=== PATIENT | male | born 1950 | race Caucasian/White ===

== ENCOUNTER → 2016-04-29 | Outpatient (CLI) | payer OTHER ==
--- NOTE | 2016-04-29 15:25 | MR ---
MRCP HISTORY: Abnormal ultrasound abdomen Multiplanar multisequence imaging through the abdomen, three-dimensional post processing performed Correlation ultrasound abdomen 23 October 2013, ultrasound March 2016 from outside institution Gallbladder is distended. Luminal foci of dependent low signal present within the gallbladder compati ble with cholelithiasis. Cystic foci are present within the liver, liver is enlarged. The liver shows a nodular contour and heterogeneous signal compatible with hepatocellular disease. There is ascites. The common bile duct is mildly dilated. No definite luminal abnormality within the common bile duct h owever. Large amount of fluid-filled small bowel loops are present IMPRESSION: Findings compatible with cirrhosis, lack of contrast may limit sensitivity for liver mass . There are liver cysts noted. Cholelithiasis with distended gallbladder, mildly prominent common jose e duct, choledocholithiasis is not evident. Findings are compatible with ultrasound findings.
== END | disposition home or self-care (01) ==
LOC: RADMRIMAIN 10:21
PROVIDERS: ATTEND Physician Assistant
DX: K76.89 Other specified diseases of liver (principal); K80.20 Calculus of gallbladder without cholecystitis without obstruction
CPT/HCPCS: 74181

== ENCOUNTER 2016-06-12 10:40 | Inpatient (IN) | payer OTHER ==
[2016-06-12] MEDS ORDERED: LORazepam 2 MG/ML SYRINGE IV STA (11:07)
[2016-06-12] MEDS ORDERED: SODIUM CHLORIDE 0.9% 1,000 ML IV ONE (11:07)
[2016-06-12] MEDS ORDERED: SODIUM CHLORIDE 0.9% 500 ML IV ONE (11:07)
[2016-06-12] MEDS ORDERED: THIAMINE 100 MG/ML 2 ML VIAL IVP STA (11:07)
[2016-06-12] MEDS ORDERED: THIAMINE 100 MG/ML 2 ML VIAL IM STA (11:09)
[2016-06-12] MEDS ORDERED: LORazepam 2 MG/ML SYRINGE IV PRN ×3 (11:09→14:17)
[2016-06-12] MEDS ORDERED: FOLIC ACID 5 MG/ML 10 ML VIAL IM STA (11:10)
--- NOTE | 2016-06-12 11:14 | ED ---
Altered Mental Status HPI - General Chief Complaint: Altered Mental Status Stated Complaint: Altered Mental Status Time Seen by Provider: 06/12/16 10:53 Source: family Mode of arrival: EMS Limitations: altered mental status - History of Present Illness Initial Comments: 66 years old gentleman has a history of alcohol use according to his 2 children he drinks quite heavily and has been drinking that for long time he hasn't had any alcohol for 2 days because he was very sick he was unable to get up and go get some alcohol also his family said he been throwing up coffee grounds and he has some blood in his stool as well. According to his family he went to [facility] or the day before yesterday and he was told that he had antibiotics then he left the hospital AGAINST MEDICAL ADVICE. Patient is quite confused and he is tossing and turning in the bed he partially follows the commands - Related Data Home Medications Medication Instructions Recorded Confirmed Aspirin [Adult Low Dose Aspirin EC] 81 mg PO DAILY 06/12/16 06/12/16 Multivitamins, Thera [Multivitamin 1 tab PO DAILY 06/12/16 06/12/16 (formulary)] Pantoprazole [Protonix] 40 mg PO [id number] 06/12/16 06/12/16 Thiamine [Vitamin B-1] 100 mg PO DAILY 06/12/16 06/12/16 Allergies Allergy/AdvReac Type Severity Reaction Status Date / Time No Known Allergies Allergy Verified 06/12/16 12:16 Review of Systems ROS Statement: Those systems with pertinent positive or pertinent negative responses have been documented in the HPI. ROS Other: All systems not noted in ROS Statement are negative. Past Medical History Past Medical History: No Reported History History of Any Multi-Drug Resistant Organisms: None Reported Past Surgical History: No Surgical Hx Reported Additional Past Surgical History / Comment(s): REMOVAL SEBACEOUS SCROTAL SEBACEOUS CYST SEVERAL TIMES; CATARACT SURGERY BILATERAL Past Psychological History: No Psychological Hx Reported Smoking Status: Current every day smoker Past Alcohol Use History: Occasional Past Drug Use History: None Reported General Exam Limitations: altered mental status Course Vital Signs 06/12/16 06/12/16 06/12/16 10:44 12:00 13:33 Temperature 97.3 F L 97.0 F L Pulse Rate 102 H 103 H 110 H Respiratory 20 18 20 Rate Blood Pressure 129/60 126/59 120/58 O2 Sat by Pulse 100 96 100 Oximetry This EKG shows sinus tachycardia ventricular rate is 1 or 3 TX interval is 134 QRS duration is 88 QT/QTc is 390/5 Review of this EKG showed some T-wave inversion in lead 3. Inversion in aVF and now ST depression in lead V6 Medical Decision Making - Lab Data Result diagrams: 06/12/16 12:00 06/12/16 11:00 Lab Results 06/12/16 06/12/16 06/12/16 Range/Units 11:00 11:00 11:00 WBC 11.8 H (3.8-10.6) k/uL RBC 1.56 L (4.30-5.90) m/uL Hgb 4.7 L* (13.0-17.5) gm/dL Hct 14.5 L* (39.0-53.0) % MCV 93.5 (80.0-100.0) fL MCH 30.1 (25.0-35.0) pg MCHC 32.2 (31.0-37.0) g/dL RDW 15.8 H (11.5-15.5) % Plt Count 79 L (150-450) k/uL Neutrophils % 82 % Lymphocytes % 10 % Monocytes % 5 % Eosinophils % 0 % Basophils % 0 % Neutrophils # 9.7 H (1.3-7.7) k/uL Lymphocytes # 1.2 (1.0-4.8) k/uL Monocytes # 0.6 (0-1.0) k/uL Eosinophils # 0.0 (0-0.7) k/uL Basophils # 0.0 (0-0.2) k/uL PT (9.0-12.0) sec INR (<1.1) APTT (22.0-30.0) sec Sodium 144 (137-145) mmol/L Potassium 3.9 (3.5-5.1) mmol/L Chloride 107 (98-107) mmol/L Carbon Dioxide 26 (22-30) mmol/L Anion Gap 11 mmol/L BUN 47 H (9-20) mg/dL Creatinine 0.81 (0.66-1.25) mg/dL Est GFR (MDRD) Af Amer >60 (>60 ml/min/1.73 sqM) Est GFR (MDRD) Non-Af >60 (>60 ml/min/1.73 sqM) Glucose 133 H (74-99) mg/dL Calcium 8.2 L (8.4-10.2) mg/dL Total Bilirubin 2.1 H (0.2-1.3) mg/dL AST 75 H (17-59) U/L ALT 48 (21-72) U/L Alkaline Phosphatase 82 (38-126) U/L Ammonia (<30) umol/L Total Creatine Kinase 143 (55-170) U/L CK-MB (CK-2) 0.3 (0.0-2.4) ng/mL CK-MB (CK-2) Rel Index 0.2 Troponin I 0.013 (0.000-0.034) ng/mL Total Protein 6.1 L (6.3-8.2) g/dL Albumin 2.7 L (3.5-5.0) g/dL Stool Occult Blood (Negative) Serum Alcohol <10 mg/dL 06/12/16 06/12/16 06/12/16 Range/Units 11:00 11:00 12:00 WBC 13.1 H (3.8-10.6) k/uL RBC 2.05 L (4.30-5.90) m/uL Hgb 6.1 L* (13.0-17.5) gm/dL Hct 19.4 L* (39.0-53.0) % MCV 94.8 (80.0-100.0) fL MCH 29.6 (25.0-35.0) pg MCHC 31.2 (31.0-37.0) g/dL RDW 15.5 (11.5-15.5) % Plt Count 157 D (150-450) k/uL Neutrophils % % Lymphocytes % % Monocytes % % Eosinophils % % Basophils % % Neutrophils # (1.3-7.7) k/uL Lymphocytes # (1.0-4.8) k/uL Monocytes # (0-1.0) k/uL Eosinophils # (0-0.7) k/uL Basophils # (0-0.2) k/uL PT 21.6 H (9.0-12.0) sec INR 2.2 (<1.1) APTT 20.8 L (22.0-30.0) sec Sodium (137-145) mmol/L Potassium (3.5-5.1) mmol/L Chloride (98-107) mmol/L Carbon Dioxide (22-30) mmol/L Anion Gap mmol/L BUN (9-20) mg/dL Creatinine (0.66-1.25) mg/dL Est GFR (MDRD) Af Amer (>60 ml/min/1.73 sqM) Est GFR (MDRD) Non-Af (>60 ml/min/1.73 sqM) Glucose (74-99) mg/dL Calcium (8.4-10.2) mg/dL Total Bilirubin (0.2-1.3) mg/dL AST (17-59) U/L ALT (21-72) U/L Alkaline Phosphatase (38-126) U/L Ammonia 142 H (<30) umol/L Total Creatine Kinase (55-170) U/L CK-MB (CK-2) (0.0-2.4) ng/mL CK-MB (CK-2) Rel Index Troponin I (0.000-0.034) ng/mL Total Protein (6.3-8.2) g/dL Albumin (3.5-5.0) g/dL Stool Occult Blood (Negative) Serum Alcohol mg/dL 06/12/16 Range/Units 12:30 WBC (3.8-10.6) k/uL RBC (4.30-5.90) m/uL Hgb (13.0-17.5) gm/dL Hct (39.0-53.0) % MCV (80.0-100.0) fL MCH (25.0-35.0) pg MCHC (31.0-37.0) g/dL RDW (11.5-15.5) % Plt Count (150-450) k/uL Neutrophils % % Lymphocytes % % Monocytes % % Eosinophils % % Basophils % % Neutrophils # (1.3-7.7) k/uL Lymphocytes # (1.0-4.8) k/uL Monocytes # (0-1.0) k/uL Eosinophils # (0-0.7) k/uL Basophils # (0-0.2) k/uL PT (9.0-12.0) sec INR (<1.1) APTT (22.0-30.0) sec Sodium (137-145) mmol/L Potassium (3.5-5.1) mmol/L Chloride (98-107) mmol/L Carbon Dioxide (22-30) mmol/L Anion Gap mmol/L BUN (9-20) mg/dL Creatinine (0.66-1.25) mg/dL Est GFR (MDRD) Af Amer (>60 ml/min/1.73 sqM) Est GFR (MDRD) Non-Af (>60 ml/min/1.73 sqM) Glucose (74-99) mg/dL Calcium (8.4-10.2) mg/dL Total Bilirubin (0.2-1.3) mg/dL AST (17-59) U/L ALT (21-72) U/L Alkaline Phosphatase (38-126) U/L Ammonia (<30) umol/L Total Creatine Kinase (55-170) U/L CK-MB (CK-2) (0.0-2.4) ng/mL CK-MB (CK-2) Rel Index Troponin I (0.000-0.034) ng/mL Total Protein (6.3-8.2) g/dL Albumin (3.5-5.0) g/dL Stool Occult Blood Positive (Negative) Serum Alcohol mg/dL Critical Care Time Total Critical Care Time: 60 Critical Care Time: She came in now quite altered mental status sink turning in the bed with a heart rate of 110 and 15 he hasn't had any alcohol for the last 2 days and half he does drink approximately three fourths of a case every day family seen him mom throwing up blood as well as black tarry stool in his rectal exam was positive as well his hemoglobin is 6.1 INR is 2.2 and he is not on a Coumadin and his troponin is negative, blood was positive chest x-rays negative and so a head CT he needed to come in to ICU for active bleeding as well as for very high risk of DTs was probably Dr. Duke myself ordered type and cross and now 2 units of packed cells to be transferred along with the proton aches and he been getting he been getting Ativan pretty frequently and had activated the withdrawal PROTOCOL Disposition Clinical Impression: Altered mental status, Symptomatic anemia, Rectal bleed, Alcohol withdrawal Disposition: ADMITTED IP TO THIS HOSP Condition: Fair Referrals: Bryce Dorman DO [Primary Care Provider] - 1-2 days
[2016-06-12 11:33] LABS: Basophils % (A) 0 %; CH 29.4; CHCM 31.7; Eosinophils % (A) 0 %; HDW 2.48; Luc # (Auto) 0.24; Luc % (Auto) 2; Lymphocytes # (A) 1.2 k/uL (1.0-4.8); Lymphocytes % (A) 10 %; MCH 30.1 pg (25.0-35.0); MCHC 32.2 g/dL (31.0-37.0); MCV 93.5 fL (80.0-100.0); Mean Platelet Volume 7.7; Monocytes # (A) 0.6 k/uL (0-1.0); Monocytes % (A) 5 %; Neutrophils # (A) 9.7 k/uL (1.3-7.7); Neutrophils % (A) 82 %; RBC 1.56 m/uL (4.30-5.90); RDW 15.8 % (11.5-15.5); WBC 11.8 k/uL (3.8-10.6); WBC (Perox) 12.04
[2016-06-12 11:41] LABS: HGB 4.7 gm/dL (13.0-17.5)
[2016-06-12 11:42] LABS: ALT 48 U/L (21-72); AST 75 U/L (17-59); Alcohol <10 mg/dL; Alkaline Phosphatase 82 U/L (38-126); Anion Gap 11 mmol/L; Blood Urea Nitrogen 47 mg/dL (9-20); Calcium 8.2 mg/dL (8.4-10.2); Carbon Dioxide 26 mmol/L (22-30); Chloride 107 mmol/L (98-107); Glucose 133 mg/dL (74-99); HCT 14.5 % (39.0-53.0); Non-African American GFR(MDRD) >60 (>60 ml/min/1.73 sqM); Potassium 3.9 mmol/L (3.5-5.1); Sodium 144 mmol/L (137-145); Total Bilirubin 2.1 mg/dL (0.2-1.3); Total Protein 6.1 g/dL (6.3-8.2)
[2016-06-12 11:45] LABS: INR 2.2 (<1.1); Prothrombin Time 21.6 sec (9.0-12.0)
--- NOTE | 2016-06-12 11:49 | XR ---
EXAMINATION TYPE: XR chest 2V DATE OF EXAM: 06/12/2016 11:43 AM COMPARISON: None HISTORY: 66 year-old male altered mental status, nonresponsive. TECHNIQUE: Frontal and lateral views FINDINGS: Heart is upper limits of normal in size. Mild interstitial prominence has a chronic appearance. Pulmo nary vasculature within normal limits. No consolidation or pleural effusion. IMPRESSION: Chronic-appearing changes. No focal infiltrate seen.
[2016-06-12 11:54] LABS: Partial Thromboplastin Time 20.8 sec (22.0-30.0)
[2016-06-12 12:13] LABS: CHCM 31.9; MCH 29.6 pg (25.0-35.0); MCHC 31.2 g/dL (31.0-37.0); MCV 94.8 fL (80.0-100.0); RBC 2.05 m/uL (4.30-5.90); RDW 15.5 % (11.5-15.5); WBC 13.1 k/uL (3.8-10.6)
[2016-06-12 12:14] LABS: HDW 2.41; Mean Platelet Volume 7.7
[2016-06-12 12:20] LABS: HCT 19.4 % (39.0-53.0); HGB 6.1 gm/dL (13.0-17.5)
--- NOTE | 2016-06-12 12:21 | CT ---
EXAMINATION TYPE: CT brain wo con DATE OF EXAM: 06/12/2016 11:51 AM COMPARISON: NONE HISTORY: 66-year-old male ams, unable to obtain history. TECHNIQUE: Examination was done in axial plane without intravenous contrast. Coronal and sagittal r econstructions performed. CT DLP: 1036.0 mGycm Automated exposure control for dose reduction was used. FINDINGS: There is no evidence of acute intracranial hemorrhage, acute ischemic changes, mass, mass-effect, or extra-axial fluid collection. There is no effacement of cerebral sulci or basal subarachnoid cister ns. There is no hydrocephalus. There is no midline shift. Grant-white matter distinction is preserv ed. There is a mild to moderate patchy white matter hypodensities which is in the right parietal lobe emily p white matter congesting cardiac small vessel ischemic disease. Some frothy partial opacification in the left maxillary sinus. Mastoid air cells well pneumatized. Or bits and globes are intact. Patient's gaze is divergent suggesting underlying strabismus. IMPRESSION: 1. No acute intracranial abnormality seen. Mild changes of chronic small vessel ischemic disease. 2. Some opacification of the left maxillary sinus; correlate for acute sinusitis.
[2016-06-12 12:26] LABS: Creatine Kinase MB 0.3 ng/mL (0.0-2.4); Troponin I 0.013 ng/mL (0.000-0.034)
[2016-06-12] MEDS ORDERED: SODIUM CHLORIDE 0.9% 1,000 ML with MVI, ADULT NO.4 WITH VIT K 10 ML, THIAMINE 100 MG, F... IV ONE ×4 (12:30)
[2016-06-12] MEDS ORDERED: IPRATROPIUM-ALBUTEROL 3 ML NEB INHALATION PRN (14:11)
[2016-06-12] MEDS ORDERED: NALOXONE 0.4 MG/ML 1 ML VIAL IV PRN (14:11)
[2016-06-12] MEDS ORDERED: DEXTROSE 5%-0.9% NACL 1,000 ML IV SCH (14:30)
[2016-06-12 16:11] LABS: Glucose,Whole Blood 146 mg/dL (75-99)
[2016-06-12] MEDS ORDERED: THIAMINE 100 MG TAB PO SCH (17:00)
[2016-06-12 18:30] LABS: Appearance,Urine Clear (Clear); Bilirubin,Urine Negative (Negative); Glucose,Urine (UA) Negative (Negative); Ketones,Urine Negative (Negative); Leukocyte Esterase,Urine Negative (Negative); Nitrite,Urine Negative (Negative); PH, Urine 5.5 (5.0-8.0); Protein,Urine Negative (Negative); Specific Gravity,Urine 1.015 (1.001-1.035); UA Billing (MACRO vs. MICRO) CHEM; Urobilinogen,Urine <2.0 mg/dL (<2.0)
[2016-06-12] MEDS ORDERED: PROPOFOL 50 ML IV ONE (20:23)
[2016-06-12] MEDS: PROPOFOL 500 MG in EMPTY BAG 1 BAG IV SCH (20:45)
--- NOTE | 2016-06-12 20:59 | XR ---
EXAMINATION TYPE: XR chest 1V portable DATE OF EXAM: 06/12/2016 8:45 PM Comparison: Earlier today Clinical History: 66 year-old male tube placement Findings: ET tube is satisfactory. NG tube courses below the diaphragm. Heart is normal size. Aorta and pulmona ry vasculature are within normal limits. Mild interstitial prominence is unchanged and likely chronic . No consolidation or pleural effusion seen. Impression: 1. Satisfactory ET tube. 2. Otherwise, chronic appearing changes without acute process seen.
[2016-06-12 21:40] LABS: ABG Base Excess -3.6 mmol/L; ABG HCO3 20 mmol/L (21-25); ABG PCO2 31 mmHg (35-45); ABG PH 7.43 (7.35-7.45); ABG PO2 291 mmHg (83-108); ABG TCO2 21 mmol/L (19-24)
[2016-06-12] MEDS ORDERED: 0.9% NACL WITH KCL 20 MEQ/L 1,000 ML with MVI, ADULT NO.4 WITH VIT K 10 ML, THIAMINE 10... IV SCH ×4 (23:00)
[2016-06-13] MEDS: LEVOFLOXACIN 500MG-D5W PMX 500 MG in DEXTROSE/WATER 1 100ML.BAG IVPB SCH ×2 (00:03→20:17)
[2016-06-13] MEDS: PANTOPRAZOLE 40 MG/10 ML VIAL IVP SCH ×3 (00:04→20:18)
[2016-06-13] MEDS: NICOTINE 14MG/24HR PATCH TRANSDERM SCH ×2 (00:07→08:17)
[2016-06-13] MEDS: methylPREDNISolone SOD SUCCI 125 MG/2 ML VIAL IV SCH ×5 (00:39→23:57)
[2016-06-13 00:40] LABS: Glucose,Whole Blood 166 mg/dL (75-99)
[2016-06-13] MEDS: INSULIN LISPRO (humaLOG) 300 UNIT/3 ML VIAL SQ SCH ×5 (00:42→23:58)
[2016-06-13 01:40] LABS: Anisocytosis Slight; CH 29.7; CHCM 32.1; HCT 24.1 % (39.0-53.0); HDW 3.02; Hypochromasia Slight; MCH 30.1 pg (25.0-35.0); MCHC 32.2 g/dL (31.0-37.0); MCV 93.4 fL (80.0-100.0); Mean Platelet Volume 7.2; RBC 2.58 m/uL (4.30-5.90); RDW 16.4 % (11.5-15.5)
[2016-06-13 01:48] LABS: WBC 27.9 k/uL (3.8-10.6)
[2016-06-13 01:49] LABS: HGB 7.7 gm/dL (13.0-17.5)
[2016-06-13] MEDS: PROPOFOL 500 MG in EMPTY BAG 1 BAG IV SCH ×3 (03:16→22:08)
[2016-06-13 04:59] LABS: Anisocytosis Slight; Basophils % (A) 0 %; CH 29.7; CHCM 31.9; Eosinophils % (A) 0 %; HCT 25.2 % (39.0-53.0); HDW 3.04; Hypochromasia Slight; Luc # (Auto) 0.14; Luc % (Auto) 1; Lymphocytes # (A) 0.4 k/uL (1.0-4.8); Lymphocytes % (A) 2 %; MCH 29.7 pg (25.0-35.0); MCHC 31.5 g/dL (31.0-37.0); Mean Platelet Volume 7.1; Monocytes # (A) 0.7 k/uL (0-1.0); Monocytes % (A) 3 %; Neutrophils # (A) 24.6 k/uL (1.3-7.7); Neutrophils % (A) 95 %; RBC 2.68 m/uL (4.30-5.90); RDW 16.4 % (11.5-15.5); WBC (Perox) 26.82
[2016-06-13 05:06] LABS: ALT 63 U/L (21-72); AST 98 U/L (17-59); Alkaline Phosphatase 75 U/L (38-126); Anion Gap 11 mmol/L; Blood Urea Nitrogen 55 mg/dL (9-20); Calcium 7.6 mg/dL (8.4-10.2); Carbon Dioxide 21 mmol/L (22-30); Chloride 113 mmol/L (98-107); Glucose 149 mg/dL (74-99); Magnesium 2.2 mg/dL (1.6-2.3); Non-African American GFR(MDRD) 56 (>60 ml/min/1.73 sqM); Phosphorous 3.8 mg/dL (2.5-4.5); Potassium 3.7 mmol/L (3.5-5.1); Sodium 145 mmol/L (137-145); Total Bilirubin 2.8 mg/dL (0.2-1.3); Total Protein 5.5 g/dL (6.3-8.2)
[2016-06-13 05:17] LABS: WBC 25.9 k/uL (3.8-10.6)
[2016-06-13 05:39] LABS: ABG Base Excess -1.2 mmol/L; ABG HCO3 22 mmol/L (21-25); ABG PCO2 33 mmHg (35-45); ABG PH 7.44 (7.35-7.45); ABG PO2 158 mmHg (83-108); ABG TCO2 23 mmol/L (19-24)
[2016-06-13 06:30] LABS: Glucose,Whole Blood 166 mg/dL (75-99)
--- NOTE | 2016-06-13 07:15 | XR ---
EXAMINATION TYPE: XR chest 1V portable DATE OF EXAM: 06/13/2016 6:36 AM Comparison: 06/12/2016 Clinical History: 66-year-old male with tube placement. Findings: ET tube is satisfactory. NG tube courses below the diaphragm. The NG tube sidehole is at the level of the GE junction and advancement can be considered. Heart is normal size. There is mild interstitial prominence which is a chronic appearance. No sylwia consolidation or pleural effusion. Impression: Chronic changes with satisfactory ET tube. As the NG tube sidehole is at the level of the GE junction , consider further advancement into the stomach. No acute process is identified.
[2016-06-13] MEDS: BUDESONIDE 1 MG/2 ML NEBU INHALATION SCH ×2 (08:10→20:25)
[2016-06-13] MEDS: FORMOTEROL FUMARATE 20 MCG/2 ML NEBU INHALATION SCH ×2 (08:10→20:25)
[2016-06-13] MEDS: IPRATROPIUM 0.5 MG/2.5 ML NEBU INHALATION SCH ×4 (08:11→20:26)
[2016-06-13] MEDS: LEVALBUTEROL NEB (CONC) 1.25 MG/0.5 ML AMP INHALATION SCH ×4 (08:11→20:25)
[2016-06-13] MEDS: POTASSIUM CHLORIDE 10 MEQ, LIDOCAINE 2% INJ 10 MG in SODIUM CHLORIDE 0.9% 100 ML IV SCH ×2 (08:17→10:36)
[2016-06-13] MEDS: THIAMINE 100 MG/ML 2 ML VIAL IVP SCH (08:18)
[2016-06-13] MEDS: CHLORHEXIDINE GLUCONATE 15 ML CUP MUCOUS MEM SCH ×2 (08:30→20:17)
[2016-06-13] MEDS ORDERED: PANTOPRAZOLE 40 MG/10 ML VIAL IV SCH (09:00)
[2016-06-13] MEDS ORDERED: PHYTONADIONE 5 MG in SODIUM CHLORIDE 0.9% 50 ML IVPB STA (09:53)
[2016-06-13] MEDS ORDERED: SODIUM CHLORIDE 0.9% 1,000 ML with POTASSIUM CHLORIDE 20 MEQ, MVI, ADULT NO.4 WITH VIT ... IV SCH ×5 (10:30)
[2016-06-13 12:27] LABS: Glucose,Whole Blood 168 mg/dL (75-99)
--- NOTE | 2016-06-13 12:39 | HP ---
DATE OF ADMISSION: 06/12/2016 CHIEF COMPLAINT: Change in mental status. HISTORY OF PRESENT ILLNESS: This 66-year-old gentleman with a past medical history of multiple medical problems, including significant ETOH, history of sebaceous cyst, history of blood transfusion, history of nicotine dependence being followed by Dr. Dorman, apparently drinks heavily, drains about 8 to 12 22 ounce beers according to the chart. Followed by a double shot of liquor in the morning to stop the shaking. The patient apparently presented to [facility] ER with complaints of change in mental status and thought to have alcohol withdrawal syndrome and delirium tremens. The patient also had coffee-ground vomitus and then the patient apparently went to the [facility] today and was put on antibiotics and left the hospital against medical advice. The patient was admitted for further evaluation and treatment. On admission, the hemoglobin was found to be 4.7. The patient admitted to the hospital. Subsequently, the patient went into respiratory distress and the patient had acute respiratory failure and the patient mechanically intubated. The patient being monitored in the ICU at this time. The patient unable to give any coherent history and most of the history taken from my discussion with and as well as review of the chart at this time. PAST MEDICAL HISTORY: History of ETOH, history of sebaceous cyst, history of nicotine dependence. Medications prior to admission include: 1. Thiamine 100 mg daily. 2. Protonix 40 mg. 3. Multivitamin 1 p.o. daily. 4. Aspirin 81 mg daily. ALLERGIES: None. FAMILY HISTORY, SOCIAL HISTORY AND REVIEW OF SYSTEMS: Could not be taken because the patient is mechanically ventilated and sedated. Myocardial infarction in the family. History of smoking and significant alcohol as mentioned earlier. PHYSICAL EXAMINATION: The patient is mechanically sedated. The vent settings are noted. Pulse 120, blood pressure is 167/70, respirations 30. Temperature 98.8, pulse ox 91% on 100% FIO2. HEENT: Conjunctivae pale. Oral mucosa pale. NECK: No jugular venous distention. No thyroid enlargement. No lymph node enlargement. CARDIOVASCULAR: S1, S2 tachycardic. No S3, no S4. RESPIRATORY: Breath sounds diminished at the bases. Bilateral scattered rhonchi and crackles. ABDOMEN: Soft, nontender. No mass palpable. LEGS: No edema. No swelling. CENTRAL NERVOUS SYSTEM: Emaciated. Mechanically sedated. SKIN: No ulcer, rash or bleeding. LYMPHATICS: No lymph nodes palpable in the neck, axillae or groin. JOINTS: No active deforming arthropathy. LABORATORY DATA: WBC 13.4, Hemoglobin 6.1, glucose 133. Total bilirubin is 2.1. AST 75, albumin is 2.7. The chest x-ray done on admission showed . No focal infiltrate. Otherwise, most recent chest x-ray post intubation the most recent showed chest x-ray showed increased bronchovascular markings. ASSESSMENT: 1. Chronic obstructive pulmonary disease, acute exacerbation, with acute purulent tracheobronchitis with acute hypoxic respiratory failure on mechanical ventilation. 2. Anemia, normocytic rule out GI bleed with hematemesis. 3. Increased WBC, possibly reactive. 4. Thrombocytopenia possibly secondary to alcohol. 5. History of ETOH and possibly delirium tremens. 6. Coagulopathy possibly secondary to chronic liver disease. 7. Alcoholic hepatitis. 8. Increased bilirubin. 9. Increased AST. 10. Increased random blood sugar. 11. Hypovolemia with mild to moderate protein calorie malnutrition. 12. Possible chronic liver disease and cirrhosis of the liver. 13. History of acute gastrointestinal bleed and acute blood loss anemia. 14. Severe protein calorie malnutrition with a BMI of 19.3. 15. History of nicotine dependence. 16. FULL CODE. 17. History of noncompliance. RECOMMENDATIONS AND DISCUSSION: In this is 66-year-old gentleman who presented with multiple complex medical issues as listed above. We will monitor the patient closely in the ICU. Otherwise, obtain pulmonary critical care consultation as well as gastroenterology consultations. I would recommend bronchodilators transfusions. Monitor hemoglobin and hematocrit closely, proton pump inhibitors. Guarded prognosis because of multiple complex medical issues. Further recommendations to follow. A copy of dictation forwarded to Dr. Dorman who is the primary physician. ANALISA
[2016-06-13] MEDS: 1: MVI, ADULT NO.4 WITH VIT K 10 ML, THIAMINE 100 MG, FOLIC ACID 1 MG, POTASSIUM CHLORID IV SCH ×10 (12:49→22:09)
[2016-06-13] MEDS ORDERED: SODIUM CHLORIDE 0.9% 1,000 ML BAG ONE (12:49)
[2016-06-13 13:04] LABS: Anisocytosis Slight; CH 29.5; CHCM 31.5; HCT 27.3 % (39.0-53.0); HDW 3.12; HGB 8.4 gm/dL (13.0-17.5); Hypochromasia Slight; MCH 29.1 pg (25.0-35.0); MCHC 30.8 g/dL (31.0-37.0); MCV 94.5 fL (80.0-100.0); Mean Platelet Volume 7.4; RBC 2.89 m/uL (4.30-5.90); RDW 16.8 % (11.5-15.5); WBC 24.8 k/uL (3.8-10.6)
--- NOTE | 2016-06-13 13:40 | CONS ---
DATE OF CONSULTATION: Mr. Florencio Zamudio is a 66-year-old with extensive history of alcohol consumption on a daily basis ( ) in the morning. Patient was brought into the emergency department by the family as he is relatively more lethargic and somnolent. He has been having dark stool and having hematemesis. With those problems, patient was evaluated, found to have a low hemoglobin was admitted to the ICU. Patient gradually became more short of breath hypoxic becomes more anxious, agitated, GI services felt that patient needs to be monitored and observed at this point in time. Due to progressive hypoxia and high risk of aspiration, patient was intubated for airway protection. Most of the data has been on obtained from the chart as patient is an extremely poor historian and history cannot be obtained from the patient. Past medical history is significant for chronic alcohol use and heavy consumption complexity and sequelae of alcohol consumption is not known. Patient also has a history of prior bleeding for which the patient was taken to the [facility]. The patient of note left AMA at that time. PAST SURGICAL HISTORY: Unremarkable and noncontributory except sebaceous cyst removal, cataract extraction bilaterally. FAMILY HISTORY AND SOCIAL HISTORY: Significant for alcohol consumption, heavy use also, history of smoking about 1 pack per day. ALLERGIES: No known drug allergy. Medications at home include: 1. Thiamine 100 mg daily. 2. Protonix 40 mg daily. 3. Multivitamins. 4. Aspirin 81 mg daily. FAMILY HISTORY AND SOCIAL HISTORY: Otherwise unremarkable and noncontributory. His hemoglobin and hematocrit on arrival was noted to be 6.1 and 19.4, with white cell count of 13,100. The rest of the chemistry was normal. Patient intubated during evaluation, he is on 15 mcg of propofol drip, his vent setting includes assist control rate of 16, breathing 16, 600 tidal volume of 5 of PEEP and 40% oxygen. Minimal ET tube secretions are present. The OG tube; however, manifests as a significant degree of dark blood. The data and radiographic studies as reviewed and obtained from the emergency department include EKG revealed sinus tachycardia with some ST-T wave nonspecific changes. The chest x-ray performed at the time of admission revealed stable ET tube, OG tube and ET tube overall stable from the emergency department. The CT scan of the head performed revealed chronic changes with small vessel disease. Left maxillary sinus opacification and acute sinusitis was noted. No midline shift. No subarachnoid hemorrhage or hydrocephalus was noted. The chest x-ray performed postintubation revealed stable ET tube and OG tube so was the x-ray from this morning. Noted that OG-tube is sliding down into the fundus. On examination, most recent vitals include blood pressure 104/50, respiratory rate 17, pulse 90, temperature 98, saturation 100% on current vent setting. HEENT EXAMINATION: Otherwise unremarkable. NECK: Supple without lymphadenopathy, jugular venous distention or carotid bruit. LUNGS: Bilateral good air entry is present without significant rales, rhonchi, or rub. HEART: Regular rate and rhythm. S1 and S2 audible. ABDOMEN: Soft. No rebound or rigidity. EXTREMITIES: +1 peripheral pulses. NEUROLOGICAL EXAMINATION: The patient is sedated with propofol drip, undergoing oral hygiene. Laboratory data reviewed and includes: White cell count is 13,000 up to 27,900, hemoglobin, 6.1, hematocrit 19.42 post 2 units transfusion 7.7, hematocrit 24, platelet count of 139,000. PT and INR are 21.6 and 2.2. PTT is 20.8, pH of 7.43, pCO2 of 31, pO2 of 291. Post intubation. After vent adjustment this morning ABG with pH 7.444, pCO2 38 pO2 of 158. Sodium is 140, potassium 3.7. BUN and creatinine 55 and 1.3 up from 47 and 0.81. Glucose is 149. Calcium is 7.6, phosphorus 3.8. Total bilirubin is 2.8, AST and ALT are 75 and 48. Ammonia level is 142. Urine for drug screen is positive for benzodiazepine. The stool for occult blood positive. Urinalysis unremarkable, influenza A and B are both negative. IMPRESSION: 1. Acute hypoxic respiratory failure related to gastrointestinal bleed encephalopathy, which is likely hepatic encephalopathy. 2. Gastrointestinal bleed with acute blood loss anemia, status post transfusion of 2 units packed RBCs. The patient likely has intragastric process going on, ( ) versus ulcer. Gastroenterology services on consult. Plan is for endoscopy later on today or tomorrow. Patient is being treated with proton pump inhibitor along with gentle rehydration and blood transfusions as needed. 3. Acute hepatitis coagulopathy and cirrhosis of the liver. 4. Sepsis, source is not clear, ( ) aspiration pneumonia cannot be excluded. Recommend lozano cultures. 5. Severe chronic obstructive pulmonary disease, patient is being started on breathing treatments. Also has been placed on steroids as well. Has been on multivitamin, thiamine and folic acid as well. Broad-spectrum empiric antibiotics. PLAN AND RECOMMENDATION: Continue broad-spectrum antibiotics. Continue breathing treatments, steroids, I will start tapering steroids soon. Patient will be started on lactulose for encephalopathy. Endoscopy as per Gastroenterology. Will give vitamin K as well for correction of coagulopathy. Continue gentle rehydration. Continue supportive care. Will follow closely. Further recommendations pending. Plan of care as per clinical response of the patient.
[2016-06-13 14:19] LABS: Hemoglobin A1C 5.1 % (4.2-6.1)
[2016-06-13] MEDS: LACTULOSE 20 GM/30 ML CUP PO SCH ×2 (16:06→22:09)
--- NOTE | 2016-06-13 16:22 | P.GSCN ---
History of Present Illness Consult date: 06/13/16 Reason for Consult: Upper GI bleeding Requesting physician: Ean Elliott History of present illness: 66 years old male with known alcohol dependence presented with altered mental status changes. Patient was intubated and sedated. He was recently in [facility] ER and left AGAINST MEDICAL ADVICE. Daughter states patient has had drinking problem since childhood. Lately he has been taking more liquor. Patient at the time of my examination was intubated. Nasogastric tube in place and had dark bloody output. Physical exam Limited secondary to intubated condition. Review of systems and history obtained by reviewing charts and history from Review of Systems I'll review of systems Past Medical History Past Medical History: No Reported History History of Any Multi-Drug Resistant Organisms: None Reported Past Surgical History: No Surgical Hx Reported Additional Past Surgical History / Comment(s): REMOVAL SEBACEOUS SCROTAL SEBACEOUS CYST SEVERAL TIMES; CATARACT SURGERY LEFT Past Anesthesia/Blood Transfusion Reactions: No Reported Reaction Additional Past Anesthesia/Blood Transfusion Reaction / Comm: never had anesthesia or blood. Blood transfusion ordered 06/12/16 Past Psychological History: No Psychological Hx Reported Smoking Status: Current every day smoker Past Alcohol Use History: Heavy Additional Past Alcohol Use History / Comment(s): drinks 8-12 22oz of beer daily , followed by a double shooter of liquor in the morning to stop the shaking Past Drug Use History: None Reported - Past Family History Father Family Medical History: Myocardial Infarction ([place]) Medications and Allergies Home Medications Medication Instructions Recorded Confirmed Type Aspirin [Adult Low Dose Aspirin EC] 81 mg PO DAILY 06/12/16 06/12/16 History Multivitamins, Thera [Multivitamin 1 tab PO DAILY 06/12/16 06/12/16 History (formulary)] Pantoprazole [Protonix] 40 mg PO AC-BRKFST 06/12/16 06/12/16 History Thiamine [Vitamin B-1] 100 mg PO DAILY 06/12/16 06/12/16 History Allergies Allergy/AdvReac Type Severity Reaction Status Date / Time No Known Allergies Allergy Verified 06/12/16 12:16 Surgical - Exam Vital Signs Temp Pulse Resp BP Pulse Ox 97.3 F L 102 H 20 129/60 100 06/12/16 10:44 06/12/16 10:44 06/12/16 10:44 06/12/16 10:44 06/12/16 10:44 General: Patient is intubated, not alert and oriented to time, place and person HEENT: No pallor, no icterus, no thyroid enlargement, no cervical lymphadenopathy. Chest: Bilateral equal breath sounds present. No wheezes, no crackles. Cardiovascular: Regular rate and rhythm. Abdomen: Soft, nontender, nondistended. Nasogastric tube has blood-tinged output Neurologic: Cranial nerves II-XII intact. Strength upper and lower extremities 5/5. Results - Labs 06/13/16 12:40 06/13/16 15:22 Abnormal Lab Results - Last 24 Hours (Table) 06/12/16 06/12/16 06/12/16 Range/Units 14:35 16:10 21:06 WBC (3.8-10.6) k/uL RBC (4.30-5.90) m/uL Hgb (13.0-17.5) gm/dL Hct (39.0-53.0) % MCHC (31.0-37.0) g/dL RDW (11.5-15.5) % Plt Count (150-450) k/uL Neutrophils # (1.3-7.7) k/uL Lymphocytes # (1.0-4.8) k/uL ABG pCO2 31 L (35-45) mmHg ABG pO2 291 H (83-108) mmHg ABG HCO3 20 L (21-25) mmol/L ABG O2 Saturation 100.0 H (94-97) % Chloride (98-107) mmol/L Carbon Dioxide (22-30) mmol/L BUN (9-20) mg/dL Creatinine (0.66-1.25) mg/dL Glucose (74-99) mg/dL POC Glucose (mg/dL) (75-99) mg/dL Calcium (8.4-10.2) mg/dL Total Bilirubin (0.2-1.3) mg/dL AST (17-59) U/L Total Protein (6.3-8.2) g/dL Albumin (3.5-5.0) g/dL U Benzodiazepines Scrn Detected H (NotDetected) Crossmatch See Detail 06/13/16 06/13/16 06/13/16 Range/Units 00:37 01:10 04:32 WBC 27.9 H* (3.8-10.6) k/uL RBC 2.58 L (4.30-5.90) m/uL Hgb 7.7 L D (13.0-17.5) gm/dL Hct 24.1 L (39.0-53.0) % MCHC (31.0-37.0) g/dL RDW 16.4 H (11.5-15.5) % Plt Count 139 L (150-450) k/uL Neutrophils # (1.3-7.7) k/uL Lymphocytes # (1.0-4.8) k/uL ABG pCO2 (35-45) mmHg ABG pO2 (83-108) mmHg ABG HCO3 (21-25) mmol/L ABG O2 Saturation (94-97) % Chloride 113 H (98-107) mmol/L Carbon Dioxide 21 L (22-30) mmol/L BUN 55 H (9-20) mg/dL Creatinine 1.30 H (0.66-1.25) mg/dL Glucose 149 H (74-99) mg/dL POC Glucose (mg/dL) 166 H (75-99) mg/dL Calcium 7.6 L (8.4-10.2) mg/dL Total Bilirubin 2.8 H (0.2-1.3) mg/dL AST 98 H (17-59) U/L Total Protein 5.5 L (6.3-8.2) g/dL Albumin 2.3 L (3.5-5.0) g/dL U Benzodiazepines Scrn (NotDetected) Crossmatch 06/13/16 06/13/16 06/13/16 Range/Units 04:32 05:24 06:28 WBC 25.9 H* (3.8-10.6) k/uL RBC 2.68 L (4.30-5.90) m/uL Hgb 8.0 L (13.0-17.5) gm/dL Hct 25.2 L (39.0-53.0) % MCHC (31.0-37.0) g/dL RDW 16.4 H (11.5-15.5) % Plt Count (150-450) k/uL Neutrophils # 24.6 H (1.3-7.7) k/uL Lymphocytes # 0.4 L (1.0-4.8) k/uL ABG pCO2 33 L (35-45) mmHg ABG pO2 158 H (83-108) mmHg ABG HCO3 (21-25) mmol/L ABG O2 Saturation 100.0 H (94-97) % Chloride (98-107) mmol/L Carbon Dioxide (22-30) mmol/L BUN (9-20) mg/dL Creatinine (0.66-1.25) mg/dL Glucose (74-99) mg/dL POC Glucose (mg/dL) 166 H (75-99) mg/dL Calcium (8.4-10.2) mg/dL Total Bilirubin (0.2-1.3) mg/dL AST (17-59) U/L Total Protein (6.3-8.2) g/dL Albumin (3.5-5.0) g/dL U Benzodiazepines Scrn (NotDetected) Crossmatch 06/13/16 06/13/16 Range/Units 12:23 12:40 WBC 24.8 H (3.8-10.6) k/uL RBC 2.89 L (4.30-5.90) m/uL Hgb 8.4 L (13.0-17.5) gm/dL Hct 27.3 L (39.0-53.0) % MCHC 30.8 L (31.0-37.0) g/dL RDW 16.8 H (11.5-15.5) % Plt Count (150-450) k/uL Neutrophils # (1.3-7.7) k/uL Lymphocytes # (1.0-4.8) k/uL ABG pCO2 (35-45) mmHg ABG pO2 (83-108) mmHg ABG HCO3 (21-25) mmol/L ABG O2 Saturation (94-97) % Chloride (98-107) mmol/L Carbon Dioxide (22-30) mmol/L BUN (9-20) mg/dL Creatinine (0.66-1.25) mg/dL Glucose (74-99) mg/dL POC Glucose (mg/dL) 168 H (75-99) mg/dL Calcium (8.4-10.2) mg/dL Total Bilirubin (0.2-1.3) mg/dL AST (17-59) U/L Total Protein (6.3-8.2) g/dL Albumin (3.5-5.0) g/dL U Benzodiazepines Scrn (NotDetected) Crossmatch Microbiology - Last 24 Hours (Table) 06/13/16 03:20 Gram Stain - Preliminary Sputum 06/13/16 01:00 Urine Culture - Preliminary Urine,Catheterized Diabetes panel 06/13/16 06/13/16 Range/Units 04:32 15:22 Sodium 145 (137-145) mmol/L Potassium 3.7 3.9 (3.5-5.1) mmol/L Chloride 113 H (98-107) mmol/L Carbon Dioxide 21 L (22-30) mmol/L BUN 55 H (9-20) mg/dL Creatinine 1.30 H (0.66-1.25) mg/dL Glucose 149 H (74-99) mg/dL Calcium 7.6 L (8.4-10.2) mg/dL AST 98 H (17-59) U/L ALT 63 (21-72) U/L Alkaline Phosphatase 75 (38-126) U/L Total Protein 5.5 L (6.3-8.2) g/dL Albumin 2.3 L (3.5-5.0) g/dL Calcium panel 06/13/16 Range/Units 04:32 Calcium 7.6 L (8.4-10.2) mg/dL Phosphorus 3.8 (2.5-4.5) mg/dL Albumin 2.3 L (3.5-5.0) g/dL Pituitary panel 06/13/16 06/13/16 Range/Units 04:32 15:22 Sodium 145 (137-145) mmol/L Potassium 3.7 3.9 (3.5-5.1) mmol/L Chloride 113 H (98-107) mmol/L Carbon Dioxide 21 L (22-30) mmol/L BUN 55 H (9-20) mg/dL Creatinine 1.30 H (0.66-1.25) mg/dL Glucose 149 H (74-99) mg/dL Calcium 7.6 L (8.4-10.2) mg/dL Adrenal panel 06/13/16 06/13/16 Range/Units 04:32 15:22 Sodium 145 (137-145) mmol/L Potassium 3.7 3.9 (3.5-5.1) mmol/L Chloride 113 H (98-107) mmol/L Carbon Dioxide 21 L (22-30) mmol/L BUN 55 H (9-20) mg/dL Creatinine 1.30 H (0.66-1.25) mg/dL Glucose 149 H (74-99) mg/dL Calcium 7.6 L (8.4-10.2) mg/dL Total Bilirubin 2.8 H (0.2-1.3) mg/dL AST 98 H (17-59) U/L ALT 63 (21-72) U/L Alkaline Phosphatase 75 (38-126) U/L Total Protein 5.5 L (6.3-8.2) g/dL Albumin 2.3 L (3.5-5.0) g/dL Assessment and Plan (1) Altered mental status Status: Acute (2) Rectal bleed Status: Acute (3) Symptomatic anemia Status: Acute Plan: 66 years old male with known alcoholic dependence presenting with altered mental status and GI bleeding 1. Patient is currently intubated. He is at high risk for delirium tremens 2. Serial H&H monitoring. Transfused packed RBC if hemoglobin less than 7. 3. Patient will need diagnostic and possibly therapeutic EGD. Dr. Schneider from GI is following. 4. Absolute alcohol abstinence 5. No indication for emergent surgical intervention at this time 6. Check ammonia levels
[2016-06-13 18:22] LABS: Glucose,Whole Blood 169 mg/dL (75-99)
--- NOTE | 2016-06-13 18:57 | PN ---
DATE OF SERVICE: 06/13/2016 This 66-year-old gentleman was admitted with change in mental status, COPD acute exacerbation. The patient also had acute DTs. The patient is on mechanical ventilation. Pulmonary is following the patient. The chest x-ray showed chronic changes and satisfactory ET tube. Past medical history and review of systems could not be taken, the patient is mechanically sedated. Current medications are reviewed and include: 1. Pulmicort 1 mg b.i.d. 2. Peridex. 4. Lovenox. 5. Atrovent q.i.d. 6. Cephalexin 7. Xopenex. 8. Ativent p.r.n. 9. Solu-Medrol 60 IV q6. 10. Narcan. 11. Protonix. 12. Propofol drip. 13. P.r.n. medications. PHYSICAL EXAMINATION: The patient is mechanically sedated. Pulse 91, blood pressure 106/52, respirations 16, temperature 98.9, pulse ox 100% on mechanical ventilation. 40% FIO2. HEENT: Conjunctivae normal. Oral mucosa moist. NECK: No jugular venous distention. CARDIAC: S1 and S2, no S3 or S4, diminished at the bases. RESPIRATORY: Breath sounds diminished at the bases. Scattered rhonchi and crackles. ABDOMEN: Soft, nontender. LEGS: No swelling. LABS: WBC 24.8, hemoglobin is 8.4 and glucose is 168. Albumin is 2.3. ASSESSMENT: 1. Chronic obstructive pulmonary disease exacerbation, with acute purulent tracheobronchitis with acute hypoxic respiratory failure on mechanical ventilation. 2. Anemia, normocytic, rule out gastrointestinal bleeding with hematemesis. 3. Increased WBC, possibly reactive. 4. Thrombocytopenia possibly secondary to alcohol. 5. History of EtOH and possibly delirium tremens. 6. Coagulopathy, possibly secondary to chronic liver disease. 7. History of alcoholic hepatitis. 8. Increased bilirubin. 9. Increased AST. 10. Increased random blood sugar. 11. Hypoalbuminemia with mild to moderate protein calorie malnutrition. 12. Possible chronic liver disease. 13. Cirrhosis of the liver. 14. History of acute GI bleed and acute blood loss anemia. 15. History of severe protein calorie malnutrition with a BMI of 19.3. 16. History of nicotine dependence. 17. History of noncompliance. 18. FULL CODE. RECOMMENDATION: Recommend current medications, current to monitor, continue current medications, continue bronchidilators, repeat labs. Otherwise, mechanical ventilation per pulmonary. Other than that, continue with empiric antibiotics. See orders for further details. Prognosis guarded. Further weaning per pulmonary. Further recommendations to follow. Discussed with multiple members of the family. Will continue with Funmilayo HAUSER
[2016-06-13 20:41] LABS: Anisocytosis Slight; CH 29.4; CHCM 30.8; HCT 25.9 % (39.0-53.0); HDW 3.22; HGB 8.2 gm/dL (13.0-17.5); Hypochromasia Moderate; MCH 30.7 pg (25.0-35.0); MCHC 31.9 g/dL (31.0-37.0); MCV 96.2 fL (80.0-100.0); Macrocytosis Slight; Mean Platelet Volume 7.5; RBC 2.69 m/uL (4.30-5.90); RDW 17.3 % (11.5-15.5); WBC 18.1 k/uL (3.8-10.6)
[2016-06-14] LABS: Glucose,Whole Blood 158 mg/dL (75-99)
[2016-06-14] MEDS: PROPOFOL 500 MG in EMPTY BAG 1 BAG IV SCH ×6 (03:05→20:04)
[2016-06-14 04:42] LABS: ABG Base Excess -5.7 mmol/L; ABG HCO3 18 mmol/L (21-25); ABG PCO2 25 mmHg (35-45); ABG PH 7.46 (7.35-7.45); ABG PO2 159 mmHg (83-108); ABG TCO2 18 mmol/L (19-24)
[2016-06-14 05:03] LABS: Anisocytosis Slight; Basophils % (A) 0 %; CH 29.2; CHCM 31.8; Eosinophils % (A) 0 %; HCT 25.6 % (39.0-53.0); HDW 3.35; HGB 8.5 gm/dL (13.0-17.5); Hypochromasia Slight; Luc # (Auto) 0.18; Luc % (Auto) 1; Lymphocytes # (A) 0.7 k/uL (1.0-4.8); Lymphocytes % (A) 4 %; MCH 30.6 pg (25.0-35.0); MCHC 33.1 g/dL (31.0-37.0); MCV 92.7 fL (80.0-100.0); Mean Platelet Volume 7.3; Monocytes # (A) 0.9 k/uL (0-1.0); Monocytes % (A) 5 %; Neutrophils # (A) 15.5 k/uL (1.3-7.7); Neutrophils % (A) 90 %; RBC 2.76 m/uL (4.30-5.90); RDW 17.5 % (11.5-15.5); WBC 17.2 k/uL (3.8-10.6); WBC (Perox) 17.76
[2016-06-14 05:34] LABS: Anion Gap 10 mmol/L; Blood Urea Nitrogen 48 mg/dL (9-20); Carbon Dioxide 20 mmol/L (22-30); Glucose 150 mg/dL (74-99); Magnesium 2.6 mg/dL (1.6-2.3); Non-African American GFR(MDRD) >60 (>60 ml/min/1.73 sqM); Phosphorous 3.7 mg/dL (2.5-4.5); Potassium 4.1 mmol/L (3.5-5.1); Sodium 154 mmol/L (137-145)
[2016-06-14 05:45] LABS: Chloride 124 mmol/L (98-107)
[2016-06-14] MEDS: methylPREDNISolone SOD SUCCI 125 MG/2 ML VIAL IV SCH (05:47)
[2016-06-14] MEDS: INSULIN LISPRO (humaLOG) 300 UNIT/3 ML VIAL SQ SCH ×3 (05:47→18:31)
--- NOTE | 2016-06-14 06:18 | P.CONS ---
History of Present Illness - Reason for Consult Consult date: 06/12/16 - History of Present Illness The patient is a 66-year old male who was brought to the ER by his family because of mental changes, coffee ground emesis and dark stools. The patient was briefly hospitalized at [facility] and left AMA one or two days prior. There is history of alcohol dependency and the patient is reported to consume 8-12 22 oz bottle of beer daily. He was becoming too ill unable to get his beer for few days and could have been having withdrawal according to family. The patient has been significantly obtunded and no information was obtained from the patient. Review of Systems Constitutional: No reported fever, chills or unintentional weight loss Neurologic: No reported headaches, double vision or other sensory or motor changes Cardiopulmonary: No reported chest pains, SOB or palpitations Gastrointestinal: See PI above Genitourinary: No reported hematuria, dysuria or frequency Muskuloskeletal: No reported joint pains or swelling Endocrine: No history of diabetes or thyroid disease Skin: No history of skin rashes Psychiatric: No history of anxiety or depression Past Medical History Past Medical History: No Reported History History of Any Multi-Drug Resistant Organisms: None Reported Past Surgical History: No Surgical Hx Reported Additional Past Surgical History / Comment(s): REMOVAL SEBACEOUS SCROTAL SEBACEOUS CYST SEVERAL TIMES; CATARACT SURGERY LEFT Past Anesthesia/Blood Transfusion Reactions: No Reported Reaction Additional Past Anesthesia/Blood Transfusion Reaction / Comm: never had anesthesia or blood. Blood transfusion ordered 06/12/16 Past Psychological History: No Psychological Hx Reported Smoking Status: Current every day smoker Past Alcohol Use History: Heavy Additional Past Alcohol Use History / Comment(s): drinks 8-12 22oz of beer daily , followed by a double shooter of liquor in the morning to stop the shaking Past Drug Use History: None Reported - Past Family History Father Family Medical History: Myocardial Infarction ([place]) Medications and Allergies Home Medications Medication Instructions Recorded Confirmed Type Aspirin [Adult Low Dose Aspirin EC] 81 mg PO DAILY 06/12/16 06/12/16 History Multivitamins, Thera [Multivitamin 1 tab PO DAILY 06/12/16 06/12/16 History (formulary)] Pantoprazole [Protonix] 40 mg PO AC-BRKFST 06/12/16 06/12/16 History Thiamine [Vitamin B-1] 100 mg PO DAILY 06/12/16 06/12/16 History Allergies Allergy/AdvReac Type Severity Reaction Status Date / Time No Known Allergies Allergy Verified 06/12/16 12:16 Physical Exam Vitals: Vital Signs Temp Pulse Resp BP Pulse Ox 06/12/16 22:17 98.3 F 99 21 113/51 100 06/12/16 22:00 98.9 F 99 22 118/53 100 06/12/16 21:45 98.9 F 98 21 97/48 100 06/12/16 21:30 101 H 23 99/47 100 06/12/16 21:00 114 H 28 H 141/60 100 06/12/16 20:30 122 H 16 87/51 100 06/12/16 20:24 98.8 F 120 H 30 H 160/70 91 L 06/12/16 20:00 99.1 F 136 H 36 H 160/55 92 L 06/12/16 19:54 99.6 F 134 H 35 H 160/55 91 L 06/12/16 19:44 99.1 F 136 H 36 H 160/55 92 L 06/12/16 19:30 132 H 34 H 160/64 90 L 06/12/16 19:00 124 H 26 H 145/56 90 L 06/12/16 18:30 126 H 24 141/62 91 L 06/12/16 18:00 115 H 22 154/62 90 L 06/12/16 17:30 107 H 22 107/50 97 06/12/16 17:00 109 H 25 H 110/51 97 06/12/16 16:30 98.5 F 110 H 21 142/57 98 06/12/16 16:00 22 06/12/16 15:43 127 H 20 148/64 99 06/12/16 14:18 125 H 22 129/58 100 Intake and Output 06/12/16 06/12/16 06/13/16 14:59 22:59 06:59 Intake Total 814.681 Output Total 485 Balance 329.681 Intake: Intake, IV Titration 504.681 Amount Propofol 500 mg In Empty 4.681 Bag 1 bag @ Titrate IV . Q0M [facility] Rx#:[id number] Sodium Chloride 0.9% 1, 500 000 ml @ 100 mls/hr IV . Q10H7M ONE with Mvi, Adult No.4 with Vit K 10 ml with Thiamine 100 mg with Folic Acid 1 mg Rx#: [id number] Blood Product 310 Rc Pheresis 2 As3 Unit 0 [id number] Rc Pheresis 2 As3 Unit 310 [id number] Output: Urine 485 Other: Voiding Method Indwelling Catheter Weight 59.3 kg Patient Weight 06/13/16 06:59 Weight 59.3 kg General: Appeared sleepy/obtunded not responding to verbal commands Head and neck: Normocephalic and atraumatic, conjunctivae pink and sclerae icteric. No masses in the neck or tracheal shifts. No adenopathy or thyromegaly Lungs: Clear to auscultation with no dullness to percussion Heart: Regular with no abnormal sounds, murmurs, gallops or friction rubs Abdomen: Soft, no masses, organomegalies or tenderness, BS positive. Some degree of shifting dullness Extremities: No clubbing, cyanosis or edema. Has palmar erythema and spider angiomas Neurologic: Obtunded, no gross sensory or motor abnormalities Results CBC & Chem 7: 06/14/16 04:30 06/14/16 04:30 Labs: Abnormal Lab Results - Last 24 Hours (Table) 06/12/16 06/12/16 06/12/16 Range/Units 14:35 16:08 16:10 ABG pCO2 (35-45) mmHg ABG pO2 (83-108) mmHg ABG HCO3 (21-25) mmol/L ABG O2 Saturation (94-97) % POC Glucose (mg/dL) 146 H (75-99) mg/dL U Benzodiazepines Scrn Detected H (NotDetected) Crossmatch See Detail 06/12/16 Range/Units 21:06 ABG pCO2 31 L (35-45) mmHg ABG pO2 291 H (83-108) mmHg ABG HCO3 20 L (21-25) mmol/L ABG O2 Saturation 100.0 H (94-97) % POC Glucose (mg/dL) (75-99) mg/dL U Benzodiazepines Scrn (NotDetected) Crossmatch Assessment and Plan Plan: 66-year old male with picture consistent with alcoholic liver disease with hepatic encephalopathy, ascites and GI bleeding and anemia. Alcohol Withdrawal/ DT's are likely contributing to his picture. Patient is receiving blood transfusions and PPI with hemodynamic and respiratory support and support for alcohol withdrawal. Will consider EGD, the timing based on his course. Will keep NPO but consider administration of lactulose orally or per NG based on his satus. Underlying infection to be considered. Will follow with you closely.
--- NOTE | 2016-06-14 07:16 | XR ---
EXAMINATION TYPE: XR chest 1V portable DATE OF EXAM: 06/14/2016 6:44 AM COMPARISON: 06/13/2016 HISTORY: Tube placement TECHNIQUE: Single frontal view of the chest is obtained. FINDINGS: ET tube stable. Subsegmental changes left lower lobe. No pneumothorax. No overt failure. H eart size stable. NG tube in good position. IMPRESSION: 1. Left basilar atelectasis or early infiltrate 2. NG tube appears in good position
[2016-06-14] MEDS: BUDESONIDE 1 MG/2 ML NEBU INHALATION SCH ×2 (07:26→19:55)
[2016-06-14] MEDS: IPRATROPIUM 0.5 MG/2.5 ML NEBU INHALATION SCH ×4 (07:27→19:54)
[2016-06-14] MEDS: LEVALBUTEROL NEB (CONC) 1.25 MG/0.5 ML AMP INHALATION SCH ×4 (07:27→19:54)
[2016-06-14] MEDS: FORMOTEROL FUMARATE 20 MCG/2 ML NEBU INHALATION SCH ×2 (07:27→19:54)
[2016-06-14] MEDS: LACTULOSE 20 GM/30 ML CUP PO SCH ×3 (08:38→21:50)
[2016-06-14] MEDS: CHLORHEXIDINE GLUCONATE 15 ML CUP MUCOUS MEM SCH ×2 (08:38→20:00)
[2016-06-14] MEDS: PANTOPRAZOLE 40 MG/10 ML VIAL IVP SCH ×2 (08:39→20:01)
[2016-06-14] MEDS: NICOTINE 14MG/24HR PATCH TRANSDERM SCH (08:39)
--- NOTE | 2016-06-14 08:41 | P.PN ---
Subjective Principal diagnosis: EtOH abuse hepatic encephalopathy 66-year-old male with a long-standing history of EtOH abuse and with acute hypoxic with straight failure and underlying hepatic encephalopathy with suspected acute GI bleed with coffee-ground emesis and acute blood loss anemia. Ammonia level improved to 21 with lactulose. Intubated sedated. Nursing reports no episodes of hematochezia melena or hematemesis from nasogastric tube. Hemoglobin 8.5. LFTs not obtained today. Total bilirubin yesterday 2.8. AST 98. ALT 63. Alkaline phosphatase 75. Objective - Vital Signs Vital signs: Vital Signs Temp 98.2 F 06/14/16 07:48 Pulse 64 06/14/16 07:48 Resp 18 06/14/16 07:48 BP 103/45 06/14/16 07:48 Pulse Ox 100 06/14/16 07:00 Intake & Output 06/13/16 06/14/16 06/14/16 18:59 06:59 18:59 Intake Total 6732.825 0860.209 100 Output Total 775 910 50 Balance 431.331 492.209 50 Weight 65.2 kg Intake: Intake, IV Titration 9346.304 7322.209 100 Amount 0.9% NaCl with KCl 20 Meq 200 /l 1,000 ml @ 50 mls/hr IV .[id number] AMILCAR with Mvi, Adult No.4 with Vit K 10 ml with Thiamine 100 mg with Folic Acid 1 mg Rx#: [id number] Levofloxacin 500Mg-D5w 100 Pmx 500 mg In Dextrose/ Water 1 100ml.bag @ 100 mls/hr IVPB HS [facility] Rx#: [id number] Mvi, Adult No.4 with Vit 200 500 K 10 ml Thiamine 100 mg Folic Acid 1 mg Potassium Chloride 20 meq In Sodium Chloride 0.9% 1, 000 ml @ 100 mls/hr IV . BY DURATION AMILCAR Rx#: [id number] Phytonadione 5 mg In 50 Sodium Chloride 0.9% 50 ml @ 100 mls/hr IVPB ONCE STA Rx#:[id number] Potassium Chloride 10 meq 100 Lidocaine 2% Inj 10 mg In Sodium Chloride 0.9% 100 ml @ 100 mls/hr IV Q1HR [facility] Rx#:[id number] Propofol 500 mg In Empty 56.331 102.209 Bag 1 bag @ Titrate IV . Q0M [facility] Rx#:[id number] Sodium Chloride 0.9% 1, 700 100 000 ml @ 100 mls/hr IV . BY DURATION [facility] Rx#: [id number] Sodium Chloride 0.9% 1, 600 000 ml @ 100 mls/hr IV . Q10H7M ONE with Mvi, Adult No.4 with Vit K 10 ml with Thiamine 100 mg with Folic Acid 1 mg Rx#: [id number] Output: Gastric Drainage 100 Urine 675 910 50 Other: Voiding Method Indwelling Catheter Indwelling Catheter - Exam General appearance: The patient is intubated sedated. HET: Head is normocephalic and atraumatic. Pupils are equal and reactive. Oropharynx is clear without lesions. Endotracheal tube intact. NG tube with bilious fluid. Neck: Supple without lymphadenopathy. Trachea midline. Heart: S1 S2. Regular rate and rhythm. Lungs: No crackles or wheezes are heard. Abdomen: Soft, nontender, nondistended with bowel sounds. No peritoneal signs. No palpable organomegaly or masses. Extremities: Normal skin color and turgor. No cyanosis, rash, ulceration, clubbing, or edema. Radial and pedal pulses are 2/4 bilaterally. George with [place] urine. Neurological: No intubated sedated and sensation are grossly intact. - Labs CBC & Chem 7: 06/14/16 04:30 06/14/16 04:30 Labs: Abnormal Lab Results - Last 24 Hours (Table) 06/13/16 06/13/16 06/13/16 Range/Units 12:23 12:40 18:20 WBC 24.8 H (3.8-10.6) k/uL RBC 2.89 L (4.30-5.90) m/uL Hgb 8.4 L (13.0-17.5) gm/dL Hct 27.3 L (39.0-53.0) % MCHC 30.8 L (31.0-37.0) g/dL RDW 16.8 H (11.5-15.5) % Plt Count (150-450) k/uL Neutrophils # (1.3-7.7) k/uL Lymphocytes # (1.0-4.8) k/uL ABG pH (7.35-7.45) ABG pCO2 (35-45) mmHg ABG pO2 (83-108) mmHg ABG HCO3 (21-25) mmol/L ABG Total CO2 (19-24) mmol/L ABG O2 Saturation (94-97) % Sodium (137-145) mmol/L Chloride (98-107) mmol/L Carbon Dioxide (22-30) mmol/L BUN (9-20) mg/dL Glucose (74-99) mg/dL POC Glucose (mg/dL) 168 H 169 H (75-99) mg/dL Calcium (8.4-10.2) mg/dL Magnesium (1.6-2.3) mg/dL 06/13/16 06/13/16 06/14/16 Range/Units 20:19 23:57 04:26 WBC 18.1 H (3.8-10.6) k/uL RBC 2.69 L (4.30-5.90) m/uL Hgb 8.2 L (13.0-17.5) gm/dL Hct 25.9 L (39.0-53.0) % MCHC (31.0-37.0) g/dL RDW 17.3 H (11.5-15.5) % Plt Count 143 L (150-450) k/uL Neutrophils # (1.3-7.7) k/uL Lymphocytes # (1.0-4.8) k/uL ABG pH 7.46 H (7.35-7.45) ABG pCO2 25 L (35-45) mmHg ABG pO2 159 H (83-108) mmHg ABG HCO3 18 L (21-25) mmol/L ABG Total CO2 18 L (19-24) mmol/L ABG O2 Saturation 100.0 H (94-97) % Sodium (137-145) mmol/L Chloride (98-107) mmol/L Carbon Dioxide (22-30) mmol/L BUN (9-20) mg/dL Glucose (74-99) mg/dL POC Glucose (mg/dL) 158 H (75-99) mg/dL Calcium (8.4-10.2) mg/dL Magnesium (1.6-2.3) mg/dL 06/14/16 06/14/16 Range/Units 04:30 04:30 WBC 17.2 H (3.8-10.6) k/uL RBC 2.76 L (4.30-5.90) m/uL Hgb 8.5 L (13.0-17.5) gm/dL Hct 25.6 L (39.0-53.0) % MCHC (31.0-37.0) g/dL RDW 17.5 H (11.5-15.5) % Plt Count 147 L (150-450) k/uL Neutrophils # 15.5 H (1.3-7.7) k/uL Lymphocytes # 0.7 L (1.0-4.8) k/uL ABG pH (7.35-7.45) ABG pCO2 (35-45) mmHg ABG pO2 (83-108) mmHg ABG HCO3 (21-25) mmol/L ABG Total CO2 (19-24) mmol/L ABG O2 Saturation (94-97) % Sodium 154 H (137-145) mmol/L Chloride 124 H* (98-107) mmol/L Carbon Dioxide 20 L (22-30) mmol/L BUN 48 H (9-20) mg/dL Glucose 150 H (74-99) mg/dL POC Glucose (mg/dL) (75-99) mg/dL Calcium 8.0 L (8.4-10.2) mg/dL Magnesium 2.6 H (1.6-2.3) mg/dL Microbiology - Last 24 Hours (Table) 06/12/16 23:21 Blood Culture - Preliminary Blood No Growth after 24 hours 06/13/16 03:20 Gram Stain - Preliminary Sputum 06/13/16 01:00 Urine Culture - Preliminary Urine,Catheterized Assessment and Plan (1) GI bleed Status: Acute (2) ETOH abuse Status: Acute (3) Hepatic encephalopathy Status: Acute (4) Alcohol withdrawal Status: Acute (5) Acute respiratory failure with hypoxia Status: Acute Plan: 1. Supportive measures. Continue lactulose. May start tube feeds. 2. Repeat liver function test in a.m. Check hepatitis panel. Assessment and plan a care discussed with Dr. Watt
[2016-06-14] MEDS ORDERED: DEXTROSE 5% IN WATER 1,000 ML IV ONE (08:45)
[2016-06-14 10:53] LABS: INR 1.7 (<1.1); Prothrombin Time 16.7 sec (9.0-12.0)
[2016-06-14] MEDS: THIAMINE 100 MG/ML 2 ML VIAL IVP SCH (12:18)
[2016-06-14 12:22] LABS: Glucose,Whole Blood 181 mg/dL (75-99)
--- NOTE | 2016-06-14 12:51 | P.PN ---
Subjective 66-year-old male presented on the day of admission to the emergency room presented with suspected acute GI bleed with coffee-ground emesis and acute blood loss anemia. Surgical consultation was requested patient has a history of alcoholic dependency and this admission developed acute hypoxic respiratory failure requiring intubation. Just no further documented episodes of hematemesis or hematochezia and melena from the nasogastric tube. Hemoglobin this morning is 8.5. Hemoglobin on admission was 4.7 patient has received blood transfusions currently patients being followed by gastroenterology service as well Objective - Vital Signs Vital signs: Vital Signs Temp 98.0 F 06/14/16 12:00 Pulse 58 L 06/14/16 12:00 Resp 16 06/14/16 12:00 BP 116/49 06/14/16 12:00 Pulse Ox 100 06/14/16 12:00 Intake & Output 06/13/16 06/14/16 06/14/16 18:59 06:59 18:59 Intake Total 6073.964 0290.209 689.37 Output Total 775 910 410 Balance 431.331 492.209 279.37 Weight 65.2 kg 65.2 kg Intake: Intake, IV Titration 7229.060 6630.209 689.37 Amount 0.9% NaCl with KCl 20 Meq 200 /l 1,000 ml @ 50 mls/hr IV .[id number] AMILCAR with Mvi, Adult No.4 with Vit K 10 ml with Thiamine 100 mg with Folic Acid 1 mg Rx#: [id number] Dextrose 5% in Water 1, 300 000 ml @ 100 mls/hr IV . Q10H ONE Rx#:[id number] Levofloxacin 500Mg-D5w 100 Pmx 500 mg In Dextrose/ Water 1 100ml.bag @ 100 mls/hr IVPB HS AMILCAR Rx#: [id number] Mvi, Adult No.4 with Vit 200 500 K 10 ml Thiamine 100 mg Folic Acid 1 mg Potassium Chloride 20 meq In Sodium Chloride 0.9% 1, 000 ml @ 100 mls/hr IV . BY DURATION AMILCAR Rx#: [id number] Phytonadione 5 mg In 50 Sodium Chloride 0.9% 50 ml @ 100 mls/hr IVPB ONCE STA Rx#:[id number] Potassium Chloride 10 meq 100 Lidocaine 2% Inj 10 mg In Sodium Chloride 0.9% 100 ml @ 100 mls/hr IV Q1HR AMILCAR Rx#:[id number] Propofol 500 mg In Empty 56.331 102.209 89.37 Bag 1 bag @ Titrate IV . Q0M [facility] Rx#:[id number] Sodium Chloride 0.9% 1, 700 300 000 ml @ 100 mls/hr IV . BY DURATION [facility] Rx#: [id number] Sodium Chloride 0.9% 1, 600 000 ml @ 100 mls/hr IV . Q10H7M ONE with Mvi, Adult No.4 with Vit K 10 ml with Thiamine 100 mg with Folic Acid 1 mg Rx#: [id number] Output: Gastric Drainage 100 Urine 675 910 410 Other: Voiding Method Indwelling Catheter Indwelling Catheter Indwelling Catheter - Exam Physical exam 66-year-old male currently on vent support sedated Lungs anterior diminished at the bases bronchial breath sounds Heart S1-S2 audible regular Abdomen nasal gastric tube in place dark bloody output noted indwelling George catheter in place Extremities a trace pedal edema bilaterally - Labs CBC & Chem 7: 06/14/16 04:30 06/14/16 04:30 Labs: Abnormal Lab Results - Last 24 Hours (Table) 06/13/16 06/13/16 06/13/16 Range/Units 12:40 18:20 20:19 WBC 24.8 H 18.1 H (3.8-10.6) k/uL RBC 2.89 L 2.69 L (4.30-5.90) m/uL Hgb 8.4 L 8.2 L (13.0-17.5) gm/dL Hct 27.3 L 25.9 L (39.0-53.0) % MCHC 30.8 L (31.0-37.0) g/dL RDW 16.8 H 17.3 H (11.5-15.5) % Plt Count 143 L (150-450) k/uL Neutrophils # (1.3-7.7) k/uL Lymphocytes # (1.0-4.8) k/uL PT (9.0-12.0) sec ABG pH (7.35-7.45) ABG pCO2 (35-45) mmHg ABG pO2 (83-108) mmHg ABG HCO3 (21-25) mmol/L ABG Total CO2 (19-24) mmol/L ABG O2 Saturation (94-97) % Sodium (137-145) mmol/L Chloride (98-107) mmol/L Carbon Dioxide (22-30) mmol/L BUN (9-20) mg/dL Glucose (74-99) mg/dL POC Glucose (mg/dL) 169 H (75-99) mg/dL Calcium (8.4-10.2) mg/dL Magnesium (1.6-2.3) mg/dL 06/13/16 06/14/16 06/14/16 Range/Units 23:57 04:26 04:30 WBC 17.2 H (3.8-10.6) k/uL RBC 2.76 L (4.30-5.90) m/uL Hgb 8.5 L (13.0-17.5) gm/dL Hct 25.6 L (39.0-53.0) % MCHC (31.0-37.0) g/dL RDW 17.5 H (11.5-15.5) % Plt Count 147 L (150-450) k/uL Neutrophils # 15.5 H (1.3-7.7) k/uL Lymphocytes # 0.7 L (1.0-4.8) k/uL PT (9.0-12.0) sec ABG pH 7.46 H (7.35-7.45) ABG pCO2 25 L (35-45) mmHg ABG pO2 159 H (83-108) mmHg ABG HCO3 18 L (21-25) mmol/L ABG Total CO2 18 L (19-24) mmol/L ABG O2 Saturation 100.0 H (94-97) % Sodium (137-145) mmol/L Chloride (98-107) mmol/L Carbon Dioxide (22-30) mmol/L BUN (9-20) mg/dL Glucose (74-99) mg/dL POC Glucose (mg/dL) 158 H (75-99) mg/dL Calcium (8.4-10.2) mg/dL Magnesium (1.6-2.3) mg/dL 06/14/16 06/14/16 06/14/16 Range/Units 04:30 10:16 12:20 WBC (3.8-10.6) k/uL RBC (4.30-5.90) m/uL Hgb (13.0-17.5) gm/dL Hct (39.0-53.0) % MCHC (31.0-37.0) g/dL RDW (11.5-15.5) % Plt Count (150-450) k/uL Neutrophils # (1.3-7.7) k/uL Lymphocytes # (1.0-4.8) k/uL PT 16.7 H (9.0-12.0) sec ABG pH (7.35-7.45) ABG pCO2 (35-45) mmHg ABG pO2 (83-108) mmHg ABG HCO3 (21-25) mmol/L ABG Total CO2 (19-24) mmol/L ABG O2 Saturation (94-97) % Sodium 154 H (137-145) mmol/L Chloride 124 H* (98-107) mmol/L Carbon Dioxide 20 L (22-30) mmol/L BUN 48 H (9-20) mg/dL Glucose 150 H (74-99) mg/dL POC Glucose (mg/dL) 181 H (75-99) mg/dL Calcium 8.0 L (8.4-10.2) mg/dL Magnesium 2.6 H (1.6-2.3) mg/dL Microbiology - Last 24 Hours (Table) 06/12/16 23:21 Blood Culture - Preliminary Blood No Growth after 24 hours 06/13/16 03:20 Gram Stain - Preliminary Sputum 06/13/16 01:00 Urine Culture - Preliminary Urine,Catheterized Assessment and Plan Plan: Impression Present on admission acute symptomatic anemia necessitating transfusions of packed red blood cells Chronic alcoholism Alcohol dependency Alcoholic liver disease Present on admission acute hepatic encephalopathy Present on admission acute hypoxic respiratory failure requiring mechanical intubation with vent support Nicotine dependency chronic Plan No indication for urgent surgical intervention at this time GIs recommendations patient will need a diagnostic EGD when appropriate Absolute alcohol abstinence Use CIWA protocol with Ativan for impending DTs Monitor ammonia levels address as indicated Transfuse packed red blood cells if hemoglobin is less than 7 Continue supportive measures The above dictated assessment and findings were discussed with dr hanson . Impression and the plan of care have been dictated as directed. Sofie Reynolds nurse practitioner acting as a scribe for dr flores
[2016-06-14 13:34] LABS: Hepatitis B Surface Ag Index 0.06
[2016-06-14 13:40] LABS: Hepatitis B Core IgM Index 0.03
[2016-06-14 13:52] LABS: Hepatitis C Virus IgG Index 0.05
[2016-06-14 14:17] LABS: Hepatitis C Virus IgG Ab Negative (Negative)
[2016-06-14] MEDS: methylPREDNISolone SOD SUCCI 40 MG/ML 1 ML VIAL IV SCH (14:59)
[2016-06-14] MEDS: PHYTONADIONE 5 MG in SODIUM CHLORIDE 0.9% 50 ML IVPB SCH (14:59)
[2016-06-14] MEDS: 1: MVI, ADULT NO.4 WITH VIT K 10 ML, THIAMINE 100 MG, FOLIC ACID 1 MG, POTASSIUM CHLORID IV SCH ×10 (15:08→20:00)
[2016-06-14 17:50] LABS: Glucose,Whole Blood 160 mg/dL (75-99)
--- NOTE | 2016-06-14 17:59 | PN ---
Critical care time spent 35 minutes. Mr. Edmund Zamudio is a 66-year-old male who was admitted to the hospital with significant upper gastrointestinal bleed. Also has encephalopathy, thought to be related to hepatic encephalopathy. The patient clinically has been relatively more stable. Gastrointestinal bleed. No bowel movement has been noted. NG-tube, OG-tube aspirate is more of yellowish color instead of bloody as was noted yesterday. Hemodynamic status is stable. Patient is not on vasopressor. Remains on propofol drip, about 15 to 20 mcg, which is being adjusted with ( ) of -1 to -2. Patient of note that has extensive history of alcohol use, and suspected to have alcohol withdrawal with impending delirium tremens as well. Vent settings remains stable. The patient is currently on assist control rate of 16, breathing 16, tidal volume 600, 5 of PEEP and 40% oxygen. Current medications include: 1. Pulmicort 2 times a day. 2. Also on normal saline 100 mL an hour. 3. Perforomist 2 times a day. 4. Humalog sliding scale insulin. 5. Xopenex. 6. Ativan. 7. Morphine. 8. Solu-Medrol 60 q.6h. 9. Nicotine patch. 10. Protonix. 11. MDI. 12. IV fluids. 13. Along with thiamine. 14. Folic acid. On examination, most recent vitals include blood pressure is 100/50, respiratory rate 16, heart rate 64, temperature 98. Saturating 100% on 40% oxygen. HEENT EXAMINATION: Otherwise unremarkable. NECK: Supple. Neck prominent. No bruits present. LUNGS: Bilateral coarse breath sounds with fine expiratory rhonchi. HEART: Regular rate and rhythm. S1 and S2 audible. ABDOMEN: Soft. No rebound or rigidity. EXTREMITIES: +1 peripheral pulses. NEUROLOGICAL EXAMINATION: Otherwise, awake and neurologically sedated with propofol drip. Patient to undergo weaning from propofol to observe her mental status. Labs are reviewed. The chest x-ray revealed left basilar pneumonia, OG-tube and ET tube are overall stable. The chest x-ray performed hard copies reviewed as well. The other laboratory data reviewed. White cell count is down to 17,000 from 18,000, hemoglobin 8.5, hematocrit 27, platelet count of 147,000. Arterial blood gas revealed pH of 7.46, pCO2 of 25, pO2 of 159. Sodium is 154, potassium is 4.1, chloride is 124. BUN and creatinine are 14 and 0.979. Glucose 150. Culture results and reports are reviewed. The sputum culture preliminary a few gram-positive cocci and white cells are seen. Final is still pending. The urine and blood culture no growth so far. IMPRESSION: 1. Early aspiration pneumonia, likely mixed bacteria gram-negative. Patient is currently on Levaquin clinically stable. White cell count is coming down, oxygenating well with relatively stable x-ray will maintain on that. 2. Acute blood loss anemia likely related to gastrointestinal process and likely upper gastrointestinal. The patient is for endoscopy. General surgery and GI service is following. Hemoglobin has been stable. Patient is being monitored and observed of proton pump inhibitors. 3. Altered mental encephalopathy and the patient has been on lactulose in addition to above, also has been undergoing electrolyte balance and gentle rehydration. 4. Impending alcohol withdrawn and delirium tremens. Patient has been on propofol drip at this point in time. 5. Severe chronic obstructive pulmonary disease, emphysema. Patient has been on steroids, breathing treatments. Will taper down the steroids as well. Will repeat. 6. Coagulopathy related to liver disease, likely alcoholic liver disease. Patient has received a dose of vitamin K. Will check PT and INR and replace vitamin K as well. 7. Severe hypernatremia, IV fluids are being switched to D5. At this point in time patient is not ready for weaning or extubation. We will continue gentle sedation, supportive care as dictated above. Follow up on culture results and report will. Hold on extubation for another 24 to 48 hours. Will follow. Critical care time spent 35 minutes.
[2016-06-14] MEDS: LEVOFLOXACIN 500MG-D5W PMX 500 MG in DEXTROSE/WATER 1 100ML.BAG IVPB SCH (20:00)
[2016-06-15] MEDS: INSULIN LISPRO (humaLOG) 300 UNIT/3 ML VIAL SQ SCH ×4 (00:37→18:56)
[2016-06-15 00:39] LABS: Glucose,Whole Blood 163 mg/dL (75-99)
[2016-06-15] MEDS: PROPOFOL 500 MG in EMPTY BAG 1 BAG IV SCH ×2 (00:39→06:57)
[2016-06-15] MEDS: methylPREDNISolone SOD SUCCI 40 MG/ML 1 ML VIAL IV SCH ×3 (00:39→15:07)
[2016-06-15 05:04] LABS: ABG Base Excess -6.4 mmol/L; ABG HCO3 17 mmol/L (21-25); ABG PCO2 27 mmHg (35-45); ABG PH 7.43 (7.35-7.45); ABG PO2 137 mmHg (83-108); ABG TCO2 18 mmol/L (19-24)
[2016-06-15 05:35] LABS: INR 1.6 (<1.1); Prothrombin Time 15.5 sec (9.0-12.0)
[2016-06-15 05:41] LABS: Anisocytosis Slight; Basophils % (A) 0 %; CH 28.5; CHCM 29.4; Eosinophils % (A) 0 %; HCT 26.2 % (39.0-53.0); HDW 3.23; HGB 8.3 gm/dL (13.0-17.5); Hypochromasia Marked; Luc # (Auto) 0.24; Luc % (Auto) 2; Lymphocytes # (A) 0.6 k/uL (1.0-4.8); Lymphocytes % (A) 4 %; MCH 31.1 pg (25.0-35.0); MCHC 31.8 g/dL (31.0-37.0); Macrocytosis Slight; Mean Platelet Volume 7.5; Monocytes # (A) 0.9 k/uL (0-1.0); Monocytes % (A) 6 %; Neutrophils # (A) 13.1 k/uL (1.3-7.7); Neutrophils % (A) 88 %; RBC 2.68 m/uL (4.30-5.90); RDW 16.8 % (11.5-15.5); WBC 14.9 k/uL (3.8-10.6)
[2016-06-15 05:50] LABS: ALT 64 U/L (21-72); AST 70 U/L (17-59); Alkaline Phosphatase 76 U/L (38-126); Anion Gap 11 mmol/L; Blood Urea Nitrogen 36 mg/dL (9-20); Calcium 8.4 mg/dL (8.4-10.2); Carbon Dioxide 19 mmol/L (22-30); Chloride 117 mmol/L (98-107); Glucose 152 mg/dL (74-99); Magnesium 2.5 mg/dL (1.6-2.3); Non-African American GFR(MDRD) >60 (>60 ml/min/1.73 sqM); Phosphorous 3.8 mg/dL (2.5-4.5); Potassium 3.6 mmol/L (3.5-5.1); Sodium 147 mmol/L (137-145); Total Bilirubin 1.9 mg/dL (0.2-1.3)
[2016-06-15 05:57] LABS: MCV 97.9 fL (80.0-100.0)
[2016-06-15] MEDS ORDERED: Potassium Replacement Protocol 1 EACH MISC MISCELLANE PRN (06:17)
--- NOTE | 2016-06-15 06:56 | PN ---
DATE OF SERVICE: 06/14/2016 PRESENTING COMPLAINT: Dark stools. INTERVAL HISTORY: This patient is in the ICU with history of alcoholism, smoker, intubated. Patient's mother and sister at the bedside. Plan is for endoscopy when patient is more stabilized. The patient had a black ( ) of stool again. REVIEW OF SYSTEMS: Patient intubated. Current medications are reviewed that include nebulized bronchodilators, Levaquin for probably aspiration, IV Solu-Medrol for COPD exacerbation, vitamin K for coagulopathy. Patient also had been on propofol. On examination, temperature 98, pulse 58, respirations 16, blood pressure 106/49, pulse ox 100% on ventilator. GENERAL APPEARANCE: Lying in bed, intubated. EYES: Pupils equal. Conjunctiva normal. HEENT: Endotracheal tube in place. NECK: JVD unable to assess. Mass not palpable. RESPIRATORY: Effort normal. LUNGS: Diminished breath sounds. CARDIOVASCULAR: First and second sounds normal. No edema. ABDOMEN: Soft, nontender. Liver and spleen not palpable. NEUROLOGICAL: Pupils are equal. Plantars are downgoing. INVESTIGATIONS: White count 17.2, hemoglobin 8.5, platelets 147. Pro time 16.7. Sodium 154, chloride 124, BUN 48. ASSESSMENT: 1. Aspiration pneumonia from altered sensorium, probably of gastric contents. 2. Acute gastrointestinal bleed, suspected to be upper gastrointestinal causing blood loss anemia. Patient received a total of 2 units of blood. 3. Acute metabolic encephalopathy, could be hepatic related. Patient is on lactulose. 4. Delirium tremens from alcoholism. The patient has been on propofol. 5. Acute severe chronic obstructive pulmonary disease/emphysema exacerbation. The patient is a smoker. 6. Chronic nicotine dependence. Patient is a smoker. 7. Hepatic coagulopathy from underlying liver disease. 8. Severe hypernatremia and hyperchloremia from free water deficit. 9. Thrombocytopenia from alcoholic liver disease. 10. Hypoalbuminemia could be a combination of acute phase reactant and may be protein calorie malnutrition from poor nutrition. 11. Acute hypoxic respiratory failure from underlying chronic obstructive pulmonary disease. PLAN: Continue current medication and treatment plan. Supportive care. Overall prognosis is guarded. Follow hemoglobin and hematocrit closely pending EGD when patient is off the ventilator.
[2016-06-15] MEDS: POTASSIUM CHLORIDE 10 MEQ in WATER FOR INJECTION 1 100ML.BAG IVPB SCH ×3 (06:57→07:39)
[2016-06-15] MEDS: PHYTONADIONE 5 MG in SODIUM CHLORIDE 0.9% 50 ML IVPB SCH (08:01)
[2016-06-15] MEDS: PANTOPRAZOLE 40 MG/10 ML VIAL IVP SCH ×2 (08:01→20:48)
[2016-06-15] MEDS: LACTULOSE 20 GM/30 ML CUP PO SCH ×3 (08:01→21:54)
[2016-06-15] MEDS: CHLORHEXIDINE GLUCONATE 15 ML CUP MUCOUS MEM SCH (08:01)
[2016-06-15] MEDS: THIAMINE 100 MG/ML 2 ML VIAL IVP SCH (08:02)
[2016-06-15] MEDS: NICOTINE 14MG/24HR PATCH TRANSDERM SCH (08:06)
[2016-06-15] MEDS: LEVALBUTEROL NEB (CONC) 1.25 MG/0.5 ML AMP INHALATION SCH ×4 (08:22→19:39)
[2016-06-15] MEDS: BUDESONIDE 1 MG/2 ML NEBU INHALATION SCH ×2 (08:22→19:39)
[2016-06-15] MEDS: IPRATROPIUM 0.5 MG/2.5 ML NEBU INHALATION SCH ×4 (08:22→19:39)
[2016-06-15] MEDS: FORMOTEROL FUMARATE 20 MCG/2 ML NEBU INHALATION SCH ×2 (08:22→19:39)
--- NOTE | 2016-06-15 09:15 | P.PN ---
Subjective Principal diagnosis: EtOH abuse hepatic encephalopathy 66-year-old male with a long-standing history of EtOH abuse and with acute hypoxic with straight failure and underlying hepatic encephalopathy with suspected acute GI bleed with coffee-ground emesis and acute blood loss anemia. Intubated possible extubation today. Nursing reports no episodes of hematochezia hematemesis from nasogastric tube. A few bowel movements appeared dark in color. Hemoglobin 8.3. Platelet 151. INR 1.6. BUN 36. Creatinine 0.9. Total bilirubin 1.9. AST 70. ALT 64. Alkaline phosphatase 76. Ammonia 19. Hepatitis panel negative. Objective - Vital Signs Vital signs: Vital Signs Temp 96.0 F L 06/15/16 08:00 Pulse 75 06/15/16 08:22 Resp 15 06/15/16 08:00 BP 148/65 06/15/16 08:00 Pulse Ox 100 06/15/16 08:00 Intake & Output 06/14/16 06/15/16 06/15/16 18:59 06:59 18:59 Intake Total 2339.37 1322.057 120.987 Output Total 720 700 100 Balance 1619.37 622.057 20.987 Weight 65.2 kg 65.2 kg 65.2 kg Intake: Intake, IV Titration 2339.37 1322.057 120.987 Amount Dextrose 5% in Water 1, 800 1200 100 000 ml @ 100 mls/hr IV . Q10H [facility] Rx#:[id number] Propofol 500 mg In Empty 139.37 122.057 20.987 Bag 1 bag @ Titrate IV . Q0M [facility] Rx#:[id number] Sodium Chloride 0.9% 1, 1400 000 ml @ 100 mls/hr IV . BY DURATION [facility] Rx#: [id number] Output: Urine 720 700 100 Other: Voiding Method Indwelling Catheter Indwelling Catheter Indwelling Catheter - Exam General appearance: The patient is intubated sedated. HET: Head is normocephalic and atraumatic. Pupils are equal and reactive. Oropharynx is clear without lesions. Endotracheal tube intact. Neck: Supple without lymphadenopathy. Trachea midline. Heart: S1 S2. Regular rate and rhythm. Lungs: No crackles or wheezes are heard. Abdomen: Soft, nontender, nondistended with bowel sounds. No peritoneal signs. No palpable organomegaly or masses. Extremities: Normal skin color and turgor. No cyanosis, rash, ulceration, clubbing, or edema. Radial and pedal pulses are 2/4 bilaterally. George with [place] urine. Neurological: No intubated sedated and sensation are grossly intact. - Labs CBC & Chem 7: 06/15/16 04:57 06/15/16 04:57 Labs: Abnormal Lab Results - Last 24 Hours (Table) 06/14/16 06/14/16 06/14/16 Range/Units 10:16 12:20 17:49 WBC (3.8-10.6) k/uL RBC (4.30-5.90) m/uL Hgb (13.0-17.5) gm/dL Hct (39.0-53.0) % RDW (11.5-15.5) % Neutrophils # (1.3-7.7) k/uL Lymphocytes # (1.0-4.8) k/uL PT 16.7 H (9.0-12.0) sec ABG pCO2 (35-45) mmHg ABG pO2 (83-108) mmHg ABG HCO3 (21-25) mmol/L ABG Total CO2 (19-24) mmol/L ABG O2 Saturation (94-97) % Sodium (137-145) mmol/L Chloride (98-107) mmol/L Carbon Dioxide (22-30) mmol/L BUN (9-20) mg/dL Glucose (74-99) mg/dL POC Glucose (mg/dL) 181 H 160 H (75-99) mg/dL Magnesium (1.6-2.3) mg/dL Total Bilirubin (0.2-1.3) mg/dL AST (17-59) U/L Total Protein (6.3-8.2) g/dL Albumin (3.5-5.0) g/dL 06/15/16 06/15/16 06/15/16 Range/Units 00:36 04:44 04:57 WBC 14.9 H (3.8-10.6) k/uL RBC 2.68 L (4.30-5.90) m/uL Hgb 8.3 L (13.0-17.5) gm/dL Hct 26.2 L (39.0-53.0) % RDW 16.8 H (11.5-15.5) % Neutrophils # 13.1 H (1.3-7.7) k/uL Lymphocytes # 0.6 L (1.0-4.8) k/uL PT (9.0-12.0) sec ABG pCO2 27 L (35-45) mmHg ABG pO2 137 H (83-108) mmHg ABG HCO3 17 L (21-25) mmol/L ABG Total CO2 18 L (19-24) mmol/L ABG O2 Saturation 99.0 H (94-97) % Sodium (137-145) mmol/L Chloride (98-107) mmol/L Carbon Dioxide (22-30) mmol/L BUN (9-20) mg/dL Glucose (74-99) mg/dL POC Glucose (mg/dL) 163 H (75-99) mg/dL Magnesium (1.6-2.3) mg/dL Total Bilirubin (0.2-1.3) mg/dL AST (17-59) U/L Total Protein (6.3-8.2) g/dL Albumin (3.5-5.0) g/dL 06/15/16 06/15/16 Range/Units 04:57 04:57 WBC (3.8-10.6) k/uL RBC (4.30-5.90) m/uL Hgb (13.0-17.5) gm/dL Hct (39.0-53.0) % RDW (11.5-15.5) % Neutrophils # (1.3-7.7) k/uL Lymphocytes # (1.0-4.8) k/uL PT 15.5 H (9.0-12.0) sec ABG pCO2 (35-45) mmHg ABG pO2 (83-108) mmHg ABG HCO3 (21-25) mmol/L ABG Total CO2 (19-24) mmol/L ABG O2 Saturation (94-97) % Sodium 147 H (137-145) mmol/L Chloride 117 H (98-107) mmol/L Carbon Dioxide 19 L (22-30) mmol/L BUN 36 H (9-20) mg/dL Glucose 152 H (74-99) mg/dL POC Glucose (mg/dL) (75-99) mg/dL Magnesium 2.5 H (1.6-2.3) mg/dL Total Bilirubin 1.9 H (0.2-1.3) mg/dL AST 70 H (17-59) U/L Total Protein 6.0 L (6.3-8.2) g/dL Albumin 2.5 L (3.5-5.0) g/dL Microbiology - Last 24 Hours (Table) 06/12/16 23:21 Blood Culture - Preliminary Blood No Growth after 48 hours 06/13/16 01:00 Urine Culture - Final Urine,Catheterized Assessment and Plan (1) GI bleed Narrative/Plan: Suspect alcohol gastritis possible gastropathy possible esophagitis. Hemoccult stool positive. Status: Acute (2) ETOH abuse Status: Acute (3) Hepatic encephalopathy Status: Acute (4) Alcohol withdrawal Status: Acute (5) Acute respiratory failure with hypoxia Status: Acute (6) Anemia Narrative/Plan: Suspect acute blood loss. Status: Acute (7) Coagulopathy Status: Acute Plan: 1. Supportive measures. Continue lactulose. 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 2. EGD contingent on clinical course. Continue GI prophylaxis Protonix 40 mg IV every 12. CBC in a.m. We'll continue to follow with you. Assessment and plan a care discussed with Dr. Watt
--- NOTE | 2016-06-15 10:23 | XR ---
EXAMINATION TYPE: XR chest 1V portable DATE OF EXAM: 06/15/2016 6:25 AM COMPARISON: Prior chest x-ray June 2016 HISTORY: Intubated TECHNIQUE: Single frontal view of the chest is obtained. FINDINGS: Endotracheal tube, NG tube are overlying appropriate positions. There are overlying artifa cts, cardiac leads. There is no evident pneumonia, pneumothorax, or pleural effusion. Cardiac mediast inal silhouette, pulmonary vascularity and duran are stable. Interstitium is mildly increased. Suspect some improvement in the left lung base. IMPRESSION: Some improvement in aeration is suspected.
[2016-06-15 10:45] LABS: ABG Base Excess -4.6 mmol/L; ABG HCO3 19 mmol/L (21-25); ABG PCO2 29 mmHg (35-45); ABG PH 7.43 (7.35-7.45); ABG PO2 157 mmHg (83-108); ABG TCO2 20 mmol/L (19-24)
--- NOTE | 2016-06-15 10:56 | P.PN ---
Subjective This is a 66-year-old male patient who is being evaluated and examined today in the intensive care unit. This patient was admitted to the hospital with a significant GI bleed and hepatic encephalopathy. Apparently when he presented to the emergency room the complaints were changes of mental status and alcohol withdrawal syndrome and delirium tremens. The patient also had some coffee ground emesis as well. Upon admission the patient's hemoglobin and was found to be only 4.7 the patient also was in respiratory distress and had some acute respiratory failure and therefore mechanically intubated. The patient has a significant history for extensive EtOH use. Upon examination the patient is currently being weaned off of his sedation to trial for possible extubation. Patient has good urine output. Objective - Vital Signs Vital signs: Vital Signs Temp 96.0 F L 06/15/16 08:00 Pulse 70 06/15/16 09:00 Resp 24 06/15/16 09:00 BP 132/54 06/15/16 09:00 Pulse Ox 100 06/15/16 09:00 Intake & Output 06/14/16 06/15/16 06/15/16 18:59 06:59 18:59 Intake Total 2339.37 1322.057 370.987 Output Total 720 700 225 Balance 1619.37 622.057 145.987 Weight 65.2 kg 65.2 kg 65.2 kg Intake: Intake, IV Titration 2339.37 1322.057 370.987 Amount Dextrose 5% in Water 1, 800 1200 100 000 ml @ 100 mls/hr IV . Q10H [facility] Rx#:[id number] Phytonadione 5 mg In 50 Sodium Chloride 0.9% 50 ml @ 100 mls/hr IVPB DAILY [facility] Rx#:[id number] Potassium Chloride 10 meq 200 In Water For Injection 1 100ml.bag @ 100 mls/hr IVPB Q1H [facility] Rx#: [id number] Propofol 500 mg In Empty 139.37 122.057 20.987 Bag 1 bag @ Titrate IV . Q0M [facility] Rx#:[id number] Sodium Chloride 0.9% 1, 1400 000 ml @ 100 mls/hr IV . BY DURATION [facility] Rx#: [id number] Output: Urine 720 700 225 Other: Voiding Method Indwelling Catheter Indwelling Catheter Indwelling Catheter - Exam GENERAL EXAM: Drowsy somewhat alert, being weaned off sedation at this time. HEAD: Normocephalic. EYES: Normal reaction of pupils, equal size. NOSE: Clear with pink turbinates. THROAT: No erythema or exudates. NECK: No masses, no JVD. CHEST: No chest wall deformity. LUNGS: Slightly coarse, Equal air entry with no crackles, wheeze, rhonchi or dullness. CVS: S1 and S2 normal with no audible mumurs, regular rhythm. ABDOMEN: No hepatosplenomegaly, normal bowel sounds, no guarding or rigidity. EXTREMITIES: No edema noted, pedal pulses palpable. SKIN: No rashes CENTRAL NERVOUS SYSTEM: Currently being weaned off sedation.. - Labs CBC & Chem 7: 06/15/16 04:57 06/15/16 04:57 Labs: Abnormal Lab Results - Last 24 Hours (Table) 06/14/16 06/14/16 06/14/16 Range/Units 10:16 12:20 17:49 WBC (3.8-10.6) k/uL RBC (4.30-5.90) m/uL Hgb (13.0-17.5) gm/dL Hct (39.0-53.0) % RDW (11.5-15.5) % Neutrophils # (1.3-7.7) k/uL Lymphocytes # (1.0-4.8) k/uL PT 16.7 H (9.0-12.0) sec ABG pCO2 (35-45) mmHg ABG pO2 (83-108) mmHg ABG HCO3 (21-25) mmol/L ABG Total CO2 (19-24) mmol/L ABG O2 Saturation (94-97) % Sodium (137-145) mmol/L Chloride (98-107) mmol/L Carbon Dioxide (22-30) mmol/L BUN (9-20) mg/dL Glucose (74-99) mg/dL POC Glucose (mg/dL) 181 H 160 H (75-99) mg/dL Magnesium (1.6-2.3) mg/dL Total Bilirubin (0.2-1.3) mg/dL AST (17-59) U/L Total Protein (6.3-8.2) g/dL Albumin (3.5-5.0) g/dL 06/15/16 06/15/16 06/15/16 Range/Units 00:36 04:44 04:57 WBC 14.9 H (3.8-10.6) k/uL RBC 2.68 L (4.30-5.90) m/uL Hgb 8.3 L (13.0-17.5) gm/dL Hct 26.2 L (39.0-53.0) % RDW 16.8 H (11.5-15.5) % Neutrophils # 13.1 H (1.3-7.7) k/uL Lymphocytes # 0.6 L (1.0-4.8) k/uL PT (9.0-12.0) sec ABG pCO2 27 L (35-45) mmHg ABG pO2 137 H (83-108) mmHg ABG HCO3 17 L (21-25) mmol/L ABG Total CO2 18 L (19-24) mmol/L ABG O2 Saturation 99.0 H (94-97) % Sodium (137-145) mmol/L Chloride (98-107) mmol/L Carbon Dioxide (22-30) mmol/L BUN (9-20) mg/dL Glucose (74-99) mg/dL POC Glucose (mg/dL) 163 H (75-99) mg/dL Magnesium (1.6-2.3) mg/dL Total Bilirubin (0.2-1.3) mg/dL AST (17-59) U/L Total Protein (6.3-8.2) g/dL Albumin (3.5-5.0) g/dL 06/15/16 06/15/16 06/15/16 Range/Units 04:57 04:57 10:30 WBC (3.8-10.6) k/uL RBC (4.30-5.90) m/uL Hgb (13.0-17.5) gm/dL Hct (39.0-53.0) % RDW (11.5-15.5) % Neutrophils # (1.3-7.7) k/uL Lymphocytes # (1.0-4.8) k/uL PT 15.5 H (9.0-12.0) sec ABG pCO2 29 L (35-45) mmHg ABG pO2 157 H (83-108) mmHg ABG HCO3 19 L (21-25) mmol/L ABG Total CO2 (19-24) mmol/L ABG O2 Saturation 100.0 H (94-97) % Sodium 147 H (137-145) mmol/L Chloride 117 H (98-107) mmol/L Carbon Dioxide 19 L (22-30) mmol/L BUN 36 H (9-20) mg/dL Glucose 152 H (74-99) mg/dL POC Glucose (mg/dL) (75-99) mg/dL Magnesium 2.5 H (1.6-2.3) mg/dL Total Bilirubin 1.9 H (0.2-1.3) mg/dL AST 70 H (17-59) U/L Total Protein 6.0 L (6.3-8.2) g/dL Albumin 2.5 L (3.5-5.0) g/dL Microbiology - Last 24 Hours (Table) 06/12/16 23:21 Blood Culture - Preliminary Blood No Growth after 48 hours 06/13/16 01:00 Urine Culture - Final Urine,Catheterized Assessment and Plan Plan: Assessment Early aspiration pneumonia, likely mixed bacteria gram-negative Acute blood loss anemia likely related to GI process Altered mental encephalopathy Impending alcohol withdrawal with delirium tremens Severe chronic obstructive pulmonary disease and emphysema Coagulopathy related to liver disease likely alcoholic liver disease Severe hyponatremia Plan Medications have been reviewed and will be continued as ordered. Patient will continue to fully awake off of his sedation and we will trial CPAP to see if he is ready for extubation. Blood gases will be drawn 30 minutes after CPAP trial. Continue with nebulizer treatments, pulmonary hygiene, steroids and supportive care. We will continue to monitor his labs/results and adjust treatment as necessary. I performed an examination of the patient and discussed their management with the nurse practitioner. I have reviewed the nurse practitioner's note and agree with the documented findings and plan of care.
[2016-06-15 12:12] LABS: Glucose,Whole Blood 161 mg/dL (75-99)
--- NOTE | 2016-06-15 16:10 | P.PN ---
Subjective 66-year-old male being seen for surgical eval who has long-standing history of alcohol abuse. Patient's initial presentation was to the emergency room with coffee-ground emesis. Patient was experiencing an acute blood loss anemia felt due to an acute GI bleed. Surgical consultation had been requested. Nursing reports this been no episodes of hematemesis from the nasal gastric tube. no stooling. Labs were reviewed hemoglobin 8.3 hepatitis panel negative Objective - Vital Signs Vital signs: Vital Signs Temp 96.0 F L 06/15/16 08:00 Pulse 89 06/15/16 15:00 Resp 26 H 06/15/16 15:00 BP 130/61 06/15/16 15:00 Pulse Ox 100 06/15/16 15:00 Intake & Output 06/14/16 06/15/16 06/15/16 18:59 06:59 18:59 Intake Total 2339.37 1322.057 970.987 Output Total 720 700 625 Balance 1619.37 622.057 345.987 Weight 65.2 kg 65.2 kg 65.2 kg Intake: Intake, IV Titration 2339.37 1322.057 970.987 Amount Dextrose 5% in Water 1, 800 1200 700 000 ml @ 100 mls/hr IV . Q10H [facility] Rx#:[id number] Phytonadione 5 mg In 50 Sodium Chloride 0.9% 50 ml @ 100 mls/hr IVPB DAILY [facility] Rx#:[id number] Potassium Chloride 10 meq 200 In Water For Injection 1 100ml.bag @ 100 mls/hr IVPB Q1H [facility] Rx#: [id number] Propofol 500 mg In Empty 139.37 122.057 20.987 Bag 1 bag @ Titrate IV . Q0M [facility] Rx#:[id number] Sodium Chloride 0.9% 1, 1400 000 ml @ 100 mls/hr IV . BY DURATION [facility] Rx#: [id number] Output: Urine 720 700 625 Other: Voiding Method Indwelling Catheter Indwelling Catheter Indwelling Catheter - Exam Physical exam 66-year-old male currently on vent support sedated being weaned off Lungs anterior diminished at the bases bronchial breath sounds Heart S1-S2 audible regular Abdomen nasal gastric tube in place dark bloody output noted indwelling George catheter in place Extremities a trace pedal edema bilaterally - Labs CBC & Chem 7: 06/15/16 04:57 06/15/16 04:57 Labs: Abnormal Lab Results - Last 24 Hours (Table) 06/14/16 06/15/16 06/15/16 Range/Units 17:49 00:36 04:44 WBC (3.8-10.6) k/uL RBC (4.30-5.90) m/uL Hgb (13.0-17.5) gm/dL Hct (39.0-53.0) % RDW (11.5-15.5) % Neutrophils # (1.3-7.7) k/uL Lymphocytes # (1.0-4.8) k/uL PT (9.0-12.0) sec ABG pCO2 27 L (35-45) mmHg ABG pO2 137 H (83-108) mmHg ABG HCO3 17 L (21-25) mmol/L ABG Total CO2 18 L (19-24) mmol/L ABG O2 Saturation 99.0 H (94-97) % Sodium (137-145) mmol/L Chloride (98-107) mmol/L Carbon Dioxide (22-30) mmol/L BUN (9-20) mg/dL Glucose (74-99) mg/dL POC Glucose (mg/dL) 160 H 163 H (75-99) mg/dL Magnesium (1.6-2.3) mg/dL Total Bilirubin (0.2-1.3) mg/dL AST (17-59) U/L Total Protein (6.3-8.2) g/dL Albumin (3.5-5.0) g/dL 06/15/16 06/15/16 06/15/16 Range/Units 04:57 04:57 04:57 WBC 14.9 H (3.8-10.6) k/uL RBC 2.68 L (4.30-5.90) m/uL Hgb 8.3 L (13.0-17.5) gm/dL Hct 26.2 L (39.0-53.0) % RDW 16.8 H (11.5-15.5) % Neutrophils # 13.1 H (1.3-7.7) k/uL Lymphocytes # 0.6 L (1.0-4.8) k/uL PT 15.5 H (9.0-12.0) sec ABG pCO2 (35-45) mmHg ABG pO2 (83-108) mmHg ABG HCO3 (21-25) mmol/L ABG Total CO2 (19-24) mmol/L ABG O2 Saturation (94-97) % Sodium 147 H (137-145) mmol/L Chloride 117 H (98-107) mmol/L Carbon Dioxide 19 L (22-30) mmol/L BUN 36 H (9-20) mg/dL Glucose 152 H (74-99) mg/dL POC Glucose (mg/dL) (75-99) mg/dL Magnesium 2.5 H (1.6-2.3) mg/dL Total Bilirubin 1.9 H (0.2-1.3) mg/dL AST 70 H (17-59) U/L Total Protein 6.0 L (6.3-8.2) g/dL Albumin 2.5 L (3.5-5.0) g/dL 06/15/16 06/15/16 Range/Units 10:30 12:09 WBC (3.8-10.6) k/uL RBC (4.30-5.90) m/uL Hgb (13.0-17.5) gm/dL Hct (39.0-53.0) % RDW (11.5-15.5) % Neutrophils # (1.3-7.7) k/uL Lymphocytes # (1.0-4.8) k/uL PT (9.0-12.0) sec ABG pCO2 29 L (35-45) mmHg ABG pO2 157 H (83-108) mmHg ABG HCO3 19 L (21-25) mmol/L ABG Total CO2 (19-24) mmol/L ABG O2 Saturation 100.0 H (94-97) % Sodium (137-145) mmol/L Chloride (98-107) mmol/L Carbon Dioxide (22-30) mmol/L BUN (9-20) mg/dL Glucose (74-99) mg/dL POC Glucose (mg/dL) 161 H (75-99) mg/dL Magnesium (1.6-2.3) mg/dL Total Bilirubin (0.2-1.3) mg/dL AST (17-59) U/L Total Protein (6.3-8.2) g/dL Albumin (3.5-5.0) g/dL Microbiology - Last 24 Hours (Table) 06/13/16 03:20 Gram Stain - Final Sputum Sputum Culture - Final 06/12/16 23:21 Blood Culture - Preliminary Blood No Growth after 48 hours 06/13/16 01:00 Urine Culture - Final Urine,Catheterized Assessment and Plan Plan: Impression Present on admission acute symptomatic anemia necessitating transfusions of packed red blood cells Chronic alcoholism Alcohol dependency Alcoholic liver disease Present on admission acute hepatic encephalopathy Present on admission acute hypoxic respiratory failure requiring mechanical intubation with vent support Nicotine dependency chronic Plan No indication for urgent surgical intervention at this time GIs recommendations patient will need a diagnostic EGD when appropriate Absolute alcohol abstinence Use CIWA protocol with Ativan for impending DTs Monitor ammonia levels address as indicated Transfuse packed red blood cells if hemoglobin is less than 7 Continue supportive measures Surgical service has no further recommendations at this time we'll sign off reevaluate if needed The above dictated assessment and findings were discussed with dr hanson . Impression and the plan of care have been dictated as directed. Sofie Reynolds nurse practitioner acting as a scribe for dr flores
[2016-06-15 18:44] LABS: Glucose,Whole Blood 133 mg/dL (75-99)
[2016-06-15] MEDS: LEVOFLOXACIN 500MG-D5W PMX 500 MG in DEXTROSE/WATER 1 100ML.BAG IVPB SCH (20:48)
[2016-06-16 00:35] LABS: Glucose,Whole Blood 149 mg/dL (75-99)
[2016-06-16] MEDS: methylPREDNISolone SOD SUCCI 40 MG/ML 1 ML VIAL IV SCH ×4 (00:35→23:48)
[2016-06-16] MEDS: INSULIN LISPRO (humaLOG) 300 UNIT/3 ML VIAL SQ SCH ×5 (00:35→22:42)
[2016-06-16 04:57] LABS: Anisocytosis Slight; Basophils % (A) 0 %; CH 28.8; CHCM 31.2; Eosinophils % (A) 0 %; HDW 3.34; HGB 8.1 gm/dL (13.0-17.5); Hypochromasia Moderate; Luc # (Auto) 0.27; Luc % (Auto) 2; Lymphocytes # (A) 0.5 k/uL (1.0-4.8); Lymphocytes % (A) 4 %; MCH 30.2 pg (25.0-35.0); MCHC 32.5 g/dL (31.0-37.0); MCV 93.1 fL (80.0-100.0); Mean Platelet Volume 7.5; Monocytes # (A) 1.1 k/uL (0-1.0); Monocytes % (A) 8 %; Neutrophils # (A) 10.8 k/uL (1.3-7.7); Neutrophils % (A) 86 %; RBC 2.69 m/uL (4.30-5.90); WBC 12.6 k/uL (3.8-10.6); WBC (Perox) 12.22
[2016-06-16 05:23] LABS: Anion Gap 7 mmol/L; Blood Urea Nitrogen 17 mg/dL (9-20); Calcium 8.4 mg/dL (8.4-10.2); Carbon Dioxide 22 mmol/L (22-30); Chloride 111 mmol/L (98-107); Glucose 112 mg/dL (74-99); Magnesium 1.9 mg/dL (1.6-2.3); Non-African American GFR(MDRD) >60 (>60 ml/min/1.73 sqM); Phosphorous 3.5 mg/dL (2.5-4.5); Sodium 140 mmol/L (137-145)
[2016-06-16] MEDS ORDERED: Magnesium Replacement Protocol 1 EACH MISC MISCELLANE PRN (06:32)
[2016-06-16] MEDS: LORazepam 2 MG/ML SYRINGE IV PRN ×2 (06:51→22:42)
[2016-06-16] MEDS: MAGNESIUM SULFATE-D5W PMX 1 GM in DEXTROSE/WATER 1 100ML.BAG IVPB SCH ×2 (06:51→09:03)
[2016-06-16] MEDS: FORMOTEROL FUMARATE 20 MCG/2 ML NEBU INHALATION SCH ×2 (08:48→19:43)
[2016-06-16] MEDS: LEVALBUTEROL NEB (CONC) 1.25 MG/0.5 ML AMP INHALATION SCH ×4 (08:49→19:43)
[2016-06-16] MEDS: BUDESONIDE 1 MG/2 ML NEBU INHALATION SCH ×2 (08:49→19:43)
[2016-06-16] MEDS: IPRATROPIUM 0.5 MG/2.5 ML NEBU INHALATION SCH ×4 (08:49→19:43)
[2016-06-16] MEDS: LACTULOSE 20 GM/30 ML CUP PO SCH ×3 (09:02→22:43)
[2016-06-16] MEDS: PANTOPRAZOLE 40 MG/10 ML VIAL IVP SCH ×2 (09:02→22:43)
[2016-06-16] MEDS: THIAMINE 100 MG/ML 2 ML VIAL IVP SCH (09:03)
[2016-06-16] MEDS: NICOTINE 14MG/24HR PATCH TRANSDERM SCH (09:03)
--- NOTE | 2016-06-16 09:50 | PN ---
DATE OF SERVICE: 06/15/2016 PRESENTING COMPLAINT: Dark stools. INTERVAL HISTORY: This patient in the ICU. History of alcoholism, smoker, extubated today. The patient is sitting up, 2 liters nasal cannula. Able to answer simple questions, tolerate some clear liquids. No more dark stools. Review of systems done for constitutional, cardiovascular, GI, pulmonary, relevant findings as above. Current medications are reviewed that include Pulmicort, nebulized bronchodilators, Levaquin, IV Solu-Medrol and IV Protonix. On examination, temperature 98.4, pulse 87, respirations 14, blood pressure 157/64, pulse ox 100% on 2 L. GENERAL APPEARANCE: Sitting up in bed, awake, somewhat tired. EYES: Pupils equal. Conjunctivae pale. NECK: JVD not raised. Mass not palpable. RESPIRATORY: Normal. LUNGS: Diminished breath sounds. CARDIOVASCULAR: First and second sounds normal. No edema. ABDOMEN: Soft, nontender. Liver and spleen not palpable. PSYCHIATRY: The patient knows that he is in the ICU. Knows the month and year, was somewhat slow. INVESTIGATIONS: White count 14.9, hemoglobin 8.3, potassium 3.6. BUN 36, creatinine 0.90 ASSESSMENT: 1. Aspiration pneumonia from ( ) sensorium, probably from gastric contents. 2. Acute gastrointestinal bleed suspected to be upper gastrointestinal causing blood loss anemia. Patient received a total of 2 units of blood. 3. Acute metabolic encephalopathy could be hepatic with improvement on lactulose. 4. Delirium tremens from alcoholism, improving. 5. Acute severe chronic obstructive pulmonary disease exacerbation, emphysema exacerbation. The patient is a smoker. 6. Chronic nicotine dependence. Patient is a smoker. 7. Hepatic coagulopathy from underlying liver disease. 8. Severe hypernatremia and hyperchloremia from free water deficit, improving. 9. Thrombocytopenia from alcoholic liver disease. 10. Hyperlipidemia could be component of acute phase reactant maybe protein calorie malnutrition from poor nutrition. 11. Acute hypoxic respiratory failure; underlying chronic obstructive pulmonary disease. PLAN: Continue current medication and treatment plan. Probably patient can have an EGD in the next 24 hours. Looks to be more stable from a pulmonary standpoint.
--- NOTE | 2016-06-16 11:04 | P.PN ---
Subjective This is a 66-year-old male patient who is being evaluated and examined today in the intensive care unit. This patient was admitted to the hospital with a significant GI bleed and hepatic encephalopathy. Apparently when he presented to the emergency room the complaints were changes of mental status and alcohol withdrawal syndrome and delirium tremens. The patient also had some coffee ground emesis as well. Upon admission the patient's hemoglobin and was found to be only 4.7 the patient also was in respiratory distress and had some acute respiratory failure and therefore mechanically intubated. The patient has a significant history for extensive EtOH use. The patient was successfully extubated yesterday, currently he is on 2 L of oxygen at this time. The patient has had no further bleeding in the last 24 hours. He has refused his EGD and in the other treatments at this point. Currently the patient is calling his daughter to come get him. Patient states he knows his right, and that he is going to leave AMA. Patient has been educated on his condition and the risk. Objective - Vital Signs Vital signs: Vital Signs Temp 97.6 F 06/16/16 08:00 Pulse 93 06/16/16 10:00 Resp 17 06/16/16 10:00 BP 147/71 06/16/16 10:00 Pulse Ox 100 06/16/16 10:00 Intake & Output 06/15/16 06/16/16 06/16/16 18:59 06:59 18:59 Intake Total 1730.987 100 200 Output Total 875 525 235 Balance 855.987 -425 -35 Weight 65.2 kg 68.4 kg Intake: Intake, IV Titration 1370.987 100 200 Amount Dextrose 5% in Water 1, 1100 000 ml @ 100 mls/hr IV . Q10H [facility] Rx#:[id number] Levofloxacin 500Mg-D5w 100 Pmx 500 mg In Dextrose/ Water 1 100ml.bag @ 100 mls/hr IVPB HS [facility] Rx#: [id number] Magnesium Sulfate-D5w Pmx 200 1 gm In Dextrose/Water 1 100ml.bag @ 100 mls/hr IVPB Q1H [facility] Rx#: [id number] Phytonadione 5 mg In 50 Sodium Chloride 0.9% 50 ml @ 100 mls/hr IVPB DAILY [facility] Rx#:[id number] Potassium Chloride 10 meq 200 In Water For Injection 1 100ml.bag @ 100 mls/hr IVPB Q1H [facility] Rx#: [id number] Propofol 500 mg In Empty 20.987 Bag 1 bag @ Titrate IV . Q0M [facility] Rx#:[id number] Oral 360 Output: Urine 875 525 235 Other: Voiding Method Indwelling Catheter Indwelling Catheter Indwelling Catheter - Exam GENERAL EXAM: No acute distress HEAD: Normocephalic. EYES: Normal reaction of pupils, equal size. NOSE: Clear with pink turbinates. THROAT: No erythema or exudates. NECK: No masses, no JVD. CHEST: No chest wall deformity. LUNGS: Slightly coarse, Equal air entry with no crackles, wheeze, rhonchi or dullness. CVS: S1 and S2 normal with no audible mumurs, regular rhythm. ABDOMEN: No hepatosplenomegaly, normal bowel sounds, no guarding or rigidity. EXTREMITIES: No edema noted, pedal pulses palpable. SKIN: No rashes CENTRAL NERVOUS SYSTEM: No deficits, moves all 4 extremities. - Labs CBC & Chem 7: 06/16/16 04:26 06/16/16 04:26 Labs: Abnormal Lab Results - Last 24 Hours (Table) 06/15/16 06/15/16 06/16/16 Range/Units 12:09 18:42 00:33 WBC (3.8-10.6) k/uL RBC (4.30-5.90) m/uL Hgb (13.0-17.5) gm/dL Hct (39.0-53.0) % RDW (11.5-15.5) % Plt Count (150-450) k/uL Neutrophils # (1.3-7.7) k/uL Lymphocytes # (1.0-4.8) k/uL Monocytes # (0-1.0) k/uL Chloride (98-107) mmol/L Creatinine (0.66-1.25) mg/dL Glucose (74-99) mg/dL POC Glucose (mg/dL) 161 H 133 H 149 H (75-99) mg/dL 06/16/16 06/16/16 Range/Units 04:26 04:26 WBC 12.6 H (3.8-10.6) k/uL RBC 2.69 L (4.30-5.90) m/uL Hgb 8.1 L (13.0-17.5) gm/dL Hct 25.0 L (39.0-53.0) % RDW 16.0 H (11.5-15.5) % Plt Count 131 L (150-450) k/uL Neutrophils # 10.8 H (1.3-7.7) k/uL Lymphocytes # 0.5 L (1.0-4.8) k/uL Monocytes # 1.1 H (0-1.0) k/uL Chloride 111 H (98-107) mmol/L Creatinine 0.64 L (0.66-1.25) mg/dL Glucose 112 H (74-99) mg/dL POC Glucose (mg/dL) (75-99) mg/dL Microbiology - Last 24 Hours (Table) 06/12/16 23:21 Blood Culture - Preliminary Blood No Growth after 72 hours 06/13/16 03:20 Gram Stain - Final Sputum Sputum Culture - Final Assessment and Plan Plan: Assessment Early aspiration pneumonia, likely mixed bacteria gram-negative Acute blood loss anemia likely related to GI process Altered mental encephalopathy Impending alcohol withdrawal with delirium tremens Severe chronic obstructive pulmonary disease and emphysema Coagulopathy related to liver disease likely alcoholic liver disease Severe hyponatremia Plan Medications have been reviewed and will be continued as ordered. Patient to continue on 2 L of oxygen. Continue with nebulizer treatments, pulmonary hygiene, steroids and supportive care. Patient educated on the severity of his condition and the risk if he were to leave AMA. Patient continues to refuse EGD or any other procedures or interventions at this time. We will continue to monitor his labs/results and adjust treatment as necessary. I performed an examination of the patient and discussed their management with the nurse practitioner. I have reviewed the nurse practitioner's note and agree with the documented findings and plan of care.
[2016-06-16] MEDS ORDERED: INSULIN LISPRO (humaLOG) 300 UNIT/3 ML VIAL SQ SCH (11:26)
[2016-06-16 11:31] LABS: Glucose,Whole Blood 234 mg/dL (75-99)
--- NOTE | 2016-06-16 12:22 | PN ---
DATE OF SERVICE: 06/16/2016 Patient is a 66-year-old white male with history of acute alcohol abuse and hepatic encephalopathy who was admitted to the hospital with some coffee-ground emesis and subsequently had altered mental status/DTs and had to be intubated to protect the airway. He was just was extubated yesterday and is feeling better. Since yesterday, he denies any abdominal pain. He reports no nausea or vomiting. He did have an NG tube in place while intubated, which have some coffee-ground material. He does not recall having any episodes of GI bleed prior to hospitalization. Has history of heavy alcohol abuse. On physical examination, he appears comfortable, in no apparent distress. Vitals as are stable. Blood pressure is 150/66, pulse rate 80, temperature 98.7. HEENT examination unremarkable. Conjunctivae are pink. Sclerae nonicteric. Oral cavity, no lesions. NECK: No JVD or lymph node enlargement. Chest was clear to auscultation. HEART: Regular rate and rhythm. Abdomen is soft, nontender, nondistended. Liver and spleen not palpable. Bowel sounds are positive. No organomegaly. EXTREMITIES: No pedal edema. SKIN: No rashes. NEURO: Alert and oriented x3, no focal deficits. Labs at the time of admission to the hospital: Hemoglobin was 4.7, subsequently received 2 to 3 units of PRBC transfusion and the last hemoglobin is 8.3 gm/dL. MCV is 93 and platelet count is 79,000. T-bili was 1.9. ALT and AST are 70 and 64 respectively. IMPRESSION: 1. This is patient with history of heavy alcohol abuse who was admitted to the hospital with severe symptomatic anemia, hemoglobin of 4.7 requiring 3 units of PRBC transfusion. Subsequently, he developed acute alcoholic withdrawal and will have to be intubated and he was just extubated yesterday. While in the ICU, he had some episodes of coffee-ground emesis via the NG tube. Presently hemoglobin stable at 8.4 g/dL. 2. Hepatic encephalopathy, resolved. 3. Heavy alcohol abuse. RECOMMENDATIONS: I had a lengthy discussion with the patient regarding proceeding with an upper endoscopy given the recent episode of upper GI bleed as well as severe symptomatic anemia. However, at this present time, he still refuses to have any procedures done. For now will continue with Protonix 40 mg q.12 hours and will follow the patient closely during his hospital stay. Thank you for this consultation.
[2016-06-16 16:48] LABS: Glucose,Whole Blood 213 mg/dL (75-99)
[2016-06-16] MEDS ORDERED: ARTIFICIAL TEARS-HYPROMELLOSE DROPS 15 ML BTL BOTH EYES PRN (17:20)
[2016-06-16] MEDS: 1: MVI, ADULT NO.4 WITH VIT K 10 ML, THIAMINE 100 MG, FOLIC ACID 1 MG, POTASSIUM CHLORID IV SCH ×5 (19:52)
[2016-06-16 20:32] LABS: Glucose,Whole Blood 150 mg/dL (75-99)
[2016-06-16] MEDS: LEVOFLOXACIN 500MG-D5W PMX 500 MG in DEXTROSE/WATER 1 100ML.BAG IVPB SCH (22:42)
[2016-06-16] MEDS: METOPROLOL TARTRATE 12.5 MG TAB PO SCH (22:43)
--- NOTE | 2016-06-16 23:45 | PN ---
DATE OF SERVICE: 06/16/2016 PRESENTING COMPLAINT: Dark stools. INTERVAL HISTORY: Patient was moved from the ICU today. He has a history of alcoholism, smoker. Tolerating a liquid diet. Dr. Rhonda Watt from GI spoke to the patient. He does not want an endoscopy at this present time. Review of systems done for constitutional, cardiovascular, GI, pulmonary; relevant findings as above. Current medications are reviewed. On examination, temperature 97.9, pulse 103, respiration 16, blood pressure 160/76, pulse ox 98% on room air. GENERAL APPEARANCE: Sitting up in bed. Awake. EYES: Pupils equal. Conjunctivae pale. NECK: JVD not raised. Mass not palpable. RESPIRATORY: Effort normal. LUNGS: Diminished breath sounds. CARDIOVASCULAR: First and second sounds normal. No edema. ABDOMEN: Soft, non-tender. Liver and spleen not palpable. PSYCHIATRY: Awake. Answering questions. INVESTIGATIONS: White count 12.6, hemoglobin 8.1. Potassium 4.0. Accu-Cheks are noted. ASSESSMENT: 1. Aspiration pneumonia causing altered sensorium, probably from gastric contents, now clinically improved. 2. Acute gastrointestinal bleed suspected to be upper, causing acute blood loss anemia. Patient did receive 2 units of blood. Patient at this point has declined endoscopy. I did try to call his daughter, but there is no voice mail. 3. Acute metabolic encephalopathy; could be hepatic, with improvement on lactulose. 4. Delirium tremens from alcoholism, improved. 5. Acute severe chronic obstructive pulmonary disease exacerbation in a smoker, improving. 6. Chronic nicotine dependence. Patient is a smoker. 7. Hepatic coagulopathy from underlying liver disease. 8. Severe hypernatremia and hyperkalemia from free water deficit, improving. 9. Thrombocytopenia from alcoholic liver disease. 10. Hypoalbuminemia; could be an acute phase reactant or possibly protein-calorie malnutrition from poor nutrition. 11. Acute hypoxic respiratory failure from underlying chronic obstructive pulmonary disease. PLAN: Continue current medication and treatment plan, supportive care. Diet has been advanced.
[2016-06-17 08:19] LABS: Glucose,Whole Blood 161 mg/dL (75-99)
[2016-06-17 08:36] LABS: Basophils % (A) 0 %; CH 28.5; CHCM 30.8; Eosinophils % (A) 0 %; HCT 27.5 % (39.0-53.0); HDW 3.46; Hypochromasia Moderate; Luc # (Auto) 0.26; Luc % (Auto) 2; Lymphocytes # (A) 0.5 k/uL (1.0-4.8); Lymphocytes % (A) 4 %; MCH 30.4 pg (25.0-35.0); MCHC 32.7 g/dL (31.0-37.0); MCV 93.1 fL (80.0-100.0); Mean Platelet Volume 7.6; Monocytes # (A) 1.2 k/uL (0-1.0); Monocytes % (A) 9 %; Neutrophils # (A) 11.3 k/uL (1.3-7.7); Neutrophils % (A) 85 %; Poikilocytosis Slight; RBC 2.95 m/uL (4.30-5.90); RDW 15.6 % (11.5-15.5); WBC 13.3 k/uL (3.8-10.6); WBC (Perox) 13.41
[2016-06-17 08:43] LABS: Anion Gap 8 mmol/L; Blood Urea Nitrogen 18 mg/dL (9-20); Calcium 8.3 mg/dL (8.4-10.2); Carbon Dioxide 24 mmol/L (22-30); Chloride 110 mmol/L (98-107); Glucose 131 mg/dL (74-99); Non-African American GFR(MDRD) >60 (>60 ml/min/1.73 sqM); Phosphorous 2.9 mg/dL (2.5-4.5); Potassium 4.4 mmol/L (3.5-5.1); Sodium 142 mmol/L (137-145)
[2016-06-17] MEDS: methylPREDNISolone SOD SUCCI 40 MG/ML 1 ML VIAL IV SCH ×3 (09:05→22:43)
[2016-06-17] MEDS: INSULIN LISPRO (humaLOG) 300 UNIT/3 ML VIAL SQ SCH ×4 (09:05→20:24)
[2016-06-17] MEDS: LACTULOSE 20 GM/30 ML CUP PO SCH ×3 (09:07→22:43)
[2016-06-17] MEDS: NICOTINE 14MG/24HR PATCH TRANSDERM SCH ×2 (09:07→22:51)
[2016-06-17] MEDS: METOPROLOL TARTRATE 12.5 MG TAB PO SCH ×2 (09:08→22:43)
[2016-06-17] MEDS: THIAMINE 100 MG/ML 2 ML VIAL IVP SCH (09:09)
[2016-06-17] MEDS: PANTOPRAZOLE 40 MG/10 ML VIAL IVP SCH ×2 (09:09→22:43)
[2016-06-17] MEDS: IPRATROPIUM 0.5 MG/2.5 ML NEBU INHALATION SCH ×4 (09:45→19:22)
[2016-06-17] MEDS: BUDESONIDE 1 MG/2 ML NEBU INHALATION SCH ×2 (09:45→19:22)
[2016-06-17] MEDS: LEVALBUTEROL NEB (CONC) 1.25 MG/0.5 ML AMP INHALATION SCH ×4 (09:45→19:22)
[2016-06-17] MEDS: FORMOTEROL FUMARATE 20 MCG/2 ML NEBU INHALATION SCH ×2 (09:45→19:22)
--- NOTE | 2016-06-17 10:16 | P.PN ---
Subjective This is a 66-year-old male patient who is being evaluated and examined today on the 5th floor. This patient was admitted to the hospital with a significant GI bleed and hepatic encephalopathy. Apparently when he presented to the emergency room the complaints were changes of mental status and alcohol withdrawal syndrome and delirium tremens. The patient also had some coffee ground emesis as well. Upon admission the patient's hemoglobin and was found to be only 4.7 the patient also was in respiratory distress and had some acute respiratory failure and therefore mechanically intubated. The patient has a significant history for extensive EtOH use. The patient was successfully extubated. The patient has had no further bleeding in the last 24 hours. He had originally refused his EGD and in the other treatments at this point. However, today the patient is more compliant and would like to go forward with either an EGD or colonoscopy today. Upon examination the patient is sitting up in bed on room airsignificant shortness of breath or cough noted. Objective - Vital Signs Vital signs: Vital Signs Temp 98 F 06/17/16 07:00 Pulse 82 06/17/16 07:00 Resp 16 06/17/16 07:00 BP 166/73 06/17/16 07:00 Pulse Ox 99 06/17/16 07:00 Intake & Output 06/16/16 06/17/16 06/17/16 18:59 06:59 18:59 Intake Total 200 890 Output Total 325 Balance -125 890 Weight 71 kg Intake: Intake, IV Titration 200 Amount Magnesium Sulfate-D5w Pmx 200 1 gm In Dextrose/Water 1 100ml.bag @ 100 mls/hr IVPB Q1H [facility] Rx#: [id number] Oral 890 Output: Urine 325 Other: Voiding Method Toilet Toilet # Voids 1 1 1 # Bowel Movements 1 - Exam GENERAL EXAM: No acute distress HEAD: Normocephalic. EYES: Normal reaction of pupils, equal size. NOSE: Clear with pink turbinates. THROAT: No erythema or exudates. NECK: No masses, no JVD. CHEST: No chest wall deformity. LUNGS: Slightly coarse, Equal air entry with no crackles, wheeze, rhonchi or dullness. CVS: S1 and S2 normal with no audible mumurs, regular rhythm. ABDOMEN: No hepatosplenomegaly, normal bowel sounds, no guarding or rigidity. EXTREMITIES: No edema noted, pedal pulses palpable. SKIN: No rashes CENTRAL NERVOUS SYSTEM: No deficits, moves all 4 extremities. - Labs CBC & Chem 7: 06/17/16 07:44 06/17/16 07:44 Labs: Abnormal Lab Results - Last 24 Hours (Table) 06/16/16 06/16/16 06/16/16 Range/Units 11:28 16:47 20:30 WBC (3.8-10.6) k/uL RBC (4.30-5.90) m/uL Hgb (13.0-17.5) gm/dL Hct (39.0-53.0) % RDW (11.5-15.5) % Neutrophils # (1.3-7.7) k/uL Lymphocytes # (1.0-4.8) k/uL Monocytes # (0-1.0) k/uL Chloride (98-107) mmol/L Glucose (74-99) mg/dL POC Glucose (mg/dL) 234 H 213 H 150 H (75-99) mg/dL Calcium (8.4-10.2) mg/dL 06/17/16 06/17/16 06/17/16 Range/Units 07:44 07:44 08:09 WBC 13.3 H (3.8-10.6) k/uL RBC 2.95 L (4.30-5.90) m/uL Hgb 9.0 L (13.0-17.5) gm/dL Hct 27.5 L (39.0-53.0) % RDW 15.6 H (11.5-15.5) % Neutrophils # 11.3 H (1.3-7.7) k/uL Lymphocytes # 0.5 L (1.0-4.8) k/uL Monocytes # 1.2 H (0-1.0) k/uL Chloride 110 H (98-107) mmol/L Glucose 131 H (74-99) mg/dL POC Glucose (mg/dL) 161 H (75-99) mg/dL Calcium 8.3 L (8.4-10.2) mg/dL Microbiology - Last 24 Hours (Table) 06/12/16 23:21 Blood Culture - Preliminary Blood No Growth after 96 hours Assessment and Plan Plan: Assessment Early aspiration pneumonia, likely mixed bacteria gram-negative Acute blood loss anemia likely related to GI process Altered mental encephalopathy Impending alcohol withdrawal with delirium tremens Severe chronic obstructive pulmonary disease and emphysema Coagulopathy related to liver disease likely alcoholic liver disease Severe hyponatremia Plan Medications have been reviewed and will be continued as ordered. Continue with nebulizer treatments, pulmonary hygiene, steroids and supportive care. GI is being informed that the patient would like to go forth with procedures. From a pulmonary standpoint the patient is stable for procedures. We will continue to monitor his labs/results and adjust treatment as necessary. I performed an examination of the patient and discussed their management with the nurse practitioner. I have reviewed the nurse practitioner's note and agree with the documented findings and plan of care.
[2016-06-17 10:41] VITALS: BMI 23.1
[2016-06-17 11:55] LABS: Glucose,Whole Blood 110 mg/dL (75-99)
[2016-06-17] MEDS ORDERED: PEG 3350-NA SULF,BICARB,CL/KCL 4,000 ML BOTTLE PO ONE (17:00)
[2016-06-17 17:26] LABS: Glucose,Whole Blood 130 mg/dL (75-99)
--- NOTE | 2016-06-17 17:42 | PN ---
DATE OF SERVICE: 06/17/2016 REQUESTING PHYSICIAN: Dr. Bryce Dorman BRIEF HISTORY: Patient is a 66-year-old white male with history of alcohol abuse admitted the hospital with severe symptomatic anemia and hemoglobin of 4.6 requiring 3 units of PRBC transfusion. He underwent alcohol withdrawal/also there was hepatic encephalopathy, was transferred to the ICU and was intubated and he was just was extubated 2 days ago. The patient was transferred to the floor and is doing much better. He denies any abdominal pain. Reports no nausea or vomiting. On physical examination, appears comfortable in no apparent distress. Vitals as are stable. Blood pressure is 130/86, pulse rate 82 per minute and afebrile. HEENT examination unremarkable. Conjunctivae pink. Sclerae anicteric. Oral cavity, no lesions. NECK: No JVD or lymph node enlargement. CHEST Clear to auscultation. HEART: Regular rate and rhythm. ABDOMEN: Soft, slightly distended. Bowel sounds are positive. No organomegaly. EXTREMITIES: No pedal edema. SKIN: No rashes. NEURO: Alert and oriented x3. No focal deficits. Labs done today showed a hemoglobin of 9, WBC 13.3, and platelets 168. IMPRESSION: 1. Acute gastrointestinal bleed with coffee-ground emesis and severe symptomatic anemia and hemoglobin of 4.6 at the time of admission to the hospital, status post blood transfusions as described above. Currently, no active bleeding. 2. History of alcohol withdrawal and hepatic encephalopathy, resolved. 3. Heavy alcohol abuse of several years' duration. RECOMMENDATIONS: Will proceed with an EGD, colonoscopy tomorrow. Discussed with the patient the risks, benefits, and complications of the procedure and he is agreeable to it. Thank you for this consultation.
[2016-06-17 20:23] LABS: Glucose,Whole Blood 115 mg/dL (75-99)
--- NOTE | 2016-06-17 21:02 | PN ---
DATE OF SERVICE: 06/17/2016 PRESENTING COMPLAINT: Dark stools. INTERVAL HISTORY: This is a patient, alcoholic, smoker, presented with GI bleed. Initially declined to be scoped and now acute for the same. He is going to go for endoscopy tomorrow. He has had no bowel movement today. Switched to liquid diet. Breathing is better. Review of systems done for constitutional, cardiovascular, GI, pulmonary; relevant findings as above. Current medications are reviewed. On examination, temperature 98, pulse 82, respirations 16, blood pressure 167/73, pulse ox 99% on room air. GENERAL APPEARANCE: Sitting up in bed, comfortable. EYES: Pupils equal. Conjunctivae pale. NECK: JVD not raised. Mass not palpable. RESPIRATORY: Effort normal. LUNGS: Decreased breath sounds. CARDIOVASCULAR: First and second sounds normal. No edema. ABDOMEN: Soft, nontender. Liver and spleen not palpable. PSYCHIATRY: Awake, answering questions. INVESTIGATIONS: White count 13.3, hemoglobin 9. Potassium 4.4. BUN and creatinine are normal. ASSESSMENT: 1. Aspiration pneumonia causing altered sensorium probably from gastric contents, now clinically improved. 2. Acute gastrointestinal bleed; suspect upper causing acute blood loss anemia. Patient did receive 2 units of blood, has now decided to proceed with endoscopy. 3. Acute metabolic encephalopathy could be hepatic with improvement. 4. Delirium tremens from alcoholism, improved. 5. Acute severe chronic obstructive pulmonary disease exacerbation is improving. 6. Chronic nicotine dependence. Patient is a smoker. 7. Hepatic coagulopathy from underlying liver disease. 8. Severe hypernatremia and hyperkalemia from free water deficit, improved. 9. Thrombocytopenia from chronic liver disease. 10. Hypoalbuminemia, could be an acute phase reactant and possibly moderate protein calorie malnutrition. 11. Acute hypoxic respiratory failure, underlying chronic obstructive pulmonary disease. PLAN: Care was discussed with the patient. Continue current medications and treatment plan. Await endoscopy tomorrow. Will cut back ( ). Will DC patient's Levaquin now.
[2016-06-18 07:08] LABS: Glucose,Whole Blood 124 mg/dL (75-99)
[2016-06-18] MEDS: BUDESONIDE 1 MG/2 ML NEBU INHALATION SCH ×2 (09:40→19:29)
[2016-06-18] MEDS: LEVALBUTEROL NEB (CONC) 1.25 MG/0.5 ML AMP INHALATION SCH ×4 (09:40→19:30)
[2016-06-18] MEDS: FORMOTEROL FUMARATE 20 MCG/2 ML NEBU INHALATION SCH ×2 (09:40→19:29)
[2016-06-18] MEDS: IPRATROPIUM 0.5 MG/2.5 ML NEBU INHALATION SCH ×4 (09:40→19:29)
[2016-06-18] MEDS: INSULIN LISPRO (humaLOG) 300 UNIT/3 ML VIAL SQ SCH ×4 (09:52→20:58)
[2016-06-18] MEDS: methylPREDNISolone SOD SUCCI 40 MG/ML 1 ML VIAL IV SCH ×2 (09:53→20:57)
[2016-06-18] MEDS: LACTULOSE 20 GM/30 ML CUP PO SCH ×3 (09:53→20:59)
[2016-06-18] MEDS: METOPROLOL TARTRATE 12.5 MG TAB PO SCH ×2 (09:54→20:58)
[2016-06-18] MEDS: NICOTINE 14MG/24HR PATCH TRANSDERM SCH (09:54)
[2016-06-18] MEDS: PANTOPRAZOLE 40 MG/10 ML VIAL IVP SCH ×2 (09:54→20:58)
[2016-06-18] MEDS: THIAMINE 100 MG/ML 2 ML VIAL IVP SCH (09:54)
--- NOTE | 2016-06-18 11:07 | P.PN ---
Subjective This is a 66-year-old male patient who is being evaluated and examined today on the 5th floor. This patient was admitted to the hospital with a significant GI bleed and hepatic encephalopathy. Apparently when he presented to the emergency room the complaints were changes of mental status and alcohol withdrawal syndrome and delirium tremens. The patient also had some coffee ground emesis as well. Upon admission the patient's hemoglobin and was found to be only 4.7 the patient also was in respiratory distress and had some acute respiratory failure and therefore mechanically intubated. The patient has a significant history for extensive EtOH use. The patient was successfully extubated. The patient has had no further bleeding in the last 24 hours. He had originally refused his EGD and in the other treatments at this point. However, the patient would like to go forward with either an EGD or colonoscopy today. Upon examination the patient is sitting up in bed on room no shortness of breath or cough noted. Patient up ambulating in room and halls. Objective - Vital Signs Vital signs: Vital Signs Temp 97.7 F 06/18/16 07:00 Pulse 86 06/18/16 07:00 Resp 16 06/18/16 08:00 BP 138/75 06/18/16 07:00 Pulse Ox 96 06/18/16 07:00 Intake & Output 06/17/16 06/18/16 06/18/16 18:59 06:59 18:59 Intake Total 240 250 Balance 240 250 Weight 71 kg Intake: Oral 240 250 Other: Voiding Method Toilet Toilet Toilet # Voids 1 2 # Bowel Movements 1 4 - Exam GENERAL EXAM: No acute distress HEAD: Normocephalic. EYES: Normal reaction of pupils, equal size. NOSE: Clear with pink turbinates. THROAT: No erythema or exudates. NECK: No masses, no JVD. CHEST: No chest wall deformity. LUNGS: Slightly coarse, Equal air entry with no crackles, wheeze, rhonchi or dullness. CVS: S1 and S2 normal with no audible mumurs, regular rhythm. ABDOMEN: No hepatosplenomegaly, normal bowel sounds, no guarding or rigidity. EXTREMITIES: No edema noted, pedal pulses palpable. SKIN: No rashes CENTRAL NERVOUS SYSTEM: No deficits, moves all 4 extremities. - Labs CBC & Chem 7: 06/17/16 07:44 06/17/16 07:44 Labs: Abnormal Lab Results - Last 24 Hours (Table) 06/17/16 06/17/16 06/17/16 Range/Units 11:11 17:21 20:04 POC Glucose (mg/dL) 110 H 130 H 115 H (75-99) mg/dL 06/18/16 Range/Units 07:06 POC Glucose (mg/dL) 124 H (75-99) mg/dL Microbiology - Last 24 Hours (Table) 06/12/16 23:21 Blood Culture - Preliminary Blood No Growth after 120 hours Assessment and Plan Plan: Assessment Early aspiration pneumonia, likely mixed bacteria gram-negative Acute blood loss anemia likely related to GI process Altered mental encephalopathy Impending alcohol withdrawal with delirium tremens Severe chronic obstructive pulmonary disease and emphysema Coagulopathy related to liver disease likely alcoholic liver disease Severe hyponatremia Plan Medications have been reviewed and will be continued as ordered. Continue with nebulizer treatments, pulmonary hygiene, steroids and supportive care. Patient to have colonoscopy procedure today. From a pulmonary standpoint the patient is stable for procedures. We will continue to monitor his labs/results and adjust treatment as necessary. I performed an examination of the patient and discussed their management with the nurse practitioner. I have reviewed the nurse practitioner's note and agree with the documented findings and plan of care.
[2016-06-18 11:52] LABS: Glucose,Whole Blood 105 mg/dL (75-99)
[2016-06-18] MEDS ORDERED: IV FLUID CONTINUATION 1,000 ML IV ONE (13:21)
[2016-06-18] MEDS ORDERED: LIDOCAINE 1% INJ 10MG/ML (20 ML MDV) ONE (13:21)
[2016-06-18] MEDS ORDERED: PROPOFOL 10 MG/ML 20 ML VIAL IV ONE (13:21)
--- NOTE | 2016-06-18 14:18 | P.PCN ---
Date of Procedure: 06/18/16 Procedure(s) Performed: Brief history: Patient is a pleasant 66-year-old white male, admitted to the hospital with acute GI bleed and alcohol withdrawal. He was noted to have a hemoglobin of 4.5 requiring 3 units of PRBC transfusion. He also had couple of episodes of coffee-ground emesis. Now the bleeding has subsided. He is scheduled scheduled for an elective upper endoscopy as well as colonoscopy as a part of evaluation of[default value] Procedure performed: Esophagogastroduodenoscopy Colonoscopy with biopsy and snare polypectomy Preoperative diagnosis: Anemia/coffee-ground emesis Change in bowel habits Anesthesia: MAC Procedure: After informed consent was obtained from the patient was brought into the endoscopy unit and IV sedation was administered by anesthesia under continuous monitoring. Initially upper endoscopy was done. The Olympus GF 160 video endoscope was inserted inserted into the mouth and esophagus intubated without any difficulty and was gradually advanced into the stomach and duodenum and carefully examined. The bulb and second part of the duodenum appeared normal. The scope was then withdrawn into the stomach adequately insufflated with air and upon careful examination the antrum and body, cardia and fundus has congested appearing mucosa consistent with moderate to severe portal gastropathy. No active bleeding identified. No gastric varices seen. The scope was then withdrawn into the esophagus. The GE junction was located at 40 cm to the incisors. It appeared regular with no erythema erosions or ulcerations. Rest of the esophagus appeared normal. There were grade 2 distal nonbleeding esophageal varices seen. Patient tolerated the procedure well. At this time the patient continued to remain sedation. Initial digital rectal examination was normal. Olympus CF 160 video colonoscope was then inserted into the rectum and gradually advanced to the cecum without any difficulty. Careful examination was performed as the scope was gradually being withdrawn. The prep was excellent. There was a elongated almost circumferential cecal ulceration with some congested appearing mucosa identified and biopsies were done from this area. No active bleeding noted. Terminal ileum was intubated and 20 cm visualized and appeared normal. The ascending colon, transverse colon, descending colon, sigmoid colon and rectum appeared normal. In the rectum there was a 5 mm and once limited polyp that was removed by biopsy and snare polypectomy respectively.. Retroflexion was performed in the rectum and a 2 internal hemorrhoids were noted. Patient tolerated the procedure well. Impression: 1. Upper endoscopy revealed diffuse moderate to severe portal gastropathy and nonbleeding grade 2 distal esophageal varices 2. Colonoscopy revealed a linear circumferential cecal ulceration with no active bleeding. 5 mm and 1 diminutive rectal polyp serous was snare polypectomy and grade 2 internal hemorrhoids Recommendations: Findings of this examination were discussed with the patient as well as his family. He was advised to follow with the biopsy results. He was restarted on a low-sodium diet. He'll be seen in office in 2 weeks from now.
[2016-06-18 17:48] LABS: Glucose,Whole Blood 182 mg/dL (75-99)
[2016-06-18 20:24] LABS: Glucose,Whole Blood 149 mg/dL (75-99)
[2016-06-18 23:35] VITALS: RESP 17
[2016-06-19 07:50] LABS: Glucose,Whole Blood 126 mg/dL (75-99)
[2016-06-19] MEDS: THIAMINE 100 MG/ML 2 ML VIAL IVP SCH (08:30)
[2016-06-19] MEDS: LACTULOSE 20 GM/30 ML CUP PO SCH (08:30)
[2016-06-19] MEDS: methylPREDNISolone SOD SUCCI 40 MG/ML 1 ML VIAL IV SCH (08:31)
[2016-06-19] MEDS: INSULIN LISPRO (humaLOG) 300 UNIT/3 ML VIAL SQ SCH ×2 (08:31→12:09)
[2016-06-19] MEDS: METOPROLOL TARTRATE 12.5 MG TAB PO SCH (08:31)
[2016-06-19] MEDS: PANTOPRAZOLE 40 MG/10 ML VIAL IVP SCH (08:31)
[2016-06-19] MEDS: IPRATROPIUM 0.5 MG/2.5 ML NEBU INHALATION SCH ×2 (09:31→13:42)
[2016-06-19] MEDS: FORMOTEROL FUMARATE 20 MCG/2 ML NEBU INHALATION SCH (09:31)
[2016-06-19] MEDS: LEVALBUTEROL NEB (CONC) 1.25 MG/0.5 ML AMP INHALATION SCH ×2 (09:32→13:42)
[2016-06-19] MEDS: BUDESONIDE 1 MG/2 ML NEBU INHALATION SCH (09:32)
[2016-06-19 10:33] VITALS: PULSE 70
[2016-06-19 11:32] VITALS: BP 132/66; TEMP 97.2
[2016-06-19 12:04] LABS: Glucose,Whole Blood 151 mg/dL (75-99)
[2016-06-19] MEDS: NICOTINE 14MG/24HR PATCH TRANSDERM SCH (12:09)
--- NOTE | 2016-06-19 14:21 | PN ---
DATE OF SERVICE: 06/19/2016 This patient is a 66-year-old white male with history of alcohol abuse admitted to the hospital with acute GI bleed, alcohol withdrawal, DTs. He was intubated and was extubated 3 days ago. He underwent an EGD and a colonoscopy for severe symptomatic anemia and coffee-ground emesis. Upper endoscopy revealed small esophageal varices and severe portal hypertensive gastropathy. Colonoscopy revealed cecal ulcer and small rectal polyps. He is doing better. No more bleeding. Denies any abdominal pain. No nausea, vomiting. On physical examination, he appears comfortable in no apparent distress. Vital signs are stable. Blood pressure is 122/86, pulse rate 72, and afebrile. HEENT examination unremarkable. Conjunctivae pink. Sclerae anicteric. Oral cavity, no lesions. NECK: No JVD or lymph node enlargement. Chest was clear to auscultation. HEART: Regular rate and rhythm. ABDOMEN: Soft. Bowel sounds are positive. No organomegaly. EXTREMITIES: No pedal edema. SKIN: No rashes. NEURO: He is alert and oriented x3. No focal deficits. No labs from today. Hemoglobin from yesterday 9. IMPRESSION: 1. Severe symptomatic anemia and coffee-ground emesis, status post EGD, colonoscopy yesterday, which revealed small esophageal varices and portal hypertensive gastropathy. Colonoscopy revealed a cecal ulcer that was biopsied and some rectal polyps. Presently asymptomatic. No further bleeding. 2. History of heavy alcohol abuse. 3. Alcoholic cirrhosis of the liver. 4. Normocytic anemia. RECOMMENDATIONS: 1. The patient was advised to remain abstinent from alcohol. 2. Continue with current medications. 3. He can be discharged home today with an outpatient follow up in 3 to 4 weeks.
--- NOTE | 2016-06-19 16:33 | P.PN ---
Subjective This is a 66-year-old male patient who is being evaluated and examined today on the 5th floor. This patient was admitted to the hospital with a significant GI bleed and hepatic encephalopathy. Apparently when he presented to the emergency room the complaints were changes of mental status and alcohol withdrawal syndrome and delirium tremens. The patient also had some coffee ground emesis as well. Upon admission the patient's hemoglobin and was found to be only 4.7 the patient also was in respiratory distress and had some acute respiratory failure and therefore mechanically intubated. The patient has a significant history for extensive EtOH use. The patient was successfully extubated. The patient has had no further bleeding in the last 24 hours. He had originally refused his EGD and in the other treatments at this point. However, the patient did end up going forward with either a colonoscopy. Upon examination the patient is sitting up in bed on room no shortness of breath or cough noted. Patient up ambulating in room and halls. Objective - Vital Signs Vital signs: Vital Signs Temp 97.2 F L 06/19/16 07:00 Pulse 72 06/19/16 09:46 Resp 17 06/19/16 08:00 BP 132/66 06/19/16 07:00 Pulse Ox 98 06/19/16 07:00 Intake & Output 06/18/16 06/19/16 06/19/16 18:59 06:59 18:59 Intake Total 300 670 600 Balance 300 670 600 Intake: IV 300 Oral 670 600 Other: Voiding Method Toilet Toilet Toilet # Voids 2 2 4 - Exam GENERAL EXAM: No acute distress HEAD: Normocephalic. EYES: Normal reaction of pupils, equal size. NOSE: Clear with pink turbinates. THROAT: No erythema or exudates. NECK: No masses, no JVD. CHEST: No chest wall deformity. LUNGS: Slightly coarse, Equal air entry with no crackles, wheeze, rhonchi or dullness. CVS: S1 and S2 normal with no audible mumurs, regular rhythm. ABDOMEN: No hepatosplenomegaly, normal bowel sounds, no guarding or rigidity. EXTREMITIES: No edema noted, pedal pulses palpable. SKIN: No rashes CENTRAL NERVOUS SYSTEM: No deficits, moves all 4 extremities. - Labs CBC & Chem 7: 06/17/16 07:44 06/17/16 07:44 Labs: Abnormal Lab Results - Last 24 Hours (Table) 06/18/16 06/18/16 06/19/16 Range/Units 17:41 20:17 07:39 POC Glucose (mg/dL) 182 H 149 H 126 H (75-99) mg/dL 06/19/16 Range/Units 12:03 POC Glucose (mg/dL) 151 H (75-99) mg/dL Microbiology - Last 24 Hours (Table) 06/12/16 23:21 Blood Culture - Final Blood No Growth after 144 hours Assessment and Plan Plan: Assessment Early aspiration pneumonia, likely mixed bacteria gram-negative Acute blood loss anemia likely related to GI process Altered mental encephalopathy Impending alcohol withdrawal with delirium tremens Severe chronic obstructive pulmonary disease and emphysema Coagulopathy related to liver disease likely alcoholic liver disease Severe hyponatremia Plan Medications have been reviewed and will be continued as ordered. Continue with nebulizer treatments, pulmonary hygiene, steroids and supportive care. We will continue to monitor his labs/results and adjust treatment as necessary. I performed an examination of the patient and discussed their management with the nurse practitioner. I have reviewed the nurse practitioner's note and agree with the documented findings and plan of care.
--- NOTE | 2016-06-21 09:31 | PN ---
DATE OF SERVICE: 06/18/2016 PRESENTING COMPLAINT: Tired. INTERVAL HISTORY: This is a patient alcoholic smoker presented with GI bleed. Saw this patient on 06/18/2016. The patient's esophagogastroduodenoscopy did show gastric venous prominence tolerating a diet. Doing much better. He has been up and about in the hallway. Review of systems done for constitutional, cardiovascular, GI, pulmonary; relevant findings as above. Medications are reviewed. On examination, temperature 97.5, pulse 66, respirations 16, blood pressure 120/58, pulse ox 98% on room air. GENERAL APPEARANCE: Sitting up, comfortable. EYES: Pupils equal. Conjunctivae pale. NECK: JVD not raised. Mass not palpable. RESPIRATORY: Effort normal. LUNGS: Decreased breath sounds. CARDIOVASCULAR: First and second sounds normal. No edema. ABDOMEN: Soft, nontender. Liver and spleen not palpable. PSYCHIATRY: Awake, answering questions appropriately. INVESTIGATIONS: Accu-Cheks are noted. ASSESSMENT: 1. Aspiration pneumonia causing altered sensorium, ( ) now improved. 2. Acute upper gastrointestinal bleed showing diffuse moderate to severe portal gastropathy and nonbleeding grade 2 distally esophageal varices. Linear circumferential cecal ulceration noted. 3. Grade II internal hemorrhoids. 4. Acute metabolic encephalopathy, hepatic, resolved. 5. Delirium tremens from alcoholism, resolved. 6. Acute congestive heart failure exacerbation much improved. 7. Chronic nicotine dependence. Patient is a smoker. 8. Hepatic coagulopathy from underlying liver disease. 9. Severe hyponatremia and hyperkalemia from free water deficit on presentation. 10. Thrombocytopenia chronic liver disease. 11. Hypoalbuminemia with an acute ( ) possibly moderate protein calorie malnutrition. 12. Acute hypoxic respiratory failure from underlying chronic obstructive pulmonary disease, present on admission. PLAN: Care was discussed with the patient, having no family members here, looking at discharge planning.
--- NOTE | 2016-06-21 16:57 | DS ---
DATE OF ADMISSION: 06/12/2016 DATE OF DISCHARGE: 06/19/2016 FINAL DIAGNOSES: 1. Aspiration pneumonia from altered sensorium, likely of gastric contents. 2. Acute gastrointestinal bleed from portal gastropathy. 3. Internal hemorrhoids, stage II. 4. Cecal ulcer per endoscopy. 5. Acute metabolic encephalopathy; could be hepatic. 6. Delirium tremens from alcoholism, improved. 7. Acute severe chronic obstructive pulmonary disease exacerbation in a smoker on presentation. 8. Chronic nicotine dependence. Patient is a smoker. 9. Hepatic coagulopathy from underlying liver disease. 10. Severe hypernatremia and hyperkalemia from free water deficit, present on admission. 11. Thrombocytopenia from chronic liver disease. 12. Hypoalbuminemia, probably an acute phase reactant, possibly moderate protein-calorie malnutrition. 13. Acute hypoxic respiratory failure from underlying chronic obstructive pulmonary disease, present on admission. 14. Grade 2 distal esophageal varices. HOSPITAL COURSE: This patient is a smoker, does drink alcohol. He presented with altered mental status, also GI bleed. Patient's hemoglobin was down to 4.7. Patient did get a total of 2 units of blood. Hemoglobin was stable at the time of discharge at 9.0. Patient did undergo an EGD by Dr. Rhonda Watt which showed diffuse moderate to severe portal gastropathy and non-bleeding grade 2 distal esophageal varices. Colonoscopy revealed linear circumferential cecal ulceration. Patient's breathing was much better at the time of discharge. CONSULTATIONS: 1. Dr. Rhonda Watt from GI. 2. Dr. Valle from Pulmonary. 3. Dr. Byrd from General Surgery. On the day of discharge, care was discussed in detail with the patient's son, niece, and the patient. Patient's son will be managing the finances and not letting him buy alcohol. If was re-emphasized that if he takes alcohol, it would be extremely detrimental to his health. Patient acknowledged the same. On exam, lungs have decreased breath sounds. CARDIOVASCULAR: First and second seconds normal. Patient is answering questions appropriately. DISCHARGE MEDICATIONS: 1. Multivitamin 1 tablet p.o. daily. 2. Thiamine 100 mg p.o. daily. 3. Ventolin HFA 1 to 2 puffs q.6 p.r.n. 4. Atrovent HFA 2 puffs q.i.d. 5. Lactulose 10 grams p.o. t.i.d. 6. Lopressor 12.5 p.o. b.i.d. 7. Nicotine patch daily. 8. Protonix 40 mg with breakfast. 9. Prednisone 30 mg for 5 days. Follow up with Dr. Dorman in 2 days. Follow up with Dr. Rhonda Watt in 2 weeks. Follow up with Dr. Linwood Valle in one week. Discharge planning more than 35 minutes.
== END 2016-06-19 15:30 | disposition home or self-care (01) | DRG 441 ==
LOC: EC 10:40 → 6ICU 14:13 → 5MS5E 06-16 12:47
PROVIDERS: ADMIT Hospitalist; ATTEND Hospitalist
PROC: 30233N1 Transfusion of Nonautologous Red Blood Cells into Peripheral Vein, Percutaneous Approach (ICD-10-PCS; principal; 2016-06-12)
PROC: 5A1945Z Respiratory Ventilation, 24-96 Consecutive Hours (ICD-10-PCS; 2016-06-12)
PROC: 0BH17EZ Insertion of Endotracheal Airway into Trachea, Via Natural or Artificial Opening (ICD-10-PCS; 2016-06-12)
PROC: HZ2ZZZZ Detoxification Services for Substance Abuse Treatment (ICD-10-PCS; 2016-06-12)
PROC: 0T9B70Z Drainage of Bladder with Drainage Device, Via Natural or Artificial Opening (ICD-10-PCS; 2016-06-12)
PROC: 0D9670Z Drainage of Stomach with Drainage Device, Via Natural or Artificial Opening (ICD-10-PCS; 2016-06-12)
PROC: 0DBP8ZZ Excision of Rectum, Via Natural or Artificial Opening Endoscopic (ICD-10-PCS; 2016-06-18)
PROC: 0DBH8ZX Excision of Cecum, Via Natural or Artificial Opening Endoscopic, Diagnostic (ICD-10-PCS; 2016-06-18)
PROC: 0DJ08ZZ Inspection of Upper Intestinal Tract, Via Natural or Artificial Opening Endoscopic (ICD-10-PCS; 2016-06-18 07:30)
DX: K72.00 Acute and subacute hepatic failure without coma (principal); J96.01 Acute respiratory failure with hypoxia; J69.0 Pneumonitis due to inhalation of food and vomit; G93.41 Metabolic encephalopathy; E43 Unspecified severe protein-calorie malnutrition; Z99.11 Dependence on respirator [ventilator] status; F10.231 Alcohol dependence with withdrawal delirium; K63.3 Ulcer of intestine; D68.4 Acquired coagulation factor deficiency; E87.0 Hyperosmolality and hypernatremia; K76.6 Portal hypertension; J44.1 Chronic obstructive pulmonary disease with (acute) exacerbation; I85.10 Secondary esophageal varices without bleeding; D62 Acute posthemorrhagic anemia; Z68.1 Body mass index [BMI] 19.9 or less, adult; K92.0 Hematemesis; K92.1 Melena; K70.31 Alcoholic cirrhosis of liver with ascites; E87.5 Hyperkalemia; E86.1 Hypovolemia; D69.59 Other secondary thrombocytopenia; K70.11 Alcoholic hepatitis with ascites; K62.1 Rectal polyp; E78.5 Hyperlipidemia, unspecified; K64.1 Second degree hemorrhoids; K31.89 Other diseases of stomach and duodenum; R00.0 Tachycardia, unspecified; E87.8 Other disorders of electrolyte and fluid balance, not elsewhere classified; D72.829 Elevated white blood cell count, unspecified; E88.09 Other disorders of plasma-protein metabolism, not elsewhere classified; R94.31 Abnormal electrocardiogram [ECG] [EKG]; I67.9 Cerebrovascular disease, unspecified; F17.200 Nicotine dependence, unspecified, uncomplicated; R73.09 Other abnormal glucose; Z98.42 Cataract extraction status, left eye; Z82.49 Family history of ischemic heart disease and other diseases of the circulatory system; Z79.82 Long term (current) use of aspirin; Z91.19 Patient's noncompliance with other medical treatment and regimen; Z71.3 Dietary counseling and surveillance; Z71.41 Alcohol abuse counseling and surveillance of alcoholic; Z79.899 Other long term (current) drug therapy; Z98.41 Cataract extraction status, right eye; Y90.0 Blood alcohol level of less than 20 mg/100 ml
CPT/HCPCS: 31500; 36415; 36600; 43235; 45380; 45385; 70450; 71010; 71020; 80048; 80053; 80074; 80306; 80320; 81003; 82140; 82272; 82550; 82553; 82805; 83036; 83735; 84100; 84132; 84484; 85025; 85027; 85610; 85730; 86850; 86900; 86901; 86920; 87040; 87070; 87086; 87205; 87502; 88305; 93005; 94002; 94003; 94640; 96361; 96365; 96366; 96372; 96375; 96376; 99291

== ENCOUNTER → 2016-07-09 | Outpatient (CLI) | payer OTHER ==
--- NOTE | 2016-07-09 12:38 | US ---
EXAMINATION TYPE: US venous doppler duplex LE BI DATE OF EXAM: 07/09/2016 12:25 PM COMPARISON: NONE CLINICAL HISTORY: BLE Edema R60.0. Bilateral leg edema. No hx of blood thinners or blood clots. SIDE PERFORMED: Bilateral TECHNIQUE: The lower extremity deep venous system is examined utilizing real time linear array sonog gilles with graded compression, doppler sonography and color-flow sonography. VESSELS IMAGED: External Iliac Vein (EIV) Common Femoral Vein Deep Femoral Vein Greater Saphenous Vein * Femoral Vein Popliteal Vein Small Saphenous Vein * Proximal Calf Veins (* superficial vessels) No popliteal fossa lesion is seen. Right Leg: Appears negative for DVT Left Leg: Appears negative for DVT IMPRESSION: THIS EXAMINATION IS NEGATIVE FOR DVT IN BOTH LEGS.
== END | disposition home or self-care (01) ==
LOC: RADUSWWP 11:56
PROVIDERS: ATTEND Family Medicine
DX: R60.0 Localized edema (principal)
CPT/HCPCS: 93970

== ENCOUNTER 2016-09-22 14:24 | Emergency (ER) | payer OTHER ==
--- NOTE | 2016-09-22 15:52 | ED ---
General Adult HPI - General Chief complaint: Abdominal Pain Stated complaint: Hernia Time Seen by Provider: 09/22/16 15:37 Source: patient, RN notes reviewed Mode of arrival: ambulatory Limitations: no limitations - History of Present Illness Initial comments: Patient is a pleasant [age]-year-old male presenting to the emergency department with discomfort of his umbilical hernia. Patient states he has had hernia for years. Patient states it just started causing him discomfort today. Complication did call his doctor and was advised to come to the emergency department. Patient states he does feel a little bit hard. No nausea or vomiting. No fever. No constipation or diarrhea. - Related Data Home Medications Medication Instructions Recorded Confirmed Multivitamins, Thera [Multivitamin 1 tab PO DAILY 06/12/16 06/12/16 (formulary)] Thiamine [Vitamin B-1] 100 mg PO DAILY 06/12/16 06/12/16 Previous Rx's Medication Instructions Recorded Albuterol Inhaler [Ventolin Hfa 1 - 2 puff INHALATION Q6HR PRN #1 06/18/16 Inhaler] inhaler Ipratropium Kirby [Atrovent Hfa] 2 puff INHALATION QID #1 inhaler 06/18/16 Lactulose [Cephulac] 10 gm PO TID #500 ml 06/18/16 Metoprolol Tartrate [Lopressor] 12.5 mg PO BID #60 tab 06/18/16 Nicotine 14Mg/24Hr Patch [Habitrol] 1 patch TRANSDERM DAILY #14 patch 06/18/16 Pantoprazole [Protonix] 40 mg PO AC-BRKFST #30 tablet. 06/18/16 predniSONE 30 mg PO DAILY #5 tab 06/18/16 Allergies Allergy/AdvReac Type Severity Reaction Status Date / Time No Known Allergies Allergy Verified 09/22/16 14:45 Review of Systems ROS Statement: Those systems with pertinent positive or pertinent negative responses have been documented in the HPI. ROS Other: All systems not noted in ROS Statement are negative. Constitutional: Denies: fever Eyes: Denies: eye pain ENT: Denies: ear pain Respiratory: Denies: cough Cardiovascular: Denies: chest pain Endocrine: Denies: fatigue Gastrointestinal: Reports: abdominal pain. Denies: nausea, vomiting, diarrhea, constipation Genitourinary: Denies: dysuria Musculoskeletal: Denies: back pain Skin: Denies: rash Neurological: Denies: weakness Past Medical History Past Medical History: Heart Failure, GERD/Reflux, Myocardial Infarction ([place]) Additional Past Medical History / Comment(s): Cirrhosis, former etoh abuse History of Any Multi-Drug Resistant Organisms: None Reported Past Surgical History: No Surgical Hx Reported Additional Past Surgical History / Comment(s): REMOVAL SEBACEOUS SCROTAL SEBACEOUS CYST SEVERAL TIMES; CATARACT SURGERY LEFT Past Anesthesia/Blood Transfusion Reactions: No Reported Reaction Additional Past Anesthesia/Blood Transfusion Reaction / Comment(s): never had anesthesia or blood. Blood transfusion ordered 06/12/16 Past Psychological History: No Psychological Hx Reported Smoking Status: Former smoker Past Alcohol Use History: None Reported Past Drug Use History: None Reported - Past Family History Father Family Medical History: Myocardial Infarction ([place]) General Exam Limitations: no limitations General appearance: alert, in no apparent distress Head exam: Present: atraumatic Eye exam: Present: normal appearance, PERRL ENT exam: Present: normal oropharynx Neck exam: Present: normal inspection Respiratory exam: Present: normal lung sounds bilaterally Cardiovascular Exam: Present: regular rate, normal rhythm GI/Abdominal exam: Present: soft, normal bowel sounds, hernia (Patient does have small umbilical hernia that is slightly firm and tender. Tenderness is limited to the hernia.). Absent: guarding, rebound, rigid, pulsatile mass Neurological exam: Present: alert Psychiatric exam: Present: normal affect, normal mood Skin exam: Absent: rash Course Vital Signs 09/22/16 14:40 Temperature 97.0 F L Pulse Rate 75 Respiratory 16 Rate Blood Pressure 124/60 O2 Sat by Pulse 100 Oximetry Procedures - Procedures Initial comment: Umbilical hernia easily reduced without complication. Patient is symptom-free following reduction. Disposition Clinical Impression: Umbilical hernia Disposition: HOME SELF-CARE Condition: Stable Instructions: Umbilical Hernia (ED) Additional Instructions: Please follow-up with your doctor this week. Please also follow-up with surgeon , phone number provided. If hernia reoccurs please pushed back into appropriate position. If hernia becomes hard and painful or unable to reduce please return to emergency department. Referrals: Bryce Dorman DO [Primary Care Provider] - 1-2 days Emily Foster MD [STAFF PHYSICIAN] - 1-2 days Time of Disposition: 15:52
[2016-09-22 16:02] VITALS: BP 116/66; PULSE 70; RESP 18; TEMP 98
== END 2016-09-22 16:02 | disposition home or self-care (01) ==
LOC: EC 14:24
DX: K42.9 Umbilical hernia without obstruction or gangrene (principal); Z87.891 Personal history of nicotine dependence; Z79.899 Other long term (current) drug therapy
CPT/HCPCS: 99283

== ENCOUNTER 2018-03-21 12:57 | Inpatient (IN) | payer MEDICARE, OTHER ==
[2018-03-21] MEDS ORDERED: SODIUM CHLORIDE 0.9% 1,000 ML IV STA (14:25)
--- NOTE | 2018-03-21 14:25 | ED ---
General Adult HPI - General Chief complaint: Nausea/Vomiting/Diarrhea Stated complaint: hemoptysis Time Seen by Provider: 03/21/18 13:59 Source: patient, RN notes reviewed Mode of arrival: ambulatory Limitations: no limitations - History of Present Illness Initial comments: 68-year-old male with a past medical history of heart failure, [place], cirrhosis, a call is in presents to the emergency department for a chief complaint of hemoptysis and melanoma. Patient states this started last night. Patient states he has had multiple episodes of vomiting dark fluid that looks like car. He states he has also had 2 bowel movements consisting of black tar-like substance. Patient states he has had similar occurrences in the past and has had to be admitted. Patient states in the past this was due to alcoholism. Patient did admit to drinking 6 beers last night. He denies any chest pain or shortness of breath. He does admit to lower abdominal pain and states his abdomen feels distended. Patient has no other complaints at this time including shortness of breath, chest pain, headache, or visual changes. - Related Data Home Medications Medication Instructions Recorded Confirmed No Known Home Medications 03/21/18 03/21/18 Allergies Allergy/AdvReac Type Severity Reaction Status Date / Time No Known Allergies Allergy Verified 03/21/18 13:55 Review of Systems ROS Statement: Those systems with pertinent positive or pertinent negative responses have been documented in the HPI. ROS Other: All systems not noted in ROS Statement are negative. Past Medical History Past Medical History: Heart Failure, GERD/Reflux, Myocardial Infarction ([place]) Additional Past Medical History / Comment(s): Cirrhosis, former etoh abuse History of Any Multi-Drug Resistant Organisms: None Reported Past Surgical History: No Surgical Hx Reported Additional Past Surgical History / Comment(s): REMOVAL SEBACEOUS SCROTAL SEBACEOUS CYST SEVERAL TIMES; CATARACT SURGERY LEFT Past Anesthesia/Blood Transfusion Reactions: No Reported Reaction Additional Past Anesthesia/Blood Transfusion Reaction / Comment(s): never had anesthesia or blood. Blood transfusion ordered 06/12/16 Past Psychological History: No Psychological Hx Reported Smoking Status: Former smoker Past Alcohol Use History: Heavy Past Drug Use History: None Reported - Past Family History Father Family Medical History: Myocardial Infarction ([place]) General Exam Limitations: no limitations General appearance: alert, in no apparent distress Head exam: Present: atraumatic, normocephalic, normal inspection Eye exam: Present: normal appearance, PERRL, EOMI. Absent: scleral icterus, conjunctival injection, periorbital swelling ENT exam: Present: normal exam, mucous membranes moist Neck exam: Present: normal inspection, full ROM. Absent: tenderness, meningismus, lymphadenopathy Respiratory exam: Present: normal lung sounds bilaterally. Absent: respiratory distress, wheezes, rales, rhonchi, stridor Cardiovascular Exam: Present: regular rate, normal rhythm, normal heart sounds. Absent: systolic murmur, diastolic murmur, rubs, gallop, clicks GI/Abdominal exam: Present: soft, distended, tenderness (minimal lower abdominal tenderness), normal bowel sounds. Absent: guarding, rebound, rigid Neurological exam: Present: alert, oriented X3, CN II-XII intact Psychiatric exam: Present: normal affect, normal mood Course Vital Signs 03/21/18 03/21/18 03/21/18 13:03 18:00 19:41 Temperature 97.7 F 97.5 F L 98.0 F Pulse Rate 102 H 101 H Respiratory 18 18 19 Rate Blood Pressure 193/74 140/93 O2 Sat by Pulse 98 99 98 Oximetry 03/21/18 03/21/18 20:15 20:31 Temperature 97.8 F Pulse Rate 93 90 Respiratory 18 19 Rate Blood Pressure 158/77 O2 Sat by Pulse 100 Oximetry - Reevaluation(s) Reevaluation #1: 03/21/18 21:27 Patient did start to have active GI bleed with hematemesis here in the emergency department. Patient re-evaluated, stable. Second IV line was initiated and type and cross was ordered. Patient started on 80 mg IV Protonix. Patient will now be admitted to the unit as he is having active bleeding. 03/21/18 21:27 Medical Decision Making - Medical Decision Making 68-year-old male with history of liver disease presents for hematemesis and melena times one day. Patient states he has vomited multiple times consisting of dark vomit as well as had multiple bowel movements that are dark and soft in nature. Patient states this has happened before. Patient and admits to chronic alcoholism and states this is what has caused his GI bleed in the past. CBC does show a white count of 8.3 which does appear to be patient's baseline. INR 1.3, no blood thinners on board. CMP shows a total bilirubin of 1.8 which is patient's baseline. BUN 34, patient given fluids. Occult blood is positive. Patient abdomen somewhat distended on exam however very minimal tenderness associated. CT was ordered which shows findings compatible with cirrhosis. Nonspecific increased attenuation of the mesenteric fat correlate to exclude peritonitis, patient is nontender and exam, I do not suspect peritonitis. Given patient's GI bleed he will be admitted with GI consult. - Lab Data Result diagrams: 03/21/18 14:43 03/21/18 14:43 Lab Results 03/21/18 03/21/18 03/21/18 Range/Units 14:43 14:43 14:43 WBC 13.2 H (3.8-10.6) k/uL RBC 4.11 L (4.30-5.90) m/uL Hgb 8.3 L (13.0-17.5) gm/dL Hct 27.9 L (39.0-53.0) % MCV 67.8 L (80.0-100.0) fL MCH 20.3 L (25.0-35.0) pg MCHC 29.9 L (31.0-37.0) g/dL RDW 19.4 H (11.5-15.5) % Plt Count 187 (150-450) k/uL Neutrophils % 75 % Lymphocytes % 10 % Monocytes % 12 % Eosinophils % 0 % Basophils % 0 % Neutrophils # 9.9 H (1.3-7.7) k/uL Lymphocytes # 1.4 (1.0-4.8) k/uL Monocytes # 1.5 H (0-1.0) k/uL Eosinophils # 0.0 (0-0.7) k/uL Basophils # 0.0 (0-0.2) k/uL Hypochromasia Marked Anisocytosis Slight Microcytosis Marked PT 13.6 H (9.0-12.0) sec INR 1.3 H (<1.2) APTT 26.2 (22.0-30.0) sec Sodium 138 (137-145) mmol/L Potassium 4.9 (3.5-5.1) mmol/L Chloride 106 (98-107) mmol/L Carbon Dioxide 22 (22-30) mmol/L Anion Gap 10 mmol/L BUN 34 H (9-20) mg/dL Creatinine 0.62 L (0.66-1.25) mg/dL Est GFR (CKD-EPI)AfAm >90 (>60 ml/min/1.73 sqM) Est GFR (CKD-EPI)NonAf >90 (>60 ml/min/1.73 sqM) Glucose 110 H (74-99) mg/dL Calcium 8.5 (8.4-10.2) mg/dL Total Bilirubin 1.8 H (0.2-1.3) mg/dL AST 61 H (17-59) U/L ALT 48 (21-72) U/L Alkaline Phosphatase 119 (38-126) U/L Total Protein 6.5 (6.3-8.2) g/dL Albumin 3.4 L (3.5-5.0) g/dL Amylase 98 (30-110) U/L Lipase 153 (23-300) U/L Stool Occult Blood (Negative) 03/21/18 Range/Units 16:42 WBC (3.8-10.6) k/uL RBC (4.30-5.90) m/uL Hgb (13.0-17.5) gm/dL Hct (39.0-53.0) % MCV (80.0-100.0) fL MCH (25.0-35.0) pg MCHC (31.0-37.0) g/dL RDW (11.5-15.5) % Plt Count (150-450) k/uL Neutrophils % % Lymphocytes % % Monocytes % % Eosinophils % % Basophils % % Neutrophils # (1.3-7.7) k/uL Lymphocytes # (1.0-4.8) k/uL Monocytes # (0-1.0) k/uL Eosinophils # (0-0.7) k/uL Basophils # (0-0.2) k/uL Hypochromasia Anisocytosis Microcytosis PT (9.0-12.0) sec INR (<1.2) APTT (22.0-30.0) sec Sodium (137-145) mmol/L Potassium (3.5-5.1) mmol/L Chloride (98-107) mmol/L Carbon Dioxide (22-30) mmol/L Anion Gap mmol/L BUN (9-20) mg/dL Creatinine (0.66-1.25) mg/dL Est GFR (CKD-EPI)AfAm (>60 ml/min/1.73 sqM) Est GFR (CKD-EPI)NonAf (>60 ml/min/1.73 sqM) Glucose (74-99) mg/dL Calcium (8.4-10.2) mg/dL Total Bilirubin (0.2-1.3) mg/dL AST (17-59) U/L ALT (21-72) U/L Alkaline Phosphatase (38-126) U/L Total Protein (6.3-8.2) g/dL Albumin (3.5-5.0) g/dL Amylase (30-110) U/L Lipase (23-300) U/L Stool Occult Blood Positive (Negative) Disposition Clinical Impression: GI bleed, Cirrhosis, Hematemesis, Melena Disposition: ADMITTED IP TO THIS [facility] Condition: Good Is patient prescribed a controlled substance at d/c from ED?: No Time of Disposition: 17:28
[2018-03-21 15:02] LABS: Anisocytosis Slight; Basophils % (A) 0 %; Eosinophils % (A) 0 %; HCT 27.9 % (39.0-53.0); HGB 8.3 gm/dL (13.0-17.5); Hypochromasia Marked; Lymphocytes # (A) 1.4 k/uL (1.0-4.8); Lymphocytes % (A) 10 %; MCH 20.3 pg (25.0-35.0); MCHC 29.9 g/dL (31.0-37.0); MCV 67.8 fL (80.0-100.0); Mean Platelet Volume 7.7; Microcytosis Marked; Monocytes # (A) 1.5 k/uL (0-1.0); Monocytes % (A) 12 %; Neutrophils # (A) 9.9 k/uL (1.3-7.7); Neutrophils % (A) 75 %; Platelet Count 187 k/uL (150-450); RBC 4.11 m/uL (4.30-5.90); RDW 19.4 % (11.5-15.5); WBC 13.2 k/uL (3.8-10.6)
[2018-03-21 15:15] LABS: ALT 48 U/L (21-72); AST 61 U/L (17-59); Albumin 3.4 g/dL (3.5-5.0); Alkaline Phosphatase 119 U/L (38-126); Amylase 98 U/L (30-110); Anion Gap 10 mmol/L; Blood Urea Nitrogen 34 mg/dL (9-20); Calcium 8.5 mg/dL (8.4-10.2); Carbon Dioxide 22 mmol/L (22-30); Chloride 106 mmol/L (98-107); Glucose 110 mg/dL (74-99); Lipase 153 U/L (23-300); Potassium 4.9 mmol/L (3.5-5.1); Sodium 138 mmol/L (137-145); Total Bilirubin 1.8 mg/dL (0.2-1.3); Total Protein 6.5 g/dL (6.3-8.2)
[2018-03-21 15:17] LABS: INR 1.3 (<1.2); Partial Thromboplastin Time 26.2 sec (22.0-30.0); Prothrombin Time 13.6 sec (9.0-12.0)
--- NOTE | 2018-03-21 16:24 | CT ---
EXAMINATION TYPE: CT abdomen pelvis w con DATE OF EXAM: 03/21/2018 COMPARISON: MRCP 04/29/2016 HISTORY: pain, hemoptysis, cirrohsis of liver. CT DLP: 758.9 mGycm Automated exposure control for dose reduction was used. TECHNIQUE: Helical acquisition of images from the lung bases through the pelvis have been completed. CONTRAST: Performed without Oral Contrast and with IV Contrast, patient injected with 100 mL of Isovue 300. FINDINGS: There is a small hiatal hernia present LUNG BASES: No significant abnormality is appreciated. AORTA: No significant abnormality is appreciated. LIVER/GB: Heterogeneous density within the liver is noted, there is a nodular contour. Small hepatic cysts again noted. Gallstones are present, gallbladder is somewhat distended as on prior exam. PANCREAS: No significant abnormality is seen. SPLEEN: No significant abnormality is seen. ADRENALS: No significant abnormality is seen. KIDNEYS: No significant abnormality is seen. REPRODUCTIVE ORGANS: The prostate is enlarged. BOWEL: Small and large bowel wall thickening is noted somewhat diffusely suggestive of underlying en teropathy, possible colitis or possibly hypoproteinemia, there is no bowel obstruction. Nonspecific i ncreased density present within the retroperitoneal fat and mesentery. FREE AIR: No Free Air visible. ASCITES: None visible. PELVIC ADENOPATHY: None visualized. RETROPERITONEAL ADENOPATHY: No Retroperitoneal Adenopathy visible. URINARY BLADDER: No significant abnormality is seen. OSSEOUS STRUCTURES: Degenerative disc changes are noted in the lumbar spine. IMPRESSION: FINDINGS COMPATIBLE WITH CIRRHOSIS, THERE IS HEPATOMEGALY. POSSIBLE ENTEROPATHY, CORRELATE FOR POSSIB LE COLITIS, HYPOPROTEINEMIA. NONSPECIFIC INCREASED ATTENUATION OF THE MESENTERIC FAT. CORRELATE TO EX CLUDE PERITONITIS. ADDITIONAL FINDINGS ABOVE.
[2018-03-21] MEDS ORDERED: MORPHINE SULFATE 4 MG/ML SYRINGE IV PRN (17:28)
[2018-03-21] MEDS ORDERED: ONDANSETRON 4 MG/2 ML VIAL IVP PRN (17:28)
[2018-03-21] MEDS ORDERED: NALOXONE 0.4 MG/ML 1 ML VIAL IV PRN (17:28)
[2018-03-21] MEDS ORDERED: SODIUM CHLORIDE 0.9% 1,000 ML IV SCH (17:30)
[2018-03-21] MEDS ORDERED: METOCLOPRAMIDE 5 MG/ML 2 ML VIAL IVP STA (18:16)
[2018-03-21] MEDS ORDERED: PANTOPRAZOLE 40 MG/10 ML VIAL IVP ONE (18:40)
[2018-03-21] MEDS: OCTREOTIDE 200 MCG in SODIUM CHLORIDE 0.9% 100 ML IV SCH (20:09)
[2018-03-21 20:36] LABS: Glucose,Whole Blood 123 mg/dL (75-99)
[2018-03-21 21:05] VITALS: BMI 24.1
[2018-03-21] MEDS ORDERED: LORazepam 2 MG/ML INJ IV PRN ×3 (21:16)
[2018-03-21] MEDS ORDERED: HYDROmorphone 0.5 MG/0.5 ML SYRINGE IVP PRN (21:25)
--- NOTE | 2018-03-21 21:55 | XR ---
EXAMINATION: XR chest 1V portable DATE AND TIME: 03/21/2018 9:50 PM CLINICAL INDICATION: Dyspnea; rectal bleeding; hematochezia TECHNIQUE: AP upright portable COMPARISON: 06/15/2016 FINDINGS: The lungs are clear. The pleural spaces are negative. The cardiac silhouette is not enlarged. The remainder of the mediastinal silhouette is unremarkable. The skeletal structures and soft tissues are negative for acute findings. IMPRESSION: NO ACUTE PROCESS.
[2018-03-21] MEDS: PANTOPRAZOLE 40 MG/10 ML VIAL IVP SCH (22:13)
--- NOTE | 2018-03-21 22:36 | HP ---
HISTORY AND PHYSICAL CHIEF COMPLAINT: Hematemesis. HISTORY OF PRESENT ILLNESS: This 68-year-old gentleman with a past medical history of multiple medical problems, including CHF, GERD, myocardial infarction, cirrhosis of the liver from previous ETOH usage, is being followed by Dr. Dorman in the outpatient setting. The patient apparently had multiple drinks yesterday. Last night the patient started vomiting. He had a copious amount of coffee-ground emesis and also patient had bleeding per rectum. The patient came to [facility]. Hemoglobin was found to be 8.3. Patient was admitted for further evaluation and treatment. Type and cross has been done. There is no history of any fever, rigor, chills. No history of headache, loss of consciousness, seizures at this time. Patient apparently was going through the stress of losing his mother, according to the sister. PAST MEDICAL HISTORY: 1. History of CHF. 2. History of GERD. 3. Myocardial infarction. 4. Cirrhosis of the liver previously. 5. ETOH usage. MEDICATIONS: None. ALLERGIES: NONE. FAMILY HISTORY: History of myocardial infarction in the family. SOCIAL HISTORY: History of alcohol. Previous history of smoking. REVIEW OF SYSTEMS: ENT: No diminished hearing. No diminished vision. CARDIOVASCULAR SYSTEM: No angina, palpitations. RESPIRATORY SYSTEM: As mentioned earlier. GI: As mentioned earlier. : No dysuria or retention. NERVOUS SYSTEM: No numbness, weakness. ALLERGY/IMMUNOLOGY: No asthma, hayfever. MUSCULOSKELETAL: As mentioned earlier. HEMATOLOGY/ONCOLOGY: As mentioned earlier. ENDOCRINE: No history of diabetes, hypothyroidism. CONSTITUTIONAL: As mentioned earlier. DERMATOLOGY: Negative. RHEUMATOLOGY: Negative. PSYCHIATRY: As mentioned earlier. PHYSICAL EXAMINATION: Patient alert and oriented x3. Pulse 95, blood pressure 161/65, respiration 19, temperature 98 degrees, pulse ox 99% on 2 L. HEENT: Conjunctivae normal. Oral mucosa moist. NECK: No jugular venous distention. No carotid bruit. No lymph node enlargement. CARDIOVASCULAR SYSTEM: S1, S2 muffled. RESPIRATORY SYSTEM: Breath sounds diminished at the bases. A few scattered rhonchi and crackles. ABDOMEN: Soft, obese, non-tender. No mass palpable. LEGS: No edema. No swelling. NERVOUS SYSTEM: Higher functions as mentioned earlier. Moves all 4 limbs. No focal motor or sensory deficit. LYMPHATICS: No lymph node palpable in neck, axillae or groin. SKIN: No ulcer, rash, bleeding. LABS: Labs at this time show WBC 13.2, hemoglobin 8.3 and glucose is 110. Total bilirubin is 1.8. ASSESSMENT: 1. Acute upper gastrointestinal bleeding, possibly variceal bleeding. Rule out peptic ulcer disease with acute blood loss anemia. 2. Increased white count. 3. Microcytosis. 4. Acute alcoholism as well as possible acute delirium tremens. 5. Increased bilirubin with acute alcoholic hepatitis. 6. History of congestive heart failure. 7. History of gastroesophageal reflux disease. 8. History of myocardial infarction. 9. History of cirrhosis of the liver. 10.Remote history of nicotine dependence. 11.FULL CODE. RECOMMENDATIONS AND DISCUSSION: In this 68-year-old gentleman who presented with multiple complex medical issues, we will monitor the patient closely, continue the current management, continue with symptomatic treatment. Will keep the patient n.p.o., monitor hemoglobin and hematocrit q.6 and transfuse one unit if the hemoglobin is less than 7. Gastroenterology evaluation. Proton pump inhibitors. Possible upper endoscopies. I would also consult Dr. Diaz for ICU management. The CT scan was reviewed which showed possible cirrhosis of the liver. I would also recommend a chest x-ray to evaluate the fluid balance. Repeat labs are ordered. See orders for further details. Prognosis extremely guarded because of multiple complex medical issues. Further recommendations to follow. I would also administer vitamin K because of the mild coagulopathy. A copy of this dictation is being forwarded to Dr. Dorman, who is the primary physician. MMODL / IJN: [id number] /
[2018-03-22 00:43] LABS: Anisocytosis Slight; HCT 23.1 % (39.0-53.0); Hypochromasia Marked; MCH 20.8 pg (25.0-35.0); MCHC 30.4 g/dL (31.0-37.0); MCV 68.3 fL (80.0-100.0); Mean Platelet Volume 7.8; Microcytosis Marked; Platelet Count 157 k/uL (150-450); RBC 3.39 m/uL (4.30-5.90); WBC 10.8 k/uL (3.8-10.6)
[2018-03-22] MEDS: OCTREOTIDE 200 MCG in SODIUM CHLORIDE 0.9% 100 ML IV SCH ×6 (00:44→22:08)
[2018-03-22] MEDS: SODIUM CHLORIDE 0.9% 1,000 ML IV SCH ×2 (00:45→11:36)
[2018-03-22 05:46] LABS: Anisocytosis Slight; Basophils % (A) 0 %; Eosinophils # (A) 0.1 k/uL (0-0.7); Eosinophils % (A) 1 %; HCT 23.4 % (39.0-53.0); Hypochromasia Marked; Lymphocytes # (A) 1.5 k/uL (1.0-4.8); Lymphocytes % (A) 14 %; MCH 20.3 pg (25.0-35.0); MCHC 29.2 g/dL (31.0-37.0); MCV 69.3 fL (80.0-100.0); Microcytosis Marked; Monocytes # (A) 1.2 k/uL (0-1.0); Monocytes % (A) 11 %; Neutrophils # (A) 7.2 k/uL (1.3-7.7); Neutrophils % (A) 71 %; Platelet Count 160 k/uL (150-450); RBC 3.38 m/uL (4.30-5.90); WBC 10.3 k/uL (3.8-10.6)
[2018-03-22 05:47] LABS: INR 1.3 (<1.2); Prothrombin Time 13.7 sec (9.0-12.0)
[2018-03-22 05:49] LABS: ALT 48 U/L (21-72); AST 51 U/L (17-59); Albumin 2.8 g/dL (3.5-5.0); Alkaline Phosphatase 89 U/L (38-126); Anion Gap 5 mmol/L; Blood Urea Nitrogen 27 mg/dL (9-20); Calcium 7.8 mg/dL (8.4-10.2); Carbon Dioxide 24 mmol/L (22-30); Chloride 112 mmol/L (98-107); Glucose 123 mg/dL (74-99); Magnesium 1.9 mg/dL (1.6-2.3); Phosphorus 3.1 mg/dL (2.5-4.5); Potassium 4.7 mmol/L (3.5-5.1); Sodium 141 mmol/L (137-145); Total Bilirubin 1.7 mg/dL (0.2-1.3); Total Protein 5.8 g/dL (6.3-8.2)
[2018-03-22 05:55] LABS: HGB 6.9 gm/dL (13.0-17.5)
[2018-03-22 07:08] LABS: Appearance,Urine Clear (Clear); Bilirubin,Urine Negative (Negative); Blood,Urine Negative (Negative); Color,Urine Yellow; Glucose,Urine (UA) Negative (Negative); Ketones,Urine Negative (Negative); Leukocyte Esterase,Urine Negative (Negative); Nitrite,Urine Negative (Negative); PH, Urine 7.5 (5.0-8.0); Protein,Urine Negative (Negative); Specific Gravity,Urine 1.015 (1.001-1.035)
[2018-03-22 07:18] LABS: Amphetamine Screen,Urine Not Detected (NotDetected); Barbiturate Screen,Urine Not Detected (NotDetected); Benzodiazepines Screen,Urine Not Detected (NotDetected); Cocaine Screen,Urine Not Detected (NotDetected); Methadone Screen, Urine Not Detected (NotDetected); Opiate Screen,Urine Not Detected (NotDetected); Oxycodone Screen, Urine Not Detected (NotDetected); Phencyclidine Screen,Urine Not Detected (NotDetected); Tricyclic Antidepressant,Urine Not Detected (NotDetected); Urn Cannabinoid Scrn Not Detected (NotDetected)
[2018-03-22] MEDS: PANTOPRAZOLE 40 MG/10 ML VIAL IVP SCH ×2 (08:10→22:09)
--- NOTE | 2018-03-22 09:16 | XR ---
EXAMINATION TYPE: XR chest 1V DATE OF EXAM: 03/22/2018 COMPARISON: Prior chest x-ray 03/21/2018 HISTORY: Vomiting blood TECHNIQUE: Single frontal view of the chest is obtained. FINDINGS: There are overlying cardiac leads. Interstitium is increased possibly due to lower lung vo lumes. Cardiac mediastinal silhouette, pulmonary vascularity and duran not significantly changed. No p neumothorax or pleural effusion. Subsegmental atelectatic changes suspected at the lung bases. IMPRESSION: Cardiomegaly, correlate to exclude early interstitial edema, follow-up PA and lateral ch est x-ray would be of benefit.
--- NOTE | 2018-03-22 11:01 | P.CONS ---
History of Present Illness - Reason for Consult Consult date: 03/22/18 GI bleed Requesting physician: Ean Elliott - Chief Complaint Hematemesis - History of Present Illness 68-year-old male with a past medical history of EtOH abuse, active EtOH underlying alcohol liver cirrhosis portal hypertension and esophageal varices presents with acute hematemesis melena 1 day. Denies fever chills gross hematochezia. Patient had 2 episodes of hematemesis yesterday followed by 2 black colored bowel movements. He's been drinking alcohol daily. Midepigastric discomfort nothing severe. No fevers. Admission hemoglobin 8.3 decreased to 6.9 this morning received 1 unit of blood. White count 13.2 on admission presently 10.3. Platelet 160. INR 1.3. BUN 34. Creatinine 0.6. Total bilirubin 1.8. AST 61. ALT 40. AP 119. Lipase 153. FOBT positive. EGD colonoscopy June 2016 reported diffuse moderate to severe portal gastropathy nonbleeding grade 2 distal esophageal varices. Colonoscopy revealed a linear circumferential cecal ulceration with no active bleeding polypectomy 2 grade 2 internal hemorrhoids. Biopsies from cecum consistent with acute colitis with ischemic features ulceration erosion. CT abdomen and pelvis findings compatible cirrhosis hepatomegaly possible colitis. Nonspecific increased attenuation of the mesenteric fat [place] to exclude peritonitis. Home medications reviewed patient does not take any medications at home. Denies NSAID or aspirin usage. Review of Systems Constitutional: Denies fever, chills, sweats, weight gain, or loss. HEENT: Negative for migraines, blurred vision or loss, earaches, drainage, tinnitus, oral mucosal lesions, dysphagia, or odynophagia. Cardiac: Negative for chest pain, arrhythmias, or palpitation. Respiratory: Negative for shortness of breath, hemoptysis, cough, or sputum production. Gastrointestinal: See HPI for pertinent findings. Genitourinary: Negative for hematuria, urgency, frequency, polyuria, dysuria, or penile discharge. Musculoskeletal: Negative for muscle aches, swelling, arthritis, and arthralgias. Neurologic: Negative for stroke or TIA. Endocrine: Negative for thyroid problems. Skin: Negative for rash or itching. Psychiatric: Negative history for depression and anxiety Past Medical History Past Medical History: Heart Failure, GERD/Reflux, Myocardial Infarction ([place]) Additional Past Medical History / Comment(s): Cirrhosis, former etoh abuse Last Myocardial Infarction Date:: 04/05/2016 History of Any Multi-Drug Resistant Organisms: None Reported Past Surgical History: No Surgical Hx Reported Additional Past Surgical History / Comment(s): REMOVAL SEBACEOUS SCROTAL SEBACEOUS CYST SEVERAL TIMES; CATARACT SURGERY LEFT Past Anesthesia/Blood Transfusion Reactions: No Reported Reaction Additional Past Anesthesia/Blood Transfusion Reaction / Comm: never had anesthesia or blood. Blood transfusion ordered 06/12/16 Past Psychological History: No Psychological Hx Reported Smoking Status: Former smoker Past Alcohol Use History: Heavy Past Drug Use History: None Reported - Past Family History Father Family Medical History: Myocardial Infarction ([place]) Medications and Allergies Home Medications Medication Instructions Recorded Confirmed Type No Known Home Medications 03/21/18 03/21/18 History Allergies Allergy/AdvReac Type Severity Reaction Status Date / Time No Known Allergies Allergy Verified 03/21/18 13:55 Physical Exam Vitals: Vital Signs Temp Pulse Resp BP Pulse Ox 03/22/18 09:00 89 16 148/71 93 L 03/22/18 08:28 98.3 F 83 18 148/71 94 L 03/22/18 08:23 98.3 F 83 18 148/71 03/22/18 08:00 98.3 F 89 18 143/74 96 03/22/18 07:12 98.2 F 80 26 H 143/74 03/22/18 07:00 84 17 135/75 94 L 03/22/18 06:50 82 18 135/75 95 03/22/18 06:44 98.4 F 82 15 135/75 03/22/18 06:40 84 15 132/82 96 03/22/18 06:34 98.3 F 86 16 132/82 96 03/22/18 06:30 85 11 L 132/82 95 03/22/18 06:20 81 17 132/82 95 03/22/18 06:10 132/82 03/22/18 06:00 87 13 128/62 94 L 03/22/18 05:00 84 15 128/62 94 L 03/22/18 04:00 98.7 F 85 14 142/62 92 L 03/22/18 03:00 88 15 142/62 96 03/22/18 02:10 87 12 124/59 92 L 03/22/18 02:00 89 17 103/81 94 L 03/22/18 01:00 93 25 H 136/60 94 L 03/22/18 00:50 92 16 136/60 98 03/22/18 00:40 92 18 136/60 91 L 03/22/18 00:30 92 12 136/60 93 L 03/22/18 00:20 136/60 03/22/18 00:10 99 17 136/60 90 L 03/22/18 00:00 98.3 F 90 17 136/60 91 L 03/21/18 23:50 92 18 138/61 93 L 03/21/18 23:40 100 16 138/61 89 L 03/21/18 23:30 93 18 138/61 96 03/21/18 23:20 93 16 138/61 93 L 03/21/18 23:10 92 16 138/61 93 L 03/21/18 23:06 95 17 138/61 92 L 03/21/18 23:00 95 16 160/70 97 03/21/18 22:50 99 17 160/70 93 L 03/21/18 22:40 98 17 160/70 90 L 03/21/18 22:30 97 17 160/70 91 L 03/21/18 22:20 93 25 H 160/70 95 03/21/18 22:10 100 25 H 160/70 93 L 03/21/18 22:00 100 22 154/65 96 03/21/18 21:50 106 H 14 154/65 96 03/21/18 21:40 154/65 03/21/18 21:30 92 22 154/65 99 03/21/18 21:20 96 13 154/65 99 03/21/18 21:10 97 23 154/65 98 03/21/18 21:00 93 21 161/65 100 03/21/18 20:50 87 20 161/65 98 03/21/18 20:40 98.0 F 95 19 161/65 99 03/21/18 20:31 90 19 03/21/18 20:15 97.8 F 93 18 158/77 100 03/21/18 19:41 98.0 F 19 98 03/21/18 18:00 97.5 F L 101 H 18 140/93 99 03/21/18 13:03 97.7 F 102 H 18 193/74 98 Intake and Output 03/21/18 03/22/18 03/22/18 22:59 06:59 14:59 Intake Total 150 829.275 636.50 Output Total 0 220 2 Balance 150 609.275 634.50 Intake: IV 150 650 225.50 Octreotide 200 mcg In 250 75.50 Sodium Chloride 0.9% 100 ml @ 50 MCG/HR 25.25 mls/ hr IV .Q4H AMILCAR Rx#: [id number] Sodium Chloride 0.9% 1, 150 400 150 000 ml @ 50 mls/hr IV . Q20H [facility]CAR Rx#:[id number] Intake, IV Titration 179.275 101 Amount Octreotide 200 mcg In 179.275 101 Sodium Chloride 0.9% 100 ml @ 50 MCG/HR 25.25 mls/ hr IV .Q4H [facility]ILCAR Rx#: [id number] Blood Product 0 310 Rc As-1 Unit 0 310 [id number] Output: Urine 0 220 2 Other: Voiding Method Urinal Urinal Toilet # Voids 1 # Bowel Movements 1 1 Weight 72 kg General appearance: The patient is alert, oriented, in no acute distress. HET: Head is normocephalic and atraumatic. Pupils are equal and reactive. Oropharynx is clear without lesions. Neck: Supple without lymphadenopathy. Trachea midline. Heart: S1 S2. Regular rate and rhythm. Lungs: No crackles or wheezes are heard. Abdomen: Soft, minimal tenderness to the midepigastrium, nondistended with bowel sounds. No peritoneal signs. No palpable organomegaly or masses. Extremities: Normal skin color and turgor. No cyanosis, rash, ulceration, clubbing, or edema. Radial and pedal pulses are 2/4 bilaterally. Neurological: No focal deficits. Strength and sensation are grossly intact. Results CBC & Chem 7: 03/22/18 05:05 03/22/18 05:05 Labs: Abnormal Lab Results - Last 24 Hours (Table) 03/21/18 03/21/18 03/21/18 Range/Units 14:43 14:43 14:43 WBC 13.2 H (3.8-10.6) k/uL RBC 4.11 L (4.30-5.90) m/uL Hgb 8.3 L (13.0-17.5) gm/dL Hct 27.9 L (39.0-53.0) % MCV 67.8 L (80.0-100.0) fL MCH 20.3 L (25.0-35.0) pg MCHC 29.9 L (31.0-37.0) g/dL RDW 19.4 H (11.5-15.5) % Neutrophils # 9.9 H (1.3-7.7) k/uL Monocytes # 1.5 H (0-1.0) k/uL PT 13.6 H (9.0-12.0) sec INR 1.3 H (<1.2) Chloride (98-107) mmol/L BUN 34 H (9-20) mg/dL Creatinine 0.62 L (0.66-1.25) mg/dL Glucose 110 H (74-99) mg/dL POC Glucose (mg/dL) (75-99) mg/dL Calcium (8.4-10.2) mg/dL Total Bilirubin 1.8 H (0.2-1.3) mg/dL AST 61 H (17-59) U/L Ammonia (<30) umol/L Total Protein (6.3-8.2) g/dL Albumin 3.4 L (3.5-5.0) g/dL Crossmatch 03/21/18 03/21/18 03/22/18 Range/Units 19:15 20:34 00:32 WBC 10.8 H (3.8-10.6) k/uL RBC 3.39 L (4.30-5.90) m/uL Hgb 7.0 L (13.0-17.5) gm/dL Hct 23.1 L (39.0-53.0) % MCV 68.3 L (80.0-100.0) fL MCH 20.8 L (25.0-35.0) pg MCHC 30.4 L (31.0-37.0) g/dL RDW 20.0 H (11.5-15.5) % Neutrophils # (1.3-7.7) k/uL Monocytes # (0-1.0) k/uL PT (9.0-12.0) sec INR (<1.2) Chloride (98-107) mmol/L BUN (9-20) mg/dL Creatinine (0.66-1.25) mg/dL Glucose (74-99) mg/dL POC Glucose (mg/dL) 123 H (75-99) mg/dL Calcium (8.4-10.2) mg/dL Total Bilirubin (0.2-1.3) mg/dL AST (17-59) U/L Ammonia (<30) umol/L Total Protein (6.3-8.2) g/dL Albumin (3.5-5.0) g/dL Crossmatch See Detail 03/22/18 03/22/18 03/22/18 Range/Units 05:05 05:05 05:05 WBC (3.8-10.6) k/uL RBC 3.38 L (4.30-5.90) m/uL Hgb 6.9 L* (13.0-17.5) gm/dL Hct 23.4 L (39.0-53.0) % MCV 69.3 L (80.0-100.0) fL MCH 20.3 L (25.0-35.0) pg MCHC 29.2 L (31.0-37.0) g/dL RDW 20.0 H (11.5-15.5) % Neutrophils # (1.3-7.7) k/uL Monocytes # 1.2 H (0-1.0) k/uL PT 13.7 H (9.0-12.0) sec INR 1.3 H (<1.2) Chloride 112 H (98-107) mmol/L BUN 27 H (9-20) mg/dL Creatinine (0.66-1.25) mg/dL Glucose 123 H (74-99) mg/dL POC Glucose (mg/dL) (75-99) mg/dL Calcium 7.8 L (8.4-10.2) mg/dL Total Bilirubin 1.7 H (0.2-1.3) mg/dL AST (17-59) U/L Ammonia (<30) umol/L Total Protein 5.8 L (6.3-8.2) g/dL Albumin 2.8 L (3.5-5.0) g/dL Crossmatch 03/22/18 Range/Units 05:05 WBC (3.8-10.6) k/uL RBC (4.30-5.90) m/uL Hgb (13.0-17.5) gm/dL Hct (39.0-53.0) % MCV (80.0-100.0) fL MCH (25.0-35.0) pg MCHC (31.0-37.0) g/dL RDW (11.5-15.5) % Neutrophils # (1.3-7.7) k/uL Monocytes # (0-1.0) k/uL PT (9.0-12.0) sec INR (<1.2) Chloride (98-107) mmol/L BUN (9-20) mg/dL Creatinine (0.66-1.25) mg/dL Glucose (74-99) mg/dL POC Glucose (mg/dL) (75-99) mg/dL Calcium (8.4-10.2) mg/dL Total Bilirubin (0.2-1.3) mg/dL AST (17-59) U/L Ammonia 45 H (<30) umol/L Total Protein (6.3-8.2) g/dL Albumin (3.5-5.0) g/dL Crossmatch CT scan - abdomen: report reviewed (Dr. Amor) Assessment and Plan (1) GI bleed Current Visit: Yes Status: Acute Code(s): K92.2 - GASTROINTESTINAL HEMORRHAGE, UNSPECIFIED SNOMED Code(s): 52065148 (2) Acute blood loss anemia Current Visit: Yes Status: Acute Code(s): D62 - ACUTE POSTHEMORRHAGIC ANEMIA SNOMED Code(s): 702202858 (3) Esophageal varices Current Visit: Yes Status: Acute Code(s): I85.00 - ESOPHAGEAL VARICES WITHOUT BLEEDING SNOMED Code(s): 86970217 (4) Cirrhosis Current Visit: Yes Status: Acute Code(s): K74.60 - UNSPECIFIED CIRRHOSIS OF LIVER SNOMED Code(s): 75668036 (5) Hematemesis Current Visit: Yes Status: Acute Code(s): K92.0 - HEMATEMESIS SNOMED Code( s): 7851070 (6) Melena Current Visit: Yes Status: Acute Code(s): K92.1 - MELENA SNOMED Code(s): 4229375 (7) ETOH abuse Current Visit: Yes Status: Acute Code(s): F10.10 - ALCOHOL ABUSE, UNCOMPLICATED SNOMED Code(s): 88565841 Plan: 1. EGD. Nothing by mouth. IV Sandostatin/protonix. CBC every 6 hours. Rocephin 1 g every 24 hours prophylactic coverage for SBP. 2. Alcohol abstinence was advised. The gyn has discussed the risks, benefits and alternative therapies for the above-mentioned procedure and for both sedation/analgesia as well as necessary blood product administration, if indicated, as they pertain to this patient. The patient has indicated understanding and acceptance of the risks and procedures discussed. Thank you for this kind referral and the opportunity to participate in the care of your patient. This consultation was discussed with Dr. Amor. The impression and plan of care have been directed as dictated.
[2018-03-22 11:38] LABS: Anisocytosis Moderate; Basophils % (A) 0 %; Eosinophils # (A) 0.1 k/uL (0-0.7); Eosinophils % (A) 1 %; HCT 27.3 % (39.0-53.0); Hypochromasia Marked; Lymphocytes # (A) 1.3 k/uL (1.0-4.8); Lymphocytes % (A) 13 %; MCH 21.4 pg (25.0-35.0); MCHC 29.4 g/dL (31.0-37.0); Mean Platelet Volume 7.4; Microcytosis Marked; Monocytes % (A) 10 %; Neutrophils # (A) 7.5 k/uL (1.3-7.7); Neutrophils % (A) 73 %; Platelet Count 167 k/uL (150-450); Poikilocytosis Slight; RBC 3.74 m/uL (4.30-5.90); WBC 10.2 k/uL (3.8-10.6)
[2018-03-22] MEDS ORDERED: PROPOFOL 10 MG/ML 20 ML VIAL IV ONE (14:08)
[2018-03-22] MEDS ORDERED: IV FLUID CONTINUATION 1,000 ML IV ONE (14:08)
[2018-03-22] MEDS ORDERED: fentaNYL (PF) 50 MCG/ML 2 ML AMP ONE (14:08)
[2018-03-22] MEDS ORDERED: LIDOCAINE 1% INJ 10MG/ML (20 ML MDV) ONE (14:08)
--- NOTE | 2018-03-22 14:49 | P.PCN ---
Date of Procedure: 03/22/18 Description of Procedure: BRIEF HISTORY: 68-year-old male with a past medical history of EtOH abuse, active EtOH underlying alcohol liver cirrhosis portal hypertension and esophageal varices presents with acute hematemesis melena 1 day. Denies fever chills gross hematochezia. Patient had 2 episodes of hematemesis yesterday followed by 2 black colored bowel movements. He's been drinking alcohol daily. Midepigastric discomfort nothing severe. No fevers. Admission hemoglobin 8.3 decreased to 6.9 this morning received 1 unit of blood. White count 13.2 on admission presently 10.3. Platelet 160. INR 1.3. BUN 34. Creatinine 0.6. Total bilirubin 1.8. AST 61. ALT 40. AP 119. Lipase 153. FOBT positive. EGD colonoscopy June 2016 reported diffuse moderate to severe portal gastropathy nonbleeding grade 2 distal esophageal varices. Colonoscopy revealed a linear circumferential cecal ulceration with no active bleeding polypectomy 2 grade 2 internal hemorrhoids. Biopsies from cecum consistent with acute colitis with ischemic features ulceration erosion. CT abdomen and pelvis findings compatible cirrhosis hepatomegaly possible colitis. Denies NSAID or aspirin usage. PROCEDURE PERFORMED: Esophagogastroduodenoscopy. PREOPERATIVE DIAGNOSIS: Hematemesis, melena, anemia. ESTIMATED BLOOD LOSS: Minimal. IV sedation per anesthesia. PROCEDURE: After informed consent was obtained, the patient was brought into the endoscopy unit. IV sedation was administered by Anesthesia under continuous monitoring. Initially the Olympus GIF-180 video endoscope was inserted into the mouth. Esophagus intubated without any difficulty. It was gradually advanced into the stomach and duodenum and carefully examined. The bulb and the second part of the duodenum appeared normal, with bile noted and no evidence of old blood or active bleeding. The scope at this time was withdrawn to the stomach, adequately insufflated with air, and upon careful examination, mucosa of the antrum, body, cardia and the fundus erythema and changes consistent with portal hypertensive gastropathy were noted in the body. No old blood or active bleeding was noted on examination of the stomach. The scope was then withdrawn into the esophagus. The GE junction was located at 39 cm from the incisors. A column of moderate size esophageal varices in the distal esophagus were noted, however there was no evidence of active bleeding or high-risk stigmata for rebleeding. There were no erosions or ulcerations seen and the patient tolerated the procedure well. IMPRESSION: 1. No active bleeding or evidence of old blood of the examined esophagus, stomach and duodenum. 2. Portal hypertensive gastropathy. 3. Non-bleeding moderate-sized distal esophageal, with no high risk stigmata seen, likely not the source of the patient's presentation. RECOMMENDATIONS: The findings of this examination were discussed with the patient. Okay for liquid diet. Would continue the patient on Protonix IV therapy and octreotide given history of cirrhosis. Continue to monitor hemoglobin and transfuse as needed. Patient should follow-up no patient setting for management of his cirrhosis.
--- NOTE | 2018-03-22 16:50 | P.CNPUL ---
History of Present Illness Consult date: 03/22/18 Chief complaint: GI bleeding History of present illness: 68-year-old male patient, alcoholic, with known history of liver cirrhosis and portal hypertension and known history of portal gastropathy and esophageal varices, was having episodes of melanotic stool and few bouts of hematemesis on outpatient basis. The patient has had 2 episodes of hematemesis over the past few days. He came into the emergency department where he had another bout of hematemesis. Based on that he was brought into the intensive care unit. Hemoglobin dropped from 8.2 down to 6.9 and the patient was given a unit of packed RBC. The patient is currently in the intensive care unit. He is hemodynamically stable. The patient is on octreotide drip. The patient is scheduled to undergo a EGD today by gastroenterology. No altered mentation. No encephalopathy. No abdominal pain. He has some mild ascites. No encephalopathy. CAT scan of the abdomen and pelvis was consistent with liver cirrhosis and hepatomegaly. The patient is small uncomplicated umbilical hernia in place. No signs of any delirium tremens. Review of Systems Constitutional: Denies chills, Denies fever Eyes: denies as per HPI, denies blurred vision, denies bulging eye, denies decreased vision, denies diplopia, denies discharge, denies dry eye, denies irritation, denies itching, denies pain, denies photophobia, denies loss of peripheral vision, denies loss of vision, denies tunnel vision/blind spots Ears: deny: decreased hearing, ear discharge, earache, tinnitus Ears, nose, mouth and throat: Denies headache, Denies sore throat Breasts: absent: as per HPI, gynecomastia Cardiovascular: Denies chest pain, Denies shortness of breath Respiratory: Denies cough Gastrointestinal: Reports hematemesis, Reports melena Genitourinary: Reports as per HPI Musculoskeletal: Reports as per HPI Musculoskeletal: absent: ankle pain, ankle stiffness, ankle swelling Integumentary: Denies pruritus, Denies rash Neurological: Reports as per HPI Psychiatric: Reports as per HPI Endocrine: Reports as per HPI Hematologic/Lymphatic: Reports as per HPI Allergic/Immunologic: Reports as per HPI Past Medical History Past Medical History: Heart Failure, GERD/Reflux, Myocardial Infarction ([place]) Additional Past Medical History / Comment(s): Cirrhosis, alcoholism, portal hypertension, use history of GI bleed, umbilical hernia, CAD Last Myocardial Infarction Date:: 04/05/2016 History of Any Multi-Drug Resistant Organisms: None Reported Past Surgical History: No Surgical Hx Reported Additional Past Surgical History / Comment(s): REMOVAL SEBACEOUS SCROTAL SEBACEOUS CYST SEVERAL TIMES; CATARACT SURGERY LEFT Past Anesthesia/Blood Transfusion Reactions: No Reported Reaction Additional Past Anesthesia/Blood Transfusion Reaction / Comment(s): never had anesthesia or blood. Blood transfusion ordered 06/12/16 Past Psychological History: No Psychological Hx Reported Smoking Status: Former smoker Past Alcohol Use History: Heavy Past Drug Use History: None Reported - Past Family History Father Family Medical History: Myocardial Infarction ([place]) Medications and Allergies Home Medications Medication Instructions Recorded Confirmed Type No Known Home Medications 03/21/18 03/21/18 History Allergies Allergy/AdvReac Type Severity Reaction Status Date / Time No Known Allergies Allergy Verified 03/21/18 13:55 Physical Exam Vitals: Vital Signs Temp Pulse Pulse Resp BP BP Pulse Ox 03/22/18 16:00 98 F 77 16 145/82 96 03/22/18 15:00 72 16 134/89 97 03/22/18 14:00 78 18 144/71 95 03/22/18 13:00 80 17 108/84 97 03/22/18 12:00 98.2 F 84 16 147/74 95 03/22/18 11:00 85 17 147/76 95 03/22/18 10:00 84 18 162/82 96 03/22/18 09:00 89 16 148/71 93 L 03/22/18 08:39 98.3 F 80 18 144/71 95 03/22/18 08:28 98.3 F 83 18 148/71 94 L 03/22/18 08:23 98.3 F 83 18 148/71 03/22/18 08:00 98.3 F 89 18 143/74 96 03/22/18 07:12 98.2 F 80 26 H 143/74 03/22/18 07:00 84 17 135/75 94 L 03/22/18 06:50 82 18 135/75 95 03/22/18 06:44 98.4 F 82 15 135/75 03/22/18 06:40 84 15 132/82 96 03/22/18 06:34 98.3 F 86 16 132/82 96 03/22/18 06:30 85 11 L 132/82 95 03/22/18 06:20 81 17 132/82 95 03/22/18 06:10 132/82 03/22/18 06:00 87 13 128/62 94 L 03/22/18 05:00 84 15 128/62 94 L 03/22/18 04:00 98.7 F 85 14 142/62 92 L 03/22/18 03:00 88 15 142/62 96 03/22/18 02:10 87 12 124/59 92 L 03/22/18 02:00 89 17 103/81 94 L 03/22/18 01:00 93 25 H 136/60 94 L 03/22/18 00:50 92 16 136/60 98 03/22/18 00:40 92 18 136/60 91 L 03/22/18 00:30 92 12 136/60 93 L 03/22/18 00:20 136/60 03/22/18 00:10 99 17 136/60 90 L 03/22/18 00:00 98.3 F 90 17 136/60 91 L 03/21/18 23:50 92 18 138/61 93 L 03/21/18 23:40 100 16 138/61 89 L 03/21/18 23:30 93 18 138/61 96 03/21/18 23:20 93 16 138/61 93 L 03/21/18 23:10 92 16 138/61 93 L 03/21/18 23:06 95 17 138/61 92 L 03/21/18 23:00 95 16 160/70 97 03/21/18 22:50 99 17 160/70 93 L 03/21/18 22:40 98 17 160/70 90 L 03/21/18 22:30 97 17 160/70 91 L 03/21/18 22:20 93 25 H 160/70 95 03/21/18 22:10 100 25 H 160/70 93 L 03/21/18 22:00 100 22 154/65 96 03/21/18 21:50 106 H 14 154/65 96 03/21/18 21:40 154/65 03/21/18 21:30 92 22 154/65 99 03/21/18 21:20 96 13 154/65 99 03/21/18 21:10 97 23 154/65 98 03/21/18 21:00 93 21 161/65 100 03/21/18 20:50 87 20 161/65 98 03/21/18 20:40 98.0 F 95 19 161/65 99 03/21/18 20:31 90 19 03/21/18 20:15 97.8 F 93 18 158/77 100 03/21/18 19:41 98.0 F 19 98 03/21/18 18:00 97.5 F L 101 H 18 140/93 99 Intake and Output 03/22/18 03/22/18 03/22/18 06:59 14:59 22:59 Intake Total 411.959 3027.75 580.50 Output Total 220 2 0 Balance 030.466 5617.75 580.50 Intake: IV 650 731.75 120.50 Octreotide 200 mcg In 250 201.75 50.50 Sodium Chloride 0.9% 100 ml @ 50 MCG/HR 25.25 mls/ hr IV .Q4H [facility] Rx#: [id number] Sodium Chloride 0.9% 1, 400 400 70 000 ml @ 50 mls/hr IV . Q20H [facility] Rx#:[id number] cefTRIAXone 1,000 mg In 100 Sodium Chloride 0.9% 50 ml @ 100 mls/hr IVPB Q24HR [facility] Rx#:[id number] Intake, IV Titration 179.275 202 Amount Octreotide 200 mcg In 179.275 202 Sodium Chloride 0.9% 100 ml @ 50 MCG/HR 25.25 mls/ hr IV .Q4H [facility]CAR Rx#: [id number] Oral 460 Blood Product 0 310 Rc As-1 Unit 0 310 [id number] Output: Urine 220 2 0 Other: Voiding Method Urinal Toilet Toilet # Voids 1 1 # Bowel Movements 1 GENERAL EXAM: No acute distress, calm and comfortable likely distress. HEAD: Normocephalic.Head exam was generally normal. There was no scleral icterus or corneal arcus. Mucous membranes were moist. EYES: Normal reaction of pupils, equal size. NOSE: Clear with pink turbinates. THROAT: No erythema or exudates.Neck was supple and without jugular venous distension, thyromegaly, or carotid bruits. Carotids were easily palpable bilaterally. There was no adenopathy. NECK: No masses, no JVD. CHEST: No chest wall deformity. LUNGS: Slightly coarse, Equal air entry with no crackles, wheeze, rhonchi or dullness. CVS: S1 and S2 normal with no audible mumurs, regular rhythm. ABDOMEN: No hepatosplenomegaly, normal bowel sounds, no guarding or rigidity. The patient has a small ascites and umbilical hernia which is easily reducible. No direct tenderness or rebound tenderness or guarding. EXTREMITIES: No edema noted, pedal pulses palpable. SKIN: No rashes CENTRAL NERVOUS SYSTEM: No deficits, moves all 4 extremities. Results - Laboratory Findings CBC and BMP: 03/22/18 10:45 03/22/18 05:05 PT/INR, D-dimer PT 13.7 sec (9.0-12.0) H 03/22/18 05:05 INR 1.3 (<1.2) H 03/22/18 05:05 Abnormal lab findings: Abnormal Labs 03/21/18 03/21/18 03/21/18 14:43 14:43 14:43 WBC 13.2 H RBC 4.11 L Hgb 8.3 L Hct 27.9 L MCV 67.8 L MCH 20.3 L MCHC 29.9 L RDW 19.4 H Neutrophils # 9.9 H Monocytes # 1.5 H PT 13.6 H INR 1.3 H Chloride BUN 34 H Creatinine 0.62 L Glucose 110 H POC Glucose (mg/dL) Calcium Total Bilirubin 1.8 H AST 61 H Ammonia Total Protein Albumin 3.4 L Crossmatch 03/21/18 03/21/18 03/22/18 19:15 20:34 00:32 WBC 10.8 H RBC 3.39 L Hgb 7.0 L Hct 23.1 L MCV 68.3 L MCH 20.8 L MCHC 30.4 L RDW 20.0 H Neutrophils # Monocytes # PT INR Chloride BUN Creatinine Glucose POC Glucose (mg/dL) 123 H Calcium Total Bilirubin AST Ammonia Total Protein Albumin Crossmatch See Detail 03/22/18 03/22/18 03/22/18 05:05 05:05 05:05 WBC RBC 3.38 L Hgb 6.9 L* Hct 23.4 L MCV 69.3 L MCH 20.3 L MCHC 29.2 L RDW 20.0 H Neutrophils # Monocytes # 1.2 H PT 13.7 H INR 1.3 H Chloride 112 H BUN 27 H Creatinine Glucose 123 H POC Glucose (mg/dL) Calcium 7.8 L Total Bilirubin 1.7 H AST Ammonia Total Protein 5.8 L Albumin 2.8 L Crossmatch 03/22/18 03/22/18 05:05 10:45 WBC RBC 3.74 L Hgb 8.0 L Hct 27.3 L MCV 73.0 L MCH 21.4 L MCHC 29.4 L RDW 21.0 H Neutrophils # Monocytes # PT INR Chloride BUN Creatinine Glucose POC Glucose (mg/dL) Calcium Total Bilirubin AST Ammonia 45 H Total Protein Albumin Crossmatch Assessment and Plan Plan: Assessment 1 acute upper GI bleeding secondary to chronic liver disease/cirrhosis. The patient has history of portal gastropathy and esophageal varices and the patient is presenting with an acute GI bleed with a drop in hemoglobin receiving a unit of packed RBC. He is currently on octreotide. Awaiting endoscopy. 2 acute blood loss anemia with a hemoglobin of 6.9 receiving a unit of packed RBC 3 alcoholic liver cirrhosis, coagulation profile is stable with an INR of 1.3 with a PT of 13.7. 4 small ascites 5 umbilical hernia 6 coronary artery disease Plan Continue IV fluids of normal saline today to 50 mL an hour. Continue IV Protonix. Continue IV showed tight. Hepatic antibiotic coverage with Rocephin. Monitor mental status. Monitor hemoglobin. EGD today. We'll continue to follow and keep the patient ICU until the EGD is completed.
[2018-03-22 18:02] LABS: Anisocytosis Moderate; Basophils % (A) 0 %; Eosinophils # (A) 0.1 k/uL (0-0.7); Eosinophils % (A) 1 %; HGB 8.5 gm/dL (13.0-17.5); Hypochromasia Marked; Lymphocytes # (A) 1.3 k/uL (1.0-4.8); Lymphocytes % (A) 12 %; MCH 21.5 pg (25.0-35.0); MCHC 29.2 g/dL (31.0-37.0); MCV 73.7 fL (80.0-100.0); Microcytosis Marked; Monocytes # (A) 0.9 k/uL (0-1.0); Monocytes % (A) 8 %; Neutrophils # (A) 8.3 k/uL (1.3-7.7); Neutrophils % (A) 76 %; Platelet Count 161 k/uL (150-450); Poikilocytosis Slight; RBC 3.93 m/uL (4.30-5.90); WBC 10.9 k/uL (3.8-10.6)
[2018-03-22] MEDS: cloNIDine HCL 0.1 MG TAB PO PRN (18:54)
[2018-03-23 00:26] LABS: Anisocytosis Moderate; Basophils % (A) 0 %; Eosinophils # (A) 0.2 k/uL (0-0.7); Eosinophils % (A) 2 %; HCT 25.1 % (39.0-53.0); HGB 7.4 gm/dL (13.0-17.5); Hypochromasia Marked; Lymphocytes # (A) 1.5 k/uL (1.0-4.8); Lymphocytes % (A) 15 %; MCH 21.8 pg (25.0-35.0); MCHC 29.7 g/dL (31.0-37.0); MCV 73.5 fL (80.0-100.0); Mean Platelet Volume 6.9; Microcytosis Marked; Monocytes # (A) 0.8 k/uL (0-1.0); Monocytes % (A) 8 %; Neutrophils # (A) 7.4 k/uL (1.3-7.7); Neutrophils % (A) 74 %; Platelet Count 136 k/uL (150-450); Poikilocytosis Slight; RBC 3.41 m/uL (4.30-5.90); RDW 20.9 % (11.5-15.5); WBC 10.1 k/uL (3.8-10.6)
[2018-03-23] MEDS: OCTREOTIDE 200 MCG in SODIUM CHLORIDE 0.9% 100 ML IV SCH ×5 (02:26→18:03)
[2018-03-23 05:21] LABS: Anisocytosis Moderate; Basophils % (A) 0 %; Eosinophils # (A) 0.2 k/uL (0-0.7); Eosinophils % (A) 3 %; HCT 25.2 % (39.0-53.0); HGB 7.6 gm/dL (13.0-17.5); Hypochromasia Marked; Lymphocytes # (A) 1.4 k/uL (1.0-4.8); Lymphocytes % (A) 15 %; MCH 21.8 pg (25.0-35.0); MCV 72.7 fL (80.0-100.0); Mean Platelet Volume 6.9; Microcytosis Marked; Monocytes # (A) 0.6 k/uL (0-1.0); Monocytes % (A) 7 %; Neutrophils # (A) 6.5 k/uL (1.3-7.7); Neutrophils % (A) 73 %; Platelet Count 150 k/uL (150-450); Poikilocytosis Slight; RBC 3.47 m/uL (4.30-5.90); RDW 21.2 % (11.5-15.5); WBC 8.9 k/uL (3.8-10.6)
[2018-03-23 05:26] LABS: INR 1.4 (<1.2)
[2018-03-23 05:35] LABS: ALT 46 U/L (21-72); AST 49 U/L (17-59); Albumin 2.9 g/dL (3.5-5.0); Alkaline Phosphatase 85 U/L (38-126); Anion Gap 5 mmol/L; Blood Urea Nitrogen 16 mg/dL (9-20); Calcium 7.6 mg/dL (8.4-10.2); Carbon Dioxide 21 mmol/L (22-30); Chloride 110 mmol/L (98-107); Glucose 105 mg/dL (74-99); Magnesium 1.8 mg/dL (1.6-2.3); Phosphorus 2.8 mg/dL (2.5-4.5); Potassium 4.2 mmol/L (3.5-5.1); Sodium 136 mmol/L (137-145); Total Protein 5.9 g/dL (6.3-8.2)
[2018-03-23] MEDS: cloNIDine HCL 0.1 MG TAB PO PRN (06:12)
[2018-03-23] MEDS ORDERED: Magnesium Replacement Protocol 1 EACH MISC MISCELLANE PRN (07:16)
[2018-03-23] MEDS: PANTOPRAZOLE 40 MG/10 ML VIAL IVP SCH ×2 (07:59→21:45)
[2018-03-23] MEDS: MAGNESIUM SULFATE-D5W PMX 1 GM in DEXTROSE/WATER 1 100ML.BAG IVPB SCH ×2 (07:59→09:57)
--- NOTE | 2018-03-23 13:14 | P.PN ---
Subjective Progress Note Date: 03/23/18 Principal diagnosis: GI bleed Status post EGD for evaluation of hematemesis melena with evidence of portal hypertensive gastropathy nonbleeding moderate size distal esophageal varices without stigmata. Hemoglobin 7.6. Platelet 150. White count 8.9. INR 1.4. Tolerating soft diet. Objective - Vital Signs Vital signs: Vital Signs Temp 97.9 F 03/23/18 12:00 Pulse 71 03/23/18 12:00 Resp 18 03/23/18 12:00 BP 136/81 03/23/18 12:00 Pulse Ox 99 03/23/18 12:00 Intake & Output 03/22/18 03/23/18 03/23/18 18:59 06:59 18:59 Intake Total 2555.75 1346.00 960.558 Output Total 152 1475 800 Balance 2403.75 -129.00 160.558 Weight 71.6 kg Intake: IV 1002.75 903.00 501.00 Magnesium Sulfate-D5w Pmx 200 1 gm In Dextrose/Water 1 100ml.bag @ 100 mls/hr IVPB Q1H [facility] Rx#: [id number] Octreotide 200 mcg In 302.75 303.00 101.00 Sodium Chloride 0.9% 100 ml @ 50 MCG/HR 25.25 mls/ hr IV .Q4H [facility] Rx#: [id number] Sodium Chloride 0.9% 1, 570 600 150 000 ml @ 50 mls/hr IV . Q20H [facility] Rx#:[id number] cefTRIAXone 1,000 mg In 100 50 Sodium Chloride 0.9% 50 ml @ 100 mls/hr IVPB Q24HR [facility] Rx#:[id number] Intake, IV Titration 303 303 39.558 Amount Octreotide 200 mcg In 303 303 39.558 Sodium Chloride 0.9% 100 ml @ 50 MCG/HR 25.25 mls/ hr IV .Q4H [facility] Rx#: [id number] Oral 940 140 420 Blood Product 310 Rc As-1 Unit 310 [id number] Output: Urine 152 1475 800 Other: Voiding Method Toilet Toilet Toilet Urinal # Voids 1 0 - Exam General appearance: The patient is alert, oriented, in no acute distress. HET: Head is normocephalic and atraumatic. Pupils are equal and reactive. Oropharynx is clear without lesions. Neck: Supple without lymphadenopathy. Trachea midline. Heart: S1 S2. Regular rate and rhythm. Lungs: No crackles or wheezes are heard. Abdomen: Soft, nontender, nondistended with bowel sounds. No peritoneal signs. No palpable organomegaly or masses. Extremities: Normal skin color and turgor. No cyanosis, rash, ulceration, clubbing, or edema. Radial and pedal pulses are 2/4 bilaterally. Neurological: No focal deficits. Strength and sensation are grossly intact. - Labs CBC & Chem 7: 03/23/18 05:03 03/23/18 05:03 Labs: Abnormal Lab Results - Last 24 Hours (Table) 03/22/18 03/22/18 03/23/18 Range/Units 17:43 23:58 05:03 WBC 10.9 H (3.8-10.6) k/uL RBC 3.93 L 3.41 L 3.47 L (4.30-5.90) m/uL Hgb 8.5 L 7.4 L 7.6 L (13.0-17.5) gm/dL Hct 29.0 L 25.1 L 25.2 L (39.0-53.0) % MCV 73.7 L 73.5 L 72.7 L (80.0-100.0) fL MCH 21.5 L 21.8 L 21.8 L (25.0-35.0) pg MCHC 29.2 L 29.7 L 30.0 L (31.0-37.0) g/dL RDW 21.0 H 20.9 H 21.2 H (11.5-15.5) % Plt Count 136 L (150-450) k/uL Neutrophils # 8.3 H (1.3-7.7) k/uL PT (9.0-12.0) sec INR (<1.2) Sodium (137-145) mmol/L Chloride (98-107) mmol/L Carbon Dioxide (22-30) mmol/L Glucose (74-99) mg/dL Calcium (8.4-10.2) mg/dL Total Bilirubin (0.2-1.3) mg/dL Total Protein (6.3-8.2) g/dL Albumin (3.5-5.0) g/dL 03/23/18 03/23/18 Range/Units 05:03 05:03 WBC (3.8-10.6) k/uL RBC (4.30-5.90) m/uL Hgb (13.0-17.5) gm/dL Hct (39.0-53.0) % MCV (80.0-100.0) fL MCH (25.0-35.0) pg MCHC (31.0-37.0) g/dL RDW (11.5-15.5) % Plt Count (150-450) k/uL Neutrophils # (1.3-7.7) k/uL PT 14.0 H (9.0-12.0) sec INR 1.4 H (<1.2) Sodium 136 L (137-145) mmol/L Chloride 110 H (98-107) mmol/L Carbon Dioxide 21 L (22-30) mmol/L Glucose 105 H (74-99) mg/dL Calcium 7.6 L (8.4-10.2) mg/dL Total Bilirubin 2.0 H (0.2-1.3) mg/dL Total Protein 5.9 L (6.3-8.2) g/dL Albumin 2.9 L (3.5-5.0) g/dL Assessment and Plan (1) GI bleed Narrative/Plan: Hypertensive portal gastropathy nonbleeding distal esophageal varices status post EGD Current Visit: Yes Status: Acute Code(s): K92.2 - GASTROINTESTINAL HEMORRHAGE, UNSPECIFIED SNOMED Code(s): 94508582 (2) Acute blood loss anemia Current Visit: Yes Status: Acute Code(s): D62 - ACUTE POSTHEMORRHAGIC ANEMIA SNOMED Code(s): 597812230 (3) Esophageal varices Current Visit: Yes Status: Acute Code(s): I85.00 - ESOPHAGEAL VARICES WITHOUT BLEEDING SNOMED Code(s): 61184310 (4) Cirrhosis Current Visit: Yes Status: Acute Code(s): K74.60 - UNSPECIFIED CIRRHOSIS OF LIVER SNOMED Code(s): 65726753 (5) Hematemesis Current Visit: Yes Status: Acute Code(s): K92.0 - HEMATEMESIS SNOMED Code( s): 8404909 (6) Melena Current Visit: Yes Status: Acute Code(s): K92.1 - MELENA SNOMED Code(s): 0899626 (7) ETOH abuse Current Visit: Yes Status: Acute Code(s): F10.10 - ALCOHOL ABUSE, UNCOMPLICATED SNOMED Code(s): 50553294 Plan: 1. CBC monitoring. Protonix 40 mg twice daily. Inderal 10 mg twice a day. Soft diet. Alcohol abstinence reinforced. We'll continue to follow. Assessment and plan a care discussed with Dr. Amor
--- NOTE | 2018-03-23 16:44 | P.PN ---
Subjective Progress Note Date: 03/23/18 I'm seeing this patient in follow-up in the intensive care. The patient is doing extremely well. The patient is has undergone EGD and the patient was found to have portal hypertensive gastropathy that was nonbleeding. Hemoglobin is at 7.6. The patient was kept on octreotide overnight. He is tolerating soft diet. Hemodynamically stable. No nausea. No vomiting. No hematemesis. No ascites. No encephalopathy. No signs of any delirium tremens. No other complaint otherwise for now. Objective - Vital Signs Vital signs: Vital Signs Temp 97.9 F 03/23/18 12:00 Pulse 71 03/23/18 12:00 Resp 18 03/23/18 12:00 BP 136/81 03/23/18 12:00 Pulse Ox 99 03/23/18 12:00 Intake & Output 03/22/18 03/23/18 03/23/18 18:59 06:59 18:59 Intake Total 2555.75 1346.00 1200.558 Output Total 152 1475 1100 Balance 2403.75 -129.00 100.558 Weight 71.6 kg Intake: IV 1002.75 903.00 501.00 Magnesium Sulfate-D5w Pmx 200 1 gm In Dextrose/Water 1 100ml.bag @ 100 mls/hr IVPB Q1H [facility] Rx#: [id number] Octreotide 200 mcg In 302.75 303.00 101.00 Sodium Chloride 0.9% 100 ml @ 50 MCG/HR 25.25 mls/ hr IV .Q4H [facility] Rx#: [id number] Sodium Chloride 0.9% 1, 570 600 150 000 ml @ 50 mls/hr IV . Q20H [facility] Rx#:[id number] cefTRIAXone 1,000 mg In 100 50 Sodium Chloride 0.9% 50 ml @ 100 mls/hr IVPB Q24HR [facility] Rx#:[id number] Intake, IV Titration 303 303 39.558 Amount Octreotide 200 mcg In 303 303 39.558 Sodium Chloride 0.9% 100 ml @ 50 MCG/HR 25.25 mls/ hr IV .Q4H [facility] Rx#: [id number] Oral 940 140 660 Blood Product 310 Rc As-1 Unit 310 [id number] Output: Urine 152 1475 1100 Other: Voiding Method Toilet Toilet Toilet Urinal # Voids 1 0 - Exam GENERAL EXAM: No acute distress, calm and comfortable likely distress. HEAD: Normocephalic.Head exam was generally normal. There was no scleral icterus or corneal arcus. Mucous membranes were moist. EYES: Normal reaction of pupils, equal size. NOSE: Clear with pink turbinates. THROAT: No erythema or exudates.Neck was supple and without jugular venous distension, thyromegaly, or carotid bruits. Carotids were easily palpable bilaterally. There was no adenopathy. NECK: No masses, no JVD. CHEST: No chest wall deformity. LUNGS: Slightly coarse, Equal air entry with no crackles, wheeze, rhonchi or dullness. CVS: S1 and S2 normal with no audible mumurs, regular rhythm. ABDOMEN: No hepatosplenomegaly, normal bowel sounds, no guarding or rigidity. The patient has a small ascites and umbilical hernia which is easily reducible. No direct tenderness or rebound tenderness or guarding. EXTREMITIES: No edema noted, pedal pulses palpable. SKIN: No rashes CENTRAL NERVOUS SYSTEM: No deficits, moves all 4 extremities. - Labs CBC & Chem 7: 03/23/18 05:03 03/23/18 05:03 Labs: Abnormal Lab Results - Last 24 Hours (Table) 03/22/18 03/22/18 03/23/18 Range/Units 17:43 23:58 05:03 WBC 10.9 H (3.8-10.6) k/uL RBC 3.93 L 3.41 L 3.47 L (4.30-5.90) m/uL Hgb 8.5 L 7.4 L 7.6 L (13.0-17.5) gm/dL Hct 29.0 L 25.1 L 25.2 L (39.0-53.0) % MCV 73.7 L 73.5 L 72.7 L (80.0-100.0) fL MCH 21.5 L 21.8 L 21.8 L (25.0-35.0) pg MCHC 29.2 L 29.7 L 30.0 L (31.0-37.0) g/dL RDW 21.0 H 20.9 H 21.2 H (11.5-15.5) % Plt Count 136 L (150-450) k/uL Neutrophils # 8.3 H (1.3-7.7) k/uL PT (9.0-12.0) sec INR (<1.2) Sodium (137-145) mmol/L Chloride (98-107) mmol/L Carbon Dioxide (22-30) mmol/L Glucose (74-99) mg/dL Calcium (8.4-10.2) mg/dL Total Bilirubin (0.2-1.3) mg/dL Total Protein (6.3-8.2) g/dL Albumin (3.5-5.0) g/dL 03/23/18 03/23/18 Range/Units 05:03 05:03 WBC (3.8-10.6) k/uL RBC (4.30-5.90) m/uL Hgb (13.0-17.5) gm/dL Hct (39.0-53.0) % MCV (80.0-100.0) fL MCH (25.0-35.0) pg MCHC (31.0-37.0) g/dL RDW (11.5-15.5) % Plt Count (150-450) k/uL Neutrophils # (1.3-7.7) k/uL PT 14.0 H (9.0-12.0) sec INR 1.4 H (<1.2) Sodium 136 L (137-145) mmol/L Chloride 110 H (98-107) mmol/L Carbon Dioxide 21 L (22-30) mmol/L Glucose 105 H (74-99) mg/dL Calcium 7.6 L (8.4-10.2) mg/dL Total Bilirubin 2.0 H (0.2-1.3) mg/dL Total Protein 5.9 L (6.3-8.2) g/dL Albumin 2.9 L (3.5-5.0) g/dL Assessment and Plan Plan: Assessment 1 acute upper GI bleeding secondary to chronic liver disease/cirrhosis. The patient had portal gastropathy and there was no stigmata of acute or active bleeding. The patient on that showed tight. Hemoglobin is stable for now. 2 acute blood loss anemia with a hemoglobin that is stable at 7.6. No evidence of any ongoing or acute bleeding at this point in time. 3 alcoholic liver cirrhosis, coagulation profile is stable with an INR of 1.4 4 small ascites 5 umbilical hernia 6 coronary artery disease Plan Discontinue IV fluids. This continued IV octreotide. Consider addition of and that out. Transfer this patient to a medical floor. Advance diet as tolerated. GI to follow regarding the chronic liver disease/cirrhosis. We'll follow as needed.
--- NOTE | 2018-03-23 17:11 | P.PN ---
Subjective Progress Note Date: 03/22/18 Progress note being dictated for Dr. Elliott. Interval history: This a 68-year-old gentleman admitted with acute upper GI bleed, possible variceal bleeding, acute alcoholism with DTs in a patient with history of liver cirrhosis and multiple other medical issues. Hemoglobin 6.9, receive 1 unit of packed RBCs. One black tarry stool reported on midnights. Denies abdominal pain. Denies nausea vomiting. No hemoptysis, no hematemesis. Maintained on PPI, Sandostatin,CIWA protocol. Evaluated by GI and scheduled for EGD today.NPO. INR 1.3. Total bili 1.7. Ammonia 45. Normal LFTs .Chest x -ray reporting cardiomegaly, possible early interstitial edema. Maintaining O2 sats in the mid 90s on room air. Denies chest pain, palpitations or increasing shortness of breath. Afebrile, WBC down to 10.8 Review of systems: CONSTITUTIONAL: No fever, no malaise, no fatigue. HEENT: No recent visual problems or hearing problems. Denied any sore throat. CARDIOVASCULAR: No chest pain, orthopnea, PND, no palpitations, no syncope. PULMONARY: No shortness of breath, no cough, no hemoptysis. Positive Hematemesis/melena. GASTROINTESTINAL: No diarrhea, no nausea, no vomiting, no abdominal pain. Normoactive bowel sounds. NEUROLOGICAL: No headaches, no weakness, no numbness. HEMATOLOGICAL: Denies any bleeding or petechiae. GENITOURINARY: Denies any burning micturition, frequency, or urgency. MUSCULOSKELETAL/RHEUMATOLOGICAL: Denies any joint pain, swelling, or any muscle pain. ENDOCRINE: Denies any polyuria or polydipsia. PSYCHIATRIC: No anxiety, no depression The rest of the 14 point review of systems is negative Active Medications Clonidine (Catapres) 0.1 mg PO Q4HR PRN PRN Reason: Hypertension Last Admin: 03/23/18 06:12 Dose: 0.1 mg Hydromorphone HCl (Dilaudid) 0.5 mg IVP Q6HR PRN PRN Reason: Pain Last Admin: 03/22/18 18:30 Dose: 0.5 mg Octreotide Acetate 200 mcg/ (Sodium Chloride) 101 mls @ 25.25 mls/hr IV .Q4H [facility] Last Admin: 03/23/18 08:00 Dose: 50 mcg/hr, 25.25 mls/hr Sodium Chloride (Saline 0.9%) 1,000 mls @ 50 mls/hr IV .Q20H [facility] Last Admin: 03/22/18 11:36 Dose: 50 mls/hr Ceftriaxone Sodium 1,000 mg/ (Sodium Chloride) 50 mls @ 100 mls/hr IVPB Q24HR [facility] Last Admin: 03/23/18 07:59 Dose: 100 mls/hr Lorazepam (Ativan) 1 mg IV Q2HR PRN PRN Reason: CIWA 8 or 9 Lorazepam (Ativan) 1 mg IV Q1HR PRN PRN Reason: CIWA 10 to 15 Lorazepam (Ativan) 2 mg IV Q10M PRN PRN Reason: CIWA 16 or higher Stop: 03/23/18 21:16 Miscellaneous Information (Magnesium Per Protocol) 1 each MISCELLANE DAILY PRN ; Protocol PRN Reason: Per Protocol Naloxone HCl (Narcan) 0.2 mg IV Q2M PRN PRN Reason: Opioid Reversal Ondansetron HCl (Zofran) 4 mg IVP Q8HR PRN PRN Reason: Nausea And Vomiting Last Admin: 03/21/18 18:21 Dose: 4 mg Pantoprazole Sodium (Protonix) 40 mg IVP BID [facility] Last Admin: 03/23/18 07:59 Dose: 40 mg Sandostatin Objective - Vital Signs Vital signs: Vital Signs Temp 98 F 03/22/18 16:00 Pulse 77 03/22/18 16:00 Resp 16 03/22/18 16:00 BP 145/82 03/22/18 16:00 Pulse Ox 96 03/22/18 16:00 Intake & Output 03/21/18 03/22/18 03/22/18 18:59 06:59 18:59 Intake Total 243.686 3887.25 Output Total 220 2 Balance 893.570 6700.25 Weight 71.214 kg 72 kg Intake: IV 800 852.25 Octreotide 200 mcg In 250 252.25 Sodium Chloride 0.9% 100 ml @ 50 MCG/HR 25.25 mls/ hr IV .Q4H [facility] Rx#: [id number] Sodium Chloride 0.9% 1, 550 470 000 ml @ 50 mls/hr IV . Q20H [facility] Rx#:[id number] cefTRIAXone 1,000 mg In 100 Sodium Chloride 0.9% 50 ml @ 100 mls/hr IVPB Q24HR [facility] Rx#:[id number] Intake, IV Titration 179.275 202 Amount Octreotide 200 mcg In 179.275 202 Sodium Chloride 0.9% 100 ml @ 50 MCG/HR 25.25 mls/ hr IV .Q4H [facility] Rx#: [id number] Oral 460 Blood Product 0 310 Rc As-1 Unit 0 310 [id number] Output: Urine 220 2 Other: Voiding Method Urinal Toilet # Voids 1 1 # Bowel Movements 1 - Exam PHYSICAL EXAM: VITAL SIGNS: As above GENERAL: Sitting up in bed, no acute distress HEENT: Conjunctivae normal. eyes normal. Oral mucosa dry. NECK: No JVD. No thyroid enlargement. No LNs CARDIOVASCULAR: S1, S2 muffled. No murmur RESPIRATION: Breath sounds diminished in the bases. Occasional scattered rhonchi, no crackles. No wheezes. ABDOMEN: Soft, nondistended, minimal mid epigastric tenderness. No guarding. no masses palpable. Bowel sounds heard. LEGS: No edema. no swelling PSYCHIATRY: Alert and oriented -3, mood and affect normal. NERVOUS SYSTEM: Cranial N 2-12 grossly normal. Moves all 4 limbs. Diffuse weakness No focal deficits. Skin: no ulcer no rash Joints: No active swelling. No inflammation. Lymphatic system. No LN neck axilla or groin. - Labs CBC & Chem 7: 03/23/18 05:03 03/23/18 05:03 Labs: Abnormal Lab Results - Last 24 Hours (Table) 03/21/18 03/21/18 03/22/18 Range/Units 19:15 20:34 00:32 WBC 10.8 H (3.8-10.6) k/uL RBC 3.39 L (4.30-5.90) m/uL Hgb 7.0 L (13.0-17.5) gm/dL Hct 23.1 L (39.0-53.0) % MCV 68.3 L (80.0-100.0) fL MCH 20.8 L (25.0-35.0) pg MCHC 30.4 L (31.0-37.0) g/dL RDW 20.0 H (11.5-15.5) % Monocytes # (0-1.0) k/uL PT (9.0-12.0) sec INR (<1.2) Chloride (98-107) mmol/L BUN (9-20) mg/dL Glucose (74-99) mg/dL POC Glucose (mg/dL) 123 H (75-99) mg/dL Calcium (8.4-10.2) mg/dL Total Bilirubin (0.2-1.3) mg/dL Ammonia (<30) umol/L Total Protein (6.3-8.2) g/dL Albumin (3.5-5.0) g/dL Crossmatch See Detail 03/22/18 03/22/18 03/22/18 Range/Units 05:05 05:05 05:05 WBC (3.8-10.6) k/uL RBC 3.38 L (4.30-5.90) m/uL Hgb 6.9 L* (13.0-17.5) gm/dL Hct 23.4 L (39.0-53.0) % MCV 69.3 L (80.0-100.0) fL MCH 20.3 L (25.0-35.0) pg MCHC 29.2 L (31.0-37.0) g/dL RDW 20.0 H (11.5-15.5) % Monocytes # 1.2 H (0-1.0) k/uL PT 13.7 H (9.0-12.0) sec INR 1.3 H (<1.2) Chloride 112 H (98-107) mmol/L BUN 27 H (9-20) mg/dL Glucose 123 H (74-99) mg/dL POC Glucose (mg/dL) (75-99) mg/dL Calcium 7.8 L (8.4-10.2) mg/dL Total Bilirubin 1.7 H (0.2-1.3) mg/dL Ammonia (<30) umol/L Total Protein 5.8 L (6.3-8.2) g/dL Albumin 2.8 L (3.5-5.0) g/dL Crossmatch 03/22/18 03/22/18 Range/Units 05:05 10:45 WBC (3.8-10.6) k/uL RBC 3.74 L (4.30-5.90) m/uL Hgb 8.0 L (13.0-17.5) gm/dL Hct 27.3 L (39.0-53.0) % MCV 73.0 L (80.0-100.0) fL MCH 21.4 L (25.0-35.0) pg MCHC 29.4 L (31.0-37.0) g/dL RDW 21.0 H (11.5-15.5) % Monocytes # (0-1.0) k/uL PT (9.0-12.0) sec INR (<1.2) Chloride (98-107) mmol/L BUN (9-20) mg/dL Glucose (74-99) mg/dL POC Glucose (mg/dL) (75-99) mg/dL Calcium (8.4-10.2) mg/dL Total Bilirubin (0.2-1.3) mg/dL Ammonia 45 H (<30) umol/L Total Protein (6.3-8.2) g/dL Albumin (3.5-5.0) g/dL Crossmatch Assessment and Plan Assessment: -Acute upper GI bleeding, possibly variceal bleeding, rule out peptic ulcer disease -acute blood loss anemia, secondary to the above -Leukocytosis -Microcytosis -Acute alcoholism with possible acute DTs -History of liver cirrhosis with esophageal varices -Remote history of nicotine dependence -Gastroesophageal reflux disease -CAD, history of [place], history of CHF Plan: Continue on current medication regime , PPI, monitoring and symptomatic treatment. Continue Sandostatin, gentle IV fluid hydration. Close monitoring with Serial H&H's every 6h.NPO for upcoming EGD. Alcohol cessation readdressed. Prognosis guarded given multiple complex medical issues. Further recommendations to follow. The impression and plan of care has been dictated as directed. : I performed a history and examination of this patient, discussed the same with the dictator. I agree with the dictator's note ,documented as a scribe. Any additional findings or plans will be noted.
--- NOTE | 2018-03-23 17:22 | P.PN ---
Subjective Progress Note Date: 03/23/18 Progress note being dictated for Dr. Elliott. Interval history: This a 68-year-old gentleman admitted with acute upper GI bleed, possible variceal bleeding, acute alcoholism with DTs in a patient with history of liver cirrhosis and multiple other medical issues. Hemoglobin 6.9, receive 1 unit of packed RBCs. One black tarry stool reported on midnights. Denies abdominal pain. Denies nausea vomiting. No hemoptysis, no hematemesis. Maintained on PPI, Sandostatin,CIWA protocol. Evaluated by GI and scheduled for EGD today.NPO. INR 1.3. Total bili 1.7. Ammonia 45. Normal LFTs .Chest x -ray reporting cardiomegaly, possible early interstitial edema. Maintaining O2 sats in the mid 90s on room air. Denies chest pain, palpitations or increasing shortness of breath. Afebrile, WBC down to 10.8 03/23/2018 EGD yesterday reported no active bleeding or evidence of old blood in the esophagus, stomach and duodenum , portal hypertensive gastropathy , nonbleeding moderate-sized distal esophageal with no high risk stigmata seen. Clear liquid diet initiated. Maintained on IV Protonix. Sandostatin discontinued. Heparin currently 7.6. With no further bleeding reported, no more tarry stools. Telemetry sinus rhythm. INR 1.4. T bili 2. Afebrile, normal WBC. Review of systems: CONSTITUTIONAL: No fever, no malaise, no fatigue. HEENT: No recent visual problems or hearing problems. Denied any sore throat. CARDIOVASCULAR: No chest pain, orthopnea, PND, no palpitations, no syncope. PULMONARY: No shortness of breath, no cough, no hemoptysis. No Hematemesis/ melena. GASTROINTESTINAL: No diarrhea, no nausea, no vomiting, no abdominal pain. Normoactive bowel sounds. NEUROLOGICAL: No headaches, no weakness, no numbness. HEMATOLOGICAL: Denies any bleeding or petechiae. GENITOURINARY: Denies any burning micturition, frequency, or urgency. MUSCULOSKELETAL/RHEUMATOLOGICAL: Denies any joint pain, swelling, or any muscle pain. ENDOCRINE: Denies any polyuria or polydipsia. PSYCHIATRIC: No anxiety, no depression The rest of the 14 point review of systems is negative Active Medications Clonidine (Catapres) 0.1 mg PO Q4HR PRN PRN Reason: Hypertension Last Admin: 03/23/18 06:12 Dose: 0.1 mg Hydromorphone HCl (Dilaudid) 0.5 mg IVP Q6HR PRN PRN Reason: Pain Last Admin: 03/22/18 18:30 Dose: 0.5 mg Octreotide Acetate 200 mcg/ (Sodium Chloride) 101 mls @ 25.25 mls/hr IV .Q4H [facility], [facility]–1983 Last Admin: 03/23/18 08:00 Dose: 50 mcg/hr, 25.25 mls/hr Sodium Chloride (Saline 0.9%) 1,000 mls @ 50 mls/hr IV .Q20H [facility], [facility] Last Admin: 03/22/18 11:36 Dose: 50 mls/hr Ceftriaxone Sodium 1,000 mg/ (Sodium Chloride) 50 mls @ 100 mls/hr IVPB Q24HR [facility], [facility]1983 Last Admin: 03/23/18 07:59 Dose: 100 mls/hr Lorazepam (Ativan) 1 mg IV Q2HR PRN PRN Reason: CIWA 8 or 9 Lorazepam (Ativan) 1 mg IV Q1HR PRN PRN Reason: CIWA 10 to 15 Lorazepam (Ativan) 2 mg IV Q10M PRN PRN Reason: CIWA 16 or higher Stop: 03/23/18 21:16 Miscellaneous Information (Magnesium Per Protocol) 1 each MISCELLANE DAILY PRN ; Protocol PRN Reason: Per Protocol Naloxone HCl (Narcan) 0.2 mg IV Q2M PRN PRN Reason: Opioid Reversal Ondansetron HCl (Zofran) 4 mg IVP Q8HR PRN PRN Reason: Nausea And Vomiting Last Admin: 03/21/18 18:21 Dose: 4 mg Pantoprazole Sodium (Protonix) 40 mg IVP BID [facility], [facility] Last Admin: 03/23/18 07:59 Dose: 40 mg Sandostatin Objective - Vital Signs Vital signs: Vital Signs Temp 98 F 03/23/18 16:00 Pulse 77 03/23/18 16:00 Resp 16 03/23/18 16:00 BP 125/63 03/23/18 16:00 Pulse Ox 97 03/23/18 16:00 Intake & Output 03/22/18 03/23/18 03/23/18 18:59 06:59 18:59 Intake Total 2555.75 1346.00 1200.558 Output Total 152 1475 1100 Balance 2403.75 -129.00 100.558 Weight 71.6 kg Intake: IV 1002.75 903.00 501.00 Magnesium Sulfate-D5w Pmx 200 1 gm In Dextrose/Water 1 100ml.bag @ 100 mls/hr IVPB Q1H [facility] Rx#: [id number] Octreotide 200 mcg In 302.75 303.00 101.00 Sodium Chloride 0.9% 100 ml @ 50 MCG/HR 25.25 mls/ hr IV .Q4H [facility] Rx#: [id number] Sodium Chloride 0.9% 1, 570 600 150 000 ml @ 50 mls/hr IV . Q20H [facility] Rx#:[id number] cefTRIAXone 1,000 mg In 100 50 Sodium Chloride 0.9% 50 ml @ 100 mls/hr IVPB Q24HR [facility] Rx#:[id number] Intake, IV Titration 303 303 39.558 Amount Octreotide 200 mcg In 303 303 39.558 Sodium Chloride 0.9% 100 ml @ 50 MCG/HR 25.25 mls/ hr IV .Q4H [facility] Rx#: [id number] Oral 940 140 660 Blood Product 310 Rc As-1 Unit 310 [id number] Output: Urine 152 1475 1100 Other: Voiding Method Toilet Toilet Toilet Urinal # Voids 1 0 - Exam PHYSICAL EXAM: VITAL SIGNS: As above GENERAL: Sitting up in bed, no acute distress HEENT: Conjunctivae normal. eyes normal. Oral mucosa dry. NECK: No JVD. No thyroid enlargement. No LNs CARDIOVASCULAR: S1, S2 muffled. No murmur RESPIRATION: Breath sounds diminished in the bases. Occasional scattered rhonchi, no crackles. No wheezes. ABDOMEN: Soft, nondistended, nontender. No guarding. no masses palpable. Bowel sounds heard. LEGS: No edema. no swelling PSYCHIATRY: Alert and oriented -3, mood and affect normal. NERVOUS SYSTEM: Cranial N 2-12 grossly normal. Moves all 4 limbs. Diffuse weakness No focal deficits. - Labs CBC & Chem 7: 03/23/18 05:03 03/23/18 05:03 Labs: Abnormal Lab Results - Last 24 Hours (Table) 03/22/18 03/22/18 03/23/18 Range/Units 17:43 23:58 05:03 WBC 10.9 H (3.8-10.6) k/uL RBC 3.93 L 3.41 L 3.47 L (4.30-5.90) m/uL Hgb 8.5 L 7.4 L 7.6 L (13.0-17.5) gm/dL Hct 29.0 L 25.1 L 25.2 L (39.0-53.0) % MCV 73.7 L 73.5 L 72.7 L (80.0-100.0) fL MCH 21.5 L 21.8 L 21.8 L (25.0-35.0) pg MCHC 29.2 L 29.7 L 30.0 L (31.0-37.0) g/dL RDW 21.0 H 20.9 H 21.2 H (11.5-15.5) % Plt Count 136 L (150-450) k/uL Neutrophils # 8.3 H (1.3-7.7) k/uL PT (9.0-12.0) sec INR (<1.2) Sodium (137-145) mmol/L Chloride (98-107) mmol/L Carbon Dioxide (22-30) mmol/L Glucose (74-99) mg/dL Calcium (8.4-10.2) mg/dL Total Bilirubin (0.2-1.3) mg/dL Total Protein (6.3-8.2) g/dL Albumin (3.5-5.0) g/dL 03/23/18 03/23/18 Range/Units 05:03 05:03 WBC (3.8-10.6) k/uL RBC (4.30-5.90) m/uL Hgb (13.0-17.5) gm/dL Hct (39.0-53.0) % MCV (80.0-100.0) fL MCH (25.0-35.0) pg MCHC (31.0-37.0) g/dL RDW (11.5-15.5) % Plt Count (150-450) k/uL Neutrophils # (1.3-7.7) k/uL PT 14.0 H (9.0-12.0) sec INR 1.4 H (<1.2) Sodium 136 L (137-145) mmol/L Chloride 110 H (98-107) mmol/L Carbon Dioxide 21 L (22-30) mmol/L Glucose 105 H (74-99) mg/dL Calcium 7.6 L (8.4-10.2) mg/dL Total Bilirubin 2.0 H (0.2-1.3) mg/dL Total Protein 5.9 L (6.3-8.2) g/dL Albumin 2.9 L (3.5-5.0) g/dL Assessment and Plan Assessment: -Acute upper GI bleeding, status post EGD; no active bleeding , portal hypertensive gastropathy , nonbleeding moderate-sized distal esophageal with no high risk stigmata seen. -acute blood loss anemia, secondary to the above -Leukocytosis -Microcytosis -Acute alcoholism with possible acute DTs -History of liver cirrhosis with esophageal varices -Remote history of nicotine dependence -Gastroesophageal reflux disease -CAD, history of MD, history of CHF Plan: Continue on current medication regime , PPI, monitoring and symptomatic treatment. Diet advancement as per GI. Close monitoring of CBC .MedSurg overflow, awaiting available bed. Alcohol cessation readdressed. Discharge planning in progress for tomorrow, depending GI clearance. Further recommendations to follow. The impression and plan of care has been dictated as directed. : I performed a history and examination of this patient, discussed the same with the dictator. I agree with the dictator's note ,documented as a scribe. Any additional findings or plans will be noted.
[2018-03-23] MEDS: SODIUM CHLORIDE 0.9% 1,000 ML IV SCH (18:01)
[2018-03-23 21:30] VITALS: RESP 18
[2018-03-23] MEDS: PROPRANOLOL 10 MG TAB PO SCH (21:57)
[2018-03-24 08:20] LABS: Anisocytosis Moderate; Basophils % (A) 0 %; Eosinophils # (A) 0.2 k/uL (0-0.7); Eosinophils % (A) 2 %; HCT 28.1 % (39.0-53.0); HGB 8.3 gm/dL (13.0-17.5); Hypochromasia Marked; Lymphocytes # (A) 1.3 k/uL (1.0-4.8); Lymphocytes % (A) 12 %; MCH 21.8 pg (25.0-35.0); MCHC 29.6 g/dL (31.0-37.0); MCV 73.5 fL (80.0-100.0); Microcytosis Marked; Monocytes # (A) 0.7 k/uL (0-1.0); Monocytes % (A) 6 %; Neutrophils # (A) 8.9 k/uL (1.3-7.7); Neutrophils % (A) 78 %; Platelet Count 168 k/uL (150-450); Poikilocytosis Slight; RBC 3.83 m/uL (4.30-5.90); RDW 21.9 % (11.5-15.5); WBC 11.4 k/uL (3.8-10.6)
[2018-03-24 08:34] LABS: INR 1.3 (<1.2); Prothrombin Time 13.1 sec (9.0-12.0)
[2018-03-24 08:43] LABS: ALT 45 U/L (21-72); AST 50 U/L (17-59); Albumin 3.4 g/dL (3.5-5.0); Alkaline Phosphatase 114 U/L (38-126); Anion Gap 7 mmol/L; Blood Urea Nitrogen 12 mg/dL (9-20); Calcium 8.3 mg/dL (8.4-10.2); Carbon Dioxide 22 mmol/L (22-30); Chloride 109 mmol/L (98-107); Glucose 96 mg/dL (74-99); Potassium 4.4 mmol/L (3.5-5.1); Sodium 138 mmol/L (137-145); Total Bilirubin 1.8 mg/dL (0.2-1.3); Total Protein 6.5 g/dL (6.3-8.2)
--- NOTE | 2018-03-24 09:23 | P.PN ---
Subjective Progress Note Date: 03/24/18 Principal diagnosis: GI bleed Status post EGD for evaluation of hematemesis melena with evidence of portal hypertensive gastropathy nonbleeding moderate size distal esophageal varices without stigmata. Hemoglobin 8.3. Tolerating soft diet. Denies hematemesis hematochezia melena. Anticipating discharge today. Denies abdominal pain. Objective - Vital Signs Vital signs: Vital Signs Temp 98.2 F 03/24/18 04:53 Pulse 71 03/24/18 04:53 Resp 18 03/24/18 04:53 BP 117/51 03/24/18 04:53 Pulse Ox 96 03/24/18 04:53 Intake & Output 03/23/18 03/24/18 03/24/18 18:59 06:59 18:59 Intake Total 1200.558 900 Output Total 1100 Balance 100.558 900 Weight 72 kg Intake: IV 501.00 Magnesium Sulfate-D5w Pmx 200 1 gm In Dextrose/Water 1 100ml.bag @ 100 mls/hr IVPB Q1H [facility] Rx#: [id number] Octreotide 200 mcg In 101.00 Sodium Chloride 0.9% 100 ml @ 50 MCG/HR 25.25 mls/ hr IV .Q4H [facility] Rx#: [id number] Sodium Chloride 0.9% 1, 150 000 ml @ 50 mls/hr IV . Q20H [facility] Rx#:[id number] cefTRIAXone 1,000 mg In 50 Sodium Chloride 0.9% 50 ml @ 100 mls/hr IVPB Q24HR [facility] Rx#:[id number] Intake, IV Titration 39.558 Amount Octreotide 200 mcg In 39.558 Sodium Chloride 0.9% 100 ml @ 50 MCG/HR 25.25 mls/ hr IV .Q4H [facility] Rx#: [id number] Oral 660 900 Output: Urine 1100 Other: Voiding Method Toilet Toilet Urinal Urinal # Voids 1 - Exam General appearance: The patient is alert, oriented, in no acute distress. HET: Head is normocephalic and atraumatic. Pupils are equal and reactive. Oropharynx is clear without lesions. Neck: Supple without lymphadenopathy. Trachea midline. Heart: S1 S2. Regular rate and rhythm. Lungs: No crackles or wheezes are heard. Abdomen: Soft, nontender, nondistended with bowel sounds. No peritoneal signs. No palpable organomegaly or masses. Extremities: Normal skin color and turgor. No cyanosis, rash, ulceration, clubbing, or edema. Radial and pedal pulses are 2/4 bilaterally. Neurological: No focal deficits. Strength and sensation are grossly intact. - Labs CBC & Chem 7: 03/24/18 07:43 03/24/18 07:43 Labs: Abnormal Lab Results - Last 24 Hours (Table) 03/24/18 03/24/18 03/24/18 Range/Units 07:43 07:43 07:43 WBC 11.4 H (3.8-10.6) k/uL RBC 3.83 L (4.30-5.90) m/uL Hgb 8.3 L (13.0-17.5) gm/dL Hct 28.1 L (39.0-53.0) % MCV 73.5 L (80.0-100.0) fL MCH 21.8 L (25.0-35.0) pg MCHC 29.6 L (31.0-37.0) g/dL RDW 21.9 H (11.5-15.5) % Neutrophils # 8.9 H (1.3-7.7) k/uL PT 13.1 H (9.0-12.0) sec INR 1.3 H (<1.2) Chloride 109 H (98-107) mmol/L Calcium 8.3 L (8.4-10.2) mg/dL Total Bilirubin 1.8 H (0.2-1.3) mg/dL Albumin 3.4 L (3.5-5.0) g/dL Assessment and Plan (1) GI bleed Narrative/Plan: Hypertensive portal gastropathy nonbleeding distal esophageal varices status post EGD Current Visit: Yes Status: Acute Code(s): K92.2 - GASTROINTESTINAL HEMORRHAGE, UNSPECIFIED SNOMED Code(s): 75002387 (2) Acute blood loss anemia Current Visit: Yes Status: Acute Code(s): D62 - ACUTE POSTHEMORRHAGIC ANEMIA SNOMED Code(s): 425477971 (3) Esophageal varices Current Visit: Yes Status: Acute Code(s): I85.00 - ESOPHAGEAL VARICES WITHOUT BLEEDING SNOMED Code(s): 50893762 (4) Cirrhosis Current Visit: Yes Status: Acute Code(s): K74.60 - UNSPECIFIED CIRRHOSIS OF LIVER SNOMED Code(s): 54848502 (5) Hematemesis Current Visit: Yes Status: Acute Code(s): K92.0 - HEMATEMESIS SNOMED Code( s): 0149782 (6) Melena Current Visit: Yes Status: Acute Code(s): K92.1 - MELENA SNOMED Code(s): 3664226 (7) ETOH abuse Current Visit: Yes Status: Acute Code(s): F10.10 - ALCOHOL ABUSE, UNCOMPLICATED SNOMED Code(s): 38219087 Plan: 1. Agreeable for discharge from a GI standpoint. Protonix 40 mg daily. Inderal 10 mg twice a day; descriptions provided. Soft diet. Alcohol abstinence reinforced. Return to office in 3-4 weeks. Assessment and plan a care discussed with Dr. Amor
[2018-03-24] MEDS: PROPRANOLOL 10 MG TAB PO SCH (10:11)
[2018-03-24] MEDS ORDERED: HYDROmorphone 2 MG TAB PO PRN (10:11)
[2018-03-24] MEDS: PANTOPRAZOLE 40 MG/10 ML VIAL IVP SCH (10:11)
[2018-03-24 12:43] VITALS: BP 141/67; PULSE 63; TEMP 97.7
--- NOTE | 2018-03-24 13:56 | P.PN ---
Subjective Progress Note Date: 03/24/18 Principal diagnosis: acute upper GI bleeding secondary to chronic liver disease/cirrhosis 68-year-old male patient, alcoholic, with known history of liver cirrhosis and portal hypertension and known history of portal gastropathy and esophageal varices, was having episodes of melanotic stool and few bouts of hematemesis on outpatient basis. The patient has had 2 episodes of hematemesis over the past few days. He came into the emergency department where he had another bout of hematemesis. Based on that he was brought into the intensive care unit. Hemoglobin dropped from 8.2 down to 6.9 and the patient was given a unit of packed RBC. The patient is currently in the intensive care unit. He is hemodynamically stable. The patient is on octreotide drip. The patient is scheduled to undergo a EGD today by gastroenterology. No altered mentation. No encephalopathy. No abdominal pain. He has some mild ascites. No encephalopathy. CAT scan of the abdomen and pelvis was consistent with liver cirrhosis and hepatomegaly. The patient is small uncomplicated umbilical hernia in place. No signs of any delirium tremens. On 03/24/2018 patient seen in follow-up on medical surgical floor. no further GI bleeding comes in place hemoglobin is 8.3, INR is 1.3, vital signs are stable , no distress, no abdominal pain. Was initiated on Inderal, he is on oral Protonix. patient had a EGD on 03/22/2018 which showed no activity or evidence of blood in the examined esophagus, stomach and duodenum, portal hypertensive gastropathy, and nonbleeding moderate-sized distal esophageal with no risk stigmata seen. Objective - Vital Signs Vital signs: Vital Signs Temp 97.7 F 03/24/18 12:35 Pulse 63 03/24/18 12:35 Resp 18 03/24/18 12:35 BP 141/67 03/24/18 12:35 Pulse Ox 100 03/24/18 12:35 Intake & Output 03/23/18 03/24/18 03/24/18 18:59 06:59 18:59 Intake Total 1200.558 900 Output Total 1100 Balance 100.558 900 Weight 72 kg Intake: IV 501.00 Magnesium Sulfate-D5w Pmx 200 1 gm In Dextrose/Water 1 100ml.bag @ 100 mls/hr IVPB Q1H [facility] Rx#: [id number] Octreotide 200 mcg In 101.00 Sodium Chloride 0.9% 100 ml @ 50 MCG/HR 25.25 mls/ hr IV .Q4H [facility] Rx#: [id number] Sodium Chloride 0.9% 1, 150 000 ml @ 50 mls/hr IV . Q20H [facility] Rx#:[id number] cefTRIAXone 1,000 mg In 50 Sodium Chloride 0.9% 50 ml @ 100 mls/hr IVPB Q24HR [facility] Rx#:[id number] Intake, IV Titration 39.558 Amount Octreotide 200 mcg In 39.558 Sodium Chloride 0.9% 100 ml @ 50 MCG/HR 25.25 mls/ hr IV .Q4H [facility] Rx#: [id number] Oral 660 900 Output: Urine 1100 Other: Voiding Method Toilet Toilet Toilet Urinal Urinal Urinal # Voids 1 - Exam GENERAL EXAM: Alert, active, comfortable in no apparent distress. HEAD: Normocephalic/atraumatic. EYES: Normal reaction of pupils, equal size. Conjunctiva pink, sclera white. NOSE: Clear with pink turbinates. THROAT: No erythema or exudates. NECK: No masses, no JVD, no thyroid enlargement, no adenopathy. CHEST: No chest wall deformity. Symmetrical expansion. LUNGS: Equal air entry with no crackles, wheeze, rhonchi or dullness. CVS: Regular rate and rhythm, normal S1 and S2, no gallops, no murmurs, no rubs ABDOMEN: Soft, nontender. No hepatosplenomegaly, normal bowel sounds, no guarding or rigidity. EXTREMITIES: No clubbing, no edema, no cyanosis, 2+ pulses and upper and lower extremities. MUSCULOSKELETAL: Muscle strength and tone normal. SPINE: No scoliosis or deformity SKIN: No rashes CENTRAL NERVOUS SYSTEM: Alert and oriented -3. No focal deficits, tone is normal in all 4 extremities. PSYCHIATRIC: Alert and oriented -3. Appropriate affect. Intact judgment and insight. - Labs CBC & Chem 7: 03/24/18 07:43 03/24/18 07:43 Labs: Abnormal Lab Results - Last 24 Hours (Table) 03/24/18 03/24/18 03/24/18 Range/Units 07:43 07:43 07:43 WBC 11.4 H (3.8-10.6) k/uL RBC 3.83 L (4.30-5.90) m/uL Hgb 8.3 L (13.0-17.5) gm/dL Hct 28.1 L (39.0-53.0) % MCV 73.5 L (80.0-100.0) fL MCH 21.8 L (25.0-35.0) pg MCHC 29.6 L (31.0-37.0) g/dL RDW 21.9 H (11.5-15.5) % Neutrophils # 8.9 H (1.3-7.7) k/uL PT 13.1 H (9.0-12.0) sec INR 1.3 H (<1.2) Chloride 109 H (98-107) mmol/L Calcium 8.3 L (8.4-10.2) mg/dL Total Bilirubin 1.8 H (0.2-1.3) mg/dL Albumin 3.4 L (3.5-5.0) g/dL Assessment and Plan Plan: 1 acute upper GI bleeding secondary to chronic liver disease/cirrhosis. The patient had portal gastropathy and there was no stigmata of acute or active bleeding. The patient on that showed tight. Hemoglobin is stable for now. 2 acute blood loss anemia with a hemoglobin that is stable at 7.6. No evidence of any ongoing or acute bleeding at this point in time. 3 alcoholic liver cirrhosis, coagulation profile is stable with an INR of 1.4 4 small ascites 5 umbilical hernia 6 coronary artery disease plan: No further GI bleeding, patient has been initiated on Inderal per GI service, he continues on Protonix, hemoglobin is stable, vital signs are stable, patient is being discharged home today. I performed a history & physical examination of the patient and discussed their management with my nurse practitioner, Margarita Oakley. I reviewed the nurse practitioner's note and agree with the documented findings and plan of care. Lung sounds are positive for clear lung sounds. The findings and the impression was discussed with the patient. I attest to the documentation by the nurse practitioner. Time with Patient: Less than 30
--- NOTE | 2018-03-25 05:33 | DS ---
DISCHARGE SUMMARY DATE OF SERVICE: 03/24/2018. FINAL DIAGNOSES: 1. Acute upper gastrointestinal bleeding status post EGD, possibly secondary to portal esophageal varices. 2. Portal hypertensive gastropathy. 3. Acute blood loss anemia. 4. Leukocytosis, macrocytosis, acute alcoholism. 5. Acute delirium tremens. 6. History of cirrhosis of liver. 7. Remote history of nicotine dependence. 8. Gastroesophageal reflux disease. 9. History of coronary artery disease history. 10.History of congestive heart failure. DISCHARGE DISPOSITION: The patient is being discharged in stable condition with guarded prognosis. HISTORY OF PRESENT ILLNESS: This 68-year-old gentleman with a past medical history of multiple medical problems, admitted with acute gastrointestinal bleed. The patient was treated symptomatically and hemoglobin was maintained at around 8.3. The patient received [address] Amor performed EGD which showed multiple varices. No active site of bleeding was noted. PHYSICAL EXAMINATION: On exam, vital signs stable. Cardiovascular: S1, S2. Abdomen soft. Nervus system: No focal deficits. The patient treated symptomatically, improved significantly. Patient discharged home in stable condition. Guarded prognosis. DISCHARGE ADVICE AND MEDICATIONS: 1. Diet is cardiac diet. 2. Activity limited until followup. 3. Follow up with Dr. Dorman in 2 days. 4. Follow up with Dr. Amor as recommended. DISCHARGE MEDICATIONS: 1. Protonix 40 mg p.o. daily. 2. Inderal 10 mg p.o. b.i.d. Once again, the patient being discharged in stable condition with guarded prognosis. MMODL / IJN: [id number] /
== END 2018-03-24 15:25 | disposition home or self-care (01) | DRG 432 ==
LOC: EC 12:57 → 4MS4W 17:48 → 2SICU 18:28 → OBSVTOIN 18:40 → 2SICU 20:00 → 3NMEDONC 03-23 17:58
PROVIDERS: ADMIT Hospitalist; ATTEND Hospitalist
PROC: 30233N1 Transfusion of Nonautologous Red Blood Cells into Peripheral Vein, Percutaneous Approach (ICD-10-PCS; 2018-03-22)
PROC: 0DJ08ZZ Inspection of Upper Intestinal Tract, Via Natural or Artificial Opening Endoscopic (ICD-10-PCS; principal; 2018-03-22 09:30)
DX: K70.31 Alcoholic cirrhosis of liver with ascites (principal); I85.11 Secondary esophageal varices with bleeding; F10.231 Alcohol dependence with withdrawal delirium; D62 Acute posthemorrhagic anemia; K76.6 Portal hypertension; K70.30 Alcoholic cirrhosis of liver without ascites; F10.20 Alcohol dependence, uncomplicated; D75.89 Other specified diseases of blood and blood-forming organs; I25.10 Atherosclerotic heart disease of native coronary artery without angina pectoris; I25.2 Old myocardial infarction; I50.9 Heart failure, unspecified; K21.9 Gastro-esophageal reflux disease without esophagitis; K42.9 Umbilical hernia without obstruction or gangrene; K70.11 Alcoholic hepatitis with ascites; K31.89 Other diseases of stomach and duodenum; Z87.891 Personal history of nicotine dependence; Z87.11 Personal history of peptic ulcer disease; Z98.42 Cataract extraction status, left eye; Z96.1 Presence of intraocular lens; Z82.49 Family history of ischemic heart disease and other diseases of the circulatory system
CPT/HCPCS: 36415; 43235; 71045; 74177; 80053; 80306; 81003; 82140; 82150; 82272; 83690; 83735; 84100; 85025; 85027; 85610; 85730; 86850; 86900; 86901; 86920; 96361; 96365; 96374; 96375; 99285

== ENCOUNTER 2018-08-14 20:42 | Inpatient (IN) | payer MEDICARE, OTHER ==
--- NOTE | 2018-08-14 22:39 | XR ---
EXAMINATION TYPE: XR KUB DATE OF EXAM: 08/14/2018 COMPARISON: NONE HISTORY: Hematochezia and rectal bleeding TECHNIQUE: 2 upright views FINDINGS: The overlying soft tissues are prominent. Visualized lung bases and pleural spaces are negative. No pneumoperitoneum or pneumatosis. Gas is seen in nondilated loops of small and large bowel, without sylwia bowel structure at this time The stomach is fluid-filled. No definite acute skeletal or soft tissue findings are evident. However, hepatomegaly noted. IMPRESSION: Negative examination.
[2018-08-14 22:50] LABS: Anisocytosis Moderate; Basophils # (A) 0.1 k/uL (0-0.2); Basophils % (A) 1 %; Eosinophils % (A) 0 %; HCT 24.5 % (39.0-53.0); HGB 7.1 gm/dL (13.0-17.5); Hypochromasia Marked; Lymphocytes # (A) 1.3 k/uL (1.0-4.8); Lymphocytes % (A) 13 %; MCH 19.1 pg (25.0-35.0); MCV 65.6 fL (80.0-100.0); Mean Platelet Volume 7.5; Microcytosis Marked; Monocytes # (A) 1.1 k/uL (0-1.0); Monocytes % (A) 11 %; Neutrophils # (A) 7.1 k/uL (1.3-7.7); Neutrophils % (A) 71 %; Platelet Count 236 k/uL (150-450); RBC 3.74 m/uL (4.30-5.90); RDW 20.8 % (11.5-15.5)
[2018-08-14 23:00] LABS: ALT 42 U/L (21-72); AST 88 U/L (17-59); African American GFR (CKD) >90 (>60 ml/min/1.73 sqM); Albumin 3.7 g/dL (3.5-5.0); Alkaline Phosphatase 126 U/L (38-126); Anion Gap 14 mmol/L; Blood Urea Nitrogen 27 mg/dL (9-20); Calcium 8.7 mg/dL (8.4-10.2); Carbon Dioxide 24 mmol/L (22-30); Chloride 95 mmol/L (98-107); Glucose 121 mg/dL (74-99); Potassium 5.3 mmol/L (3.5-5.1); Sodium 133 mmol/L (137-145); Total Bilirubin 1.3 mg/dL (0.2-1.3); Total Protein 6.9 g/dL (6.3-8.2)
[2018-08-14 23:05] LABS: Alcohol 121 mg/dL
[2018-08-14 23:17] LABS: INR 1.5 (<1.2)
[2018-08-14] MEDS ORDERED: PANTOPRAZOLE 40 MG/10 ML VIAL IVP STA (23:48)
[2018-08-14] MEDS ORDERED: NALOXONE 0.4 MG/ML 1 ML VIAL IV PRN (23:58)
--- NOTE | 2018-08-14 23:58 | ED ---
GI Bleed HPI - General Chief complaint: GI Bleed Stated complaint: Rectal Bleeding, Vomiting blood Time Seen by Provider: 08/14/18 22:31 Source: patient Mode of arrival: ambulatory Limitations: no limitations - History of Present Illness Initial comments: 68 year-old male patient with history of liver disease, chronic alcohol abuse, and GI bleed presents to the emergency department today for evaluation of coffee-ground emesis and dark tarry stool. Patient states that symptoms started this morning. Patient states he vomited multiple times today and has had presence of coffee ground output. Patient denies any presence of bright red vomitus or rectal bleeding. Patient states he is having some mild discomfort around the umbilical region. States he has been feeling weak and dizzy throughout the day today. Denies any chest pain or shortness of breath with this. Denies any use of anticoagulant or antiplatelet medications. He does admit to drinking 3 beers today. Patient denies any recent rash, fever, chills, back pain, numbness, tingling, hematuria, dysuria, urinary urgency, urinary frequency, headache, visual changes, or any other complaints. - Related Data Home Medications Medication Instructions Recorded Confirmed Halobetasol Propionate [Ultravate] 1 applic TOPICAL BID PRN 08/14/18 08/14/18 Ketoconazole [Ketoconazole 2%] 1 applic TOPICAL DAILY 08/14/18 08/14/18 Previous Rx's Medication Instructions Recorded Pantoprazole [Protonix] 40 mg PO DAILY #30 tablet. 03/24/18 Propranolol [Inderal] 10 mg PO BID #60 tab 03/24/18 Allergies Allergy/AdvReac Type Severity Reaction Status Date / Time No Known Allergies Allergy Verified 08/14/18 22:30 Review of Systems ROS Statement: Those systems with pertinent positive or pertinent negative responses have been documented in the HPI. ROS Other: All systems not noted in ROS Statement are negative. Past Medical History Past Medical History: Heart Failure, GERD/Reflux, Myocardial Infarction ([place]) Additional Past Medical History / Comment(s): Cirrhosis, former etoh abuse, Last Myocardial Infarction Date:: 04/05/2016 History of Any Multi-Drug Resistant Organisms: None Reported Past Surgical History: No Surgical Hx Reported Additional Past Surgical History / Comment(s): REMOVAL SEBACEOUS SCROTAL SEBACEOUS CYST SEVERAL TIMES; CATARACT SURGERY LEFT, Past Anesthesia/Blood Transfusion Reactions: No Reported Reaction Additional Past Anesthesia/Blood Transfusion Reaction / Comment(s): never had anesthesia or blood. Blood transfusion ordered 06/12/16 Past Psychological History: No Psychological Hx Reported Smoking Status: Former smoker Past Alcohol Use History: Daily Past Drug Use History: None Reported - Past Family History Father Family Medical History: Myocardial Infarction ([place]) General Exam Limitations: no limitations General appearance: alert, in no apparent distress, other (Physical well- developed, well-nourished adult male patient in no acute distress. Vital signs upon presentation are temperature 98.2F, pulse 103, respirations 18, blood pressure 117/51, pulse ox 98% on room air.) Eye exam: Present: normal appearance, PERRL, EOMI, other (Pale conjunctiva). Absent: scleral icterus, conjunctival injection, periorbital swelling ENT exam: Present: normal exam, normal oropharynx, mucous membranes moist Respiratory exam: Present: normal lung sounds bilaterally. Absent: respiratory distress, wheezes, rales, rhonchi, stridor Cardiovascular Exam: Present: regular rate, normal rhythm, normal heart sounds. Absent: systolic murmur, diastolic murmur, rubs, gallop, clicks Neurological exam: Present: alert, oriented X3, CN II-XII intact Psychiatric exam: Present: normal affect, normal mood Skin exam: Present: warm, dry, intact, pallor. Absent: normal color, rash Course Vital Signs 08/14/18 21:16 Temperature 98.2 F Pulse Rate 103 H Respiratory 18 Rate Blood Pressure 117/51 O2 Sat by Pulse 98 Oximetry Medical Decision Making - Medical Decision Making 68-year-old male patient with past medical history significant for liver disease, GI bleed, chronic alcohol abuse presents to the emergency department today for evaluation of coffee-ground emesis and dark tarry stool. Physical examination revealed a soft nontender abdomen. Labs reviewed and did reveal elevated hemoglobin is 7.1, INR 1.5, potassium 5.3, BUN 27. Alcohol level CXXI. Patient's reporting dizziness. We'll transfuse one unit for symptomatic anemia. Patient will be given Protonix. We'll admit to the hospital for further evaluation. We will repeat CBC every 6 hours. We'll consult GI. - Lab Data Result diagrams: 08/14/18 22:33 08/14/18 22:33 Lab Results 08/14/18 08/14/1808/14/19 Range/Units 22:33 22:33 22:33 WBC 10.0 (3.8-10.6) k/uL RBC 3.74 L (4.30-5.90) m/uL Hgb 7.1 L (13.0-17.5) gm/dL Hct 24.5 L (39.0-53.0) % MCV 65.6 L (80.0-100.0) fL MCH 19.1 L (25.0-35.0) pg MCHC 29.0 L (31.0-37.0) g/dL RDW 20.8 H (11.5-15.5) % Plt Count 236 (150-450) k/uL Neutrophils % 71 % Lymphocytes % 13 % Monocytes % 11 % Eosinophils % 0 % Basophils % 1 % Neutrophils # 7.1 (1.3-7.7) k/uL Lymphocytes # 1.3 (1.0-4.8) k/uL Monocytes # 1.1 H (0-1.0) k/uL Eosinophils # 0.0 (0-0.7) k/uL Basophils # 0.1 (0-0.2) k/uL Hypochromasia Marked Anisocytosis Moderate Microcytosis Marked PT (9.0-12.0) sec INR (<1.2) APTT 27.7 (22.0-30.0) sec Sodium 133 L (137-145) mmol/L Potassium 5.3 H (3.5-5.1) mmol/L Chloride 95 L (98-107) mmol/L Carbon Dioxide 24 (22-30) mmol/L Anion Gap 14 mmol/L BUN 27 H (9-20) mg/dL Creatinine 0.67 (0.66-1.25) mg/dL Est GFR (CKD-EPI)AfAm >90 (>60 ml/min/1.73 sqM) Est GFR (CKD-EPI)NonAf >90 (>60 ml/min/1.73 sqM) Glucose 121 H (74-99) mg/dL Calcium 8.7 (8.4-10.2) mg/dL Total Bilirubin 1.3 (0.2-1.3) mg/dL AST 88 H (17-59) U/L ALT 42 (21-72) U/L Alkaline Phosphatase 126 (38-126) U/L Troponin I (0.000-0.034) ng/mL Total Protein 6.9 (6.3-8.2) g/dL Albumin 3.7 (3.5-5.0) g/dL Serum Alcohol 121 mg/dL 08/14/18 08/14/18 Range/Units 22:33 22:33 WBC (3.8-10.6) k/uL RBC (4.30-5.90) m/uL Hgb (13.0-17.5) gm/dL Hct (39.0-53.0) % MCV (80.0-100.0) fL MCH (25.0-35.0) pg MCHC (31.0-37.0) g/dL RDW (11.5-15.5) % Plt Count (150-450) k/uL Neutrophils % % Lymphocytes % % Monocytes % % Eosinophils % % Basophils % % Neutrophils # (1.3-7.7) k/uL Lymphocytes # (1.0-4.8) k/uL Monocytes # (0-1.0) k/uL Eosinophils # (0-0.7) k/uL Basophils # (0-0.2) k/uL Hypochromasia Anisocytosis Microcytosis PT 15.0 H (9.0-12.0) sec INR 1.5 H (<1.2) APTT (22.0-30.0) sec Sodium (137-145) mmol/L Potassium (3.5-5.1) mmol/L Chloride (98-107) mmol/L Carbon Dioxide (22-30) mmol/L Anion Gap mmol/L BUN (9-20) mg/dL Creatinine (0.66-1.25) mg/dL Est GFR (CKD-EPI)AfAm (>60 ml/min/1.73 sqM) Est GFR (CKD-EPI)NonAf (>60 ml/min/1.73 sqM) Glucose (74-99) mg/dL Calcium (8.4-10.2) mg/dL Total Bilirubin (0.2-1.3) mg/dL AST (17-59) U/L ALT (21-72) U/L Alkaline Phosphatase (38-126) U/L Troponin I <0.012 (0.000-0.034) ng/mL Total Protein (6.3-8.2) g/dL Albumin (3.5-5.0) g/dL Serum Alcohol mg/dL - Radiology Data Radiology results: report reviewed, image reviewed 2 views of the abdomen are obtained. Report reviewed in its entirety. Impression by Dr. Antoinette Aceves shows negative exam. Disposition Clinical Impression: Upper GI bleed, Symptomatic anemia Disposition: ADMITTED IP TO THIS [facility] Condition: Serious Referrals: Bryce Dorman DO [Primary Care Provider] - 1-2 days Decision to Admit Reason: Admit from EC Decision Date: 08/14/18 Decision Time: 23:58
[2018-08-15] MEDS: ONDANSETRON 4 MG/2 ML VIAL IVP PRN ×2 (01:01→17:30)
[2018-08-15] MEDS ORDERED: PANTOPRAZOLE 40 MG/10 ML VIAL IVP SCH ×2 (09:00→21:00)
[2018-08-15] MEDS ORDERED: CLOBETASOL PROP 0.05% CR 15GM TOPICAL PRN (10:08)
[2018-08-15] MEDS: PROPRANOLOL 10 MG TAB PO SCH ×2 (13:12→20:45)
[2018-08-15] MEDS: ACETAMINOPHEN TAB 325 MG TAB PO PRN (13:12)
--- NOTE | 2018-08-15 13:29 | P.CONS ---
History of Present Illness - Reason for Consult Consult date: 08/15/18 GI bleed history of esophageal varices Requesting physician: Kalpesh Tobar - Chief Complaint melena - History of Present Illness 68-year-old gentleman well known to our GI service with a history of chronic alcoholism with active alcohol consumption underlying alcohol liver cirrhosis portal hypertension, GI bleeds, esophageal varices, GERD. Presents with reports of melena x 1 day. Drank 3 large beers Tuesday at an art show felt nausea yesterday morning and has passed 3 black BMs since. Denies hematemesis coffee ground emeisi. Serum alcohol level 121. Hemoglobin 7.1. Previously 8.3 in March 2018. MCV 65. Platelet 236. INR 1.5. BUN 27. Creatinine 0.6. Denie s gross hematemesis hematochezia. LFTs stable total bilirubin 1.3. AST 80. ALT 42. AP 126. KUB negative. EGD March 2018 for evaluation of acute hematemesis melena no active bleeding or evidence of old blood. Portal hypertensive gastropathy. Nonbleeding moderate size distal esophageal varices with no stigmata. Colonoscopy June 2016 linear circumferential cecal ulceration with no active bleeding rectal polyp 2 with grade 2 internal hemorrhoids. Biopsies consistent with ischemic colitis, rectal polypectomy features of adenoma. Medications include Inderal 10 mg twice daily Protonix 40 mg daily however he has not been taking Inderal difficult to get from pharmacy. Review of Systems Constitutional: Denies fever, chills, sweats, weight gain, or loss. HEENT: Negative for migraines, blurred vision or loss, earaches, drainage, tinnitus, oral mucosal lesions, dysphagia, or odynophagia. Cardiac: Negative for chest pain, arrhythmias, or palpitation. Respiratory: Negative for shortness of breath, hemoptysis, cough, or sputum production. Gastrointestinal: See HPI for pertinent findings. Genitourinary: Negative for hematuria, urgency, frequency, polyuria, dysuria, or penile discharge. Musculoskeletal: Negative for muscle aches, swelling, arthritis, and arthralgias. Neurologic: Negative for stroke or TIA. Endocrine: Negative for thyroid problems. Skin: Negative for rash or itching. Psychiatric: Negative history for depression and anxiety Past Medical History Past Medical History: Coronary Artery Disease (CAD), Heart Failure, GERD/Reflux, GI Bleed, Myocardial Infarction ([place]), Osteoarthritis (OA), Skin Disorder Additional Past Medical History / Comment(s): Alcoholic cirrhosis, upper GI bleed with acute blood loss anemia, EGD showed portal HTN gastropathy, esophageal varicies, delirium tremors, pt states lately L leg gets shakey and he becomes unbalanced, vertigo at times, arthritis bilateral hands/legs, R ear currently throbbing-pt states in past this happened with wax buildup, psoriasis. Last Myocardial Infarction Date:: 04/05/2016 History of Any Multi-Drug Resistant Organisms: None Reported Past Surgical History: No Surgical Hx Reported, Heart Catheterization Additional Past Surgical History / Comment(s): 03/22/18 EGD, REMOVAL SEBACEOUS SCROTAL SEBACEOUS CYST SEVERAL TIMES; CATARACT SURGERY LEFT, Past Anesthesia/Blood Transfusion Reactions: No Reported Reaction Additional Past Anesthesia/Blood Transfusion Reaction / Comm: Pt has received blood without reaction. Smoking Status: Former smoker - Past Family History Father History Unknown: Yes Family Medical History: Myocardial Infarction ([place]) Additional Family Medical History / Comment(s): Pt states he did not have much contact with his father. Mother Family Medical History: Myocardial Infarction ([place]) Additional Family Medical History / Comment(s): Mother had a [place] at the age of 80yrs. She at the age of 85 yrs. Medications and Allergies Home Medications Medication Instructions Recorded Confirmed Type Pantoprazole [Protonix] 40 mg PO DAILY #30 tablet. 03/24/18 08/14/18 Rx Propranolol [Inderal] 10 mg PO BID #60 tab 03/24/18 08/14/18 Rx Halobetasol Propionate [Ultravate] 1 applic TOPICAL BID PRN 08/14/18 08/14/18 History Ketoconazole [Ketoconazole 2%] 1 applic TOPICAL DAILY 08/14/18 08/14/18 History Allergies Allergy/AdvReac Type Severity Reaction Status Date / Time No Known Allergies Allergy Verified 08/14/18 22:30 Physical Exam Vitals: Vital Signs Temp Pulse Resp BP Pulse Ox 08/15/18 06:00 97.5 F L 99 18 155/75 97 08/15/18 04:26 89 18 163/88 97 08/15/18 03:10 98.0 F 87 18 144/78 08/15/18 03:08 98.0 F 87 18 144/73 99 08/15/18 03:00 93 20 06/11/19 02:50 100 13 08/15/18 02:40 96 14 08/15/18 02:30 90 20 144/62 08/15/18 02:20 93 20 144/62 08/15/18 02:10 90 19 144/62 08/15/18 02:00 96 21 129/63 08/15/18 01:50 98 14 129/63 08/15/18 01:45 98 F 89 18 134/87 08/15/18 01:40 96 23 129/63 08/15/18 01:30 89 16 137/64 08/15/18 01:20 92 21 137/64 08/15/18 01:15 98 F 93 18 137/64 100 08/15/18 01:10 94 14 105/54 08/15/18 01:05 98.8 F 93 18 105/54 08/15/18 01:00 94 12 105/51 08/15/18 00:50 98 32 H 116/59 08/15/18 00:40 116/59 08/15/18 00:30 96 17 137/62 98 08/15/18 00:20 92 19 137/62 98 08/15/18 00:10 94 15 137/62 97 08/15/18 00:00 90 13 90/80 94 L 08/14/18 23:50 90 18 90/80 95 08/14/18 23:40 94 20 90/80 98 08/14/18 23:30 140/55 08/14/18 23:20 140/55 08/14/18 23:10 95 20 140/55 98 08/14/18 23:00 96 18 142/76 95 08/14/18 22:50 95 18 142/76 99 08/14/18 22:40 95 20 99 08/14/18 22:39 98 08/14/18 21:16 98.2 F 103 H 18 117/51 98 Intake and Output 08/14/18 08/15/18 08/15/18 22:59 06:59 14:59 Intake Total 310 Balance 310 Intake: Blood Product 310 Rc As-1 Unit 310 [id number] Other: Weight 71.214 kg General appearance: The patient is alert, oriented, in no acute distress. HET: Head is normocephalic and atraumatic. Pupils are equal and reactive. Oropharynx is clear without lesions. Neck: Supple without lymphadenopathy. Trachea midline. Heart: S1 S2. Regular rate and rhythm. Lungs: No crackles or wheezes are heard. Abdomen: Soft, nontender, nondistended with bowel sounds. No peritoneal signs. No palpable organomegaly or masses. Extremities: Normal skin color and turgor. No cyanosis, rash, ulceration, clubbing, or edema. Radial and pedal pulses are 2/4 bilaterally. Neurological: No focal deficits. Strength and sensation are grossly intact. Results CBC & Chem 7: 08/14/18 22:33 08/14/18 22:33 Labs: Abnormal Lab Results - Last 24 Hours (Table) 08/14/18 08/14/18 08/14/18 Range/Units 22:33 22:33 22:33 RBC 3.74 L (4.30-5.90) m/uL Hgb 7.1 L (13.0-17.5) gm/dL Hct 24.5 L (39.0-53.0) % MCV 65.6 L (80.0-100.0) fL MCH 19.1 L (25.0-35.0) pg MCHC 29.0 L (31.0-37.0) g/dL RDW 20.8 H (11.5-15.5) % Monocytes # 1.1 H (0-1.0) k/uL PT 15.0 H (9.0-12.0) sec INR 1.5 H (<1.2) Sodium 133 L (137-145) mmol/L Potassium 5.3 H (3.5-5.1) mmol/L Chloride 95 L (98-107) mmol/L BUN 27 H (9-20) mg/dL Glucose 121 H (74-99) mg/dL AST 88 H (17-59) U/L Crossmatch 08/14/18 Range/Units 22:33 RBC (4.30-5.90) m/uL Hgb (13.0-17.5) gm/dL Hct (39.0-53.0) % MCV (80.0-100.0) fL MCH (25.0-35.0) pg MCHC (31.0-37.0) g/dL RDW (11.5-15.5) % Monocytes # (0-1.0) k/uL PT (9.0-12.0) sec INR (<1.2) Sodium (137-145) mmol/L Potassium (3.5-5.1) mmol/L Chloride (98-107) mmol/L BUN (9-20) mg/dL Glucose (74-99) mg/dL AST (17-59) U/L Crossmatch See Detail Abdominal x-ray: report reviewed (Dr. Amor) Assessment and Plan (1) GI bleed Narrative/Plan: 68-year-old male with a history of long-standing alcoholism actively drinking alcohol admitted with melena and acute blood loss anemia with underlying alcohol liver cirrhosis portal hypertension and portal hypertensive gastropathy known esophageal varices status post EGD March 2018. EGD March 2018 reported no evidence of active esophageal bleeding evidence of portal hypertensive gastropathy. Possible exacerbation of portal hypertensive gastropathy from EtOH consumption possible esophageal variceal bleed. Current Visit: No Status: Acute Code(s): K92.2 - GASTROINTESTINAL HEMORRHAGE, UNSPECIFIED SNOMED Code(s): 74872398 (2) Anemia Current Visit: No Status: Acute Code(s): D64.9 - ANEMIA, UNSPECIFIED SNOMED Code(s): 416896929 (3) Cirrhosis Current Visit: No Status: Acute Code(s): K74.60 - UNSPECIFIED CIRRHOSIS OF LIVER SNOMED Code(s): 61247337 (4) Coagulopathy Current Visit: No Status: Acute Code(s): D68.9 - COAGULATION DEFECT, UNSPECIFIED SNOMED Code(s): 06924986 (5) ETOH abuse Current Visit: No Status: Acute Code(s): F10.10 - ALCOHOL ABUSE, UNCOMPLICATED SNOMED Code(s): 51920168 (6) Esophageal varices Current Visit: No Status: Acute Code(s): I85.00 - ESOPHAGEAL VARICES WITHOUT BLEEDING SNOMED Code(s): 83198461 (7) Portal hypertension Current Visit: No Status: Acute Code(s): K76.6 - PORTAL HYPERTENSION SNOMED Code(s): 77757999 Plan: 1. Rocephin 1 g every 24 SBP prophylaxis. Nothing by mouth except meds. 2. CBC every 6 hours 24 hours. 3. Protonix 20 mg every 12 hours. Inderal 10 mg twice a day 4. EGD evaluation. 5. Alcohol abstinence. 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 The patient has indicated understanding and acceptance of the risks and procedures discussed. Thank you for this kind referral and the opportunity to participate in the care of your patient. This consultation was discussed with Dr. Amor. The impression and plan of care have been directed as dictated.
[2018-08-15] MEDS ORDERED: PROPOFOL 10 MG/ML 20 ML VIAL IV ONE (16:40)
[2018-08-15] MEDS ORDERED: IV FLUID CONTINUATION 400 ML IV ONE (16:51)
--- NOTE | 2018-08-15 17:13 | P.PCN ---
Date of Procedure: 08/15/18 Description of Procedure: BRIEF HISTORY: 68-year-old gentleman well known to our GI service with a history of chronic alcoholism with active alcohol consumption underlying alcohol liver cirrhosis portal hypertension, GI bleeds, esophageal varices, GERD. Presents with reports of melena x 1 day. Drank 3 large beers Tuesday at an art show felt nausea yesterday morning and has passed 3 black BMs since. Denies hematemesis coffee ground emeisi. Serum alcohol level 121. Hemoglobin 7.1. Previously 8.3 in March 2018. MCV 65. Platelet 236. INR 1.5. BUN 27. Creatinine 0.6. Denies gross hematemesis hematochezia. LFTs stable total bilirubin 1.3. AST 80. ALT 42. AP 126. KUB negative. EGD March 2018 for evaluation of acute hematemesis melena no active bleeding or evidence of old blood. Portal hypertensive gastropathy. Nonbleeding moderate size distal esophageal varices with no stigmata. Colonoscopy June 2016 linear circumferential cecal ulceration with no active bleeding rectal polyp 2 with grade 2 internal hemorrhoids. Biopsies consistent with ischemic colitis, rectal polypectomy features of adenoma. Medications include Inderal 10 mg twice daily Protonix 40 mg daily however he has not been taking Inderal difficult to get from pharmacy. PROCEDURE PERFORMED: Esophagogastroduodenoscopy with esophageal variceal banding. PREOPERATIVE DIAGNOSIS: GI bleed, anemia, coffee ground emesis. ESTIMATED BLOOD LOSS: Minimal. IV sedation per anesthesia. PROCEDURE: After informed consent was obtained, the patient was brought into the endoscopy unit. IV sedation was administered by Anesthesia under continuous monitoring. Initially the Olympus GIF-190 video endoscope was inserted into the mouth. Esophagus intubated without any difficulty. It was gradually advanced into the stomach and duodenum and carefully examined. The bulb and the second part of the duodenum appeared normal. The scope at this time was withdrawn to the stomach, adequately insufflated with air, and upon careful examination, mucosa of the antrum, body, cardia and the fundus appeared grossly normal with erythema consistent with previously noted portal hypeertensive gastropathy once again seen in the body, cardia and fundus. The scope was then withdrawn into the esophagus. The GE junction was located at 40 cm from the incisors. The esophagus was significant for medium sized varices without any stigmata of recent bleeding which were banded in a circumferential manner starting at the GE junction and moving proximally with a total of 7 endoscopic bands placed. The patient tolerated the procedure well. IMPRESSION: 1. No active bleeding or old blood noted. 2. Esophageal variceal banding with placement of 7 bands. 3. Portal hypertensive gastropathy. RECOMMENDATIONS: The findings of this examination were discussed with the patient and his sister. Okay for ice chips and liquids tomorrow if stable. Continue Protonix and Inderal for now. Continue to monitor H/H and transfuse as needed.
[2018-08-15 19:24] LABS: Anisocytosis Moderate; Basophils % (A) 0 %; Eosinophils # (A) 0.1 k/uL (0-0.7); Eosinophils % (A) 1 %; HCT 23.8 % (39.0-53.0); Hypochromasia Marked; Lymphocytes # (A) 1.2 k/uL (1.0-4.8); Lymphocytes % (A) 12 %; MCH 20.1 pg (25.0-35.0); MCHC 29.2 g/dL (31.0-37.0); MCV 68.6 fL (80.0-100.0); Mean Platelet Volume 6.9; Microcytosis Marked; Monocytes % (A) 10 %; Neutrophils # (A) 7.1 k/uL (1.3-7.7); Neutrophils % (A) 72 %; Platelet Count 201 k/uL (150-450); Poikilocytosis Slight; RBC 3.47 m/uL (4.30-5.90); RDW 21.2 % (11.5-15.5); WBC 9.8 k/uL (3.8-10.6)
--- NOTE | 2018-08-15 23:31 | HP ---
HISTORY AND PHYSICAL DATE OF ADMISSION: 08/14/2018 DATE OF SERVICE: 08/15/2018 PRESENTING COMPLAINT: Dark stool, vomiting blood. HISTORY OF PRESENTING COMPLAINT: This is a 68-year-old patient of Dr. Dorman. Patient has known alcoholic cirrhosis and also has known portal hypertension, gastropathy, esophageal varices. He has had DTs in the past, arthritis of both the hands and legs, psoriasis, osteoarthritis. Patient also has had internal hemorrhoids, stage II, cecal ulcer, advanced COPD. The patient had not drunk alcohol for a while; 3 or 4 days ago he met up with some of his [employer] buddies and had 3 beers. Two days ago the patient started feeling nauseated and yesterday started having dark stools and also vomited blood, about half a glass. He became dizzy and lightheaded and decided to come into the ER, feeling weak, tired, rundown, with some abdominal pain. The patient was here in March of this year and also had a GI bleed. He also had a blood transfusion. EGD done in March did show multiple esophageal varices. REVIEW OF SYSTEMS: CONSTITUTIONAL: Tired. HEENT: None. RESPIRATORY: Some shortness of breath. CARDIOVASCULAR: None. GASTROINTESTINAL: As above. GENITOURINARY: None. MUSCULOSKELETAL: Arthritic pain in the joints. DERMATOLOGICAL: None. HEMATOLOGICAL: None. LYMPHATICS: None. PSYCHIATRY: A bit anxious. NEUROLOGICAL: None. PAST MEDICAL HISTORY: 1. Esophageal varices. 2. Alcoholic cirrhosis. 3. Portal hypertension. 4. Gastropathy. 5. DTs. 6. Arthritis in the arms and legs. PAST SURGICAL HISTORY: 1. EGD. 2. Sebaceous cyst removed from the scrotum. 3. Cataract excision, left side. 4. Cardiac catheterization. SOCIAL HISTORY: Lives alone. Has a cane he uses sometimes. He used to drink rather heavily; has not really had a drink since March of this year except for 3 beers 3 days ago. The patient was a smoker. FAMILY HISTORY: Reviewed; noncontributory to presentation. HOME MEDICATIONS: 1. Inderal 10 mg b.i.d. 2. Protonix 40 mg daily. 3. Ketoconazole 2% topically daily. 4. Ultravate topically b.i.d. p.r.n. ALLERGIES: NONE. PHYSICAL EXAMINATION: VITAL SIGNS ON PRESENTATION: Temperature 98.2, pulse 103, respiration 18, blood pressure 117/51, pulse ox 98% on room air. GENERAL APPEARANCE: Average build. Sitting up. Tired-appearing. EYES: Pupils equal. Conjunctivae pale. HEENT: External appearance of nose and ears normal. Oral cavity normal. NECK: JVD not raised. Mass not palpable. RESPIRATORY: Effort normal. LUNGS: Diminished breath sounds. CARDIOVASCULAR: First and second sounds normal. No edema. ABDOMEN: Soft, non-tender. Liver and spleen not palpable. LYMPHATIC: No lymph node palpable in neck or axillae. PSYCHIATRY: Alert and oriented x3. Mood and affect slightly anxious-appearing. NEUROLOGICAL: Pupils equal. Cranial nerves grossly intact. Power and sensation grossly intact. INVESTIGATIONS: White count 10, hemoglobin 7.1, platelets 236. Pro time 15. Potassium 5.3, BUN 27, creatinine 0.67. Troponin I less than 0.012. Serum alcohol 121. EKG tracing, personally reviewed by me, shows normal sinus rhythm. ASSESSMENT: 1. Acute gastrointestinal bleed in a patient who has alcoholic cirrhosis; exact source unknown. 2. Esophageal varices. Patient underwent esophageal banding today by Dr. Amor. 3. Alcoholic cirrhosis. 4. Chronic obstructive pulmonary disease in a smoker. 5. Acute blood loss anemia from gastrointestinal bleed. 6. Coagulopathy from cirrhosis. PLAN: Patient's medications were resumed. Patient did undergo EGD earlier today. Patient is advised against alcohol. Patient initially was put on IV Protonix. Will also give the patient vitamin K for his coagulopathy, which is likely chronic. Repeat a CBC in the morning. MMODL / IJN: [id number] /
[2018-08-16 07:49] LABS: INR 1.5 (<1.2)
[2018-08-16 07:59] LABS: African American GFR (CKD) >90 (>60 ml/min/1.73 sqM); Anion Gap 7 mmol/L; Blood Urea Nitrogen 21 mg/dL (9-20); Calcium 8.4 mg/dL (8.4-10.2); Carbon Dioxide 25 mmol/L (22-30); Chloride 102 mmol/L (98-107); Glucose 104 mg/dL (74-99); Potassium 4.2 mmol/L (3.5-5.1); Sodium 134 mmol/L (137-145)
[2018-08-16 08:16] LABS: Anisocytosis Moderate; Basophils % (A) 0 %; Eosinophils % (A) 0 %; HCT 22.4 % (39.0-53.0); Hypochromasia Marked; Lymphocytes # (A) 1.3 k/uL (1.0-4.8); Lymphocytes % (A) 14 %; MCH 20.3 pg (25.0-35.0); MCHC 29.4 g/dL (31.0-37.0); Mean Platelet Volume 7.4; Microcytosis Marked; Monocytes # (A) 0.9 k/uL (0-1.0); Monocytes % (A) 10 %; Neutrophils # (A) 6.4 k/uL (1.3-7.7); Neutrophils % (A) 73 %; Platelet Count 189 k/uL (150-450); Poikilocytosis Slight; RBC 3.25 m/uL (4.30-5.90); WBC 8.9 k/uL (3.8-10.6)
[2018-08-16 08:33] LABS: HGB 6.6 gm/dL (13.0-17.5)
[2018-08-16] MEDS: PANTOPRAZOLE 40 MG TABLET PO SCH (08:44)
[2018-08-16] MEDS: CLOTRIMAZOLE 1% CREAM 15 GM TUBE TOPICAL SCH (10:26)
[2018-08-16] MEDS: PROPRANOLOL 10 MG TAB PO SCH ×2 (10:26→20:38)
--- NOTE | 2018-08-16 11:59 | P.PN ---
Subjective Progress Note Date: 08/16/18 Principal diagnosis: GI bleeding 68-year-old history of alcoholism esophageal varices portal hypertensive gastropathy admitted with melena status post EGD with esophageal variceal banding 7. Evidence of portal hypertensive gastropathy no active bleeding. Presents electively no active bleeding. Hemoglobin 6.6. 1 unit of blood ordered. Afebrile. Feels well. Objective - Vital Signs Vital signs: Vital Signs Temp 98.7 F 08/16/18 05:00 Pulse 65 08/16/18 05:00 Resp 18 08/16/18 05:00 BP 127/60 08/16/18 05:00 Pulse Ox 99 08/16/18 05:00 Intake & Output 08/15/18 08/16/18 08/16/18 18:59 06:59 18:59 Intake Total 200 500 Balance 200 500 Intake: IV 200 Oral 500 Other: Voiding Method Toilet Toilet # Voids 3 1 - Exam General appearance: The patient is alert, oriented, in no acute distress. HET: Head is normocephalic and atraumatic. Pupils are equal and reactive. Oropharynx is clear without lesions. Neck: Supple without lymphadenopathy. Trachea midline. Heart: S1 S2. Regular rate and rhythm. Lungs: No crackles or wheezes are heard. Abdomen: Soft, nontender, nondistended with bowel sounds. No peritoneal signs. No palpable organomegaly or masses. Extremities: Normal skin color and turgor. No cyanosis, rash, ulceration, clubbing, or edema. Radial and pedal pulses are 2/4 bilaterally. Neurological: No focal deficits. Strength and sensation are grossly intact. - Labs CBC & Chem 7: 08/16/18 07:14 08/16/18 07:14 Labs: Abnormal Lab Results - Last 24 Hours (Table) 08/14/18 08/15/18 08/16/18 Range/Units 22:33 18:53 07:14 RBC 3.47 L 3.25 L (4.30-5.90) m/uL Hgb 7.0 L 6.6 L* (13.0-17.5) gm/dL Hct 23.8 L 22.4 L (39.0-53.0) % MCV 68.6 L 69.0 L (80.0-100.0) fL MCH 20.1 L 20.3 L (25.0-35.0) pg MCHC 29.2 L 29.4 L (31.0-37.0) g/dL RDW 21.2 H 22.0 H (11.5-15.5) % PT (9.0-12.0) sec INR (<1.2) Sodium (137-145) mmol/L BUN (9-20) mg/dL Glucose (74-99) mg/dL Crossmatch See Detail 08/16/18 08/16/18 Range/Units 07:14 07:14 RBC (4.30-5.90) m/uL Hgb (13.0-17.5) gm/dL Hct (39.0-53.0) % MCV (80.0-100.0) fL MCH (25.0-35.0) pg MCHC (31.0-37.0) g/dL RDW (11.5-15.5) % PT 15.0 H (9.0-12.0) sec INR 1.5 H (<1.2) Sodium 134 L (137-145) mmol/L BUN 21 H (9-20) mg/dL Glucose 104 H (74-99) mg/dL Crossmatch Assessment and Plan (1) GI bleed Narrative/Plan: Status post EGD and esophageal variceal banding 7 portal hypertensive gastropathy no active bleeding Current Visit: No Status: Acute Code(s): K92.2 - GASTROINTESTINAL HEMORRHAGE, UNSPECIFIED SNOMED Code(s): 48513607 (2) Anemia Current Visit: No Status: Acute Code(s): D64.9 - ANEMIA, UNSPECIFIED SNOME D Code(s): 036461869 (3) Cirrhosis Current Visit: No Status: Acute Code(s): K74.60 - UNSPECIFIED CIRRHOSIS OF LIVER SNOMED Code(s): 71677962 (4) Coagulopathy Current Visit: No Status: Acute Code(s): D68.9 - COAGULATION DEFECT, UNSPECIFIED SNOMED Code(s): 94824457 (5) ETOH abuse Current Visit: No Status: Acute Code(s): F10.10 - ALCOHOL ABUSE, UNCOMPLICATED SNOMED Code(s): 54831608 (6) Esophageal varices Current Visit: No Status: Acute Code(s): I85.00 - ESOPHAGEAL VARICES WITHOUT BLEEDING SNOMED Code(s): 60428639 (7) Portal hypertension Current Visit: No Status: Acute Code(s): K76.6 - PORTAL HYPERTENSION SNOMED Code(s): 89077096 (8) Portal hypertensive gastropathy Current Visit: Yes Status: Acute Code(s): K76.6 - PORTAL HYPERTENSION; K31.89 - OTHER DISEASES OF STOMACH AND DUODENUM SNOMED Code(s): 685578143 Plan: 1. Will advance diet. Continue with Protonix twice daily. Continue with Inderal. Blood transfusion 1 unit. CBC in a.m. Continue to observe. Assessment and plan a care discussed with Dr. Amor
[2018-08-16] MEDS: ACETAMINOPHEN TAB 325 MG TAB PO PRN (14:10)
[2018-08-16 18:56] LABS: Anisocytosis Moderate; Basophils % (A) 0 %; Eosinophils # (A) 0.1 k/uL (0-0.7); Eosinophils % (A) 1 %; HCT 24.8 % (39.0-53.0); HGB 7.3 gm/dL (13.0-17.5); Hypochromasia Marked; Lymphocytes # (A) 1.2 k/uL (1.0-4.8); Lymphocytes % (A) 11 %; MCH 20.8 pg (25.0-35.0); MCHC 29.5 g/dL (31.0-37.0); MCV 70.5 fL (80.0-100.0); Mean Platelet Volume 6.9; Microcytosis Marked; Monocytes # (A) 0.9 k/uL (0-1.0); Monocytes % (A) 9 %; Neutrophils % (A) 77 %; Platelet Count 215 k/uL (150-450); Poikilocytosis Slight; RBC 3.51 m/uL (4.30-5.90); RDW 23.9 % (11.5-15.5); WBC 10.5 k/uL (3.8-10.6)
--- NOTE | 2018-08-16 21:11 | PN ---
PROGRESS NOTE DATE OF SERVICE: 08/16/2018 PRESENTING COMPLAINT: Anemia. INTERVAL HISTORY: This is a patient with alcoholic cirrhosis, presented with bloody stools and vomiting blood. Did undergo EGD and esophageal varices got banded. There was no active bleeding seen. This morning patient dropped his hemoglobin and a unit of blood was order. He has had no further episodes of bleeding since admitted. REVIEW OF SYSTEMS: Done for constitutional, cardiovascular, GI, pulmonary and findings as above. CURRENT MEDICATIONS: Reviewed that include PPI. PHYSICAL EXAMINATION: Temperature 98.4, pulse 67, respiration 14, blood pressure 132/63, pulse ox 97% on room air. GENERAL APPEARANCE: Sitting up, awake. EYES: Pupils equal. Conjunctivae pale. NECK: JVD not raised. Mass not palpable. Respiratory effort normal. LUNGS: Decreased breath sounds. CARDIOVASCULAR: First and second sounds normal. No edema. ABDOMEN: Soft, nontender. Liver and spleen not palpable. PSYCHIATRY: Alert and oriented x3. Mood and affect normal. INVESTIGATIONS: White count 8.9, hemoglobin 6.6. Protime 15. Potassium 4.2. BUN 21, creatinine 0.71. ASSESSMENT: 1. Acute blood loss anemia from patient with gastrointestinal bleed, exact source unknown, symptomatic. Will get a unit of blood today. 2. Esophageal varices status post banding yesterday. 3. Alcoholic cirrhosis with portal hypertension. 4. Chronic obstructive pulmonary disease in a smoker. 5. Chronic nicotine dependence, patient is a cigarette smoker. 6. Coagulopathy from cirrhosis. PLAN: Patient will be given a unit of blood today. Will repeat hemoglobin tomorrow morning. Will follow with GI. Care was discussed with the patient. The patient's diet is being advanced. MMODL / IJN: [id number] /
[2018-08-17 01:52] LABS: Anisocytosis Marked; Basophils % (A) 0 %; Eosinophils # (A) 0.1 k/uL (0-0.7); Eosinophils % (A) 1 %; HCT 23.6 % (39.0-53.0); Hypochromasia Marked; Lymphocytes # (A) 1.2 k/uL (1.0-4.8); Lymphocytes % (A) 13 %; MCH 20.8 pg (25.0-35.0); MCHC 29.5 g/dL (31.0-37.0); MCV 70.3 fL (80.0-100.0); Mean Platelet Volume 6.9; Microcytosis Marked; Monocytes # (A) 0.8 k/uL (0-1.0); Monocytes % (A) 9 %; Neutrophils % (A) 74 %; Platelet Count 200 k/uL (150-450); Poikilocytosis Slight; RBC 3.35 m/uL (4.30-5.90); WBC 9.4 k/uL (3.8-10.6)
[2018-08-17] MEDS: CLOTRIMAZOLE 1% CREAM 15 GM TUBE TOPICAL SCH (07:23)
[2018-08-17] MEDS: PANTOPRAZOLE 40 MG TABLET PO SCH (07:24)
[2018-08-17] MEDS: PROPRANOLOL 10 MG TAB PO SCH (07:24)
[2018-08-17 09:36] LABS: Anisocytosis Moderate; Basophils % (A) 0 %; Eosinophils # (A) 0.1 k/uL (0-0.7); Eosinophils % (A) 1 %; HCT 26.3 % (39.0-53.0); HGB 7.7 gm/dL (13.0-17.5); Hypochromasia Marked; Lymphocytes # (A) 1.2 k/uL (1.0-4.8); Lymphocytes % (A) 13 %; MCH 21.3 pg (25.0-35.0); MCHC 29.3 g/dL (31.0-37.0); MCV 72.6 fL (80.0-100.0); Mean Platelet Volume 7.2; Microcytosis Marked; Monocytes # (A) 0.7 k/uL (0-1.0); Monocytes % (A) 7 %; Neutrophils # (A) 7.6 k/uL (1.3-7.7); Neutrophils % (A) 78 %; Platelet Count 217 k/uL (150-450); Poikilocytosis Moderate; RBC 3.62 m/uL (4.30-5.90); WBC 9.7 k/uL (3.8-10.6)
[2018-08-17 09:53] LABS: African American GFR (CKD) >90 (>60 ml/min/1.73 sqM); Anion Gap 9 mmol/L; Blood Urea Nitrogen 16 mg/dL (9-20); Calcium 8.5 mg/dL (8.4-10.2); Carbon Dioxide 24 mmol/L (22-30); Chloride 102 mmol/L (98-107); Glucose 130 mg/dL (74-99); Sodium 135 mmol/L (137-145)
[2018-08-17] MEDS ORDERED: FERROUS SULFATE 325 MG TAB PO SCH (12:00)
--- NOTE | 2018-08-17 12:13 | P.PN ---
Subjective This is a pleasant 68 years old male with past medical history of coronary artery disease, heart failure, alcoholic cirrhosis with previous history of upper GI bleed. Portal hypertension and esophageal varices, delirium tremens, vertical, arthritis in both hands and legs, psoriasis. Presents with signs symptoms of upper GI bleed. Patient told me he was at the stenotic from alcohol since March 2018, however one day prior to presentation he had one beer with his friend at He develops bloody vomiting and dark stool. Patient has been evaluated by GI team and status post EGD with esophageal varices banding on 08/15/2018. Yesterday his hemoglobin was 6.6, he got one unit of blood transfusion and he has frequent measurements of hemoglobin 7.3 yesterday and 7.0 and 7.7 today. Iron pills was started. Today patient is feeling well, he denies chest pain or abdominal pain, he complains from the distal source rate from the procedure yesterday but he is able to eat his food, although discomfort in the epigastric area which is expected at the procedure site and esophageal varices. He didn't have bowel movement but is passing gases. No abdominal pain and abdominal exam looks benign. No problems with urine. He is moving around with no problems his get up and go test was normal. However patient is eager to go home today. Objective - Vital Signs Vital signs: Vital Signs Temp 98.1 F 08/17/18 05:15 Pulse 60 08/17/18 08:10 Resp 18 08/17/18 08:10 BP 140/64 08/17/18 05:15 Pulse Ox 98 08/17/18 05:15 Intake & Output 08/16/18 08/17/18 08/17/18 18:59 06:59 18:59 Intake Total 310 Output Total 240 Balance 310 -240 Intake: Blood Product 310 Rc As-3 Unit 310 [id number] Output: Urine 240 Other: Voiding Method Toilet Toilet Toilet # Voids 2 1 - Exam GENERAL: The patient is alert and oriented x3, not in any acute distress. Well developed, well nourished. HEENT: Pupils are round and equally reacting to light. EOMI. No scleral icterus. No conjunctival pallor. Normocephalic, atraumatic. No pharyngeal erythema. No thyromegaly. CARDIOVASCULAR: S1 and S2 present. No murmurs, rubs, or gallops. PULMONARY: Chest is clear to auscultation, no wheezing or crackles. ABDOMEN: Soft, nontender, nondistended, normoactive bowel sounds. No palpable organomegaly. MUSCULOSKELETAL: No joint swelling or deformity. EXTREMITIES: No cyanosis, clubbing, or pedal edema. NEUROLOGICAL: Gross neurological examination did not reveal any focal deficits. SKIN: No rashes. - Labs CBC & Chem 7: 08/17/18 08:27 08/17/18 08:27 Labs: Abnormal Lab Results - Last 24 Hours (Table) 08/14/18 08/16/18 08/17/18 Range/Units 22:33 18:25 01:26 RBC 3.51 L 3.35 L (4.30-5.90) m/uL Hgb 7.3 L 7.0 L (13.0-17.5) gm/dL Hct 24.8 L 23.6 L (39.0-53.0) % MCV 70.5 L 70.3 L (80.0-100.0) fL MCH 20.8 L 20.8 L (25.0-35.0) pg MCHC 29.5 L 29.5 L (31.0-37.0) g/dL RDW 23.9 H 24.0 H (11.5-15.5) % Neutrophils # 8.0 H (1.3-7.7) k/uL Sodium (137-145) mmol/L Glucose (74-99) mg/dL Crossmatch See Detail 08/17/18 08/17/18 Range/Units 08:27 08:27 RBC 3.62 L (4.30-5.90) m/uL Hgb 7.7 L (13.0-17.5) gm/dL Hct 26.3 L (39.0-53.0) % MCV 72.6 L (80.0-100.0) fL MCH 21.3 L (25.0-35.0) pg MCHC 29.3 L (31.0-37.0) g/dL RDW 23.0 H (11.5-15.5) % Neutrophils # (1.3-7.7) k/uL Sodium 135 L (137-145) mmol/L Glucose 130 H (74-99) mg/dL Crossmatch Assessment and Plan Assessment: Acute Upper GI bleed, secondary to esophageal varices status post EGD and banding on 08/15/2018 Acute blood loss anemia, secondary to above. Needing a blood transfusion alcoholic liver cirrhosis with portal hypertension History of chronic obstructive pulmonary disease, not an active issue Nicotine dependence. Patient is counseled. Coagulopathy secondary to liver cirrhosis Plan: This is a pleasant 68 years old male who presents with upper GI bleed secondary to esophageal varices. Status post banding. Hemoglobin looks his stable after blood transfusion. Continue with antiacids medication and Protonix. Pulse was admitted. Patient looks mobile and does not need physical therapy evaluation. GI team are following the case closely and we would follow their recommendation. DVT and GI prophylaxis.
[2018-08-17 12:21] VITALS: BP 123/62; PULSE 65; RESP 20; TEMP 97
--- NOTE | 2018-08-17 15:05 | P.PN ---
Subjective Progress Note Date: 08/17/18 Principal diagnosis: GI bleeding 68-year-old history of alcoholism esophageal varices portal hypertensive gastropathy admitted with melena status post EGD with esophageal variceal banding 7. Evidence of portal hypertensive gastropathy no active bleeding. Presents electively no active bleeding. Hemoglobin 7.7 Afebrile. Feels well. Objective - Vital Signs Vital signs: Vital Signs Temp 97 F L 08/17/18 12:20 Pulse 65 08/17/18 12:20 Resp 20 08/17/18 12:20 BP 123/62 08/17/18 12:20 Pulse Ox 100 08/17/18 12:20 Intake & Output 08/16/18 08/17/18 08/17/18 18:59 06:59 18:59 Intake Total 310 360 Output Total 240 Balance 310 -240 360 Intake: Oral 360 Blood Product 310 Rc As-3 Unit 310 [id number] Output: Urine 240 Other: Voiding Method Toilet Toilet Toilet # Voids 2 1 3 - Exam General appearance: The patient is alert, oriented, in no acute distress. HET: Head is normocephalic and atraumatic. Pupils are equal and reactive. Oropharynx is clear without lesions. Neck: Supple without lymphadenopathy. Trachea midline. Heart: S1 S2. Regular rate and rhythm. Lungs: No crackles or wheezes are heard. Abdomen: Soft, nontender, nondistended with bowel sounds. No peritoneal signs. No palpable organomegaly or masses. Extremities: Normal skin color and turgor. No cyanosis, rash, ulceration, clubbing, or edema. Radial and pedal pulses are 2/4 bilaterally. Neurological: No focal deficits. Strength and sensation are grossly intact. - Labs CBC & Chem 7: 08/17/18 08:27 08/17/18 08:27 Labs: Abnormal Lab Results - Last 24 Hours (Table) 08/14/18 08/16/18 08/17/18 Range/Units 22:33 18:25 01:26 RBC 3.51 L 3.35 L (4.30-5.90) m/uL Hgb 7.3 L 7.0 L (13.0-17.5) gm/dL Hct 24.8 L 23.6 L (39.0-53.0) % MCV 70.5 L 70.3 L (80.0-100.0) fL MCH 20.8 L 20.8 L (25.0-35.0) pg MCHC 29.5 L 29.5 L (31.0-37.0) g/dL RDW 23.9 H 24.0 H (11.5-15.5) % Neutrophils # 8.0 H (1.3-7.7) k/uL Sodium (137-145) mmol/L Glucose (74-99) mg/dL Crossmatch See Detail 08/17/18 08/17/18 Range/Units 08:27 08:27 RBC 3.62 L (4.30-5.90) m/uL Hgb 7.7 L (13.0-17.5) gm/dL Hct 26.3 L (39.0-53.0) % MCV 72.6 L (80.0-100.0) fL MCH 21.3 L (25.0-35.0) pg MCHC 29.3 L (31.0-37.0) g/dL RDW 23.0 H (11.5-15.5) % Neutrophils # (1.3-7.7) k/uL Sodium 135 L (137-145) mmol/L Glucose 130 H (74-99) mg/dL Crossmatch Assessment and Plan (1) GI bleed Narrative/Plan: Status post EGD and esophageal variceal banding 7 portal hypertensive gastropathy no active bleeding Current Visit: No Status: Acute Code(s): K92.2 - GASTROINTESTINAL HEMORRH AGE, UNSPECIFIED SNOMED Code(s): 63828161 (2) Anemia Current Visit: No Status: Acute Code(s): D64.9 - ANEMIA, UNSPECIFIED SNOMED Code(s): 547358030 (3) Cirrhosis Current Visit: No Status: Acute Code(s): K74.60 - UNSPECIFIED CIRRHOSIS OF LIVER SNOMED Code(s): 90926972 (4) Coagulopathy Current Visit: No Status: Acute Code(s): D68.9 - COAGULATION DEFECT, UNSPECIFIED SNOMED Code(s): 42404011 (5) ETOH abuse Current Visit: No Status: Acute Code(s): F10.10 - ALCOHOL ABUSE, UNCOMPLICATED SNOMED Code(s): 99257323 (6) Esophageal varices Current Visit: No Status: Acute Code(s): I85.00 - ESOPHAGEAL VARICES WITHOUT BLEEDING SNOMED Code(s): 76925341 (7) Portal hypertension Current Visit: No Status: Acute Code(s): K76.6 - PORTAL HYPERTENSION SN ED Code(s): 28010766 (8) Portal hypertensive gastropathy Current Visit: Yes Status: Acute Code(s): K76.6 - PORTAL HYPERTENSION; K31.89 - OTHER DISEASES OF STOMACH AND DUODENUM SNOMED Code(s): 660871389 Plan: 1. Discharge from a GI standpoint diet. Continue with Protonix twice daily. Continue with Inderal. Return to office 2-3 weeks. Assessment and plan a care discussed with Dr. Amor
--- NOTE | 2018-08-17 16:13 | P.DS ---
Providers Date of admission: 08/14/18 23:48 Attending physician: Kalpesh Tobar Consults: 08/14/18 23:59 Consult Physician Routine Consulting Provider: Brittney Watt Consult Reason/Comments: Upper GI bleed Do you want consulting provider notified?: Yes Primary care physician: Bryce Dorman [facility] Course: Diagnoses -Acute Upper GI bleed, secondary to esophageal varices, probably from his alcohol drinking and non-adherence to treatment of propranolol. status post EGD and banding on 08/15/2018 -Acute blood loss anemia, secondary to above. Needing a blood transfusion -alcoholic liver cirrhosis with portal hypertension -History of chronic obstructive pulmonary disease, not an active issue -Nicotine dependence. Patient is counseled. -Coagulopathy secondary to liver cirrhosis Hospital course: This is a pleasant 68 years old male with past medical history of coronary artery disease, heart failure, alcoholic cirrhosis with previous history of upper GI bleed. Portal hypertension and esophageal varices, delirium tremens, vertical, arthritis in both hands and legs, psoriasis. Presents with signs symptoms of upper GI bleed. Patient told me he was at the stenotic from alcohol since March 2018, however one day prior to presentation he had one beer with his friend at He develops bloody vomiting and dark stool. Patient has been evaluated by GI team and status post EGD with esophageal varices banding on 08/15/2018. Yesterday his hemoglobin was 6.6, he got one unit of blood transfusion and he has frequent measurements of hemoglobin 7.3 yesterday and 7.0 and 7.7 today. Iron pills was started. Today patient is feeling well, he denies chest pain or abdominal pain, he complains from the distal source rate from the procedure yesterday but he is able to eat his food, although discomfort in the epigastric area which is expected at the procedure site and esophageal varices. He didn't have bowel movement but is passing gases. No abdominal pain and abdominal exam looks benign. No problems with urine. He is moving around with no problems his get up and go test was normal. However patient is eager to go home today. Case was discussed with the GI team and they agree with discharge and patient today and outpatient follow-up Discussed with the patient he have difficulty following up with Dr. Dorman and he was given medical team to find him another PCP. Patient was referred to Dr. Thornton and patient agrees with the appointments and timing made for him and he said he will follow-up. Also he agrees with the appointments made with the GI team as insistent Problems and management plan were discussed with the patient and he verbalized understanding and acceptance Patient was found stable and can be discharged home however he needs follow-up as an outpatient. Patient and at bedside agree with the appointments and the timing made for him with Dr. Smith and GI offices and states he will follow- up Gen: patient is a AAOx3, no distress CVS: S1-S2, RRR, no murmur Lungs: B/L CTA, no wheezing Abdomen: soft, no distention, no tenderness, positive bowel sounds Extremity: no leg edema or induration Time spent more than 35 minutes Patient Condition at Discharge: Serious Plan - Discharge Summary Discharge Rx Participant: No New Discharge Prescriptions: New Ferrous Sulfate [Iron (65 MG Elemental)] 325 mg PO BID-W/MEALS #60 tab Continue Propranolol [Inderal] 10 mg PO BID #60 tab Pantoprazole [Protonix] 40 mg PO DAILY #30 tablet. Halobetasol Propionate [Ultravate] 1 applic TOPICAL BID PRN PRN Reason: flare Ketoconazole [Ketoconazole 2%] 1 applic TOPICAL DAILY Discharge Medication List Pantoprazole [Protonix] 40 mg PO DAILY #30 tablet. 03/24/18 [Rx] Propranolol [Inderal] 10 mg PO BID #60 tab 03/24/18 [Rx] Halobetasol Propionate [Ultravate] 1 applic TOPICAL BID PRN 08/14/18 [History] Ketoconazole [Ketoconazole 2%] 1 applic TOPICAL DAILY 08/14/18 [History] Ferrous Sulfate [Iron (65 MG Elemental)] 325 mg PO BID-W/MEALS #60 tab 08/17/18 [Rx] Follow up Appointment(s)/Referral(s): Carmen De Luna MD [REFERRING] - 1 Week Bryce Dorman DO [Primary Care Provider] - 1-2 days Eliezer Amor MD [STAFF PHYSICIAN] - 09/15/18 10:30 am Discharge Disposition: HOME SELF-CARE
== END 2018-08-17 17:15 | disposition home or self-care (01) | DRG 432 ==
LOC: EC 20:42 → 4SSUR 23:48 → 3NMEDONC 08-15 16:44
PROVIDERS: ADMIT Hospitalist; ATTEND Hospitalist
PROC: 06L38CZ Occlusion of Esophageal Vein with Extraluminal Device, Via Natural or Artificial Opening Endoscopic (ICD-10-PCS; principal; 2018-08-15 08:30)
DX: K70.30 Alcoholic cirrhosis of liver without ascites (principal); I85.11 Secondary esophageal varices with bleeding; D62 Acute posthemorrhagic anemia; D68.4 Acquired coagulation factor deficiency; F10.231 Alcohol dependence with withdrawal delirium; K63.3 Ulcer of intestine; K76.6 Portal hypertension; F17.210 Nicotine dependence, cigarettes, uncomplicated; Z71.6 Tobacco abuse counseling; I25.10 Atherosclerotic heart disease of native coronary artery without angina pectoris; I25.2 Old myocardial infarction; I50.9 Heart failure, unspecified; J44.9 Chronic obstructive pulmonary disease, unspecified; K21.9 Gastro-esophageal reflux disease without esophagitis; K31.89 Other diseases of stomach and duodenum; Z86.010 Personal history of colon polyps; K64.1 Second degree hemorrhoids; L40.9 Psoriasis, unspecified; M19.041 Primary osteoarthritis, right hand; M19.042 Primary osteoarthritis, left hand; Y90.6 Blood alcohol level of 120-199 mg/100 ml; Z79.899 Other long term (current) drug therapy; Z82.49 Family history of ischemic heart disease and other diseases of the circulatory system; Z98.42 Cataract extraction status, left eye; Z60.2 Problems related to living alone; T44.7X6A Underdosing of beta-adrenoreceptor antagonists, initial encounter; Z91.128 Patient's intentional underdosing of medication regimen for other reason
CPT/HCPCS: 36415; 43244; 74018; 80048; 80053; 80320; 84484; 85025; 85610; 85730; 86850; 86900; 86901; 86920; 93005; 96365; 96375; 96376; 99285

== ENCOUNTER → 2018-10-13 | Outpatient (CLI) | payer MEDICARE, OTHER ==
[2018-10-13 08:51] LABS: Anisocytosis Moderate; Basophils # (A) 0.1 k/uL (0-0.2); Basophils % (A) 1 %; Eosinophils # (A) 0.3 k/uL (0-0.7); Eosinophils % (A) 4 %; HCT 38.2 % (39.0-53.0); Hypochromasia Marked; INR 1.2 (<1.2); Lymphocytes # (A) 1.4 k/uL (1.0-4.8); Lymphocytes % (A) 17 %; MCH 20.4 pg (25.0-35.0); MCHC 28.5 g/dL (31.0-37.0); MCV 71.5 fL (80.0-100.0); Mean Platelet Volume 6.5; Microcytosis Marked; Monocytes # (A) 0.7 k/uL (0-1.0); Monocytes % (A) 9 %; Neutrophils # (A) 5.3 k/uL (1.3-7.7); Neutrophils % (A) 67 %; Platelet Count 269 k/uL (150-450); Prothrombin Time 12.1 sec (9.0-12.0); RBC 5.34 m/uL (4.30-5.90); RDW 21.4 % (11.5-15.5); WBC 7.9 k/uL (3.8-10.6)
[2018-10-13 08:54] LABS: HGB 10.9 gm/dL (13.0-17.5)
[2018-10-13 18:06] LABS: African American GFR (CKD) 107.9 (60.0-200.0); Albumin 4.2 g/dL (3.80-4.90); Albumin/Globulin Ratio 1.24 (1.60-3.17); Anion Gap 7.5 mmol/L (4.00-12.00); Calcium 9.3 mg/dL (8.7-10.3); Carbon Dioxide 25.5 mmol/L (21.6-31.8); Globulin 3.4 g/dL (1.6-3.3); Potassium 5.1 mmol/L (3.5-5.5); Total Bilirubin 0.8 mg/dL (0.2-1.2); Total Protein 7.6 g/dL (6.2-8.2)
[2018-10-14 14:15] LABS: Iron Saturation 5.39 (15.00-50.00)
== END | disposition home or self-care (01) ==
LOC: LABWHC1 08:01
PROVIDERS: ATTEND Internal Medicine
DX: K74.60 Unspecified cirrhosis of liver (principal); R79.9 Abnormal finding of blood chemistry, unspecified; R63.4 Abnormal weight loss
CPT/HCPCS: 36415; 80053; 83540; 83550; 85025; 85610

== ENCOUNTER 2018-10-24 09:27 | Day surgery (SDC) | payer MEDICARE, OTHER ==
[2018-10-19 16:33] VITALS: BMI 20.2
[~2018-10-24 09:27] MED LIST: LACTATED RINGERS 1,000 ML IV SCH; LIDOCAINE 1% 20 ML VIAL (10MG/ML) FOR IV START INTRADERMA PRN
[2018-10-24 09:56] VITALS: TEMP 98.2
[2018-10-24] MEDS ORDERED: LIDOCAINE 1% INJ 10MG/ML (20 ML MDV) ONE (11:12)
[2018-10-24] MEDS ORDERED: PROPOFOL 10 MG/ML 20 ML VIAL IV ONE (11:12)
--- NOTE | 2018-10-24 11:43 | P.PCN ---
Date of Procedure: 10/24/18 Description of Procedure: BRIEF HISTORY: Patient is a 68-year-old male with a history of decompensated alcoholic cirrhosis. The patient reports abstinence from alcohol since last visit, and approximately 2 years overall. Previous episodes of GI bleeding with EGD showing esophageal varices which were banded as well as portal hypertensive gastropathy. PROCEDURE PERFORMED: Esophagogastroduodenoscopy with esophageal variceal banding. PREOPERATIVE DIAGNOSIS: Esophageal varices, history of GI bleeding. ESTIMATED BLOOD LOSS: Minimal. IV sedation per anesthesia. PROCEDURE: After informed consent was obtained, the patient was brought into the endoscopy unit. IV sedation was administered by Anesthesia under continuous monitoring. Initially the Olympus GIF-190 video endoscope was inserted into the mouth. Esophagus intubated without any difficulty. It was gradually advanced into the stomach and duodenum and carefully examined. The bulb and the second part of the duodenum appeared normal. The scope at this time was withdrawn to the stomach, adequately insufflated with air, and upon careful examination, mucosa of the antrum, body, cardia and the fundus appeared normal, except for some mild erythema in the body and fundus consistent with portal hypertensive gastropathy. The scope was then withdrawn into the esophagus. The GE junction was located at 37 cm from the incisors, with a few columns of moderate-sized varices noted. Esophageal variceal banding was performed with 4 bands deployed over the visualized varices. Patient tolerated the procedure well. IMPRESSION: 1. Moderate-sized esophageal varices, banded. 2. Mild portal hypertensive gastropathy. RECOMMENDATIONS: The findings of this examination were discussed with the patient. Okay to resume soft diet, advance as tolerated. Continue current medical regimen. Continue alcohol abstinence. Follow up with GI as previously scheduled.
[2018-10-24 12:20] VITALS: BP 151/67; PULSE 65; RESP 16
== END 2018-10-24 13:43 | disposition home or self-care (01) ==
LOC: ORWHC2ENDO 09:27
PROVIDERS: ATTEND Internal Medicine
DX: K70.30 Alcoholic cirrhosis of liver without ascites (principal); I85.11 Secondary esophageal varices with bleeding; K76.6 Portal hypertension; I25.2 Old myocardial infarction; I25.10 Atherosclerotic heart disease of native coronary artery without angina pectoris; Z87.891 Personal history of nicotine dependence; K21.9 Gastro-esophageal reflux disease without esophagitis; Z79.899 Other long term (current) drug therapy
CPT/HCPCS: 43255; J2001; J2704

== ENCOUNTER → 2018-11-15 | Outpatient (CLI) | payer MEDICARE, OTHER ==
--- NOTE | 2018-11-15 12:55 | US ---
EXAMINATION TYPE: US abdomen complete DATE OF EXAM: 11/15/2018 COMPARISON: CLINICAL HISTORY: K74.60 CIRRHOSIS OF LIVER. evaluate liver. Per CT- hx of liver cysts and gallstones EXAM MEASUREMENTS: Liver Length: 17.1 cm Gallbladder Wall: 0.3 cm CBD: 0.6 cm CHD: 0.5 cm Spleen: 9.7 cm Right Kidney: 11.1 x 5.3 x 5.7 cm Left Kidney: 10.6 x 4.9 x 5.9 cm Pancreas: head and tail obscured by bowel gas Liver: Increased attenuation, decreased visualization of vessels correlating to the patient's known hepatocellular disease. Multiple cystic appearing lesions visualized, largest measured. Right - 1.2 x 1.4 x 1.2 cm. Left- 1.2 x 0.9 x 0.8 cm Gallbladder: Multiple mobile echogenic foci seen within. Upper limits of normal gallbladder wall thi ckness. Evidence for sonographic Urbano's sign: neg CBD: wnl CHD: wnl Spleen: wnl Right Kidney: wnl Left Kidney: wnl Upper IVC: wnl Abd Aorta: Limited visualization due to overlying bowel gas The liver is heterogenous. The intrahepatic portion of the IVC and proximal abdominal aorta are withi n normal limits. Common bile duct is unremarkable. The visualized portions of the pancreas are homog enous. The spleen is unremarkable. Kidneys are symmetric and free of hydronephrosis. No renal lesi ons are seen. IMPRESSION: 1. Cholelithiasis without sonographic evidence of acute cholecystitis. 2. Coarsened hepatic echotexture relates to the patient's known hepatocellular disease. Multiple cyst s are noted that appear benign with the largest measuring up to 1.4 cm. No suspicious masses seen on today's exam.
== END | disposition home or self-care (01) ==
LOC: RADUSWWP 11:38
PROVIDERS: ATTEND Internal Medicine
DX: K76.89 Other specified diseases of liver (principal); K80.20 Calculus of gallbladder without cholecystitis without obstruction; K76.9 Liver disease, unspecified
CPT/HCPCS: 76700

== ENCOUNTER → 2018-11-17 | Outpatient (CLI) | payer MEDICARE, OTHER ==
[2018-11-17 09:38] LABS: Anisocytosis Moderate; Basophils # (A) 0.1 k/uL (0-0.2); Basophils % (A) 1 %; Eosinophils # (A) 0.2 k/uL (0-0.7); Eosinophils % (A) 3 %; HCT 38.3 % (39.0-53.0); HGB 11.5 gm/dL (13.0-17.5); Hypochromasia Marked; Lymphocytes # (A) 1.3 k/uL (1.0-4.8); Lymphocytes % (A) 16 %; MCH 21.1 pg (25.0-35.0); MCHC 29.9 g/dL (31.0-37.0); MCV 70.6 fL (80.0-100.0); Mean Platelet Volume 6.7; Microcytosis Marked; Monocytes # (A) 0.6 k/uL (0-1.0); Monocytes % (A) 8 %; Neutrophils # (A) 5.6 k/uL (1.3-7.7); Neutrophils % (A) 70 %; Platelet Count 283 k/uL (150-450); RBC 5.43 m/uL (4.30-5.90); RDW 22.4 % (11.5-15.5)
[2018-11-17 09:49] LABS: INR 1.2 (<1.2); Prothrombin Time 12.5 sec (9.0-12.0)
[2018-11-17 17:32] LABS: African American GFR (CKD) 90.5 (60.0-200.0); Albumin 4.3 g/dL (3.80-4.90); Albumin/Globulin Ratio 1.3 (1.60-3.17); Anion Gap 7.5 mmol/L (4.00-12.00); Calcium 9.1 mg/dL (8.7-10.3); Carbon Dioxide 21.5 mmol/L (21.6-31.8); Globulin 3.3 g/dL (1.6-3.3); Non-African American GFR(CKD) 78.1 (60.0-200.0); Potassium 5.3 mmol/L (3.5-5.5); Total Bilirubin 0.7 mg/dL (0.3-1.2); Total Protein 7.6 g/dL (6.2-8.2)
== END | disposition home or self-care (01) ==
LOC: LABWHC1 08:37
PROVIDERS: ATTEND Internal Medicine
DX: K74.60 Unspecified cirrhosis of liver (principal)
CPT/HCPCS: 36415; 80053; 82105; 85025; 85610

== ENCOUNTER → 2019-01-10 | Outpatient (CLI) | payer MEDICARE ==
[2019-01-10 17:42] LABS: ALT 32 U/L (10-49); AST 89 U/L (14-35)
== END | disposition home or self-care (01) ==
LOC: LABWHC1 08:51
PROVIDERS: ATTEND Podiatrist Foot & Ankle Surgery
DX: K76.9 Liver disease, unspecified (principal)
CPT/HCPCS: 36415; 84450; 84460

== ENCOUNTER → 2019-01-24 | Outpatient (CLI) | payer MEDICARE, OTHER ==
--- NOTE | 2019-01-24 08:23 | US ---
EXAMINATION TYPE: US abdomen limited DATE OF EXAM: 01/24/2019 COMPARISON: US 11/15/2018 CLINICAL HISTORY: R94.5 Abnormal lab results. Abnormal liver function tests. Known cirrhosis. EXAM MEASUREMENTS: Liver Length: 17.2 cm Gallbladder Wall: 0.3 cm CBD: 0.5 cm Right Kidney: 9.7 x 5.0 x 5.5 cm Pancreas: tail obscured by overlying midline bowel gas Liver: attenuating, heterogeneous with multiple cystic lesions seen, largest in right lobe = 1.5 x 1 .3 x 1.2cm, largest in left lobe = 1.4 x 1.0 x 1.2cm Gallbladder: multiple mobile echogenic foci, wall measures in upper limits of normal, borderline hyd ropic. Suggestion of possible ring down artifact in the gallbladder wall. Evidence for sonographic Urbano's sign: no CBD: visualized portions wnl, limited by overlying bowel gas Right Kidney: wnl IMPRESSION: 1. Cirrhotic morphology of the liver. Redemonstration of hepatic cysts. No new suspicious hepatic les ion is seen. 2. Cholelithiasis, upper limits of normal gallbladder wall size that could relate to be adjacent hepa tocellular disease, borderline hydropic size of the gallbladder, and some questionable ringdown foci likely relate to subsegmental adenomyomatosis.
== END | disposition home or self-care (01) ==
LOC: RADUSWWP 07:26
PROVIDERS: ATTEND Internal Medicine
DX: K80.20 Calculus of gallbladder without cholecystitis without obstruction (principal); K74.60 Unspecified cirrhosis of liver
CPT/HCPCS: 76705

== ENCOUNTER 2019-01-29 10:24 | Day surgery (SDC) | payer MEDICARE, OTHER ==
[2019-01-26 11:13] VITALS: BMI 21.7
[~2019-01-29 10:24] MED LIST changes: -LIDOCAINE 1% 20 ML VIAL (10MG/ML) FOR IV START INTRADERMA PRN
[2019-01-29 10:47] VITALS: TEMP 97.8
[2019-01-29] MEDS ORDERED: LACTATED RINGERS 1,000 ML IV ONE (10:47)
[2019-01-29] MEDS ORDERED: LIDOCAINE 1% 20 ML VIAL (10MG/ML) FOR IV START INTRADERMA ONE (10:48)
[2019-01-29] MEDS ORDERED: PROPOFOL 10 MG/ML 20 ML VIAL IV ONE (11:59)
--- NOTE | 2019-01-29 13:08 | P.PCN ---
Date of Procedure: 01/29/19 Description of Procedure: BRIEF HISTORY: Patient is a 68-year-old male with a history of decompensated alcoholic cirrhosis currently abstinent from alcohol abuse who presents for outpatient EGD for evaluation of esophageal varices and colonoscopy for evaluation of colitis. The patient reports abstinence from alcohol since last visit, and approximately 2 years overall. Previous episodes of GI bleeding with EGD showing esophageal varices which were banded as well as portal hypertensive gastropathy. Last colonoscopy was in 2017 and significant for ischemic colitis. PROCEDURE PERFORMED: Esophagogastroduodenoscopy with esophageal variceal banding. Colonoscopy with polypectomy. PREOPERATIVE DIAGNOSIS: Esophageal varices, history of GI bleeding, colitis, less colonoscopy 2017. ESTIMATED BLOOD LOSS: Minimal. IV sedation per anesthesia. PROCEDURE: After informed consent was obtained, the patient was brought into the endoscopy unit. IV sedation was administered by Anesthesia under continuous monitoring. Initially the Olympus GIF-190 video endoscope was inserted into the mouth. Esophagus intubated without any difficulty. It was gradually advanced into the stomach and duodenum and carefully examined. The bulb and the second part of the duodenum appeared normal. The scope at this time was withdrawn to the stomach, adequately insufflated with air, and upon careful examination, mucosa of the antrum, body, cardia and the fundus appeared normal, except for some mild erythema in the body and fundus consistent with portal hypertensive gastropathy. The scope was then withdrawn into the esophagus. The GE junction was located at 37 cm from the incisors, with a few columns of moderate-sized varices noted. Esophageal variceal banding was performed with 4 bands deployed over the visualized varices. Patient tolerated the procedure well. Digital rectal examination was normal. Initially the Olympus CF-190 flexible video colonoscope was then inserted in the rectum, gradually advanced into the cecum without any difficulty. Careful examination was performed as the scope was gradually being withdrawn. Ileocecal valve and the appendiceal orifice were visualized and appeared normal. Prep was excellent. Mucosa of the cecum, ascending colon, transverse colon, descending colon, sigmoid colon, and rectum appeared normal. Diminutive 1 mm cecal polyp removed with cold forcep polypectomy. Small 6 mm transverse colon polyp removed with hot snare polypectomy. 2 diminutive polyps measuring 2 mm in the sigmoid colon and millimeter in the rectum removed with cold forcep polypectomy. Retroflexion was performed in the rectum and no lesions were seen, rectal varices were noted. The patient tolerated the procedure well. IMPRESSION: 1. Moderate-sized esophageal varices, banded. Mild portal hypertensive gastropathy. 2. Rectal varices. Small transverse colon polyp removed with hot snare polypectomy. Diminutive colon polyps from the rectum, sigmoid colon and cecum all removed with cold forcep polypectomy. RECOMMENDATIONS: The findings of this examination were discussed with the patient. Okay to resume soft diet, advance as tolerated. Continue current medical regimen. Continue alcohol abstinence. Anticipate repeat colonoscopy in 3-5 years pending pathology from polypectomies. Follow up with GI as previously scheduled.
[2019-01-29 13:16] VITALS: BP 146/87; PULSE 86; RESP 16
== END 2019-01-29 13:51 | disposition home or self-care (01) ==
LOC: ORWHC2ENDO 10:24
PROVIDERS: ATTEND Internal Medicine
DX: D12.0 Benign neoplasm of cecum (principal); D12.5 Benign neoplasm of sigmoid colon; K62.1 Rectal polyp; K63.5 Polyp of colon; I85.00 Esophageal varices without bleeding; K76.6 Portal hypertension; K31.89 Other diseases of stomach and duodenum; K52.9 Noninfective gastroenteritis and colitis, unspecified; I25.10 Atherosclerotic heart disease of native coronary artery without angina pectoris; I25.2 Old myocardial infarction; K21.9 Gastro-esophageal reflux disease without esophagitis; I86.8 Varicose veins of other specified sites; Z87.891 Personal history of nicotine dependence; Z79.899 Other long term (current) drug therapy; Z86.19 Personal history of other infectious and parasitic diseases; Z98.890 Other specified postprocedural states
CPT/HCPCS: 88305; 45380; 45385; 43244; J2704; 43255

== ENCOUNTER → 2019-03-28 | Outpatient (CLI) | payer MEDICARE, OTHER ==
[2019-03-28 14:49] LABS: Basophils % (A) 0 %; Eosinophils # (A) 0.1 k/uL (0-0.7); Eosinophils % (A) 1 %; HGB 14.7 gm/dL (13.0-17.5); Lymphocytes # (A) 1.5 k/uL (1.0-4.8); Lymphocytes % (A) 13 %; MCH 26.7 pg (25.0-35.0); MCHC 31.2 g/dL (31.0-37.0); MCV 85.5 fL (80.0-100.0); Mean Platelet Volume 7.4; Monocytes # (A) 0.8 k/uL (0-1.0); Monocytes % (A) 7 %; Neutrophils # (A) 8.8 k/uL (1.3-7.7); Neutrophils % (A) 77 %; Platelet Count 188 k/uL (150-450); RDW 15.4 % (11.5-15.5); WBC 11.5 k/uL (3.8-10.6)
[2019-03-28 15:02] LABS: INR 1.2 (<1.2); Prothrombin Time 12.4 sec (9.0-12.0)
[2019-03-28 19:32] LABS: Ferritin 30.4 ng/mL (22.0-322.0)
[2019-03-28 19:57] LABS: % Iron Saturation 13.09 (15.00-50.00); African American GFR (CKD) 107.1 (60.0-200.0); Albumin 4.4 g/dL (3.80-4.90); Albumin/Globulin Ratio 1.57 (1.60-3.17); Anion Gap 7.9 mmol/L (4.00-12.00); BUN/Creat Ratio 13.75 Ratio (12.00-20.00); Calcium 9.2 mg/dL (8.7-10.3); Carbon Dioxide 22.1 mmol/L (21.6-31.8); Globulin 2.8 g/dL (1.6-3.3); Non-African American GFR(CKD) 92.4 (60.0-200.0); Potassium 4.7 mmol/L (3.5-5.5); Total Bilirubin 0.8 mg/dL (0.3-1.2); Total Protein 7.2 g/dL (6.2-8.2)
== END | disposition home or self-care (01) ==
LOC: LABWHC1 14:20
PROVIDERS: ATTEND Internal Medicine
DX: K74.60 Unspecified cirrhosis of liver (principal); D50.9 Iron deficiency anemia, unspecified
CPT/HCPCS: 36415; 80053; 82728; 83540; 83550; 85025; 85610

== ENCOUNTER → 2019-04-02 | Outpatient (CLI) | payer MEDICARE, OTHER ==
--- NOTE | 2019-04-02 14:42 | US ---
EXAMINATION TYPE: US abdomen complete DATE OF EXAM: 04/02/2019 COMPARISON: US 01/24/2019 CLINICAL HISTORY: K74.60 Unspecified cirrhosis of liver. EXAM MEASUREMENTS: Liver Length: 17.3 cm Gallbladder Wall: 0.3 cm CBD: 0.5 cm Spleen: 9.7 cm Right Kidney: 10.3 x 5.3 x 5.0 cm Left Kidney: 10.7 x 5.6 x 5.0 cm Pancreas: Tail obscured by overlying bowel gas Liver: Multiple cysts noted again. Right lobe cyst = 1.2 x 1.0 x 0.9 cm, Left lobe cyst = 1.6 x 1.5 x 1.5 cm Gallbladder: with phyrigian cap, multiple mobile, shadowing gallstones, large in size (approx 12 cm with folded fundus), thickened wall Evidence for sonographic Urbano's sign: No CBD: wnl Spleen: wnl Right Kidney: No hydronephrosis or masses seen Left Kidney: No hydronephrosis or masses seen Upper IVC: wnl Abd Aorta: wnl The intrahepatic portion of the IVC and proximal abdominal aorta are within normal limits. There is no evidence of cholelithiasis. Common bile duct is unremarkable. The visualized portions of the lozano creas are homogenous. The spleen is unremarkable. Kidneys are symmetric and free of hydronephrosis. No renal lesions are seen. IMPRESSION: 1. Cholelithiasis and hydropic size of the gallbladder. No other findings to suspect acute cholecysti tis. 2. Multiple hepatic cysts.
== END | disposition home or self-care (01) ==
LOC: RADUSWWP 11:43
PROVIDERS: ATTEND Internal Medicine
DX: K80.20 Calculus of gallbladder without cholecystitis without obstruction (principal); K76.89 Other specified diseases of liver
CPT/HCPCS: 76700

== ENCOUNTER → 2019-04-03 | Outpatient (CLI) | payer MEDICARE, OTHER ==
--- NOTE | 2019-04-03 12:00 | ECHOF ---
Referral Reason:sob, ekg changes MEASUREMENTS -------- HEIGHT: 175.3 cm WEIGHT: 70.3 kg BP: RVIDd: 3.2 cm (< 3.3) IVSd: 1.2 cm (0.6 - 1.1) LVIDd: 3.5 cm (3.9 - 5.3) LVPWd: 1.4 cm (0.6 - 1.1) IVSs: 1.9 cm LVIDs: 2.1 cm LVPWs: 1.8 cm LAESV Index (A-L): 20.65 ml/m Ao Diam: 2.7 cm (2.0 - 3.7) AV Cusp: 1.7 cm (1.5 - 2.6) LA Diam: 2.8 cm (2.7 - 3.8) MV EXCURSION: 17.007 mm (> 18.000) MV EF SLOPE: 58 mm/s (70 - 150) EPSS: 0.3 cm MV E Luciano: 0.80 m/s MV DecT: 186 ms MV A Luciano: 0.80 m/s MV E/A Ratio: 0.99 AR PHT: 717 ms RAP: 5.00 mmHg RVSP: 21.29 mmHg TAPSE: 17.35 mm FINDINGS -------- Sinus rhythm. This was a technically good study. The left ventricular size is normal. There is moderate concentric left ventricular hypertrophy. O verall left ventricular systolic function is normal with, an EF between 55 - 60 %. Normal LAP Grade 1 Diastolic Dysfunction. The right ventricle is normal in size. The left atrial size is normal. Normal LA size by volume 22+/-6 ml/m2. The right atrial size is normal. The aortic valve is trileaflet and appears structurally normal. Trace amount of aortic regurgitatio n. The mitral valve is normal. The mitral valve leaflets are mildly thickened. There is trace mitral regurgitation. The tricuspid valve appears structurally normal. Trace tricuspid regurgitation present. Right samantha tricular systolic pressure is normal at < 35 mmHg. There is no pulmonic regurgitation present. The aortic root size is normal. Normal inferior vena cava with normal inspiratory collapse consistent with estimated right atrial pre ssure of 5 mmHg. There is no pericardial effusion. CONCLUSIONS -------- 1. Sinus rhythm. 2. This was a technically good study. 3. The left ventricular size is normal. 4. There is moderate concentric left ventricular hypertrophy. 5. Overall left ventricular systolic function is normal with, an EF between 55 - 60 %. 6. Normal LAP Grade 1 Diastolic Dysfunction. 7. The right ventricle is normal in size. 8. The left atrial size is normal. 9. Normal LA size by volume 22+/-6 ml/m2. 10. The right atrial size is normal. 11. The aortic valve is trileaflet and appears structurally normal. 12. Trace amount of aortic regurgitation. 13. The mitral valve is normal. 14. The mitral valve leaflets are mildly thickened. 15. There is trace mitral regurgitation. 16. The tricuspid valve appears structurally normal. 17. Trace tricuspid regurgitation present. 18. Right ventricular systolic pressure is normal at < 35 mmHg. 19. There is no pulmonic regurgitation present. 20. The aortic root size is normal. 21. Normal inferior vena cava with normal inspiratory collapse consistent with estimated right atrial pressure of 5 mmHg. 22. There is no pericardial effusion. DOG BOARDER: Danika Ramachandran RDCS
--- NOTE | 2019-04-03 20:12 | P.STRESS ---
- Stress Test Note Stress Test Results/Findings: Exam Performed: stress test Exam Date: 04/03/19 Reason for Exam: CHEST PAIN Height: 5 ft 9 in Weight: 155 kg Protocol: MELBA Stage: 4 Duration of Exercise: 9:30 Resting Heart Rate: 69 Resting Blood Pressure: 170/89 Maximum Achieved Heart Rate: 122 Maximum Achieved Blood Pressure: 214/87 85% PMHR: 130 100% PMHR: 153 METS: 10.5 Technologist Comment: Stress Test Results/Findings: This is a 69-year-old gentleman being evaluated for symptoms of palpitations and hypertension. Patient has history of previous myocardial infarction. Stress data: Baseline EKG showed sinus rhythm with evidence of left ventricle hypertrophy and mild ST-T wave normalities. His blood pressure at rest was 170/ 89 with pulse rate of 69. Patient walked on the Melba protocol for 9 and a minutes achieving a maximum heart rate of 122 with a blood pressure of 214/87. EKGs taken during and after exercise. She showed about [address] depression in the inferolateral leads which persisted for several minutes and the post exercise period. Patient did not experience any chest pain. Occasional PVCs are noted Final impression: #1. Positive stress test, based on EKG changes #2. Patient did not express any chest pain. #3. Occasional PVCs were noted. #4. Patient's exercise capacity is good
--- NOTE | 2019-04-04 16:19 | EST ---
Stress Test Results/Findings: Exam Performed: stress test Exam Date: 04/03/19 Reason for Exam: CHEST PAIN Height: 5 ft 9 in Weight: 155 kg Protocol: MELBA Stage: 4 Duration of Exercise: 9:30 Resting Heart Rate: 69 Resting Blood Pressure: 170/89 Maximum Achieved Heart Rate: 122 Maximum Achieved Blood Pressure: 214/87 85% PMHR: 130 100% PMHR: 153 METS: 10.5 Technologist Comment: Stress Test Results/Findings: This is a 69-year-old gentleman being evaluated for symptoms of palpitations and hypertension. Patient has history of previous myocardial infarction. Stress data: Baseline EKG showed sinus rhythm with evidence of left ventricle hypertrophy and mild ST-T wave normalities. His blood pressure at rest was 170/89 with pulse rate of 69. Patient walked on the Melba protocol for 9 and a minutes achieving a maximum heart rate of 122 with a blood pressure of 214/87. EKGs taken during and after exercise. She showed about [address] depression in the inferolateral leads which persisted for several minutes and the post exercise period. Patient did not experience any chest pain. Occasional PVCs are noted Final impression: #1. Positive stress test, based on EKG changes #2. Patient did not express any chest pain. #3. Occasional PVCs were noted. #4. Patient's exercise capacity is good MTDD
== END | disposition home or self-care (01) ==
LOC: RADNMMAIN 08:00
PROVIDERS: ATTEND Internal Medicine
DX: R06.02 Shortness of breath (principal)
CPT/HCPCS: 93017; 93306

== ENCOUNTER → 2019-09-14 | Outpatient (CLI) | payer MEDICARE, OTHER ==
[2019-09-14 11:41] LABS: Basophils % (A) 0 %; Eosinophils # (A) 0.2 k/uL (0-0.7); Eosinophils % (A) 2 %; HCT 48.2 % (39.0-53.0); HGB 15.5 gm/dL (13.0-17.5); Lymphocytes # (A) 1.6 k/uL (1.0-4.8); Lymphocytes % (A) 20 %; MCH 28.4 pg (25.0-35.0); MCHC 32.2 g/dL (31.0-37.0); Mean Platelet Volume 7.4; Monocytes # (A) 0.6 k/uL (0-1.0); Monocytes % (A) 8 %; Neutrophils # (A) 5.3 k/uL (1.3-7.7); Neutrophils % (A) 67 %; Platelet Count 160 k/uL (150-450); RBC 5.47 m/uL (4.30-5.90); RDW 13.9 % (11.5-15.5)
[2019-09-14 16:14] LABS: Ferritin 97.8 ng/mL (22.0-322.0)
[2019-09-14 16:22] LABS: % Iron Saturation 29.82 (15.00-50.00); African American GFR (CKD) 107.1 (60.0-200.0); Albumin 4.3 g/dL (3.80-4.90); Albumin/Globulin Ratio 1.54 (1.60-3.17); Anion Gap 10.8 mmol/L (4.00-12.00); BUN/Creat Ratio 13.75 Ratio (12.00-20.00); Calcium 9.8 mg/dL (8.7-10.3); Carbon Dioxide 23.2 mmol/L (21.6-31.8); Globulin 2.8 g/dL (1.6-3.3); Non-African American GFR(CKD) 92.4 (60.0-200.0); Potassium 4.7 mmol/L (3.5-5.5); Total Bilirubin 1.4 mg/dL (0.3-1.2); Total Protein 7.1 g/dL (6.2-8.2)
[2019-09-14 19:18] LABS: INR 1.2 (0.90-1.11); Prothrombin Time 12.7 sec (9.9-11.9)
== END | disposition home or self-care (01) ==
LOC: LABWHC1 10:14
PROVIDERS: ATTEND Nurse Practitioner
DX: K74.60 Unspecified cirrhosis of liver (principal); D50.9 Iron deficiency anemia, unspecified
CPT/HCPCS: 36415; 80053; 82728; 83540; 83550; 85025; 85610

== ENCOUNTER → 2019-09-20 | Outpatient (CLI) | payer MEDICARE, OTHER ==
--- NOTE | 2019-09-20 09:32 | US ---
EXAMINATION TYPE: US liver DATE OF EXAM: 09/20/2019 COMPARISON: ABDOMEN 04/02/2019 CLINICAL HISTORY: K74.60 cirrhosis of liver. EXAM MEASUREMENTS: Liver Length: 16 cm Gallbladder Wall: Stable, questionable wall thickening CBD: .7 cm Right Kidney: 10.4 x 4.8 x 5.2 cm Pancreas: Obscured by bowel gas Liver: Heterogenous echotexture within the liver, there are two cystic areas seen 1.1 x 1.0 x 1.1cm in the right lobe and 1.6 x 1.3 x 1.2 cm. Liver shows a nodular contour. Gallbladder: Multiple stones are present, no pericholecystic fluid Evidence for sonographic Urbano's sign: No CBD: Dilated Right Kidney: wnl IMPRESSION: Findings consistent with cirrhosis, 2 cystic areas present within the liver are noted, no evident solid mass. Cholelithiasis, evaluation of the gallbladder wall is not optimal
== END | disposition home or self-care (01) ==
LOC: RADUSWWP 08:28
PROVIDERS: ATTEND Nurse Practitioner
DX: K74.60 Unspecified cirrhosis of liver (principal)
CPT/HCPCS: 76705

== ENCOUNTER 2019-10-02 08:12 | Day surgery (SDC) | payer MEDICARE, OTHER ==
[2019-09-25 12:00] VITALS: BMI 22.7
[~2019-10-02 08:12] MED LIST changes: +LIDOCAINE 1% (10MG/ML) FOR IV START INTRADERMA PRN
[2019-10-02 08:49] VITALS: RESP 16; TEMP 95.9
[2019-10-02] MEDS ORDERED: PROPOFOL 10 MG/ML 20 ML VIAL IV ONE (10:15)
[2019-10-02] MEDS ORDERED: MIDAZOLAM 2 MG/2 ML VIAL ONE (10:15)
[2019-10-02] MEDS ORDERED: fentaNYL (PF) 50 MCG/ML 2 ML AMP ONE (10:15)
[2019-10-02] MEDS ORDERED: LIDOCAINE 1% INJ 10MG/ML (20 ML MDV) ONE (10:15)
--- NOTE | 2019-10-02 10:35 | P.PCN ---
Date of Procedure: 10/02/19 Description of Procedure: BRIEF HISTORY: Patient is a 68-year-old male with a history of decompensated alcoholic cirrhosis currently abstinent from alcohol abuse who presents for outpatient EGD for evaluation of esophageal varices. The patient reports abstinence from alcohol since last visit, and approximately 2 years overall. Previous episodes of GI bleeding with EGD showing esophageal varices which were banded as well as portal hypertensive gastropathy, he last underwent EGD with banding in 01/2018 and is currently on propranolol therapy. PROCEDURE PERFORMED: Esophagogastroduodenoscopy. PREOPERATIVE DIAGNOSIS: Esophageal varices, history of GI bleeding. ESTIMATED BLOOD LOSS: Minimal. IV sedation per anesthesia. PROCEDURE: After informed consent was obtained, the patient was brought into the endoscopy unit. IV sedation was administered by Anesthesia under continuous monitoring. Initially the Olympus GIF-190 video endoscope was inserted into the mouth. Esophagus intubated without any difficulty. It was gradually advanced into the stomach and duodenum and carefully examined. The bulb and the second part of the duodenum appeared normal. The scope at this time was withdrawn to the stomach, adequately insufflated with air, and upon careful examination, mucosa of the antrum, body, cardia and the fundus appeared normal, except for some mild erythema in the body and fundus consistent with portal hypertensive gastropathy. The scope was then withdrawn into the esophagus. The GE junction was located at 37 cm from the incisors, with a few columns of small varices noted. Otherwise esophagus appeared normal. Patient tolerated the procedure well. IMPRESSION: 1. Small esophageal varices, banded. 2. Mild portal hypertensive gastropathy. RECOMMENDATIONS: The findings of this examination were discussed with the patient. Okay to resume diet. Continue current medical regimen. Continue alcohol abstinence. Anticipate repeat EGD in 1 year. Follow up with GI as previously scheduled.
[2019-10-02 10:54] VITALS: BP 141/64; PULSE 59
== END 2019-10-02 11:18 | disposition home or self-care (01) ==
LOC: ORWHC2ENDO 08:12
PROVIDERS: ATTEND Internal Medicine
DX: K70.30 Alcoholic cirrhosis of liver without ascites (principal); I85.10 Secondary esophageal varices without bleeding; K76.6 Portal hypertension; K31.89 Other diseases of stomach and duodenum; Z87.891 Personal history of nicotine dependence; Z79.899 Other long term (current) drug therapy; Z98.41 Cataract extraction status, right eye; Z98.42 Cataract extraction status, left eye; Z98.890 Other specified postprocedural states
CPT/HCPCS: 43235; J2250; J2001; J3010; J2704

== ENCOUNTER → 2019-12-03 | Outpatient (CLI) | payer MEDICARE, OTHER ==
[2019-12-03 16:12] LABS: Hepatitis A Antibody IgM Non-Reactive (Non-Reactive); Hepatitis B Core IgM Non-Reactive (Non-Reactive); Hepatitis B Surface Antigen Non-Reactive (Non-Reactive); Hepatitis C IgG Antibody Non-Reactive (Non-Reactive)
== END | disposition home or self-care (01) ==
LOC: LABWHC1 09:03
PROVIDERS: ATTEND Internal Medicine
DX: Z20.5 Contact with and (suspected) exposure to viral hepatitis (principal)
CPT/HCPCS: 36415; 80074; 86787

== ENCOUNTER → 2020-04-08 | Outpatient (CLI) | payer MEDICARE, OTHER ==
[2020-04-08 14:53] LABS: Basophils # (A) 0.05 X 10*3/uL (0.00-0.10); Basophils % (A) 0.5 %; Eosinophils # (A) 0.07 X 10*3/uL (0.04-0.35); Eosinophils % (A) 0.8 %; HCT 47.6 % (39.6-50.0); HGB 15.3 g/dL (13.0-17.0); Lymphocytes # (A) 1.25 X 10*3/uL (0.90-5.00); Lymphocytes % (A) 13.7 %; MCH 28.2 pg (27.0-32.0); MCHC 32.1 g/dL (32.0-37.0); MCV 87.7 fL (80.0-97.0); Mean Platelet Volume 9.6 fL (9.5-12.2); Monocytes # (A) 0.82 X 10*3/uL (0.20-1.00); Neutrophils # (A) 6.88 X 10*3/uL (1.80-7.70); Neutrophils % (A) 75.5 %; Platelet Count 138 X 10*3/uL (140-440); RBC 5.43 X 10*6/uL (4.40-5.60); RDW 14.9 % (11.5-14.5); WBC 9.12 X 10*3/uL (4.50-10.00)
[2020-04-08 16:44] LABS: INR 1.11 (0.90-1.11)
[2020-04-08 18:49] LABS: African American GFR (CKD) 106.4 (60.0-200.0); Albumin 4.5 g/dL (3.80-4.90); Albumin/Globulin Ratio 1.8 (1.60-3.17); Anion Gap 9.1 mmol/L (4.00-12.00); BUN/Creat Ratio 17.5 Ratio (12.00-20.00); Calcium 9.7 mg/dL (8.7-10.3); Carbon Dioxide 25.9 mmol/L (21.6-31.8); Globulin 2.5 g/dL (1.6-3.3); Non-African American GFR(CKD) 91.8 (60.0-200.0); Potassium 4.8 mmol/L (3.5-5.5); Total Bilirubin 1.4 mg/dL (0.3-1.2)
== END | disposition home or self-care (01) ==
LOC: LABWHC1 08:32
PROVIDERS: ATTEND Internal Medicine
DX: K74.60 Unspecified cirrhosis of liver (principal)
CPT/HCPCS: 36415; 80053; 82105; 82140; 85025; 85610

== ENCOUNTER 2020-04-10 08:48 | Day surgery (SDC) | payer MEDICARE, OTHER ==
[2020-04-09 13:34] VITALS: BMI 21.7
[2020-04-10 09:07] VITALS: RESP 16; TEMP 97.1
[2020-04-10] MEDS ORDERED: LIDOCAINE 1% (10MG/ML) FOR IV START INTRADERMA ONE (09:14)
[2020-04-10] MEDS ORDERED: LACTATED RINGERS 1,000 ML IV ONE ×2 (09:14)
[2020-04-10] MEDS ORDERED: PROPOFOL 10 MG/ML 20 ML VIAL IV ONE (10:25)
--- NOTE | 2020-04-10 10:43 | P.PCN ---
Date of Procedure: 04/10/20 Description of Procedure: Patient is a 68-year-old male with a history of decompensated alcoholic cirrhosis currently abstinent from alcohol abuse who presents for outpatient EGD for evaluation of esophageal varices. The patient reports abstinence from alcohol since last visit, and approximately 2 years overall. Previous episodes of GI bleeding with EGD showing esophageal varices which were banded as well as portal hypertensive gastropathy, and he said banding on multiple occasions in the past. However, last EGD in 09/2019 with only small varices seen. He is currently on propranolol therapy. PROCEDURE PERFORMED: Esophagogastroduodenoscopy. PREOPERATIVE DIAGNOSIS: Esophageal varices, history of GI bleeding. ESTIMATED BLOOD LOSS: Minimal. IV sedation per anesthesia. PROCEDURE: After informed consent was obtained, the patient was brought into the endoscopy unit. IV sedation was administered by Anesthesia under continuous monitoring. Initially the Olympus GIF-190 video endoscope was inserted into the mouth. Esophagus intubated without any difficulty. It was gradually advanced into the stomach and duodenum and carefully examined. The bulb and the second part of the duodenum appeared normal. The scope at this time was withdrawn to the stomach, adequately insufflated with air, and upon careful examination, mucosa of the antrum, body, cardia and the fundus appeared normal, except for some mild erythema in the body and fundus consistent with portal hypertensive gastropathy. The scope was then withdrawn into the esophagus. The GE junction was located at 37 cm from the incisors, one column of small varices noted. Otherwise esophagus appeared normal. Patient tolerated the procedure well. IMPRESSION: 1. Small esophageal varices. 2. Mild portal hypertensive gastropathy. RECOMMENDATIONS: The findings of this examination were discussed with the patient. Okay to resume diet. Continue current medical regimen. Continue alcohol abstinence. Continue propranolol therapy. Anticipate repeat EGD in 1 year. Follow up with GI as previously scheduled.
[2020-04-10 11:04] VITALS: BP 144/67; PULSE 73
== END 2020-04-10 11:26 | disposition home or self-care (01) ==
LOC: ORWHC2ENDO 08:48
PROVIDERS: ATTEND Internal Medicine
DX: K70.30 Alcoholic cirrhosis of liver without ascites (principal); I85.10 Secondary esophageal varices without bleeding; K76.6 Portal hypertension; K31.89 Other diseases of stomach and duodenum; F10.21 Alcohol dependence, in remission; I25.2 Old myocardial infarction; I25.10 Atherosclerotic heart disease of native coronary artery without angina pectoris; I49.9 Cardiac arrhythmia, unspecified; I10 Essential (primary) hypertension; K08.409 Partial loss of teeth, unspecified cause, unspecified class; K21.9 Gastro-esophageal reflux disease without esophagitis; Z87.19 Personal history of other diseases of the digestive system; Z79.899 Other long term (current) drug therapy; Z98.890 Other specified postprocedural states; Z87.891 Personal history of nicotine dependence
CPT/HCPCS: 43235; J2704

== ENCOUNTER → 2020-04-18 | Outpatient (CLI) | payer MEDICARE, OTHER ==
--- NOTE | 2020-04-18 10:17 | US ---
EXAMINATION TYPE: US liver DATE OF EXAM: 04/18/2020 COMPARISON: US 2019 CLINICAL HISTORY: K74.60 Unspecified cirrhosis of liver. EXAM MEASUREMENTS: Liver Length: 16.9 cm Gallbladder Wall: 0.3 cm CBD: 0.6 cm Right Kidney: 9.1 x 4.8 x 4.4 cm Pancreas: visualized portions wnl, limited by overlying midline bowel gas Liver: lobulated contour, heterogeneous, 2 small cysts seen measuring 1.3cm and 1.3cm Gallbladder: multiple mobile stones seen, wall measures wnl, no pericholecystic fluid Evidence for sonographic Urbano's sign: no CBD: borderline thickening at 0.6cm Right Kidney: wnl IMPRESSION: 1. Multiple mobile gallstones. 2. Lobulated hepatic contour with underlying heterogeneity may reflect fatty liver.
== END | disposition home or self-care (01) ==
LOC: RADUSWWP 09:15
PROVIDERS: ATTEND Internal Medicine
DX: K80.20 Calculus of gallbladder without cholecystitis without obstruction (principal); K76.89 Other specified diseases of liver; K74.60 Unspecified cirrhosis of liver
CPT/HCPCS: 76705

== ENCOUNTER → 2020-08-19 | Outpatient (CLI) | payer MEDICARE, OTHER ==
[2020-08-19 23:19] LABS: Basophils # (A) 0.06 X 10*3/uL (0.00-0.10); Basophils % (A) 0.7 %; Eosinophils # (A) 0.09 X 10*3/uL (0.04-0.35); HCT 46.4 % (39.6-50.0); HGB 14.9 g/dL (13.0-17.0); Lymphocytes # (A) 1.21 X 10*3/uL (0.90-5.00); Lymphocytes % (A) 13.7 %; MCH 27.8 pg (27.0-32.0); MCHC 32.1 g/dL (32.0-37.0); MCV 86.6 fL (80.0-97.0); Mean Platelet Volume 8.9 fL (9.5-12.2); Monocytes # (A) 1.06 X 10*3/uL (0.20-1.00); Neutrophils # (A) 6.31 X 10*3/uL (1.80-7.70); Neutrophils % (A) 71.4 %; Platelet Count 244 X 10*3/uL (140-440); RBC 5.36 X 10*6/uL (4.40-5.60); RDW 14.8 % (11.5-14.5); WBC 8.84 X 10*3/uL (4.50-10.00)
[2020-08-20 05:56] LABS: % Iron Saturation 22.11 (15.00-50.00); African American GFR (CKD) 106.4 (60.0-200.0); Albumin 4.5 g/dL (3.80-4.90); Albumin/Globulin Ratio 1.61 (1.60-3.17); Anion Gap 11.6 mmol/L (4.00-12.00); BUN/Creat Ratio 11.25 Ratio (12.00-20.00); Calcium 9.6 mg/dL (8.7-10.3); Carbon Dioxide 25.4 mmol/L (21.6-31.8); Globulin 2.8 g/dL (1.6-3.3); Non-African American GFR(CKD) 91.8 (60.0-200.0); Potassium 5.3 mmol/L (3.5-5.5); Total Bilirubin 1.2 mg/dL (0.3-1.2); Total Protein 7.3 g/dL (6.2-8.2)
== END | disposition home or self-care (01) ==
LOC: LABWHC1 16:02
PROVIDERS: ATTEND Internal Medicine
DX: K70.31 Alcoholic cirrhosis of liver with ascites (principal)
CPT/HCPCS: 36415; 80053; 82105; 82728; 83540; 83550; 85025

== ENCOUNTER → 2020-09-26 | Outpatient (CLI) | payer MEDICARE, OTHER ==
--- NOTE | 2020-09-26 13:15 | US ---
EXAMINATION TYPE: US liver DATE OF EXAM: 09/26/2020 COMPARISON: 04/18/2020 CLINICAL HISTORY: K70.31 Alcoholic cirrhosis of liver with ascites. EXAM MEASUREMENTS: Liver Length: 15.9 cm Gallbladder Wall: Surgically absent cm CBD: .8 cm Right Kidney: 9.6 x 4.1 x 3.8 cm Pancreas: Tail obscured by overlying bowel gas Liver: Heterogenous lobulated in appearance. Gallbladder: Obscured by overlying bowel gas Evidence for sonographic Urbano's sign: No CBD: wnl Right Kidney: No hydronephrosis or masses seen IMPRESSION: 1. Heterogeneous liver is nodular in contour, consistent with known cirrhosis. MR is more sensitive for hepatoma. 2. Status post cholecystectomy.
== END | disposition home or self-care (01) ==
LOC: RADUSWWP 12:27
PROVIDERS: ATTEND Internal Medicine Gastroenterology
DX: C22.0 Liver cell carcinoma (principal); K70.31 Alcoholic cirrhosis of liver with ascites; Z90.49 Acquired absence of other specified parts of digestive tract
CPT/HCPCS: 76705

== ENCOUNTER → 2021-05-21 | Outpatient (CLI) | payer MEDICARE, OTHER ==
[2021-05-21 18:22] LABS: African American GFR (CKD) 107.4 (60.0-200.0); Albumin 4.4 g/dL (3.8-4.9); Albumin/Globulin Ratio 1.9 (1.60-3.17); Anion Gap 12.8 mmol/L (10.00-18.00); BUN/Creat Ratio 13.65 Ratio (12.00-20.00); Blood Urea Nitrogen 10.5 mg/dL (9.0-27.0); Calcium 9.7 mg/dL (8.7-10.3); Carbon Dioxide 24.4 mmol/L (20.0-27.5); Globulin 2.3 g/dL (1.6-3.3); Non-African American GFR(CKD) 92.6 (60.0-200.0); Potassium 4.3 mmol/L (3.5-5.5); Total Protein 6.8 g/dL (6.2-8.2)
[2021-05-21 18:26] LABS: Basophils # (A) 0.05 X 10*3/uL (0.00-0.10); Basophils % (A) 0.6 %; Eosinophils % (A) 1.3 %; HCT 47.1 % (39.6-50.0); HGB 14.9 g/dL (13.0-17.0); Immature Grans, Automated 0.4 %; Lymphocytes # (A) 1.12 X 10*3/uL (0.90-5.00); Lymphocytes % (A) 14.2 %; MCHC 31.6 g/dL (32.0-37.0); MCV 85.5 fL (80.0-97.0); Mean Platelet Volume 9.9 fL (9.5-12.2); Monocytes # (A) 0.68 X 10*3/uL (0.20-1.00); Monocytes % (A) 8.6 %; NRBC Per 100 WBC 0 /100 WBCS (0.0-0.0); Neutrophils % (A) 74.9 %; Platelet Count 186 X 10*3/uL (140-440); RBC 5.51 X 10*6/uL (4.40-5.60); RDW 15.4 % (11.5-14.5); WBC 7.88 X 10*3/uL (4.50-10.00)
== END | disposition home or self-care (01) ==
LOC: LABWHC1 10:35
PROVIDERS: ATTEND Nurse Practitioner Family
DX: K70.31 Alcoholic cirrhosis of liver with ascites (principal)
CPT/HCPCS: 36415; 80053; 82105; 85025

== ENCOUNTER 2021-06-14 13:30 | Emergency (ER) | payer MEDICARE, OTHER ==
[2021-06-14] MEDS ORDERED: DIPH,PERTUS(ACELL)TETVAC-LF 0.5 ML VIAL IM ONE (13:58)
[2021-06-14 14:07] VITALS: BP 206/99; PULSE 72; RESP 14; TEMP 97.7
--- NOTE | 2021-06-14 14:55 | CT ---
EXAMINATION TYPE: CT brain bianca wo con DATE OF EXAM: 06/14/2021 COMPARISON: CT brain 06/12/2016 HISTORY: fall, pain CT DLP: 1260.4 mGycm Automated exposure control for dose reduction was used. Ventricles of normal size. There is no mass effect or midline shift. There is no sign of intracranial hemorrhage. Calvarium is intact. There is some calcification of the cerebellar tentorium. There is m inimal hypodensity in the periventricular white matter. Cervical vertebra have normal alignment. Disc spaces are fairly normal. There is mild spurring at C5- C6 anteriorly. Facet joints are intact. Prevertebral soft tissues are intact. Temporal bones appear n ormal. There is normal aeration of the mastoid sinuses. IMPRESSION: Minimal chronic small vessel ischemia. No acute intracranial abnormality. Negative CT scan cervical spine. No fracture.
--- NOTE | 2021-06-14 14:59 | XR ---
EXAMINATION TYPE: XR chest 2V DATE OF EXAM: 06/14/2021 COMPARISON: 03/22/2018 HISTORY: Fall. Pain TECHNIQUE: 2 views FINDINGS: Heart is normal. Lungs are clear of infiltrate. There is no heart failure. There are no hil ar masses. Bony thorax is intact. IMPRESSION: No active cardiopulmonary disease. There is clearing of the mild interstitial infiltrates and improved inspiration compared to old exam.
--- NOTE | 2021-06-14 15:00 | XR ---
EXAMINATION TYPE: XR shoulder complete RT DATE OF EXAM: 06/14/2021 COMPARISON: NONE HISTORY: Pain TECHNIQUE: 3 views FINDINGS: There is no fracture nor dislocation. Glenohumeral joint is intact. There are no pathologic calcifications. IMPRESSION: Negative right shoulder exam. No fracture.
--- NOTE | 2021-06-14 15:01 | XR ---
EXAMINATION TYPE: XR hand complete RT DATE OF EXAM: 06/14/2021 COMPARISON: NONE HISTORY: Pain TECHNIQUE: 3 views FINDINGS: There is thickening of the fifth metacarpal. There is no acute fracture nor dislocation. Ca rpal bones are intact. IMPRESSION: Old fracture of the fifth metacarpal. No acute fracture seen.
--- NOTE | 2021-06-14 15:02 | XR ---
EXAMINATION TYPE: XR wrist complete RT DATE OF EXAM: 06/14/2021 COMPARISON: NONE HISTORY: Pain TECHNIQUE: 4 views FINDINGS: There is some deformity of the distal radius consistent with an old healed fracture. No acu te fracture seen. There is deformity fifth metacarpal consistent with old healed fracture. IMPRESSION: No acute abnormality of the right wrist.
--- NOTE | 2021-06-14 15:09 | ED ---
Fall HPI - General Chief Complaint: Fall Stated Complaint: FALL,HEAD INJURY Time Seen by Provider: 06/14/21 13:49 Source: patient, RN notes reviewed, old records reviewed Mode of arrival: EMS - History of Present Illness Initial Comments: 71-year-old male presents to the ER via EMS with complaints of trip and fall. Patient was reportedly walking to his son's house, and tripped over the edge of a curb and manhole. Patient fell striking his head and abrading his right hand on the concrete. Patient had no known loss of consciousness. He reports that he was helped by a stranger and EMS was contacted. Was able to ambulate. Patient reports that he has pain on the right hand, wrist and shoulder from his fall. Denies any lower extremity pain or back pain. Patient does have a reported history of alcohol abuse. Patient reports tetanus shot is up-to-date. - Related Data Home Medications Medication Instructions Recorded Confirmed Pantoprazole [Protonix] 40 mg PO QAM 09/28/18 04/10/20 Propranolol [Inderal] 10 mg PO BID 09/25/19 04/10/20 lisinopriL [Zestril] 5 mg PO QAM 09/25/19 04/10/20 Previous Rx's Medication Instructions Recorded Cephalexin [Keflex] 500 mg PO Q8HR #21 cap 06/14/21 Meclizine HCl 12.5 mg PO TID #15 tab 06/14/21 Ondansetron Odt [Zofran Odt] 4 mg PO Q8HR PRN #12 tab 06/14/21 Allergies Allergy/AdvReac Type Severity Reaction Status Date / Time No Known Allergies Allergy Verified 04/09/20 13:24 Review of Systems ROS Statement: Those systems with pertinent positive or pertinent negative responses have been documented in the HPI. ROS Other: All systems not noted in ROS Statement are negative. Past Medical History Past Medical History: Coronary Artery Disease (CAD), GERD/Reflux, GI Bleed, Myocardial Infarction (NM), Osteoarthritis (OA), Skin Disorder Additional Past Medical History / Comment(s): Alcoholic cirrhosis, upper GI bleed with acute blood loss anemia, EGD showed portal HTN gastropathy, esophageal varicies, delirium tremors, pt states lately vertigo at times, arthritis bilateral hands/legs, psoriasis. Last Myocardial Infarction Date:: 04/05/2016 History of Any Multi-Drug Resistant Organisms: None Reported Past Surgical History: Heart Catheterization Additional Past Surgical History / Comment(s): 03/22/18 EGD, REMOVAL SEBACEOUS SCROTAL SEBACEOUS CYST SEVERAL TIMES; CATARACT SURGERY LEFT AND RIGHT Past Anesthesia/Blood Transfusion Reactions: No Reported Reaction Additional Past Anesthesia/Blood Transfusion Reaction / Comment(s): Pt has received blood without reaction. Past Psychological History: No Psychological Hx Reported Smoking Status: Former smoker - Past Family History Father History Unknown: Yes Family Medical History: Myocardial Infarction (NM) Mother Family Medical History: Myocardial Infarction (NM) Additional Family Medical History / Comment(s): Mother had a NM at the age of 80yrs. She at the age of 85 yrs. General Exam - General Exam Comments Initial Comments: 70 year old male, in pain. Moderate discomfort. Limitations: physical limitation General appearance: alert, in no apparent distress Head exam: Present: normocephalic, normal inspection. Absent: atraumatic (Patient has contusion over the right forehead with a laceration measuring 3 cm of the right eyebrow.) Eye exam: Present: normal appearance, PERRL, EOMI. Absent: scleral icterus, conjunctival injection, periorbital swelling ENT exam: Present: normal exam, normal oropharynx, mucous membranes moist, other (Contusion of the nose.) Neck exam: Present: normal inspection. Absent: tenderness, meningismus, lymphadenopathy Respiratory exam: Present: normal lung sounds bilaterally. Absent: respiratory distress, wheezes, rales, rhonchi, stridor Cardiovascular Exam: Present: regular rate, normal rhythm, normal heart sounds. Absent: systolic murmur, diastolic murmur, rubs, gallop, clicks GI/Abdominal exam: Present: soft, normal bowel sounds. Absent: distended, tenderness, guarding, rebound, rigid Extremities exam: Present: normal inspection, full ROM, normal capillary refill, other (Patient has evidence of multiple skin abrasions/avulsion over the dorsum of the right hand. The largest area measures 4 cm x 2 cm. ). Absent: tenderness, pedal edema, joint swelling, calf tenderness Back exam: Present: normal inspection Neurological exam: Present: alert, oriented X3, CN II-XII intact Psychiatric exam: Present: normal affect, normal mood Skin exam: Present: warm, dry, intact, normal color. Absent: rash Course Vital Signs 06/14/21 14:04 Temperature 97.7 F Pulse Rate 72 Respiratory 14 Rate Blood Pressure 206/99 O2 Sat by Pulse 98 Oximetry Procedures - Laceration Laceration #1 Site: face (right eyebrow ) Size (cm): 3 Description: linear Depth: simple, single layer Anesthetic Used: lidocaine 1% Anesthesia Technique: local infiltration Amount (mls): 3 Pre-repair: wound explored, irrigated extensively Type of Sutures: nylon Size of Sutures: 5-0 Number of Sutures: 5 Technique: simple, interrupted Patient Tolerated Procedure: well, no complications Laceration #2 Site: hand Size (cm): 4 Description: irregular Depth: simple, single layer Pre-repair: wound explored, irrigated extensively Type of Sutures: other (dermabond) Size of Sutures: other (applied over skin abrasion/avulsion area, oil emersion dressing applied. ) Technique: simple, interrupted Patient Tolerated Procedure: well, no complications Medical Decision Making - Medical Decision Making 71-year-old male presents after trip and fall walking to his son's house. Denies any loss of consciousness. He had an abrasion swelling over the right anterior forehead so swelling over the bridge of the nose. CT was completed and shows no evidence of fracture or brain bleed. Patient is alert and oriented to neurological deficits. Patient denies of concern of head injury discussed Risk for developing concussion. Advised on being monitored throughout the day there is any signs of altered mental status Patient must return. Family understands. Patient's laceration above the right eyebrow was cleansed and closed with sutures. Patient's hand and wrist x-ray showed no evidence of old fractures. shoulder xray has No evidence of fractures. Patient has significant skin avulsion over the dorsum of the right hand. The area was cleansed with iodine and Dermabond was used to try to cover the area of the skin tear. Patient has oil immersion dressing over top. Patient reports that he is to follow-up with his primary care doctor tomorrow. Advised in the meantime for concern for nausea and slight dizziness after discussion can use Antivert and Zofran. I also will prescribe Patient Keflex for the multiple abrasions over the hand and facial laceration. - Radiology Data Radiology results: report reviewed CT brain and C spine" Minimal chronic small vessel ischemia. No acute intracranial normality. Negative computed tomography scan of the cervical spine. No fracture. Chest x-ray shows no active cardio ulnar disease. Clearing of infiltrates improved aeration compared old exam. Negative right shoulder exam. No fracture. hand Xr- Old fracture of the fifth metacarpal. No acute fracture seen. Wrist Xr- No acute abnormality of the right wrist is noticed. Some deformity of the distal radius consistent with old healed fracture. No new fracture noted. Disposition Clinical Impression: Concussion, Fall, Hand abrasion, Facial laceration, Shoulder strain Disposition: HOME SELF-CARE Condition: Good Instructions (If sedation given, give patient instructions): Care For Your Stitches (DC), Concussion (ED), Abrasion (ED) Additional Instructions: Please return to the emergency room in 8-10 days to have sutures removed. Please leave wound covered for the first 24-48 hours and then leave open to air after that time. Please use clean soap and water to clean the suture area to prevent scabbing over the top of your sutures. Please watch for any signs of infection which may include but not limited to increased pain, swelling, redness, fever or chills. Please return to the emergency room if any signs of infection do occur. Please return to the emergency room for any other concerns or complications. Patient advised to follow-up with primary care physician tomorrow. Take the antibiotic as prescribed. Patient should change dressing daily. Allow soap and water to run over the dressing after tomorrow. Patient can have antibiotic ointment applied over the eyebrow laceration. Take the nausea medicine and dizziness medication as needed for concussion. Prescriptions: Cephalexin [Keflex] 500 mg PO Q8HR #21 cap Meclizine HCl 12.5 mg PO TID #15 tab Ondansetron Odt [Zofran Odt] 4 mg PO Q8HR PRN #12 tab PRN Reason: Nausea Is patient prescribed a controlled substance at d/c from ED?: No Referrals: Raleigh Goodwin [Primary Care Provider] - 1-2 days Time of Disposition: 16:29
[2021-06-14] MEDS ORDERED: LIDOCAINE 1% INJ 10MG/ML (20 ML MDV) SQ ONE (15:10)
[2021-06-14] MEDS ORDERED: TOPICAL SKIN ADHESIVE 1 EACH AMP TOPICAL ONE (15:40)
[2021-06-14] MEDS ORDERED: HYDROcodone/APAP 5-325MG 1 EACH TAB PO STA (15:40)
== END 2021-06-14 16:54 | disposition home or self-care (01) ==
LOC: EC 13:30
DX: T14.90XA Injury, unspecified, initial encounter (principal); W01.0XXA Fall on same level from slipping, tripping and stumbling without subsequent striking against object, initial encounter; K21.9 Gastro-esophageal reflux disease without esophagitis; Z79.1 Long term (current) use of non-steroidal anti-inflammatories (NSAID); I25.2 Old myocardial infarction
CPT/HCPCS: 73030; 73110; 73130; 71046; 72125; 70450; 90715; 12013; 12002; 90471; 99283; J2001

== ENCOUNTER → 2021-08-05 | Outpatient (CLI) | payer MEDICARE, OTHER ==
[2021-08-05 14:41] LABS: Basophils # (A) 0.05 X 10*3/uL (0.00-0.10); Basophils % (A) 0.7 %; Eosinophils # (A) 0.07 X 10*3/uL (0.04-0.35); HCT 47.7 % (39.6-50.0); HGB 15.1 g/dL (13.0-17.0); Immature Grans, Automated 0.7 %; Lymphocytes # (A) 1.14 X 10*3/uL (0.90-5.00); Lymphocytes % (A) 15.8 %; MCH 27.3 pg (27.0-32.0); MCHC 31.7 g/dL (32.0-37.0); MCV 86.1 fL (80.0-97.0); Monocytes # (A) 0.73 X 10*3/uL (0.20-1.00); Monocytes % (A) 10.1 %; NRBC Per 100 WBC 0 /100 WBCS (0.0-0.0); Neutrophils # (A) 5.18 X 10*3/uL (1.80-7.70); Neutrophils % (A) 71.7 %; Platelet Count 201 X 10*3/uL (140-440); RBC 5.54 X 10*6/uL (4.40-5.60); RDW 15.6 % (11.5-14.5); WBC 7.22 X 10*3/uL (4.50-10.00)
[2021-08-05 14:44] LABS: African American GFR (CKD) 105.6 (60.0-200.0); Albumin 4.5 g/dL (3.8-4.9); Albumin/Globulin Ratio 1.67 (1.60-3.17); Anion Gap 11.7 mmol/L (10.00-18.00); BUN/Creat Ratio 11.75 Ratio (12.00-20.00); Blood Urea Nitrogen 9.4 mg/dL (9.0-27.0); Calcium 9.8 mg/dL (8.7-10.3); Carbon Dioxide 24.3 mmol/L (20.0-27.5); Globulin 2.7 g/dL (1.6-3.3); Non-African American GFR(CKD) 91.1 (60.0-200.0); Potassium 4.8 mmol/L (3.5-5.5); Total Bilirubin 1.2 mg/dL (0.30-1.20); Total Protein 7.2 g/dL (6.2-8.2)
== END | disposition home or self-care (01) ==
LOC: LABWHC1 08:56
PROVIDERS: ATTEND Nurse Practitioner Family
DX: K70.31 Alcoholic cirrhosis of liver with ascites (principal)
CPT/HCPCS: 36415; 80053; 82105; 85025

== ENCOUNTER → 2021-08-07 | Day surgery (SDC) | payer MEDICARE, OTHER ==
[2021-08-05 14:56] VITALS: BMI 20.9
[~2021-08-07] MED LIST changes: -LIDOCAINE 1% (10MG/ML) FOR IV START INTRADERMA PRN; +LIDOCAINE 2% INJ 20 MG/ML (2 ML VIAL) ONE; +PROPOFOL 10 MG/ML 20 ML VIAL IV ONE
[2021-08-07 08:06] VITALS: TEMP 97.4
--- NOTE | 2021-08-07 09:30 | P.PCN ---
Date of Procedure: 08/07/21 Procedure(s) Performed: BRIEF HISTORY: Patient is a 71-year-old, pleasant, white male. PROCEDURE PERFORMED: Esophagogastroduodenoscopy. PREOPERATIVE DIAGNOSIS: Follow up esophageal varices history of liver cirrhosis. IV sedation per anesthesia. PROCEDURE: After informed consent was obtained, the patient was brought into the endoscopy unit. IV sedation was administered by Anesthesia under continuous monitoring. Initially the Olympus GIF-140 video endoscope was inserted into the mouth. Esophagus intubated without any difficulty. It was gradually advanced into the stomach and duodenum and carefully examined. The bulb and the second part of the duodenum appeared normal. The scope at this time was withdrawn to the stomach, adequately insufflated with air, and upon careful examination, mucosa of the antrum of the normal. There were changes consistent with mild portal hypertensive gastropathy in the body of the stomach., The cardia and the fundus appeared normal. The scope was then withdrawn into the esophagus. The GE junction was located at 39 cm from the incisors. The esophagus appeared normal. There was one small distal esophageal varix identified. There were no erosions or ulcerations seen and the patient tolerated the procedure well. IMPRESSION: 1. Very small distal esophageal varix. 2. Mild portal hypertensive gastropathy. RECOMMENDATIONS: The findings of this examination were discussed with the patient as well as his family. He was advised to continue with Inderal 10 mg 3 times daily. We'll plan a repeat upper endoscopy in 1 year..
[2021-08-07 09:34] VITALS: RESP 16
[2021-08-07 09:56] VITALS: BP 120/70; PULSE 59
== END ==
LOC: ORWHC2ENDO 07:16
PROVIDERS: ATTEND Internal Medicine Gastroenterology
DX: K76.6 Portal hypertension (principal); I85.10 Secondary esophageal varices without bleeding; K74.60 Unspecified cirrhosis of liver; I10 Essential (primary) hypertension; K21.9 Gastro-esophageal reflux disease without esophagitis; K31.89 Other diseases of stomach and duodenum; Z79.899 Other long term (current) drug therapy; Z90.49 Acquired absence of other specified parts of digestive tract; Z98.49 Cataract extraction status, unspecified eye
CPT/HCPCS: 43235; J2704; J2001

== ENCOUNTER → 2021-09-03 | Outpatient (CLI) | payer MEDICARE, OTHER ==
[~2021-09-03] MED LIST changes: -LACTATED RINGERS 1,000 ML IV SCH; -LIDOCAINE 2% INJ 20 MG/ML (2 ML VIAL) ONE; -PROPOFOL 10 MG/ML 20 ML VIAL IV ONE; +REGADENOSON 0.4 MG/5 ML SYRINGE IV PRN
--- NOTE | 2021-09-03 12:03 | NM ---
EXAMINATION TYPE: NM stress lexiscan cardiolite DATE OF EXAM: 09/03/2021 COMPARISON: NONE HISTORY: Chest pain TECHNIQUE: After the intravenous administration of 10.1 mCi Tc 99m Sestamibi - Cardiolite resting SP ECT images acquired 45 minutes post injection. The patient received 0.4mg Lexiscan, 25.4 mCi Tc 99m Sestamibi - Stress images obtained [address] injection FINDINGS: Review of stress and rest SPECT images demonstrates a questionable area of reduced uptake stress in h is what is felt to be most likely artifactual. Gated analysis shows normal wall motion with an estim ated left ventricular ejection fraction of 57 %. IMPRESSION: No scintigraphic evidence for reversible ischemia. Reduced uptake seen along the inferior wall on str ess imaging is felt to be most likely artifactual but should be correlated clinically for confirmatio n.
--- NOTE | 2021-09-03 12:27 | CA ---
Lexiscan Nuclear Stress Test Report Name: Florencio Zamudio Exam Date: 09/03/2021 08:47 Exam Location: [facility] Stress Ht (in): 68 Wt (lb): 130 BSA: 1.70 Ordering Phys: Raleigh Goodwin Referring Phys: Raleigh Goodwin Technologist: Aroldo Del Rosario Age: 71 Gender: M : 1950 Procedure CPT: Indications: R94.31 ABNORMAL EKG ICD-10 Codes: Patient History: Medications: LISINOPRIL, PROPRANOLOL, NUMAQUIL, PANTOPRAZOLE Meds past 24 hrs: Pretest Chest Pain: STRESS TEST Lexiscan Protocol Exercise Duration (min:sec): 02:[address] Depressions (mm): Angina Score: Rodriguez Score: Resting HR (bpm): 60 Peak HR (bpm): 77 Resting BP (mmHg): 160 / 68 Peak BP (mmHg): 172 / 67 MPHR: 151 Target HR: 128 % MPHR: 51 METS: 1.0 Total Dose: Peak Dose: Atropine: Double Product: 67011 BP Response: Stress Termination: Stress Symptoms: NO SYMPTOMS Stress Summary: ECG ANALYSIS Resting ECG: Normal sinus rhythm with early repolarization changes Stress ECG: No evidence of ST segment depression CONCLUSIONS Negative stress test by EKG criteria Cardiolite portion of the stress test will be reported separately Dr. Cosme Watt MD (Electronically Signed) Final Date: 03 September 2021 12:26
== END | disposition home or self-care (01) ==
LOC: RADNMMAIN 08-17 07:41
PROVIDERS: ATTEND Family Medicine
DX: R94.31 Abnormal electrocardiogram [ECG] [EKG] (principal)
CPT/HCPCS: 93017; 78452; A9500; J2785

== ENCOUNTER → 2022-10-06 | Outpatient (CLI) | payer MEDICARE, OTHER ==
[2022-10-06 12:00] LABS: Basophils # (A) 0.05 X 10*3/uL (0.00-0.10); Basophils % (A) 0.6 %; Eosinophils # (A) 0.15 X 10*3/uL (0.04-0.35); Eosinophils % (A) 1.9 %; HCT 47.8 % (39.6-50.0); Lymphocytes # (A) 1.33 X 10*3/uL (0.90-5.00); Lymphocytes % (A) 16.7 %; MCH 27.4 pg (27.0-32.0); MCHC 33.5 d/dL (32.0-37.0); MCV 81.7 FL (80.0-97.0); Mean Platelet Volume 9.7 FL (9.5-12.2); Monocytes % (A) 8.8 %; NRBC Per 100 WBC 0 X 10*3/uL (0.00-0.01); Neutrophils # (A) 5.71 X 10*3/uL (1.80-7.70); Neutrophils % (A) 71.9 %; Platelet Count 205 X 10*3/uL (140-440); RBC 5.85 X 10*6/uL (4.40-5.60); RDW 14.3 % (11.5-14.5); WBC 7.95 X 10*3/uL (4.50-10.00)
[2022-10-06 12:09] LABS: Blood Urea Nitrogen 9.6 mg/dL (9.0-27.0); Calcium 9.9 mg/dL (8.7-10.3); Carbon Dioxide 22.6 mmol/L (21.6-31.8); Chloride 103 mmol/L (96-109); Glucose 101 mg/dL (70-110); Potassium 4.8 mmol/L (3.5-5.5); Sodium 138 mmol/L (135-145)
== END | disposition home or self-care (01) ==
LOC: LABWHC1 09:15
PROVIDERS: ATTEND Urology
DX: Z01.812 Encounter for preprocedural laboratory examination (principal)
CPT/HCPCS: 36415; 80048; 85025

== ENCOUNTER 2022-10-26 09:14 | Day surgery (SDC) | payer MEDICARE, OTHER ==
[2022-10-25 10:32] VITALS: BMI 21.1
[2022-10-26] MEDS: LACTATED RINGERS 1,000 ML IV SCH ×2 (10:33→11:19)
[2022-10-26 10:52] VITALS: RESP 16; TEMP 97.8
[2022-10-26] MEDS ORDERED: PROPOFOL 10 MG/ML 20 ML VIAL IV ONE (11:21)
--- NOTE | 2022-10-26 11:27 | P.PCN ---
Date of Procedure: 10/26/22 Procedure(s) Performed: BRIEF HISTORY: Patient is a 72-year-old, pleasant, white male scheduled for an upper endoscopy as a part of follow-up esophageal varices. He has history of cirrhosis of the liver diagnosed 3 years ago.. He has history of esophageal variceal bleeding in 2019 for which he underwent variceal ligation. Last EGD was done a year ago. Presently he is maintained on propranolol 10 mg 3 times daily. PROCEDURE PERFORMED: Esophagogastroduodenoscopy. PREOPERATIVE DIAGNOSIS: Follow-up esophageal varices. IV sedation per anesthesia. PROCEDURE: After informed consent was obtained, the patient was brought into the endoscopy unit. IV sedation was administered by Anesthesia under continuous monitoring. Initially the Olympus GIF-140 video endoscope was inserted into the mouth. Esophagus intubated without any difficulty. It was gradually advanced into the stomach and duodenum and carefully examined. The bulb and the second part of the duodenum appeared normal. The scope at this time was withdrawn to the stomach, adequately insufflated with air, and upon careful examination, mu cosa of the antrum, body, cardia and the fuhad changes consistent with mild to moderate portal hypertensive gastropathy. No gastric varices identified.The scope was then withdrawn into the esophagus. The GE junction was located at 42 cm from the incisors. The esophagus appeared normal. There were no erosions or ulcerations seen, very small distal esophageal varices seen and the patient tolerated the procedure well. IMPRESSION: 1. Small distal esophageal varices 2. Mild to moderate Portal evidence of gastropathy. RECOMMENDATIONS: The findings of this examination were discussed with the patient as well as his family. He was advised to continue with Relative milligrams 3 times daily and will plan a repeat upper endoscopy in 1 year.
[2022-10-26] MEDS ORDERED: IV FLUID CONTINUATION 300 ML IV ONE (11:29)
[2022-10-26 11:50] VITALS: BP 160/74; PULSE 75
== END 2022-10-26 12:26 | disposition home or self-care (01) ==
LOC: ORWHC2ENDO 09:14
PROVIDERS: ATTEND Internal Medicine Gastroenterology
DX: I85.00 Esophageal varices without bleeding (principal); K76.6 Portal hypertension; K31.89 Other diseases of stomach and duodenum; K21.9 Gastro-esophageal reflux disease without esophagitis; K74.60 Unspecified cirrhosis of liver; I25.10 Atherosclerotic heart disease of native coronary artery without angina pectoris; I25.2 Old myocardial infarction; M19.90 Unspecified osteoarthritis, unspecified site; Z79.899 Other long term (current) drug therapy
CPT/HCPCS: 43235; J2704

== ENCOUNTER → 2022-12-10 | Outpatient (CLI) | payer MEDICARE, OTHER ==
--- NOTE | 2022-12-10 08:41 | US ---
EXAMINATION TYPE: US liver DATE OF EXAM: 12/10/2022 COMPARISON: US 2022 CLINICAL INDICATION: Male, 72 years old with history of K70.31 ALCOHOLIC CIRRHOSIS OF LIVER WITH ASCI ROGERIO; TECHNIQUE: Multiple sonographic images of the right upper quadrant are obtained. FINDINGS: EXAM MEASUREMENTS: Liver Length: 13.5 cm CBD: 0.7 cm Right Kidney: 10.0 x 4.2 x 4.8 cm Pancreas: visualized portions wnl, limited by overlying midline bowel gas Liver: heterogeneous, lobulated contour, 1.1 x 0.8 x 1.2cm cyst left lobe, 1.7 x 1.5 x 1.6cm cyst le ft lobe Gallbladder: surgically absent Evidence for sonographic Urbano's sign: no CBD: visualized portions wnl, limited by overlying bowel gas Right Kidney: wnl IMPRESSION: 1. Heterogenous and lobulated hepatic contour. Correlate for underlying cirrhotic liver disease. 2. Hepatic cystic changes as noted.
== END | disposition home or self-care (01) ==
LOC: RADUSWWP 07:57
PROVIDERS: ATTEND Internal Medicine Gastroenterology
DX: K70.31 Alcoholic cirrhosis of liver with ascites (principal); K76.89 Other specified diseases of liver
CPT/HCPCS: 76705

== ENCOUNTER 2023-01-10 13:14 | Emergency (ER) | payer MEDICARE, OTHER ==
[2023-01-10 13:42] VITALS: TEMP 97.7
[2023-01-10] MEDS ORDERED: SODIUM CHLORIDE 0.9% 1,000 ML IV ONE (13:42)
--- NOTE | 2023-01-10 13:44 | ED ---
General Adult HPI - General Chief complaint: Chest Pain Stated complaint: chest pains Time Seen by Provider: 01/10/23 13:35 Source: patient, RN notes reviewed, old records reviewed Mode of arrival: ambulatory Limitations: no limitations - History of Present Illness Initial comments: 72 yo female presenting with 10 days of abdominal discomfort, diarrhea. Patient states he did have a brief episode of left lower chest pain. This was not sustained. No central chest pain. No diaphoresis. No fever. No dysuria. Pain is predominantly on the left side of his abdomen. - Related Data Home Medications Medication Instructions Recorded Confirmed Pantoprazole [Protonix] 40 mg PO DAILY 09/28/18 01/10/23 Propranolol [Inderal] 10 mg PO BID 09/25/19 01/10/23 lisinopriL [Zestril] 5 mg PO DAILY 09/25/19 01/10/23 [place] Eye Vitamin 1 cap PO BID 01/10/23 01/10/23 Sildenafil Citrate 100 mg PO DAILY PRN 01/10/23 01/10/23 prednisoLONE ACETATE 1% OPHTH 1 drop LEFT EYE BID 01/10/23 01/10/23 [Pred Forte 1%] Previous Rx's Medication Instructions Recorded Loperamide HCl [Imodium A-D] 2 mg PO DIRECTED #24 tablet 01/10/23 Allergies Allergy/AdvReac Type Severity Reaction Status Date / Time No Known Allergies Allergy Verified 01/10/23 13:54 Review of Systems ROS Statement: Those systems with pertinent positive or pertinent negative responses have been documented in the HPI. ROS Other: All systems not noted in ROS Statement are negative. Past Medical History Past Medical History: Coronary Artery Disease (CAD), GERD/Reflux, GI Bleed, Myocardial Infarction ([place]), Osteoarthritis (OA), Skin Disorder Additional Past Medical History / Comment(s): Hx. of alcoholic cirrhosis, stop drinking 7 years ago. Hx. of upper GI bleed with acute blood loss, anemia, EGD showed portal HTN, hx. of esophageal varicies, arthritis bilateral hands/legs, psoriasis. Last Myocardial Infarction Date:: 04/05/2016 History of Any Multi-Drug Resistant Organisms: None Reported Past Surgical History: Heart Catheterization Additional Past Surgical History / Comment(s): 03/22/18 EGD, REMOVAL SEBACEOUS SCROTAL SEBACEOUS CYST SEVERAL TIMES; CATARACT SURGERY LEFT AND RIGHT, had a Sebaceous Cyst. removed from scrotum on 10/18/22. Past Anesthesia/Blood Transfusion Reactions: No Reported Reaction Additional Past Anesthesia/Blood Transfusion Reaction / Comment(s): Pt has rece ived blood without reaction. Past Psychological History: No Psychological Hx Reported Smoking Status: Current every day smoker Past Alcohol Use History: None Reported Past Drug Use History: None Reported - Past Family History Father History Unknown: Yes Family Medical History: Myocardial Infarction ([place]) Mother Family Medical History: Myocardial Infarction ([place]) Additional Family Medical History / Comment(s): Mother had a [place] at the age of 80yrs. General Exam Limitations: no limitations General appearance: alert, in no apparent distress Head exam: Present: atraumatic, normocephalic Eye exam: Present: normal appearance, PERRL ENT exam: Present: normal exam Neck exam: Present: normal inspection. Absent: tenderness, meningismus Respiratory exam: Present: normal lung sounds bilaterally. Absent: respiratory distress, wheezes Cardiovascular Exam: Present: regular rate, normal rhythm GI/Abdominal exam: Present: soft, distended, tenderness (Left lower quadrant). Absent: guarding, rebound Extremities exam: Present: normal inspection, normal capillary refill. Absent: pedal edema Neurological exam: Present: alert, oriented X3, CN II-XII intact. Absent: motor sensory deficit Skin exam: Present: warm, dry, intact. Absent: cyanosis, diaphoretic Course Vital Signs 01/10/23 01/10/23 01/10/23 13:26 13:49 15:49 Temperature 97.7 F Pulse Rate 78 69 Pulse Rate [ 75 Server Service Assistant ] Respiratory 20 16 Rate Blood Pressure 117/71 137/65 O2 Sat by Pulse 99 99 Oximetry Medical Decision Making - Medical Decision Making Was pt. sent in by a medical professional or institution (, PA, WIRE STRAIGHTENER, urgent care, hospital, or group home...) When possible be specific @ -No Did you speak to anyone other than the patient for history (EMS, parent, family, police, friend...)? What history was obtained from this source @ -No Did you review nursing and triage notes (agree or disagree)? Why? @ -I reviewed and agree with nursing and triage notes Were old charts reviewed (outside hosp., previous admission, EMS record, old EKG, old radiological studies, urgent care reports/EKG's, group home records)? Report findings @ -No old charts were reviewed Differential Diagnosis (chest pain, altered mental status, abdominal pain women, abdominal pain men, vaginal bleeding, weakness, fever, dyspnea, syncope, headache, dizziness, GI bleed, back pain, seizure, CVA, palpatations, mental health, musculoskeletal)? @ -[Differential Abdominal Pain Men: Appendicitis, cholecystitis, diverticulosis, ischemic bowel, pancreatitis, hepatitis, UTI, gastroenteritis, AAA, incarcerated hernia, bowel obstruction, constipation, inflammatory bowel, hepatitis, peptic ulcer disease, splenic infarction, perforated viscus, testicular torsion, this is not meant to be an all-inclusive list EKG interpreted by me (3pts min.). @ -[Sinus rhythm rate of 73, NH interval 173, QRS duration 101, QTC [address] segment elevation. X-rays interpreted by me (1pt min.). @ -None done CT interpreted by me (1pt min.). @ CT negative for acute intra-abdominal process U/S interpreted by me (1pt. min.). @ -None done What testing was considered but not performed or refused? (CT, X-rays, U/S, labs)? Why? @ -None What meds were considered but not given or refused? Why? @ -None Did you discuss the management of the patient with other professionals (professionals i.e. , PA, WIRE STRAIGHTENER, lab, RT, psych nurse, social insurance adviser, arrt technologist, teacher, patient transport officer, behavioral health case manager)? Give summary @ -No Was smoking cessation discussed for >3mins.? @ -No Was critical care preformed (if so, how long)? @ -No Were there social determinants of health that impacted care today? How? (Homelessness, low income, unemployed, alcoholism, drug addiction, transportation, low edu. Level, literacy, decrease access to med. care, half-way, rehab)? @ -No Was there de-escalation of care discussed even if they declined (Discuss DNR or withdrawal of care, Hospice)? DNR status @ -No What co-morbidities impacted this encounter? (DM, HTN, Smoking, COPD, CAD, Cancer, CVA, ARF, Chemo, Hep., AIDS, mental health diagnosis, sleep apnea, morbid obesity)? @ -[Prior alcoholism, cirrhosis of liver Was patient admitted / discharged? Hospital course, mention meds given and route, prescriptions, significant lab abnormalities, going to OR and other pertinent info. @ -[72-year-old male with 10 days of diarrhea, he states is brown. Not watery. No blood. No melena. Hemoglobin is stable. Normal white blood cell count. Patient does have some acute kidney injury with a doubling of creatinine. He is given 1 L of normal saline in the emergency department. He's prescribed Imodium and encouraged to maintain oral hydration. He will follow closely with his primary care provider. Undiagnosed new problem with uncertain prognosis? @ -No Drug Therapy requiring intensive monitoring for toxicity (Heparin, Nitro, Insulin, Cardizem)? @ -No Were any procedures done? @ -No Diagnosis/symptom? @ -Diarrhea, dehydration Acute, or Chronic, or Acute on Chronic? @ -Acute Uncomplicated (without systemic symptoms) or Complicated (systemic symptoms)? @ -default Side effects of treatment? @ -No Exacerbation, Progression, or Severe Exacerbation? @ -No Poses a threat to life or bodily function? How? (Chest pain, [place], [place], pneumonia, PE, COPD, DKA, ARF, appy, cholecystitis, CVA, Diverticulitis, Homicidal, Suicidal, threat to staff... and all critical care pts) @ -Low risk at this time - Lab Data Result diagrams: 01/10/23 13:54 01/10/23 13:54 Lab Results 01/10/23 01/10/23 01/10/23 Range/Units 13:54 13:54 13:54 WBC 11.1 H (3.8-10.6) k/uL RBC 6.02 H (4.30-5.90) m/uL Hgb 16.8 (13.0-17.5) gm/dL Hct 50.4 (39.0-53.0) % MCV 83.7 (80.0-100.0) fL MCH 27.9 (25.0-35.0) pg MCHC 33.3 (31.0-37.0) g/dL RDW 14.4 (11.5-15.5) % Plt Count 251 (150-450) k/uL MPV 7.3 Neutrophils % 79 % Lymphocytes % 11 % Monocytes % 7 % Eosinophils % 1 % Basophils % 0 % Neutrophils # 8.8 H (1.3-7.7) k/uL Lymphocytes # 1.2 (1.0-4.8) k/uL Monocytes # 0.8 (0-1.0) k/uL Eosinophils # 0.1 (0-0.7) k/uL Basophils # 0.0 (0-0.2) k/uL PT 12.5 (10.0-12.5) sec INR 1.2 H (<1.2) APTT 30.4 H (22.0-30.0) sec Sodium 138 (137-145) mmol/L Potassium 5.0 (3.5-5.1) mmol/L Chloride 105 (98-107) mmol/L Carbon Dioxide 17 L (22-30) mmol/L Anion Gap 16 mmol/L BUN 31 H (9-20) mg/dL Creatinine 1.56 H (0.66-1.25) mg/dL Est GFR (CKD-EPI)AfAm 51 (>60 ml/min/1.73 sqM) Est GFR (CKD-EPI)NonAf 44 (>60 ml/min/1.73 sqM) Glucose 97 (74-99) mg/dL Plasma Lactic Acid Bryon (0.7-2.0) mmol/L Calcium 9.6 (8.4-10.2) mg/dL Total Bilirubin 1.9 H (0.2-1.3) mg/dL AST 63 H (17-59) U/L ALT 47 (4-49) U/L Alkaline Phosphatase 187 H (38-126) U/L Troponin I (0.000-0.034) ng/mL Total Protein 8.8 H (6.3-8.2) g/dL Albumin 5.0 (3.5-5.0) g/dL Amylase 85 (30-110) U/L Lipase 82 (23-300) U/L 01/10/23 01/10/23 Range/Units 13:54 13:54 WBC (3.8-10.6) k/uL RBC (4.30-5.90) m/uL Hgb (13.0-17.5) gm/dL Hct (39.0-53.0) % MCV (80.0-100.0) fL MCH (25.0-35.0) pg MCHC (31.0-37.0) g/dL RDW (11.5-15.5) % Plt Count (150-450) k/uL MPV Neutrophils % % Lymphocytes % % Monocytes % % Eosinophils % % Basophils % % Neutrophils # (1.3-7.7) k/uL Lymphocytes # (1.0-4.8) k/uL Monocytes # (0-1.0) k/uL Eosinophils # (0-0.7) k/uL Basophils # (0-0.2) k/uL PT (10.0-12.5) sec INR (<1.2) APTT (22.0-30.0) sec Sodium (137-145) mmol/L Potassium (3.5-5.1) mmol/L Chloride (98-107) mmol/L Carbon Dioxide (22-30) mmol/L Anion Gap mmol/L BUN (9-20) mg/dL Creatinine (0.66-1.25) mg/dL Est GFR (CKD-EPI)AfAm (>60 ml/min/1.73 sqM) Est GFR (CKD-EPI)NonAf (>60 ml/min/1.73 sqM) Glucose (74-99) mg/dL Plasma Lactic Acid Bryon 1.2 (0.7-2.0) mmol/L Calcium (8.4-10.2) mg/dL Total Bilirubin (0.2-1.3) mg/dL AST (17-59) U/L ALT (4-49) U/L Alkaline Phosphatase (38-126) U/L Troponin I <0.012 (0.000-0.034) ng/mL Total Protein (6.3-8.2) g/dL Albumin (3.5-5.0) g/dL Amylase (30-110) U/L Lipase (23-300) U/L Disposition Clinical Impression: Abdominal pain, Diarrhea Disposition: HOME SELF-CARE Condition: Fair Instructions (If sedation given, give patient instructions): Abdominal Pain (ED), Acute Diarrhea (ED) Additional Instructions: Please take Imodium for diarrhea. Please drink plenty fluids and allow to let replacement drinks like Pedialyte or Gatorade. Prescriptions: Loperamide HCl [Imodium A-D] 2 mg PO DIRECTED #24 tablet Is patient prescribed a controlled substance at d/c from ED?: No Referrals: None,Stated [Primary Care Provider] - 1-2 days Time of Disposition: 16:06
[2023-01-10 14:13] LABS: Basophils % (A) 0 %; Eosinophils # (A) 0.1 k/uL (0-0.7); Eosinophils % (A) 1 %; HCT 50.4 % (39.0-53.0); HGB 16.8 gm/dL (13.0-17.5); Lymphocytes # (A) 1.2 k/uL (1.0-4.8); Lymphocytes % (A) 11 %; MCH 27.9 pg (25.0-35.0); MCHC 33.3 g/dL (31.0-37.0); MCV 83.7 fL (80.0-100.0); Mean Platelet Volume 7.3; Monocytes # (A) 0.8 k/uL (0-1.0); Monocytes % (A) 7 %; Neutrophils # (A) 8.8 k/uL (1.3-7.7); Neutrophils % (A) 79 %; Platelet Count 251 k/uL (150-450); RBC 6.02 m/uL (4.30-5.90); RDW 14.4 % (11.5-15.5); WBC 11.1 k/uL (3.8-10.6)
[2023-01-10 14:23] LABS: ALT 47 U/L (4-49); AST 63 U/L (17-59); African American GFR (CKD) 51 (>60 ml/min/1.73 sqM); Alkaline Phosphatase 187 U/L (38-126); Amylase 85 U/L (30-110); Anion Gap 16 mmol/L; Blood Urea Nitrogen 31 mg/dL (9-20); Calcium 9.6 mg/dL (8.4-10.2); Carbon Dioxide 17 mmol/L (22-30); Chloride 105 mmol/L (98-107); Glucose 97 mg/dL (74-99); Lipase 82 U/L (23-300); Non-African American GFR(CKD) 44 (>60 ml/min/1.73 sqM); Sodium 138 mmol/L (137-145); Total Bilirubin 1.9 mg/dL (0.2-1.3); Total Protein 8.8 g/dL (6.3-8.2)
[2023-01-10 14:24] LABS: INR 1.2 (<1.2); Partial Thromboplastin Time 30.4 sec (22.0-30.0); Prothrombin Time 12.5 sec (10.0-12.5)
--- NOTE | 2023-01-10 15:46 | CT ---
EXAMINATION TYPE: CT abdomen pelvis wo con CT DLP: 407.6 mGycm, Automated exposure control for dose reduction was used. DATE OF EXAM: 01/10/2023 3:17 PM COMPARISON: CT abdomen pelvis most recent from 07/12/2021 CLINICAL INDICATION:Male, 72 years old with history of LLQ ab pain; LLQ pain, diarrhea, black stools TECHNIQUE: Axial CT of the ;CT abdomen pelvis wo con;Sagittal and coronal reformats were created on a separate workstation. Contrast used:(none if empty) Oral contrast used: without Oral Contrast (none if empty) FINDINGS: LOWER CHEST: Unremarkable ABDOMEN LIVER: Nodular shrunken appearance of the liver. There are at least 2 likely cysts which are stable f rom prior. GALLBLADDER AND BILE DUCTS: The gallbladder appears surgically absent. PANCREAS: Unremarkable. SPLEEN: Unremarkable. ADRENAL GLANDS: Unremarkable. KIDNEYS AND URETERS: No evidence of hydronephrosis or renal calculus. The ureters are unremarkable. PELVIS BLADDER: Unremarkable REPRODUCTIVE: Prostate is enlarged in size measuring 5.3 cm in transverse dimension. ABDOMEN & PELVIS STOMACH AND BOWEL: No evidence of bowel obstruction. There is redundant sigmoid colon. No evidence fo r gastrointestinal hemorrhage on this noncontrast limited exam. PERITONEUM/RETROPERITONEUM: No evidence of pneumoperitoneum or free fluid. VASCULATURE: Moderate atherosclerotic calcifications are present throughout the abdominal aorta and i ts branches. No evidence of aortic aneurysm. MUSCULOSKELETAL: No acute osseous abnormalities. Mild disc degeneration changes are present throughou t the thoracolumbar spine. LYMPH NODES: No gross evidence for lymphadenopathy. SOFT TISSUE/ABDOMINAL WALL: Unremarkable IMPRESSION: 1. No evidence for acute left lower quadrant process to explain the patient's pain. No obstructive u ropathy or calculus. No evidence for gastrointestinal hemorrhage on this noncontrast exam. The Colon is without evidence for acute fracture/inflammatory process. 2. Hepatic cirrhosis with at least 2 hypodense lesions felt to represent cysts given their stable si nce 07/24/2021. 3. Prostatomegaly correlate with serum PSA.
[2023-01-10 16:03] VITALS: RESP 16
[2023-01-10 16:47] VITALS: BP 124/79; PULSE 78
== END 2023-01-10 16:37 | disposition home or self-care (01) ==
LOC: EC 13:14
DX: R10.32 Left lower quadrant pain (principal); R19.7 Diarrhea, unspecified; I25.10 Atherosclerotic heart disease of native coronary artery without angina pectoris; I25.2 Old myocardial infarction; K21.9 Gastro-esophageal reflux disease without esophagitis; M19.90 Unspecified osteoarthritis, unspecified site; F17.200 Nicotine dependence, unspecified, uncomplicated; Z79.899 Other long term (current) drug therapy
CPT/HCPCS: 36415; 74176; 80053; 82150; 83605; 83690; 84484; 85025; 85610; 85730; 93005; 96360; 99285

== ENCOUNTER 2023-01-20 10:16 | Emergency (ER) | payer MEDICARE, OTHER ==
[2023-01-20 10:54] VITALS: RESP 18; TEMP 98.3
--- NOTE | 2023-01-20 11:01 | ED ---
URI HPI - General Chief Complaint: Upper Respiratory Infection Stated Complaint: Cough Time Seen by Provider: 01/20/23 10:54 Source: patient, RN notes reviewed Mode of arrival: ambulatory Limitations: no limitations - History of Present Illness Initial Comments: Patient is 72-year-old male presented to ER with chief complaint of productive cough. Patient states this been going on for a couple of days. Patient endorses associated runny nose and sore throat. He denies any fevers, chills, shortness of breath, chest pain, abdominal pain, constipation/diarrhea, or urinary symptoms. Patient states he was recently around his sister who was diagnosed with COVID and hospitalized. Patient would like to be checked for COVID. - Related Data Home Medications Medication Instructions Recorded Confirmed Pantoprazole [Protonix] 40 mg PO DAILY 09/28/18 01/10/23 Propranolol [Inderal] 10 mg PO BID 09/25/19 01/10/23 lisinopriL [Zestril] 5 mg PO DAILY 09/25/19 01/10/23 [place] Vitamin 1 cap PO BID 01/10/23 01/10/23 Sildenafil Citrate 100 mg PO DAILY PRN 01/10/23 01/10/23 prednisoLONE ACETATE 1% OPHTH 1 drop LEFT EYE BID 01/10/23 01/10/23 [Pred Forte 1%] Previous Rx's Medication Instructions Recorded Loperamide HCl [Imodium A-D] 2 mg PO DIRECTED #24 tablet 01/10/23 Allergies Allergy/AdvReac Type Severity Reaction Status Date / Time No Known Allergies Allergy Verified 01/20/23 10:51 Review of Systems ROS Statement: Those systems with pertinent positive or pertinent negative responses have been documented in the HPI. ROS Other: All systems not noted in ROS Statement are negative. Past Medical History Past Medical History: Coronary Artery Disease (CAD), GERD/Reflux, GI Bleed, Myocardial Infarction ([place]), Osteoarthritis (OA), Skin Disorder Additional Past Medical History / Comment(s): Hx. of alcoholic cirrhosis, stop drinking 7 years ago. Hx. of upper GI bleed with acute blood loss, anemia, EGD showed portal HTN, hx. of esophageal varicies, arthritis bilateral hands/legs, psoriasis. Last Myocardial Infarction Date:: 04/05/2016 History of Any Multi-Drug Resistant Organisms: None Reported Past Surgical History: Heart Catheterization Additional Past Surgical History / Comment(s): 03/22/18 EGD, REMOVAL SEBACEOUS SCROTAL SEBACEOUS CYST SEVERAL TIMES; CATARACT SURGERY LEFT AND RIGHT, had a Sebaceous Cyst. removed from scrotum on 10/18/22. Past Anesthesia/Blood Transfusion Reactions: No Reported Reaction Additional Past Anesthesia/Blood Transfusion Reaction / Comment(s): Pt has received blood without reaction. Past Psychological History: No Psychological Hx Reported Smoking Status: Current every day smoker Past Alcohol Use History: None Reported Past Drug Use History: None Reported - Past Family History Father History Unknown: Yes Family Medical History: Myocardial Infarction ([place]) Mother Family Medical History: Myocardial Infarction ([place]) Additional Family Medical History / Comment(s): Mother had a CA at the age of 80yrs. General Exam Limitations: no limitations General appearance: alert, in no apparent distress ENT exam: Present: normal exam, normal oropharynx, mucous membranes moist, TM's normal bilaterally Neck exam: Present: normal inspection. Absent: tenderness, meningismus, lymphadenopathy Respiratory exam: Present: normal lung sounds bilaterally. Absent: respiratory distress, wheezes, rales, rhonchi, stridor Cardiovascular Exam: Present: regular rate, normal rhythm, normal heart sounds. Absent: systolic murmur, diastolic murmur, rubs, gallop, clicks GI/Abdominal exam: Present: soft, normal bowel sounds. Absent: distended, tenderness, guarding, rebound, rigid Neurological exam: Present: alert, oriented X3, CN II-XII intact Psychiatric exam: Present: normal affect, normal mood Skin exam: Present: warm, dry, intact, normal color. Absent: rash Course Vital Signs 01/20/23 01/20/23 10:49 11:20 Temperature 98.3 F Pulse Rate 56 L Respiratory 18 18 Rate Blood Pressure 149/78 O2 Sat by Pulse 99 Oximetry Medical Decision Making - Medical Decision Making Was pt. sent in by a medical professional or institution (, PA, COMPUTER SERVICE TECHNICIAN, urgent care, hospital, or alf...) When possible be specific @ -No Did you speak to anyone other than the patient for history (EMS, parent, family, police, friend...)? What history was obtained from this source @ -No Did you review nursing and triage notes (agree or disagree)? Why? @ -I reviewed and agree with nursing and triage notes Were old charts reviewed (outside hosp., previous admission, EMS record, old EKG, old radiological studies, urgent care reports/EKG's, alf records)? Report findings @ -No old charts were reviewed Differential Diagnosis (chest pain, altered mental status, abdominal pain women, abdominal pain men, vaginal bleeding, weakness, fever, dyspnea, syncope, headache, dizziness, GI bleed, back pain, seizure, CVA, palpatations, mental health, musculoskeletal)? @ -Viral URI, COVID-19, influenza, RSV, Strep throat. EKG interpreted by me (3pts min.). @ -None X-rays interpreted by me (1pt min.). @ -None done CT interpreted by me (1pt min.). @ -None done U/S interpreted by me (1pt. min.). @ -None done What testing was considered but not performed or refused? (CT, X-rays, U/S, labs)? Why? @ -None What meds were considered but not given or refused? Why? @ -None Did you discuss the management of the patient with other professionals (professionals i.e. , PA, COMPUTER SERVICE TECHNICIAN, lab, RT, psych nurse, social studies department chair, touring production manager, teacher, disbursing officer, case investigator)? Give summary @ -No Was smoking cessation discussed for >3mins.? @ -No Was critical care preformed (if so, how long)? @ -No Were there social determinants of health that impacted care today? How? (Homelessness, low income, unemployed, alcoholism, drug addiction, transportation, low edu. Level, literacy, decrease access to med. care, correction, rehab)? @ -No Was there de-escalation of care discussed even if they declined (Discuss DNR or withdrawal of care, Hospice)? DNR status @ -No What co-morbidities impacted this encounter? (DM, HTN, Smoking, COPD, CAD, Cancer, CVA, ARF, Chemo, Hep., AIDS, mental health diagnosis, sleep apnea, morbid obesity)? @ -None Was patient admitted / discharged? Hospital course, mention meds given and route, prescriptions, significant lab abnormalities, going to OR and other pertinent info. @ -Discharge. Viral swabs obtained in the ER were negative. Strep swab was negative as well. I advised patient to take OTC tylenol and motrin for pain. Patient will be discharged home in stable condition with follow-up to PCP. Return parameters were discussed. Patient expressed understanding and agreement with plan. Undiagnosed new problem with uncertain prognosis? @ -No Drug Therapy requiring intensive monitoring for toxicity (Heparin, Nitro, Insulin, Cardizem)? @ -No Were any procedures done? @ -No Diagnosis/symptom? @ -Viral URI Acute, or Chronic, or Acute on Chronic? @ -Acute Uncomplicated (without systemic symptoms) or Complicated (systemic symptoms)? @ -Uncomplicated Side effects of treatment? @ -No Exacerbation, Progression, or Severe Exacerbation? @ -No Poses a threat to life or bodily function? How? (Chest pain, [place], [place], pneumonia, PE, COPD, DKA, ARF, appy, cholecystitis, CVA, Diverticulitis, Homicidal, Suicidal, threat to staff... and all critical care pts) @ -No - Lab Data Lab Results 01/20/23 01/20/23 Range/Units 11:08 11:08 Influenza Type A (PCR) Not Detected (Not Detectd) Influenza Type B (PCR) Not Detected (Not Detectd) RSV (PCR) Not Detected (Not Detectd) SARS-CoV-2 (PCR) Not Detected (Not Detectd) Group A Strep (PCR) NOT DETECTED (Not Detectd) Disposition Clinical Impression: Viral URI Disposition: HOME SELF-CARE Condition: Stable Instructions (If sedation given, give patient instructions): Upper Respiratory Infection (ED) Additional Instructions: Please return to the Emergency Department if symptoms worsen or any other concerns. Is patient prescribed a controlled substance at d/c from ED?: No Referrals: Michael Benitez MD [Primary Care Provider] - 1-2 days Time of Disposition: 12:24
[2023-01-20 13:05] VITALS: BP 171/78; PULSE 65
== END 2023-01-20 12:43 | disposition home or self-care (01) ==
LOC: EC 10:16
DX: J06.9 Acute upper respiratory infection, unspecified (principal); I25.10 Atherosclerotic heart disease of native coronary artery without angina pectoris; I25.2 Old myocardial infarction; F17.200 Nicotine dependence, unspecified, uncomplicated; K21.9 Gastro-esophageal reflux disease without esophagitis; Z79.899 Other long term (current) drug therapy; Z20.822 Contact with and (suspected) exposure to COVID-19
CPT/HCPCS: 87636; 87651; 99283

== ENCOUNTER → 2023-08-08 | Outpatient (CLI) | payer MEDICARE, OTHER ==
--- NOTE | 2023-08-08 20:13 | US ---
EXAMINATION TYPE: US liver DATE OF EXAM: 08/08/2023 COMPARISON: CT abdomen and pelvis 01/10/2023, US liver done 623, 04/30/2022, 10/27/2021 CLINICAL INDICATION: Male, 73 years old with history of K70.31 ALCOHOLIC CIRRHOSIS OF LIVER WITH ASCI ROGERIO; Alcoholic cirrhosis, hx cholecystectomy. TECHNIQUE: Multiple sonographic images of the right upper quadrant are obtained. FINDINGS: EXAM MEASUREMENTS: Liver Length: 15.2 cm Gallbladder Wall: Surgically absent. CBD: Obscured Right Kidney: 10.8 x 5.3 x 4.3 cm HOME CARE RN NOTES: Exam is limited due to gas. Pancreas: Appears hyperechoic. Limited visibility of pancreatic head and tail. Liver: *Appears very coarse in echotexture with increased echogenicity. *Complex area seen within t he right lobe: 1.9 x 1.8 x 1.8 cm. Gallbladder: Surgically absent. CBD: Obscured Right Kidney: No hydronephrosis or masses seen Visualized portions of the fingers appears unremarkable. There is limited visibility of the tail due to overlying bowel gas. The liver demonstrates coarsened echotexture with increased echogenicity. The re is service nodularity. Findings are consistent with known cirrhosis. Stable cysts measuring up to 1.9 cm. No new suspicious hepatic lesions. Postcholecystectomy changes. Common bile duct is obscured by overlying bowel gas. The visualized right kidney demonstrates no hydronephrosis, nephrolithiasis, or solid masses. IMPRESSION: 1. Hepatic cirrhosis with stable hepatic cysts. No ultrasound evidence for new suspicious hepatic les ions. 2. Postcholecystectomy changes.
== END | disposition home or self-care (01) ==
LOC: RADUSWWP 08:10
PROVIDERS: ATTEND Internal Medicine Gastroenterology
DX: K70.31 Alcoholic cirrhosis of liver with ascites (principal); K76.89 Other specified diseases of liver
CPT/HCPCS: 76705

== ENCOUNTER → 2023-09-21 | Outpatient (CLI) | payer MEDICARE, OTHER ==
[2023-09-21 19:11] LABS: Basophils # (A) 0.03 X 10*3/uL (0.00-0.10); Basophils % (A) 0.4 %; Eosinophils # (A) 0.17 X 10*3/uL (0.04-0.35); Eosinophils % (A) 2.3 %; HCT 45.4 % (39.6-50.0); HGB 14.8 g/dL (13.0-17.0); Lymphocytes # (A) 1.51 X 10*3/uL (0.90-5.00); Lymphocytes % (A) 20.4 %; MCH 27.9 pg (27.0-32.0); MCHC 32.6 g/dL (32.0-37.0); MCV 85.7 FL (80.0-97.0); Mean Platelet Volume 10.2 FL (9.5-12.2); Monocytes # (A) 0.56 X 10*3/uL (0.20-1.00); Monocytes % (A) 7.5 %; NRBC Per 100 WBC 0 X 10*3/uL (0.00-0.01); Neutrophils # (A) 5.13 X 10*3/uL (1.80-7.70); Neutrophils % (A) 69.1 %; Platelet Count 217 X 10*3/uL (140-440); RDW 14.5 % (11.5-14.5); WBC 7.42 X 10*3/uL (4.50-10.00)
[2023-09-21 20:08] LABS: ALT 31 U/L (10-49); AST 36 U/L (14-35); Albumin 4.3 g/dL (3.8-4.9); Albumin/Globulin Ratio 1.87 Ratio (1.60-3.17); Alkaline Phosphatase 172 U/L (41-126); BUN/Creat Ratio 13.38 Ratio (12.00-20.00); Blood Urea Nitrogen 10.7 mg/dL (9.0-27.0); Calcium 9.2 mg/dL (8.7-10.3); Carbon Dioxide 24.6 mmol/L (21.6-31.8); Chloride 103 mmol/L (96-109); Globulin 2.3 g/dL (1.6-3.3); Glucose 130 mg/dL (70-110); Sodium 138 mmol/L (135-145); Total Bilirubin 1.2 mg/dL (0.3-1.2); Total Protein 6.6 g/dL (6.2-8.2)
== END | disposition home or self-care (01) ==
LOC: LABWHC1 12:35
PROVIDERS: ATTEND Internal Medicine Gastroenterology
DX: K70.31 Alcoholic cirrhosis of liver with ascites (principal)
CPT/HCPCS: 36415; 80053; 82105; 85025

== ENCOUNTER 2023-11-02 05:44 | Day surgery (SDC) | payer MEDICARE, OTHER ==
[~2023-11-02 05:44] MED LIST changes: +LIDOCAINE 1% (10MG/ML) FOR IV START INTRADERMA PRN; -REGADENOSON 0.4 MG/5 ML SYRINGE IV PRN
[2023-11-02 06:42] VITALS: TEMP 98
[2023-11-02] MEDS: IV FLUID CONTINUATION 1,000 ML IV ONE ×2 (06:52)
[2023-11-02] MEDS: LACTATED RINGERS 1,000 ML IV SCH (06:53)
[2023-11-02] MEDS ORDERED: PROPOFOL 10 MG/ML 20 ML VIAL IV ONE (06:59)
[2023-11-02] MEDS ORDERED: LIDOCAINE 2% (PF) 20 MG/ML 5 ML VIAL ONE (06:59)
--- NOTE | 2023-11-02 07:28 | P.PCN ---
Date of Procedure: 11/02/23 Procedure(s) Performed: Brief history: Patient is a pleasant 73-year-old white male scheduled for an elective upper endoscopy as well as colonoscopy as a part of evaluation of liver cirrhosis/screening for esophageal varices and chronic diarrhea for the last several months duration Procedure performed: Esophagogastroduodenoscopy with biopsy Colonoscopy with biopsy Preoperative diagnosis: History of liver cirrhosis/screening for esophageal varices Chronic diarrhea Anesthesia: MAC Procedure: After informed consent was obtained from the patient was brought into the endoscopy unit and IV sedation was administered by anesthesia under continuous monitoring. Initially upper endoscopy was done. The Olympus GF 160 video endoscope was inserted inserted into the mouth and esophagus intubated without any difficulty and was gradually advanced into the stomach and duodenum and carefully examined. The bulb and second part of the duodenum appeared normal. The scope was then withdrawn into the stomach adequately insufflated with air and upon careful examination the antrum and body, had a diffuse gastritis and biopsies were done from this area. Mucosa of the cardia and fundus appeared normal. The scope was then withdrawn into the esophagus. The GE junction was located at 40 cm to the incisors. It appeared regular with no erythema erosions or ulcerations. Rest of the esophagus appeared normal. No esophageal varices identified patient tolerated the procedure well. At this time the patient continued to remain sedation. Initial digital rectal examination was normal. Olympus CF 160 video colonoscope was then inserted into the rectum and gradually advanced to the cecum without any difficulty. Careful examination was performed as the scope was gradually being withdrawn. The prep was excellent. The cecum, 5 mm sessile polyp that was removed by cold biopsy. Rest of the ascending colon, transverse colon, descending colon, sigmoid colon and rectum appeared normal. Retroflexion was performed in the rectum and grade 2 internal hemorrhoids were noted. Biopsies were done from the ascending and descending colon to rule out microscopic/collagenous colitis. Patient tolerated the procedure well. Impression: 1. Upper endoscopy revealed diffuse gastritis but no evidence of esophageal varices or gastric varices 2. Colonoscopy revealed 5 mm cecal polyp status post cold biopsy and grade 2 internal hemorrhoids Recommendations: Findings of this examination were discussed with the patient as well as his family. He was advised to follow with the biopsy results. Recommended repeat upper endoscopy in 2 to 3 years to screen for esophageal varices.
[2023-11-02 07:52] VITALS: BP 124/93; PULSE 74; RESP 14
== END 2023-11-02 08:11 | disposition home or self-care (01) ==
LOC: ORWHC2ENDO 05:44
PROVIDERS: ATTEND Internal Medicine Gastroenterology
DX: D12.0 Benign neoplasm of cecum (principal); K31.9 Disease of stomach and duodenum, unspecified; K52.9 Noninfective gastroenteritis and colitis, unspecified; K74.60 Unspecified cirrhosis of liver; K21.9 Gastro-esophageal reflux disease without esophagitis; Z86.010 Personal history of colon polyps; F17.200 Nicotine dependence, unspecified, uncomplicated; Z90.49 Acquired absence of other specified parts of digestive tract; Z79.899 Other long term (current) drug therapy
CPT/HCPCS: 43239; 45380; 88305

== ENCOUNTER 2024-01-28 10:53 | Emergency (ER) | payer MEDICARE, OTHER ==
[2024-01-28 11:11] VITALS: RESP 18
--- NOTE | 2024-01-28 12:00 | ED ---
General Adult HPI - General Chief complaint: Nausea/Vomiting/Diarrhea Stated complaint: Diarrhea Time Seen by Provider: 01/28/24 11:12 Source: patient, RN notes reviewed Mode of arrival: ambulatory Limitations: no limitations - History of Present Illness Initial comments: Patient is a 73-year-old male presenting to the emergency department with concerns with diarrhea. Onset of symptoms was 3 days ago. Patient is having multiple episodes daily. Patient states this is mostly watery. No recent hospitalization or antibiotic use. Patient is having some mild abdominal discomfort. No nausea or vomiting. Patient did have this once previously and he became dehydrated and is worried that this will happen. - Related Data Home Medications Medication Instructions Recorded Confirmed Pantoprazole [Protonix] 40 mg PO QAM 09/28/18 11/02/23 Propranolol [Inderal] 10 mg PO BID 09/25/19 11/02/23 Numaqula Eye Vitamin 1 cap PO BID 01/10/23 11/02/23 Sildenafil Citrate 100 mg PO DAILY PRN 01/10/23 11/02/23 prednisoLONE ACETATE 1% OPHTH 1 drop LEFT EYE BID 01/10/23 11/02/23 [Pred Forte 1%] Loperamide HCl [Imodium A-D] 2 mg PO DIRECTED PRN 11/01/23 11/02/23 Previous Rx's Medication Instructions Recorded Dicyclomine [Bentyl] 20 mg PO QID PRN #15 tablet 01/28/24 Allergies Allergy/AdvReac Type Severity Reaction Status Date / Time No Known Allergies Allergy Verified 01/28/24 11:06 Review of Systems ROS Statement: Those systems with pertinent positive or pertinent negative responses have been documented in the HPI. ROS Other: All systems not noted in ROS Statement are negative. Constitutional: Denies: fever Eyes: Denies: eye pain ENT: Denies: ear pain Respiratory: Denies: cough, dyspnea Cardiovascular: Denies: chest pain Gastrointestinal: Reports: as per HPI, diarrhea Musculoskeletal: Denies: back pain Past Medical History Past Medical History: Coronary Artery Disease (CAD), GERD/Reflux, GI Bleed, Myocardial Infarction (ME), Osteoarthritis (OA), Skin Disorder Additional Past Medical History / Comment(s): Hx. of alcoholic cirrhosis, stop drinking 8 years ago. Hx. of upper GI bleed with acute blood loss, anemia, EGD showed portal HTN, hx. of esophageal varicies, arthritis bilateral hands/legs, psoriasis (RIGHT ELBOW, LEFT ELBOW) Last Myocardial Infarction Date:: 04/05/2016 History of Any Multi-Drug Resistant Organisms: None Reported Past Surgical History: Cholecystectomy, Heart Catheterization, Hernia Repair Additional Past Surgical History / Comment(s): 03/22/18 EGD. UMBILICAL HERNIA REPAIR. REMOVAL SEBACEOUS SCROTAL SEBACEOUS CYST SEVERAL TIMES; CATARACT SURGERY LEFT AND RIGHT, had a Sebaceous Cyst. removed from scrotum on 10/18/22. Past Anesthesia/Blood Transfusion Reactions: No Reported Reaction Additional Past Anesthesia/Blood Transfusion Reaction / Comment(s): Pt has received blood without reaction. Past Psychological History: No Psychological Hx Reported Smoking Status: Current every day smoker Past Alcohol Use History: None Reported Past Drug Use History: None Reported - Past Family History Father History Unknown: Yes Family Medical History: Myocardial Infarction (ME) Mother Family Medical History: Myocardial Infarction (ME) Additional Family Medical History / Comment(s): Mother had a ME at the age of 80yrs. General Exam Limitations: no limitations General appearance: alert, in no apparent distress Head exam: Present: normocephalic Eye exam: Present: normal appearance Neck exam: Present: normal inspection Respiratory exam: Present: normal lung sounds bilaterally Cardiovascular Exam: Present: regular rate, normal rhythm GI/Abdominal exam: Present: soft, normal bowel sounds. Absent: distended, tenderness, guarding, rebound, rigid, pulsatile mass Extremities exam: Present: normal inspection Neurological exam: Present: alert Psychiatric exam: Present: normal affect, normal mood Skin exam: Present: normal color Course Vital Signs 01/28/24 11:07 Temperature 97.5 F L Pulse Rate 64 Respiratory 18 Rate Blood Pressure 161/82 O2 Sat by Pulse 99 Oximetry Medical Decision Making - Medical Decision Making Was pt. sent in by a medical professional or institution (, PA, INFORMATION TECHNOLOGY ACCOUNT MANAGER, urgent care, hospital, or intermediate...) When possible be specific @ -No Did you speak to anyone other than the patient for history (EMS, parent, family, police, friend...)? What history was obtained from this source @ -No Did you review nursing and triage notes (agree or disagree)? Why? @ -I reviewed and agree with nursing and triage notes Were old charts reviewed (outside hosp., previous admission, EMS record, old EKG, old radiological studies, urgent care reports/EKG's, intermediate records)? Report findings @ -No old charts were reviewed Differential Diagnosis (chest pain, altered mental status, abdominal pain women, abdominal pain men, vaginal bleeding, weakness, fever, dyspnea, syncope, headache, dizziness, GI bleed, back pain, seizure, CVA, palpatations, mental health, musculoskeletal)? @ -Differential Abdominal Pain Men: Appendicitis, cholecystitis, diverticulosis, ischemic bowel, pancreatitis, hepatitis, UTI, gastroenteritis, AAA, incarcerated hernia, bowel obstruction, constipation, inflammatory bowel, hepatitis, peptic ulcer disease, splenic infarction, perforated viscus, testicular torsion, this is not meant to be an all-inclusive list EKG interpreted by me (3pts min.). @ -As above X-rays interpreted by me (1pt min.). @ -None done CT interpreted by me (1pt min.). @ -None done U/S interpreted by me (1pt. min.). @ -None done What testing was considered but not performed or refused? (CT, X-rays, U/S, labs)? Why? @ -Considered imaging however patient is nontender on exam What meds were considered but not given or refused? Why? @ -None Did you discuss the management of the patient with other professionals (professionals i.e. , PA, INFORMATION TECHNOLOGY ACCOUNT MANAGER, lab, RT, psych nurse, social work administrator, training facilitator, teacher, community reinvestment act officer, returned case inspector)? Give summary @ -No Was smoking cessation discussed for >3mins.? @ -No Was critical care preformed (if so, how long)? @ -No Were there social determinants of health that impacted care today? How? ( Homelessness, low income, unemployed, alcoholism, drug addiction, transportation, low edu. Level, literacy, decrease access to med. care, long term, rehab)? @ -No Was there de-escalation of care discussed even if they declined (Discuss DNR or withdrawal of care, Hospice)? DNR status @ -No What co-morbidities impacted this encounter? (DM, HTN, Smoking, COPD, CAD, Cancer, CVA, ARF, Chemo, Hep., AIDS, mental health diagnosis, sleep apnea, morbid obesity)? @ -None Was patient admitted / discharged? Hospital course, mention meds given and route, prescriptions, significant lab abnormalities, going to OR and other pertinent info. @ -Patient reevaluated and resting comfortably in bed, feeling much better. Patient updated on results and plan. Patient is comfortable with discharge Undiagnosed new problem with uncertain prognosis? @ -No Drug Therapy requiring intensive monitoring for toxicity (Heparin, Nitro, Insulin, Cardizem)? @ -No Were any procedures done? @ -No Diagnosis/symptom? @ -Diarrhea Acute, or Chronic, or Acute on Chronic? @ -Acute Uncomplicated (without systemic symptoms) or Complicated (systemic symptoms)? @ -Default Side effects of treatment? @ -No Exacerbation, Progression, or Severe Exacerbation? @ -No Poses a threat to life or bodily function? How? (Chest pain, USA, ME, pneumonia, PE, COPD, DKA, ARF, appy, cholecystitis, CVA, Diverticulitis, Homicidal, Suicidal, threat to staff... and all critical care pts) @ -No - Lab Data Result diagrams: 01/28/24 12:43 01/28/24 12:43 Lab Results 01/28/24 01/28/24 Range/Units 12:43 12:43 WBC 8.6 (3.8-10.6) k/uL RBC 5.29 (4.30-5.90) m/uL Hgb 14.7 (13.0-17.5) gm/dL Hct 45.4 (39.0-53.0) % MCV 85.8 (80.0-100.0) fL MCH 27.8 (25.0-35.0) pg MCHC 32.4 (31.0-37.0) g/dL RDW 13.8 (11.5-15.5) % Plt Count 213 (150-450) k/uL MPV 7.2 Neutrophils % 71 % Lymphocytes % 17 % Monocytes % 7 % Eosinophils % 2 % Basophils % 0 % Neutrophils # 6.1 (1.3-7.7) k/uL Lymphocytes # 1.4 (1.0-4.8) k/uL Monocytes # 0.6 (0-1.0) k/uL Eosinophils # 0.2 (0-0.7) k/uL Basophils # 0.0 (0-0.2) k/uL Sodium 137 (137-145) mmol/L Potassium 5.2 H (3.5-5.1) mmol/L Chloride 104 (98-107) mmol/L Carbon Dioxide 25 (22-30) mmol/L Anion Gap 8 mmol/L BUN 16 (9-20) mg/dL Creatinine 0.79 (0.66-1.25) mg/dL Est GFR (CKD-EPI)AfAm >90 (>60 ml/min/1.73 sqM) Est GFR (CKD-EPI)NonAf >90 (>60 ml/min/1.73 sqM) Glucose 93 (74-99) mg/dL Calcium 9.2 (8.4-10.2) mg/dL Total Bilirubin 1.2 (0.2-1.3) mg/dL AST 47 (17-59) U/L ALT 36 (4-49) U/L Alkaline Phosphatase 184 H (38-126) U/L Total Protein 7.1 (6.3-8.2) g/dL Albumin 4.3 (3.5-5.0) g/dL Amylase 68 (30-110) U/L Lipase 42 (23-300) U/L Disposition Clinical Impression: Diarrhea Disposition: HOME SELF-CARE Condition: Stable Instructions (If sedation given, give patient instructions): Acute Diarrhea (ED) Additional Instructions: Please do follow-up with your primary care physician in the next couple of days for recheck. Return for fever, increased pain, not tolerating food or fluids, worsening symptoms or any other concerns. Prescription sent to pharmacy Prescriptions: Dicyclomine [Bentyl] 20 mg PO QID PRN #15 tablet PRN Reason: Pain Is patient prescribed a controlled substance at d/c from ED?: No Referrals: Michael Benitez MD [Primary Care Provider] - 1-2 days Time of Disposition: 13:33
[2024-01-28] MEDS: DICYCLOMINE 10 MG/ML 2 ML AMP IM STA (12:41)
[2024-01-28] MEDS: FAMOTIDINE 20 MG/2 ML VIAL IV STA (12:41)
[2024-01-28] MEDS: SODIUM CHLORIDE 0.9% 1,000 ML IV STA (12:41)
[2024-01-28 12:58] LABS: Basophils % (A) 0 %; Eosinophils # (A) 0.2 k/uL (0-0.7); Eosinophils % (A) 2 %; HCT 45.4 % (39.0-53.0); HGB 14.7 gm/dL (13.0-17.5); Lymphocytes # (A) 1.4 k/uL (1.0-4.8); Lymphocytes % (A) 17 %; MCH 27.8 pg (25.0-35.0); MCHC 32.4 g/dL (31.0-37.0); MCV 85.8 fL (80.0-100.0); Mean Platelet Volume 7.2; Monocytes # (A) 0.6 k/uL (0-1.0); Monocytes % (A) 7 %; Neutrophils # (A) 6.1 k/uL (1.3-7.7); Neutrophils % (A) 71 %; Platelet Count 213 k/uL (150-450); RBC 5.29 m/uL (4.30-5.90); RDW 13.8 % (11.5-15.5); WBC 8.6 k/uL (3.8-10.6)
[2024-01-28 13:23] LABS: ALT 36 U/L (4-49); AST 47 U/L (17-59); African American GFR (CKD) >90 (>60 ml/min/1.73 sqM); Albumin 4.3 g/dL (3.5-5.0); Alkaline Phosphatase 184 U/L (38-126); Amylase 68 U/L (30-110); Anion Gap 8 mmol/L; Blood Urea Nitrogen 16 mg/dL (9-20); Calcium 9.2 mg/dL (8.4-10.2); Carbon Dioxide 25 mmol/L (22-30); Chloride 104 mmol/L (98-107); Glucose 93 mg/dL (74-99); Lipase 42 U/L (23-300); Non-African American GFR(CKD) >90 (>60 ml/min/1.73 sqM); Potassium 5.2 mmol/L (3.5-5.1); Sodium 137 mmol/L (137-145); Total Bilirubin 1.2 mg/dL (0.2-1.3); Total Protein 7.1 g/dL (6.3-8.2)
[2024-01-28 14:11] VITALS: BP 182/81; PULSE 57; TEMP 97.6
== END 2024-01-28 14:11 | disposition home or self-care (01) ==
LOC: EC 10:53
DX: R19.7 Diarrhea, unspecified (principal); F17.200 Nicotine dependence, unspecified, uncomplicated
CPT/HCPCS: 36415; 80053; 82150; 83690; 85025; 99284; 96374; 96372; 96361; J0500; J3490

== ENCOUNTER → 2024-03-22 | Outpatient (CLI) | payer MEDICARE, OTHER ==
--- NOTE | 2024-03-22 14:40 | US ---
EXAMINATION TYPE: US liver DATE OF EXAM: 03/22/2024 COMPARISON: Prior ultrasounds CLINICAL INDICATION: Male, 74 years old with history of K7031 ALCOHOLIC CIRRHOSIS; assess liver for c irrhosis every 6 months, no new symptoms, cholecystectomy TECHNIQUE: Grayscale and color Doppler imaging of the right upper quadrant was performed. FINDINGS: EXAM MEASUREMENTS: Liver Length: 13.0 cm Gallbladder Wall: Surgically absent CBD: 0.7 cm Right Kidney: 9.8 x 5.2 x 4.8 cm CROWN POUNCER NOTES:bowel gas limits study Pancreas: wnl Liver: nodular with 2 cystic areas, left lateral lobe = 0.9 x 0.8 x 0.8cm, right posterior lobe = 1. 6 x 1.4 x 1.5cm Gallbladder: Surgically absent Evidence for sonographic Urbano's sign: no CBD: wnl Right Kidney: wnl IMPRESSION: 1. Hepatic cirrhosis with simple appearing cyst. 2. No evidence for acute process. [facility], , 03/22/2024 2:38 PM
== END | disposition home or self-care (01) ==
LOC: RADUSWWP 10:57
PROVIDERS: ATTEND Internal Medicine Gastroenterology
DX: K70.31 Alcoholic cirrhosis of liver with ascites (principal); K76.89 Other specified diseases of liver
CPT/HCPCS: 76705; 83516

== ENCOUNTER 2024-03-24 12:21 | Emergency (ER) | payer MEDICARE, OTHER ==
[2024-03-24 12:31] VITALS: BP 142/67; PULSE 58; RESP 16; TEMP 97.6
--- NOTE | 2024-03-24 12:52 | ED ---
Recheck HPI - General Chief Complaint: Recheck/Abnormal Lab/Rx Stated Complaint: elevated BP Time Seen by Provider: 03/24/24 12:35 Source: patient, family, RN notes reviewed Mode of arrival: ambulatory - History of Present Illness Initial Comments: This is a 74-year-old male with history of coronary artery disease with subsequent NV, alcoholic cirrhosis of the liver, and hypertension presenting to the emergency department with request for medication prescription. Patient states that he was evaluated by his primary care provider, Dr. Benitez, who was concerned that his BP was elevated in office and reports that he was sent a prescription for HTN. States that he attempted to pickup driver the medication with pharmacy however pharmacist informed that there was no current prescription. He denies chest pain, palpitations, dizziness, headedness, peripheral edema, abdominal pain, nausea or vomiting. Patient is currently on lisinopril and propranolol. - Related Data Home Medications Medication Instructions Recorded Confirmed Pantoprazole [Protonix] 40 mg PO QAM 09/28/18 11/02/23 Propranolol [Inderal] 10 mg PO BID 09/25/19 11/02/23 Numaqula Eye Vitamin 1 cap PO BID 01/10/23 11/02/23 Sildenafil Citrate 100 mg PO DAILY PRN 01/10/23 11/02/23 prednisoLONE ACETATE 1% OPHTH 1 drop LEFT EYE BID 01/10/23 11/02/23 [Pred Forte 1%] Loperamide HCl [Imodium A-D] 2 mg PO DIRECTED PRN 11/01/23 11/02/23 Previous Rx's Medication Instructions Recorded Dicyclomine [Bentyl] 20 mg PO QID PRN #15 tablet 01/28/24 Allergies Allergy/AdvReac Type Severity Reaction Status Date / Time No Known Allergies Allergy Verified 01/28/24 11:06 Review of Systems ROS Statement: Those systems with pertinent positive or pertinent negative responses have been documented in the HPI. ROS Other: All systems not noted in ROS Statement are negative. Past Medical History Past Medical History: Coronary Artery Disease (CAD), GERD/Reflux, GI Bleed, Hypertension, Myocardial Infarction (NV), Osteoarthritis (OA), Skin Disorder Additional Past Medical History / Comment(s): Hx. of alcoholic cirrhosis, stop drinking 8 years ago. Hx. of upper GI bleed with acute blood loss, anemia, EGD showed portal HTN, hx. of esophageal varicies, arthritis bilateral hands/legs, psoriasis (RIGHT ELBOW, LEFT ELBOW) Last Myocardial Infarction Date:: 04/05/2016 History of Any Multi-Drug Resistant Organisms: None Reported Past Surgical History: Cholecystectomy, Heart Catheterization, Hernia Repair Additional Past Surgical History / Comment(s): 03/22/18 EGD. UMBILICAL HERNIA REPAIR. REMOVAL SEBACEOUS SCROTAL SEBACEOUS CYST SEVERAL TIMES; CATARACT SURGER Y LEFT AND RIGHT, had a Sebaceous Cyst. removed from scrotum on 10/18/22. Past Anesthesia/Blood Transfusion Reactions: No Reported Reaction Additional Past Anesthesia/Blood Transfusion Reaction / Comment(s): Pt has received blood without reaction. Past Psychological History: No Psychological Hx Reported Smoking Status: Current every day smoker Past Alcohol Use History: None Reported Past Drug Use History: None Reported - Past Family History Father History Unknown: Yes Family Medical History: Myocardial Infarction (NV) Mother Family Medical History: Myocardial Infarction (NV) Additional Family Medical History / Comment(s): Mother had a NV at the age of 80yrs. General Exam General appearance: alert, in no apparent distress Eye exam: Present: normal appearance, PERRL, EOMI. Absent: scleral icterus, conjunctival injection, periorbital swelling Respiratory exam: Present: normal lung sounds bilaterally. Absent: respiratory distress, wheezes, rales, rhonchi, stridor Cardiovascular Exam: Present: regular rate, normal rhythm, normal heart sounds. Absent: systolic murmur, diastolic murmur, rubs, gallop, clicks GI/Abdominal exam: Present: soft, normal bowel sounds. Absent: distended, tenderness, guarding, rebound, rigid Extremities exam: Present: normal inspection, full ROM, normal capillary refill. Absent: tenderness, pedal edema, joint swelling, calf tenderness Course Vital Signs 03/24/24 12:28 Temperature 97.6 F Pulse Rate 58 L Respiratory 16 Rate Blood Pressure 142/67 O2 Sat by Pulse 99 Oximetry Medical Decision Making - Medical Decision Making Was pt. sent in by a medical professional or institution (, PA, YARD GOODS SALESPERSON, urgent care, hospital, or long-term...) When possible be specific @ -No Did you speak to anyone other than the patient for history (EMS, parent, family, police, friend...)? What history was obtained from this source @ -Spoke to patient's son at bedside who provided current medications Did you review nursing and triage notes (agree or disagree)? Why? @ -I reviewed and agree with nursing and triage notes Were old charts reviewed (outside hosp., previous admission, EMS record, old EKG, old radiological studies, urgent care reports/EKG's, long-term records)? Report findings @ -No old charts were reviewed Differential Diagnosis (chest pain, altered mental status, abdominal pain women, abdominal pain men, vaginal bleeding, weakness, fever, dyspnea, syncope, headache, dizziness, GI bleed, back pain, seizure, CVA, palpatations, mental health, musculoskeletal)? @ -Hypertensive urgency, hypertensive emergency, encounter for medication refill, this is an all-inclusive EKG interpreted by me (3pts min.). @ -None X-rays interpreted by me (1pt min.). @ -None done CT interpreted by me (1pt min.). @ -None done U/S interpreted by me (1pt. min.). @ -None done What testing was considered but not performed or refused? (CT, X-rays, U/S, labs)? Why? @ -None What meds were considered but not given or refused? Why? @ -None Did you discuss the management of the patient with other professionals (professionals i.e. , PA, YARD GOODS SALESPERSON, lab, RT, psych nurse, social media project manager, letterset press set up operator, teacher, community development officer, shoe parts caser)? Give summary @ -No Was smoking cessation discussed for >3mins.? @ -No Was critical care preformed (if so, how long)? @ -No Were there social determinants of health that impacted care today? How? (Homelessness, low income, unemployed, alcoholism, drug addiction, transpor tation, low edu. Level, literacy, decrease access to med. care, intermediate, rehab)? @ -No Was there de-escalation of care discussed even if they declined (Discuss DNR or withdrawal of care, Hospice)? DNR status @ -No What co-morbidities impacted this encounter? (DM, HTN, Smoking, COPD, CAD, Cancer, CVA, ARF, Chemo, Hep., AIDS, mental health diagnosis, sleep apnea, morbid obesity)? @ -None Was patient admitted / discharged? Hospital course, mention meds given and route, prescriptions, significant lab abnormalities, going to OR and other pertinent info. @ -Discharge. 74-year-old male presenting with request for antihypertensive medication prescription. Patient's blood pressure has been elevated arrival of 142/67. Physical examination is unremarkable. Patient states that asthmatic. At this time discussion with patient return parameters and recommend that he contact his primary care office on Tuesday for further evaluation. Patient will not be initiated on antihypertensive additional medication as there is not appropriate follow-up in the emergency department and patient does have close follow-up with his primary care provider. Discussed with Dr. Nunez. Undiagnosed new problem with uncertain prognosis? @ -No Drug Therapy requiring intensive monitoring for toxicity (Heparin, Nitro, Insulin, Cardizem)? @ -No Were any procedures done? @ -No Diagnosis/symptom? @ -encounter for medication counseling Acute, or Chronic, or Acute on Chronic? @ -acute Uncomplicated (without systemic symptoms) or Complicated (systemic symptoms)? @ -uncomplicated Side effects of treatment? @ -No Exacerbation, Progression, or Severe Exacerbation? @ -No Poses a threat to life or bodily function? How? (Chest pain, USA, NV, pneumonia, PE, COPD, DKA, ARF, appy, cholecystitis, CVA, Diverticulitis, Homicidal, Suicidal, threat to staff... and all critical care pts) @ -No Disposition Clinical Impression: Encounter for medication counseling Disposition: HOME SELF-CARE Condition: Good Additional Instructions: Please return to the Emergency Department if symptoms worsen or any other concerns. Is patient prescribed a controlled substance at d/c from ED?: No Referrals: Michael Benitez MD [Primary Care Provider] - 1-2 days Time of Disposition: 12:58
== END 2024-03-24 13:02 | disposition home or self-care (01) ==
LOC: EC 12:21
DX: Z71.89 Other specified counseling (principal); F17.200 Nicotine dependence, unspecified, uncomplicated
CPT/HCPCS: 99283

== ENCOUNTER → 2024-03-28 | Outpatient (CLI) | payer MEDICARE, OTHER ==
[2024-03-28 15:15] LABS: Basophils # (A) 0.03 X 10*3/uL (0.00-0.10); Basophils % (A) 0.4 %; Eosinophils # (A) 0.14 X 10*3/uL (0.04-0.35); Eosinophils % (A) 1.8 %; HCT 48.7 % (39.6-50.0); HGB 15.1 g/dL (13.0-17.0); Lymphocytes # (A) 1.13 X 10*3/uL (0.90-5.00); Lymphocytes % (A) 14.9 %; MCV 87.1 FL (80.0-97.0); Mean Platelet Volume 9.7 FL (9.5-12.2); Monocytes # (A) 0.66 X 10*3/uL (0.20-1.00); Monocytes % (A) 8.7 %; NRBC Per 100 WBC 0 X 10*3/uL (0.00-0.01); Neutrophils # (A) 5.62 X 10*3/uL (1.80-7.70); Neutrophils % (A) 74.1 %; Platelet Count 237 X 10*3/uL (140-440); RBC 5.59 X 10*6/uL (4.40-5.60); RDW 14.6 % (11.5-14.5); WBC 7.59 X 10*3/uL (4.50-10.00)
[2024-03-28 15:24] LABS: ALT 35 U/L (10-49); AST 42 U/L (14-35); Albumin 4.3 g/dL (3.8-4.9); Albumin/Globulin Ratio 1.59 Ratio (1.60-3.17); Alkaline Phosphatase 193 U/L (41-126); BUN/Creat Ratio 16.75 Ratio (12.00-20.00); Blood Urea Nitrogen 13.4 mg/dL (9.0-27.0); Calcium 9.4 mg/dL (8.7-10.3); Carbon Dioxide 25.6 mmol/L (21.6-31.8); Chloride 109 mmol/L (96-109); Globulin 2.7 g/dL (1.6-3.3); Glucose 76 mg/dL (70-110); Potassium 4.6 mmol/L (3.5-5.5); Sodium 143 mmol/L (135-145); Total Bilirubin 0.6 mg/dL (0.3-1.2)
== END | disposition home or self-care (01) ==
LOC: LABWHC1 09:30
PROVIDERS: ATTEND Internal Medicine Gastroenterology
DX: K70.31 Alcoholic cirrhosis of liver with ascites (principal)
CPT/HCPCS: 36415; 80053; 82105; 85025

== ENCOUNTER → 2024-09-25 | Outpatient (CLI) | payer MEDICARE, OTHER ==
[2024-09-25 15:42] LABS: ALT 38 U/L (10-49); AST 39 U/L (14-35); Albumin 4.5 g/dL (3.8-4.9); Albumin/Globulin Ratio 1.55 Ratio (1.60-3.17); Alkaline Phosphatase 186 U/L (41-126); Anion Gap 11.50 mmol/L (4.00-12.00); BUN/Creat Ratio 15.56 Ratio (12.00-20.00); Blood Urea Nitrogen 14.0 mg/dL (9.0-27.0); Calcium 9.8 mg/dL (8.7-10.3); Carbon Dioxide 24.5 mmol/L (21.6-31.8); Chloride 101 mmol/L (96-109); Globulin 2.9 g/dL (1.6-3.3); Glucose 90 mg/dL (70-110); Potassium 4.9 mmol/L (3.5-5.5); Sodium 137 mmol/L (135-145); Total Protein 7.4 g/dL (6.2-8.2)
[2024-09-25 15:57] LABS: Basophils # (A) 0.04 X 10*3/uL (0.00-0.10); Basophils % (A) 0.5 %; Eosinophils # (A) 0.15 X 10*3/uL (0.04-0.35); Eosinophils % (A) 1.7 %; HCT 46.9 % (39.6-50.0); HGB 15.0 g/dL (13.0-17.0); Immature Grans, Automated 0.30 %; Lymphocytes # (A) 1.55 X 10*3/uL (0.90-5.00); Lymphocytes % (A) 17.8 %; MCH 27.0 pg (27.0-32.0); MCHC 32.0 g/dL (32.0-37.0); MCV 84.5 FL (80.0-97.0); Monocytes # (A) 0.73 X 10*3/uL (0.20-1.00); Monocytes % (A) 8.4 %; NRBC Per 100 WBC 0 X 10*3/uL (0.00-0.01); Neutrophils # (A) 6.21 X 10*3/uL (1.80-7.70); Neutrophils % (A) 71.3 %; Platelet Count 215 X 10*3/uL (140-440); RBC 5.55 X 10*6/uL (4.40-5.60); RDW 14.2 % (11.5-14.5); WBC 8.71 X 10*3/uL (4.50-10.00)
== END | disposition home or self-care (01) ==
LOC: LABWHC1 10:26
PROVIDERS: ATTEND Nurse Practitioner Family
DX: K70.31 Alcoholic cirrhosis of liver with ascites (principal)
CPT/HCPCS: 36415; 80053; 82105; 85025

== ENCOUNTER → 2024-10-04 | Outpatient (CLI) | payer MEDICARE, OTHER ==
--- NOTE | 2024-10-04 09:06 | US ---
EXAMINATION TYPE: US liver DATE OF EXAM: 10/04/2024 COMPARISON: Multiple liver ultrasounds with most recent 03/22/2024, CT abdomen and pelvis 01/10/2023 CLINICAL INDICATION: Male, 74 years old with history of K7031 ALCOHOLIC CIRRHOSIS; Routine follow up. History cholecystectomy, cirrhosis. TECHNIQUE: Grayscale and color Doppler imaging of the right upper quadrant. FINDINGS: EXAM MEASUREMENTS: Liver Length: 14.4 cm Gallbladder Wall: Surgically absent CBD: 0.9 cm, color Doppler imaging was utilized to isolate the common bile duct for measurement. Right Kidney: 10.0 x 5.3 x 5.3 cm TECHNICAL ASST NOTES: Exam limited by overlying bowel gas Pancreas: Portions visualized wnl, tail obscured by overlying bowel gas Liver: Appears coarse and heterogeneous with a nodular appearance. Two anechoic areas visualized: One located in the left lobe of the liver measuring 1.2 x 0.9 x 1.0 cm One located in the right lobe of the liver measuring 1.7 x 1.3 x 1.6 cm Gallbladder: Surgically absent CBD: wnl for post cholecystectomy status Right Kidney: No hydronephrosis or masses seen The visualized portions of the PICC is unremarkable. Liver demonstrates a coarse heterogenous echotex ture with surface nodularity. There are 2 simple appearing cysts identified. Gallbladder surgically a bsent. Common bile duct is within normal limits for post cholecystectomy status. Right kidney demonst rates no hydronephrosis, shadowing calculus or solid mass. No ascites identified within the right upp er quadrant. IMPRESSION: 1. Hepatic cirrhosis with 2 simple appearing hepatic cysts. No suspicious lesion identified. MRI is more sensitive for detection of HCC. 2. Postcholecystectomy changes. [facility], , 10/04/2024 9:04 AM
== END | disposition home or self-care (01) ==
LOC: RADUSWWP 07:58
PROVIDERS: ATTEND Internal Medicine Gastroenterology
DX: K70.31 Alcoholic cirrhosis of liver with ascites (principal); K76.89 Other specified diseases of liver; Z90.49 Acquired absence of other specified parts of digestive tract
CPT/HCPCS: 76705